=== PATIENT | female | born 1955 | race Caucasian/White ===

== ENCOUNTER → 2017-04-08 | Outpatient (CLI) | payer OTHER ==
--- NOTE | 2017-04-08 09:12 | US ---
EXAMINATION TYPE: US pelvic complete DATE OF EXAM: 04/08/2017 COMPARISON: NONE CLINICAL HISTORY: Abn LFT R94.5. Patient stated uterus and one ovary removed; on meds for thyroid, HT N, depression, allergies TECHNIQUE: Transabdominal (TA) Date of LMP: mid forties EXAM MEASUREMENTS: Uterus: surgically removed Endometrial Stripe: surgically removed Right Ovary: surgically removed Left Ovary: 2.0 x 1.1 x 1.8 cm 1. Uterus: NA 2. Endometrium: NA 3. Right Ovary: NA 4. Left Ovary: appears wnl 5. Bilateral Adnexa: wnl 6. Posterior cul-de-sac: wnl IMPRESSION: No significant abnormality
--- NOTE | 2017-04-08 09:14 | US ---
EXAMINATION TYPE: US abdomen complete DATE OF EXAM: 04/08/2017 COMPARISON: NONE CLINICAL HISTORY: Abn LFT R94.5. Patient stated is on meds for thyroid, HTN, cholesterol, allergies, depression; diabetic (diet controlled) EXAM MEASUREMENTS: Liver Length: 19.5 cm Gallbladder Wall: 0.2 cm CBD: 0.3 cm Spleen: 11.8 cm Right Kidney: 11.9 x 5.7 x 5.8 cm Left Kidney: 11.3 x 6.7 x 5.3 cm Pancreas: hyperechoic Liver: hyperechoic; fatty; enlarged; hypoechoic area (focal sparing) near gallbladder Gallbladder: wnl Evidence for sonographic Maurice's sign: No CBD: wnl Spleen: wnl Right Kidney: lobular appearance; fluid area adjacent to mid lower renal cortex is sonographic "sweat sign" suggesting renal failure and is noted bilateral kidneys Left Kidney: fluid area adjacent to mid and lower renal cortex Upper IVC: limitedly seen at upper IVC Abd Aorta: upper wnl, remainder is gassed out IMPRESSION: 1. Enlarged liver with hepatic steatosis. 2. Correlate for possible renal failure.
== END | disposition home or self-care (01) ==
LOC: RADUSWWP 06:59
PROVIDERS: ATTEND Internal Medicine
DX: K76.0 Fatty (change of) liver, not elsewhere classified (principal); R16.0 Hepatomegaly, not elsewhere classified
CPT/HCPCS: 76700; 76856

== ENCOUNTER → 2017-05-12 | Outpatient (CLI) | payer OTHER ==
[2017-05-12 11:09] LABS: Basophils # (A) 0.1 k/uL (0-0.2); Basophils % (A) 1 %; CH 32.9; CHCM 33.2; Eosinophils # (A) 0.2 k/uL (0-0.7); Eosinophils % (A) 4 %; HCT 39.1 % (34.0-46.0); HDW 2.42; HGB 13.1 gm/dL (11.4-16.0); Luc # (Auto) 0.18; Luc % (Auto) 4; Lymphocytes # (A) 0.6 k/uL (1.0-4.8); Lymphocytes % (A) 13 %; MCH 33.4 pg (25.0-35.0); MCHC 33.5 g/dL (31.0-37.0); MCV 99.5 fL (80.0-100.0); Mean Platelet Volume 6.7; Monocytes # (A) 0.3 k/uL (0-1.0); Monocytes % (A) 6 %; Neutrophils # (A) 3.3 k/uL (1.3-7.7); Neutrophils % (A) 72 %; RBC 3.93 m/uL (3.80-5.40); RDW 12.9 % (11.5-15.5); WBC 4.6 k/uL (3.8-10.6); WBC (Perox) 4.87
[2017-05-12 11:18] LABS: Calcium 10.6 mg/dL (8.4-10.2); Magnesium 1.4 mg/dL (1.6-2.3); Phosphorous 4.4 mg/dL (2.5-4.5); Potassium 4.9 mmol/L (3.5-5.1); Uric Acid 8.9 mg/dL (3.7-7.4)
[2017-05-12 12:15] LABS: Appearance,Urine Clear (Clear); Bilirubin,Urine Negative (Negative); Glucose,Urine (UA) Negative (Negative); Ketones,Urine Negative (Negative); Leukocyte Esterase,Urine Small (Negative); Mucus,Urine Rare /hpf; Nitrite,Urine Negative (Negative); Particle Count 1577; Protein,Urine Negative (Negative); Specific Gravity,Urine 1.012 (1.001-1.035); Squamous Epithelial Cell,Urine 2 /hpf (0-4); UA Billing (MACRO vs. MICRO) MICRO; Urobilinogen,Urine <2.0 mg/dL (<2.0); WBC,Urine 4 /hpf (0-5)
[2017-05-12 15:31] LABS: Iron 64 ug/dL (50-170); Iron Saturation 18.77 (12.00-45.00); Total Iron Binding Capacity 341 ug/dL (228-460)
== END | disposition home or self-care (01) ==
LOC: LABWHC1 10:33
PROVIDERS: ATTEND Internal Medicine Nephrology
DX: D64.9 Anemia, unspecified (principal); E55.9 Vitamin D deficiency, unspecified; N25.81 Secondary hyperparathyroidism of renal origin; M10.9 Gout, unspecified; N39.0 Urinary tract infection, site not specified; N18.3 Chronic kidney disease, stage 3 (moderate)
CPT/HCPCS: 36415; 80048; 81001; 82040; 82306; 82728; 83540; 83550; 83735; 83970; 84100; 84165; 84550; 85025; 86335

== ENCOUNTER → 2017-08-26 | Outpatient (CLI) | payer OTHER ==
[2017-08-26 11:08] LABS: Basophils % (A) 1 %; Eosinophils # (A) 0.1 k/uL (0-0.7); Eosinophils % (A) 1 %; HCT 33.7 % (34.0-46.0); HGB 10.7 gm/dL (11.4-16.0); Lymphocytes # (A) 0.6 k/uL (1.0-4.8); Lymphocytes % (A) 12 %; MCHC 31.9 g/dL (31.0-37.0); MCV 100.5 fL (80.0-100.0); Mean Platelet Volume 7.2; Monocytes # (A) 0.4 k/uL (0-1.0); Monocytes % (A) 7 %; Neutrophils % (A) 76 %; Platelet Count 134 k/uL (150-450); RBC 3.35 m/uL (3.80-5.40); RDW 13.4 % (11.5-15.5); WBC 5.3 k/uL (3.8-10.6)
[2017-08-26 11:35] LABS: Albumin 4.2 g/dL (3.5-5.0); Calcium 9.9 mg/dL (8.4-10.2); Magnesium 1.8 mg/dL (1.6-2.3); Potassium 5.4 mmol/L (3.5-5.1); Total Bilirubin 0.3 mg/dL (0.2-1.3); Total Protein 6.8 g/dL (6.3-8.2); Uric Acid 6.5 mg/dL (3.7-7.4)
[2017-08-26 11:42] LABS: T4, Free (Free Thyroxine) 1.19 ng/dL (0.78-2.19)
[2017-08-26 11:49] LABS: Appearance,Urine Clear (Clear); Bacteria,Urine Rare /hpf; Bilirubin,Urine Negative (Negative); Blood,Urine Negative (Negative); Color,Urine Light Yellow; Glucose,Urine (UA) Negative (Negative); Ketones,Urine Negative (Negative); Leukocyte Esterase,Urine Moderate (Negative); Mucus,Urine Rare /hpf; Nitrite,Urine Negative (Negative); Protein,Urine Negative (Negative); Specific Gravity,Urine 1.011 (1.001-1.035); Squamous Epithelial Cell,Urine 1 /hpf (0-4); Urobilinogen,Urine <2.0 mg/dL (<2.0); WBC,Urine 17 /hpf (0-5)
[2017-08-26 18:20] LABS: Parathyroid Hormone Intact 46.4 pg/mL (14.0-72.0)
== END | disposition home or self-care (01) ==
LOC: LABWHC1 10:09
PROVIDERS: ATTEND Nurse Practitioner Family
DX: E78.00 Pure hypercholesterolemia, unspecified (principal); E03.9 Hypothyroidism, unspecified; N18.3 Chronic kidney disease, stage 3 (moderate); E83.52 Hypercalcemia; M10.9 Gout, unspecified; N39.0 Urinary tract infection, site not specified
CPT/HCPCS: 36415; 80053; 80061; 81001; 83735; 83883; 83970; 84439; 84443; 84550; 85025; 86335

== ENCOUNTER → 2017-12-09 | Outpatient (CLI) | payer OTHER ==
[2017-12-09 10:56] LABS: Albumin 4.7 g/dL (3.5-5.0); Calcium 10.2 mg/dL (8.4-10.2); Potassium 5.4 mmol/L (3.5-5.1); Total Bilirubin 0.3 mg/dL (0.2-1.3); Total Protein 7.1 g/dL (6.3-8.2)
[2017-12-13 15:32] LABS: Alpha 1 Anti-Trypsin 93 mg/dL (90 - 200); Alpha-1-Antitrypsin Phenotype MZ
== END | disposition home or self-care (01) ==
LOC: LABWHC1 10:05
PROVIDERS: ATTEND Internal Medicine Gastroenterology
DX: E11.9 Type 2 diabetes mellitus without complications (principal); R79.89 Other specified abnormal findings of blood chemistry
CPT/HCPCS: 36415; 80053; 82103; 82104; 83036

== ENCOUNTER → 2017-12-28 | Outpatient (CLI) | payer OTHER ==
[2017-12-28 11:53] LABS: Appearance,Urine Cloudy (Clear); Bacteria,Urine Rare /hpf; Bilirubin,Urine Negative (Negative); Blood,Urine Negative (Negative); Color,Urine Yellow; Glucose,Urine (UA) Negative (Negative); Ketones,Urine Negative (Negative); Leukocyte Esterase,Urine Large (Negative); Mucus,Urine Rare /hpf; Nitrite,Urine Negative (Negative); Protein,Urine Negative (Negative); Specific Gravity,Urine 1.012 (1.001-1.035); Squamous Epithelial Cell,Urine 7 /hpf (0-4); Urobilinogen,Urine <2.0 mg/dL (<2.0); WBC,Urine 22 /hpf (0-5)
[2017-12-28 11:56] LABS: HCT 35.6 % (34.0-46.0); HGB 11.9 gm/dL (11.4-16.0); MCH 32.8 pg (25.0-35.0); MCHC 33.5 g/dL (31.0-37.0); MCV 97.9 fL (80.0-100.0); Mean Platelet Volume 7.2; Platelet Count 121 k/uL (150-450); RBC 3.63 m/uL (3.80-5.40); RDW 13.2 % (11.5-15.5); WBC 3.5 k/uL (3.8-10.6)
[2017-12-28 11:58] LABS: Calcium 10.3 mg/dL (8.4-10.2); Magnesium 1.7 mg/dL (1.6-2.3); Potassium 5.1 mmol/L (3.5-5.1); Uric Acid 7.9 mg/dL (3.7-7.4)
[2017-12-28 16:34] LABS: Iron Saturation 19.41 (12.00-45.00)
== END | disposition home or self-care (01) ==
LOC: LABWHC1 11:16
PROVIDERS: ATTEND Nurse Practitioner Family
DX: N39.0 Urinary tract infection, site not specified (principal); E21.3 Hyperparathyroidism, unspecified; M10.9 Gout, unspecified; D64.9 Anemia, unspecified; N18.3 Chronic kidney disease, stage 3 (moderate); R80.9 Proteinuria, unspecified
CPT/HCPCS: 36415; 80048; 81001; 82043; 82570; 82728; 83540; 83550; 83735; 83970; 84550; 85027

== ENCOUNTER → 2018-06-28 | Outpatient (CLI) | payer OTHER ==
[2018-06-28 12:34] LABS: Appearance,Urine Cloudy (Clear); Bacteria,Urine Many /hpf; Bilirubin,Urine Negative (Negative); Blood,Urine Negative (Negative); Color,Urine Yellow; Glucose,Urine (UA) Negative (Negative); Ketones,Urine Negative (Negative); Leukocyte Esterase,Urine Large (Negative); Mucus,Urine Rare /hpf; Nitrite,Urine Negative (Negative); Protein,Urine Trace (Negative); RBC,Urine 9 /hpf (0-5); Specific Gravity,Urine 1.013 (1.001-1.035); Squamous Epithelial Cell,Urine 5 /hpf (0-4); Urobilinogen,Urine <2.0 mg/dL (<2.0); WBC,Urine 37 /hpf (0-5)
[2018-06-28 12:35] LABS: Basophils % (A) 0 %; Eosinophils # (A) 0.1 k/uL (0-0.7); Eosinophils % (A) 2 %; HCT 35.6 % (34.0-46.0); Lymphocytes # (A) 0.6 k/uL (1.0-4.8); Lymphocytes % (A) 14 %; MCH 33.7 pg (25.0-35.0); MCHC 33.6 g/dL (31.0-37.0); MCV 100.3 fL (80.0-100.0); Mean Platelet Volume 7.1; Monocytes # (A) 0.2 k/uL (0-1.0); Monocytes % (A) 5 %; Neutrophils # (A) 3.1 k/uL (1.3-7.7); Neutrophils % (A) 77 %; Platelet Count 100 k/uL (150-450); RBC 3.55 m/uL (3.80-5.40); RDW 13.2 % (11.5-15.5)
[2018-06-28 16:37] LABS: Iron Saturation 21.22 (12.00-45.00)
[2018-06-28 16:46] LABS: Vitamin D 25 Hydroxy 19.8 ng/mL (30.0-100.0)
[2018-06-28 17:12] LABS: Parathyroid Hormone Intact 94.2 pg/mL (14.0-72.0)
[2018-06-28 18:35] LABS: Albumin 4.8 g/dL (3.80-4.90); Albumin/Globulin Ratio 2.67 (1.20-2.10); Calcium 9.4 mg/dL (8.7-10.3); Globulin 1.8 g/dL (2.1-3.7); LDL Cholesterol,Calculated 75.6 mg/dL (0.0-131.0); Magnesium 1.7 mg/dL (1.5-2.4); Phosphorus 4.2 mg/dL (2.4-5.1); Potassium 5.1 mmol/L (3.5-5.5); Total Bilirubin 0.3 mg/dL (0.3-1.2); Total Protein 6.6 g/dL (6.2-8.2); Uric Acid 8.4 mg/dL (2.9-7.7); VLDL Calculation 29.4 mg/dL (5.00-40.00)
[2018-06-28 18:39] LABS: Hemoglobin A1C 5.8 % (4.0-6.0)
[2018-06-28 18:43] LABS: T4, Free (Free Thyroxine) 1.4 ng/dL (0.80-1.80)
== END | disposition home or self-care (01) ==
LOC: LABWHC1 11:23
PROVIDERS: ATTEND Internal Medicine Nephrology
DX: E03.9 Hypothyroidism, unspecified (principal); E78.00 Pure hypercholesterolemia, unspecified; N18.3 Chronic kidney disease, stage 3 (moderate); E11.22 Type 2 diabetes mellitus with diabetic chronic kidney disease; D63.1 Anemia in chronic kidney disease; E55.9 Vitamin D deficiency, unspecified; N25.81 Secondary hyperparathyroidism of renal origin; M10.9 Gout, unspecified; N39.0 Urinary tract infection, site not specified; R94.5 Abnormal results of liver function studies
CPT/HCPCS: 36415; 80053; 80061; 81001; 82306; 82728; 83036; 83540; 83550; 83735; 83970; 84100; 84439; 84443; 84550; 85025

== ENCOUNTER → 2018-10-25 | Outpatient (CLI) | payer OTHER ==
[2018-10-25 16:44] LABS: Basophils # (A) 0.1 k/uL (0-0.2); Basophils % (A) 1 %; Eosinophils # (A) 0.1 k/uL (0-0.7); Eosinophils % (A) 2 %; HCT 36.5 % (34.0-46.0); Lymphocytes # (A) 0.5 k/uL (1.0-4.8); Lymphocytes % (A) 10 %; MCH 32.8 pg (25.0-35.0); MCHC 32.9 g/dL (31.0-37.0); MCV 99.7 fL (80.0-100.0); Mean Platelet Volume 7.4; Monocytes # (A) 0.3 k/uL (0-1.0); Monocytes % (A) 6 %; Neutrophils # (A) 4.1 k/uL (1.3-7.7); Neutrophils % (A) 79 %; Platelet Count 118 k/uL (150-450); RBC 3.66 m/uL (3.80-5.40); RDW 12.7 % (11.5-15.5); WBC 5.2 k/uL (3.8-10.6)
[2018-10-25 16:52] LABS: Appearance,Urine Clear (Clear); Bacteria,Urine Occasional /hpf; Bilirubin,Urine Negative (Negative); Blood,Urine Negative (Negative); Color,Urine Light Yellow; Glucose,Urine (UA) Negative (Negative); Ketones,Urine Negative (Negative); Leukocyte Esterase,Urine Moderate (Negative); Mucus,Urine Rare /hpf; Nitrite,Urine Negative (Negative); Protein,Urine Trace (Negative); RBC,Urine 2 /hpf (0-5); Specific Gravity,Urine 1.011 (1.001-1.035); Squamous Epithelial Cell,Urine 2 /hpf (0-4); Urobilinogen,Urine <2.0 mg/dL (<2.0); WBC,Urine 17 /hpf (0-5)
[2018-10-26 01:35] LABS: Albumin 4.8 g/dL (3.80-4.90); Anion Gap 10.6 mmol/L (4.00-12.00); Calcium 9.7 mg/dL (8.7-10.3); Carbon Dioxide 20.4 mmol/L (21.6-31.8); Magnesium 1.7 mg/dL (1.5-2.4); Phosphorus 3.8 mg/dL (2.4-5.1); Potassium 5.5 mmol/L (3.5-5.5); Uric Acid 7.7 mg/dL (2.9-7.7)
[2018-10-26 03:18] LABS: Parathyroid Hormone Intact 89.2 pg/mL (14.0-72.0)
[2018-10-26 03:41] LABS: Iron Saturation 33.05 (12.00-45.00)
[2018-10-26 03:48] LABS: Vitamin D 25 Hydroxy 49.7 ng/mL (30.0-100.0)
== END | disposition home or self-care (01) ==
LOC: LABWHC1 16:14
PROVIDERS: ATTEND Nurse Practitioner Family
DX: N18.3 Chronic kidney disease, stage 3 (moderate) (principal); D63.1 Anemia in chronic kidney disease; E55.9 Vitamin D deficiency, unspecified; E21.3 Hyperparathyroidism, unspecified; M10.9 Gout, unspecified; N39.0 Urinary tract infection, site not specified
CPT/HCPCS: 36415; 80048; 81001; 82040; 82306; 82728; 83540; 83550; 83735; 83970; 84100; 84550; 85025

== ENCOUNTER → 2019-01-04 | Outpatient (CLI) | payer OTHER ==
[2019-01-05 01:03] LABS: Albumin 4.5 g/dL (3.80-4.90); Albumin/Globulin Ratio 2.25 (1.60-3.17); Anion Gap 15.3 mmol/L (4.00-12.00); Calcium 9.4 mg/dL (8.7-10.3); Carbon Dioxide 21.7 mmol/L (21.6-31.8); Potassium 5.2 mmol/L (3.5-5.5); Total Bilirubin 0.5 mg/dL (0.2-1.2); Total Protein 6.5 g/dL (6.2-8.2)
== END ==
LOC: LABWHC1 14:43
PROVIDERS: ATTEND Internal Medicine Gastroenterology
DX: K76.0 Fatty (change of) liver, not elsewhere classified (principal)
CPT/HCPCS: 36415; 80053

== ENCOUNTER → 2019-02-28 | Outpatient (CLI) | payer OTHER ==
[2019-02-28 16:40] LABS: Basophils % (A) 1 %; Eosinophils # (A) 0.1 k/uL (0-0.7); Eosinophils % (A) 2 %; HCT 36.1 % (34.0-46.0); HGB 11.8 gm/dL (11.4-16.0); Lymphocytes # (A) 0.6 k/uL (1.0-4.8); Lymphocytes % (A) 11 %; MCH 32.7 pg (25.0-35.0); MCHC 32.8 g/dL (31.0-37.0); MCV 99.7 fL (80.0-100.0); Mean Platelet Volume 7.6; Monocytes # (A) 0.2 k/uL (0-1.0); Monocytes % (A) 5 %; Neutrophils # (A) 4.1 k/uL (1.3-7.7); Neutrophils % (A) 80 %; Platelet Count 117 k/uL (150-450); RBC 3.62 m/uL (3.80-5.40); RDW 13.6 % (11.5-15.5); WBC 5.1 k/uL (3.8-10.6)
[2019-02-28 18:15] LABS: Appearance,Urine Cloudy (Clear); Bacteria,Urine Moderate /hpf; Bilirubin,Urine Negative (Negative); Blood,Urine Negative (Negative); Color,Urine Yellow; Glucose,Urine (UA) Negative (Negative); Ketones,Urine Negative (Negative); Leukocyte Esterase,Urine Large (Negative); Mucus,Urine Rare /hpf; Nitrite,Urine Negative (Negative); Protein,Urine Trace (Negative); RBC,Urine 3 /hpf (0-5); Specific Gravity,Urine 1.014 (1.001-1.035); Squamous Epithelial Cell,Urine 2 /hpf (0-4); Urobilinogen,Urine <2.0 mg/dL (<2.0); WBC,Urine 62 /hpf (0-5)
[2019-02-28 23:00] LABS: Iron Saturation 50.93 (12.00-45.00)
[2019-02-28 23:08] LABS: Vitamin D 25 Hydroxy 49.7 ng/mL (30.0-100.0)
[2019-02-28 23:17] LABS: Magnesium 1.6 mg/dL (1.5-2.4)
[2019-02-28 23:18] LABS: African American GFR (CKD) 39.6 (60.0-200.0); Albumin 4.6 g/dL (3.80-4.90); Anion Gap 11.8 mmol/L (4.00-12.00); BUN/Creat Ratio 33.13 Ratio (12.00-20.00); Calcium 9.7 mg/dL (8.7-10.3); Carbon Dioxide 21.2 mmol/L (21.6-31.8); Phosphorus 3.6 mg/dL (2.4-5.1); Potassium 5.9 mmol/L (3.5-5.5)
[2019-03-01 01:00] LABS: Parathyroid Hormone Intact 117.5 pg/mL (14.0-72.0)
== END | disposition home or self-care (01) ==
LOC: LABWHC1 15:13
PROVIDERS: ATTEND Nurse Practitioner Family
DX: E55.9 Vitamin D deficiency, unspecified (principal); E21.3 Hyperparathyroidism, unspecified; M10.9 Gout, unspecified; N39.0 Urinary tract infection, site not specified; N18.3 Chronic kidney disease, stage 3 (moderate); D63.1 Anemia in chronic kidney disease
CPT/HCPCS: 36415; 80048; 81001; 82040; 82306; 82728; 83540; 83550; 83735; 83970; 84100; 84550; 85025

== ENCOUNTER 2020-07-19 18:33 | Inpatient (IN) | payer OTHER ==
--- NOTE | 2020-07-19 19:26 | ED ---
Chest Pain HPI - General Source: patient, EMS Mode of arrival: EMS Limitations: no limitations <Monae Avitia - Last Filed: 07/19/20 22:11> <Honey Morganah Nenita - Last Filed: 07/20/20 22:47> - General Chief Complaint: Chest Pain Stated Complaint: SOB Time Seen by Provider: 07/19/20 18:46 - History of Present Illness Initial Comments: Patient is a 65-year-old female, with history of alcohol abuse, retention, presenting to emergency Department with complaints of chest pain or shortness of breath that started about noon today. Patient states she was sitting watching TV when she started to feel short of breath and also had some chest pain. She states over the past few hours the pain has gotten worse. She states in the EMS her chest pain was 7/10, she was given 2 nitros and a full-strength aspirin, did decrease her pain to 2/10. Patient denies history of A. fib, she is not on blood thinners. She admits to history of daily alcohol abuse, drinks a big glass of vodka and squirt every night. She denies any alcohol today. She states for the past week she has had sinus congestion and pressure, mild head ache. She denies any fever, chills. She states she has a mild cough in the morning but this is normal for her. She uses a CPAP machine at night, no oxygen. Denies history of COPD, was a previous smoker 20 years ago. Patient denies any recent changes in her medications. She has no further complaints at this time. Upon arrival to the ER, she is hypertensive at 177/110, 96% on 2 L, rest of vitals are normal. She did take her normal medications this morning. (Monae Avitia) - Related Data Home Medications Medication Instructions Recorded Confirmed Aspirin [Adult Low Dose Aspirin EC] 81 mg PO DAILY 07/19/20 07/19/20 Cetirizine HCl [Zyrtec] 10 mg PO HS 07/19/20 07/19/20 Citalopram Hydrobromide 20 mg PO HS 07/19/20 07/19/20 [Citalopram HBr] Enalapril Maleate [Vasotec] 10 mg PO HS 07/19/20 07/19/20 Ergocalciferol [Vitamin D2 50,000 unit PO WE 07/19/20 07/19/20 (DRISDOL)] Fluticasone Nasal [place] [Flonase 1 spray EA NOSTRIL HS 07/19/20 07/19/20 Nasal [place]] Glucosamine Sulfate 1,000 mg PO DAILY 07/19/20 07/19/20 Levothyroxine Sodium [Synthroid] 75 mcg PO DAILY 07/19/20 07/19/20 Lovastatin [Mevacor] 10 mg PO HS 07/19/20 07/19/20 Lysine [l-Lysine] 500 mg PO BID 07/19/20 07/19/20 Multivitamins, Thera [Multivitamin 1 tab PO DAILY 07/19/20 07/19/20 (formulary)] Sodium Bicarbonate 325 mg PO TID 07/19/20 07/19/20 Ubidecarenone [Co Q-10] 100 mg PO W/SUPPER 07/19/20 07/19/20 Vitamin E 400 unit PO W/SUPPER 07/19/20 07/19/20 hydrALAZINE HCL 25 mg PO BID 07/19/20 07/19/20 Allergies Allergy/AdvReac Type Severity Reaction Status Date / Time meperidine [From Demerol] AdvReac Swelling Verified 07/19/20 21:14 Review of Systems ROS Other: All systems not noted in ROS Statement are negative. <Monae Avitia - Last Filed: 07/19/20 22:11> ROS Other: All systems not noted in ROS Statement are negative. <Cassidy Morgan - Last Filed: 07/20/20 22:47> ROS Statement: Those systems with pertinent positive or pertinent negative responses have been documented in the HPI. EKG Findings - EKG Comments: EKG Findings:: EKG 18:44- shows A. fib with PVC, nonspecific ST-T wave abnormalities, no signs of acute ischemia. Ventricular rate 93, QRS duration 86, QT 342. Repeat EKG at 19:23- shows sinus tach otherwise normal ECGs, no signs of acute ischemia. Ventricular rate 108, IN interval 208, QT 320. <Monae Avitia - Last Filed: 07/19/20 22:11> Past Medical History Past Medical History: Chest Pain / Angina, Diabetes Mellitus, Hyperlipidemia, Hypertension, Renal Disease, Sleep Apnea/CPAP/BIPAP History of Any Multi-Drug Resistant Organisms: None Reported Past Surgical History: Hysterectomy, Orthopedic Surgery Additional Past Surgical History / Comment(s): RIGHT ANKLE SURGERY Past Psychological History: No Psychological Hx Reported Smoking Status: Former smoker Past Alcohol Use History: Daily, Heavy Past Drug Use History: None Reported <Monae Avitia - Last Filed: 07/19/20 22:11> General Exam Limitations: no limitations <Monae Avitia - Last Filed: 07/19/20 22:11> - General Exam Comments Initial Comments: GENERAL: Patient is well-developed and well-nourished. Patient is nontoxic and in no acute distress. HEAD: Atraumatic, normocephalic. EYES: Pupils equal round and reactive to light, extraocular movements intact, sclera anicteric, conjunctiva are normal. Eyelids were unremarkable. ENT: TMs normal, nares patent, oropharynx clear without exudates. Moist mucous membranes. NECK: Normal range of motion, supple without lymphadenopathy or JVD. LUNGS: Unlabored respirations. Breath sounds clear to auscultation bilaterally and equal. No wheezes rales or rhonchi. HEART: Regular rate and rhythm without murmurs, rubs or gallops. ABDOMEN: Soft, nontender, normoactive bowel sounds. No guarding, no rebound. No masses appreciated. : Deferred MUSCULOSKELETAL: Normal extremities with adequate strength and normal range of motion, no pitting or edema. No clubbing or cyanosis. NEUROLOGICAL: Patient is alert and oriented x 3. Motor and sensory are also intact. Cranial nerves II through XII grossly intact. Symmetrical smile. Normal speech, normal gait. PSYCH: Normal mood, normal affect. SKIN: Warm, Dry, normal turgor, no rashes or lesions noted. (Monae Avitia) Course Vital Signs 07/19/20 07/19/20 07/19/20 18:35 21:06 22:54 Temperature 98.7 F 98.9 F Pulse Rate 85 90 Pulse Rate [ 100 Pulse Oximetery ] Respiratory 22 18 22 Rate Blood Pressure 177/110 181/97 Blood Pressure 150/100 [Left Arm Sitting] O2 Sat by Pulse 96 98 93 L Oximetry 07/20/20 07/20/20 07/20/20 02:00 04:00 08:00 Temperature 98.6 F Pulse Rate Pulse Rate [ 100 95 85 Pulse Oximetery ] Respiratory 22 20 22 Rate Blood Pressure Blood Pressure 146/88 168/97 [Left Arm Sitting] O2 Sat by Pulse 93 L 99 Oximetry 07/20/20 07/20/20 12:00 15:49 Temperature 97.6 F 98.6 F Pulse Rate Pulse Rate [ 90 91 Pulse Oximetery ] Respiratory 22 22 Rate Blood Pressure Blood Pressure 176/90 161/87 [Left Arm Sitting] O2 Sat by Pulse 96 98 Oximetry Chest Pain [facility] <Monae Avitia - Last Filed: 07/19/20 22:11> <Cassidy Morgan - Last Filed: 07/20/20 22:47> - [facility] Patient is a 65-year-old female here for chest pain, shortness of breath that started a few hours prior to arrival. She did received 2 nitros and aspirin in the EMS prior to arrival, this did improve her symptoms. Initial EKG showed A. fib with PVC, nonspecific ST abnormalities. EKG was repeated and the repeat EKG showed sinus tach, no signs of acute ischemia. Labs show a normal white count, hemoglobin stable at 10, INR is 1.3. Kidney function is stable with creatinine 1.49, troponin elevated at 0.067, serum alcohol is normal, covert test is not detected. Chest x-ray shows mild congestive heart failure. We did do a CT angios to rule out a PE, there is no evidence of acute PE. Patient will be admitted for elevated troponin, chest pain, nstemi, started on heparin low-dose drip. Patient accepted by Dr. Rolon, cardiac consult. Patient is agreeable with this plan of care. Case discussed with Dr. Morgan. (Monae Avitia) I was available for consultation in the emergency department. The history and physical exam were done by the midlevel provider. I was consulted for this patients care. I reviewed the case with the midlevel provider and based on their presentation of the patient, I agree with the assessment, medical decision making and plan of care as documented. Chart was dictated using [employer] dictation software. Attempts were made to correct any dictation errors however some typographical errors may persist. Patient seen during Covid-19 pandemic. (Cassidy Morgan) Critical Care Time Critical Care Time: Yes Total Critical Care Time: 35 (Patient arrived chest pain, shortness of breath, improvement after nitro. EKG showed no signs of acute ischemia, troponin did come back elevated, patient started on heparin drip, patient admitted.) <Monae Avitia - Last Filed: 07/19/20 22:11> Disposition Decision Date: 07/19/20 Decision Time: 21:30 <Monae Avitia - Last Filed: 07/19/20 22:11> <Cassidy Morgan - Last Filed: 07/20/20 22:47> Clinical Impression: Chest pain, Elevated troponin Disposition: ADMITTED IP TO THIS HOSP Condition: Stable
[2020-07-19 19:43] LABS: Basophils % (A) 1 %; Eosinophils # (A) 0.1 k/uL (0-0.7); Eosinophils % (A) 2 %; Lymphocytes # (A) 0.5 k/uL (1.0-4.8); Lymphocytes % (A) 10 %; MCHC 33.2 g/dL (31.0-37.0); MCV 99.2 fL (80.0-100.0); Mean Platelet Volume 7.4; Monocytes # (A) 0.3 k/uL (0-1.0); Monocytes % (A) 6 %; Neutrophils # (A) 3.7 k/uL (1.3-7.7); Neutrophils % (A) 80 %; RBC 3.02 m/uL (3.80-5.40); WBC 4.6 k/uL (3.8-10.6)
[2020-07-19 19:49] LABS: ALT 35 U/L (4-34); AST 202 U/L (14-36); African American GFR (CKD) 43 (>60 ml/min/1.73 sqM); Albumin 4.2 g/dL (3.5-5.0); Alcohol <10 mg/dL; Alkaline Phosphatase 256 U/L (38-126); Anion Gap 14 mmol/L; Blood Urea Nitrogen 33 mg/dL (7-17); Calcium 9.3 mg/dL (8.4-10.2); Carbon Dioxide 17 mmol/L (22-30); Chloride 108 mmol/L (98-107); Glucose 130 mg/dL (74-99); Magnesium 1.3 mg/dL (1.6-2.3); Non-African American GFR(CKD) 37 (>60 ml/min/1.73 sqM); Sodium 139 mmol/L (137-145); Total Bilirubin 1.2 mg/dL (0.2-1.3); Total Protein 7.3 g/dL (6.3-8.2)
[2020-07-19 19:54] LABS: Platelet Count 92 k/uL (150-450)
[2020-07-19 20:07] LABS: INR 1.3 (<1.2); Prothrombin Time 12.7 sec (9.0-12.0)
--- NOTE | 2020-07-19 20:17 | XR ---
EXAMINATION TYPE: XR chest 2V DATE OF EXAM: 07/19/2020 COMPARISON: NONE HISTORY: Chest pain TECHNIQUE: 2 views FINDINGS: Heart is enlarged. There is mild pulmonary vascular congestion. There is slight blunting of the costophrenic angles. Bony thorax is intact. IMPRESSION: Mild congestive heart failure.
[2020-07-19 20:18] LABS: Partial Thromboplastin Time 19.9 sec (22.0-30.0)
[2020-07-19] MEDS ORDERED: SODIUM CHLORIDE 0.9% 500 ML 500 ML IV STA (20:30)
--- NOTE | 2020-07-19 21:01 | CT ---
EXAMINATION TYPE: CT chest angio for PE DATE OF EXAM: 07/19/2020 COMPARISON: HISTORY: Shortness of breath. CT DLP: 692.3 mGycm Automated exposure control for dose reduction was used. CONTRAST: Performed with IV Contrast, patient injected with 80 mL of Isovue 370. There are 3-D post processed i mages. There are bilateral pleural effusions. Heart is slightly enlarged. There is no pericardial effusion. There is diffuse pulmonary interstitial edema. I see no filling defects in the pulmonary arteries. There are no hilar masses. There is no mediastina l adenopathy. There are a few paratracheal lymph nodes that measure up to 1 cm. Thoracic aorta shows no aneurysm or dissection. Bony thorax is intact. IMPRESSION: No evidence of pulmonary embolism. Pulmonary edema with pleural fluid and cardiomegaly consistent with chronic congestive heart failure.
[2020-07-19] MEDS ORDERED: NITROGLYCERIN SL TABS 0.4 MG TAB SUBLINGUAL PRN (21:25)
[2020-07-19] MEDS ORDERED: HEPARIN SODIUM,PORCINE 5,000 UNIT/ML 1 ML VIAL IV ONE (21:30)
[2020-07-19] MEDS ORDERED: HEPARIN SODIUM,PORCINE 5,000 UNIT/ML 1 ML VIAL IV PRN (21:30)
[2020-07-19] MEDS: HEPARIN SOD,PORK IN 0.45% NACL 25,000 UNIT in 0.45% NACL 1 250ML.BAG IV SCH (22:31)
[2020-07-19] MEDS: ATORVASTATIN 10 MG TAB PO SCH (23:17)
[2020-07-19] MEDS: CITALOPRAM HYDROBROMIDE 20 MG TAB PO SCH (23:17)
[2020-07-19] MEDS: hydrALAZINE HCL 25 MG TAB PO SCH (23:17)
[2020-07-19] MEDS ORDERED: ONDANSETRON 4 MG/2 ML VIAL IVP PRN (23:22)
[2020-07-20 06:58] LABS: Glucose,Whole Blood 142 mg/dL (75-99)
[2020-07-20] MEDS: INSULIN ASPART (NovoLOG) 100 UNIT/ML VIAL SQ SCH ×4 (07:19→23:18)
[2020-07-20] MEDS: LEVOTHYROXINE 75 MCG TAB PO SCH (07:19)
[2020-07-20] MEDS: ASPIRIN 81 MG PO SCH (08:37)
[2020-07-20] MEDS: hydrALAZINE HCL 25 MG TAB PO SCH ×2 (08:37→20:13)
[2020-07-20] MEDS ORDERED: ASPIRIN 325 MG TAB PO SCH (09:00)
[2020-07-20 11:29] LABS: Basophils % (A) 1 %; Eosinophils % (A) 1 %; HGB 8.8 gm/dL (11.4-16.0); Lymphocytes # (A) 0.3 k/uL (1.0-4.8); Lymphocytes % (A) 9 %; MCH 31.8 pg (25.0-35.0); MCHC 32.5 g/dL (31.0-37.0); MCV 97.7 fL (80.0-100.0); Mean Platelet Volume 7.7; Monocytes # (A) 0.4 k/uL (0-1.0); Monocytes % (A) 9 %; Neutrophils # (A) 2.9 k/uL (1.3-7.7); Neutrophils % (A) 79 %; RBC 2.76 m/uL (3.80-5.40); RDW 14.8 % (11.5-15.5); WBC 3.7 k/uL (3.8-10.6)
[2020-07-20 11:50] LABS: Anisocytosis (M) Present; Hypochromasia (M) Present; Platelet Count 64 k/uL (150-450)
[2020-07-20 11:51] LABS: Glucose,Whole Blood 154 mg/dL (75-99)
[2020-07-20 11:58] LABS: Cholesterol 132 mg/dL (<200); HDL Cholesterol 71 mg/dL (40-60); LDL Cholesterol,Calculated 44 mg/dL (0-99); Triglycerides 85 mg/dL (<150)
[2020-07-20] MEDS ORDERED: FUROSEMIDE 10 MG/ML 2 ML VIAL IV STA (12:33)
--- NOTE | 2020-07-20 12:42 | P.CRDCN ---
History of Present Illness Consult date: 07/20/20 History of present illness: CHIEF COMPLAINT: chest pain HISTORY OF PRESENT ILLNESS: This is a 65-year old female with a past medical history significant for hypertension, hyperlipidemia, diabetes mellitus, and daily alcohol use. 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 We have been asked to see the patient in consultation for chest pain. Patient examined this morning at the bedside in the emergency room. Patient states she has been feeling unwell since Thanksgiving. She states her sister and [id number] have Covid. She reports over the past week she has been feeling short of breath. She reports nausea and vomiting and diarrhea. She reports discomfort underneath both breasts. She denies any radiation of the pain. DIAGNOSTICS: EKG reveals sinus tachycardia Chest xray mild congestive heart failure CTA: negative for PE. Pulmonary edema and pleural fluid. Cardiomegaly. Laboratory data: WBC 3.7. Hemoglobin 8.8. Platelet count 64. sodium 139. Potassium 5.0. B UN 33. Creatinine 1.49. Troponin 0.067. 0.077. 0.114. Current home cardiac medications include aspirin 81 mg daily, hydralazine 25 mgBID, Vasotec 10 mg daily. REVIEW OF SYSTEMS: At the time of my exam: CONSTITUTIONAL: Denies fever or chills. HEENT: Denies blurred vision, vision changes, or eye pain. Denies hemoptysis CARDIOVASCULAR: Denies chest pain, orthopnea, PND or palpitations RESPIRATORY: No shortness of breath. GASTROINTESTINAL: Denies abdominal pain. Denies nausea or vomiting. HEMATOLOGIC: Denies bleeding disorders. GENITOURINARY: Denies any blood in urine. SKIN: Denies pruitis. Denies rash. PHYSICAL EXAM: VITAL SIGNS: Reviewed. GENERAL: Well-developed who appears short of breath during examination HEENT: Head is normocephalic. Pupils are equal, round. Sclerae anicteric. Mucous membranes of the mouth are moist. Neck supple. No JVD or thyromegaly LUNGS: Respirations even and unlabored. Lungs diminished with rales to bilateral bases HEART: Regular rate and rhythm. S1 and S2 heard. ABDOMEN: Soft. Nondistended. Nontender. EXTREMITIES: Normal range of motion. No clubbing or cyanosis. Peripheral pulses intact. 1+ bilateral lower extremity edema NEUROLOGIC: Awake and alert. Oriented x 3. ASSESSMENT: Chest pain, atypical for ACS Abnormal troponins Shortness of breath Hypertension Hyperlipidemia Daily alcohol use Sleep apnea, patient uses CPAP at night PLAN: EKGs reviewed from the ER with Dr. Elizalde. No evidence of atrial fibrillation. Resume home cardiac medications Lasix 20mg IVP x 1 dose. Check BNP. Begin metoprolol succinate 25 mg daily Continue IV Heparin Patients symptoms very consistent with Covid 19. Patient has been exposed to family members with Covid. Rapid test negative, however not always accurate. Recommend testing for Covid by PCR Further recommendations pending patient course Nurse practitioner note has been reviewed by physician. Signing provider agrees with the documented findings, assessment, and plan of care. Past Medical History Past Medical History: Chest Pain / Angina, Diabetes Mellitus, Hyperlipidemia, Hypertension, Renal Disease, Sleep Apnea/CPAP/BIPAP History of Any Multi-Drug Resistant Organisms: None Reported Past Surgical History: Hysterectomy, Orthopedic Surgery Additional Past Surgical History / Comment(s): RIGHT ANKLE SURGERY Past Psychological History: No Psychological Hx Reported Smoking Status: Never smoker Past Alcohol Use History: Daily, Heavy Past Drug Use History: None Reported Medications and Allergies Home Medications Medication Instructions Recorded Confirmed Type Aspirin [Adult Low Dose Aspirin EC] 81 mg PO DAILY 07/19/20 07/19/20 History Cetirizine HCl [Zyrtec] 10 mg PO HS 07/19/20 07/19/20 History Citalopram Hydrobromide 20 mg PO HS 07/19/20 07/19/20 History [Citalopram HBr] Enalapril Maleate [Vasotec] 10 mg PO HS 07/19/20 07/19/20 History Ergocalciferol [Vitamin D2 50,000 unit PO WE 07/19/20 07/19/20 History (DRISDOL)] Fluticasone Nasal [place] [Flonase 1 spray EA NOSTRIL HS 07/19/20 07/19/20 History Nasal [place]] Glucosamine Sulfate 1,000 mg PO DAILY 07/19/20 07/19/20 History Levothyroxine Sodium [Synthroid] 75 mcg PO DAILY 07/19/20 07/19/20 History Lovastatin [Mevacor] 10 mg PO HS 07/19/20 07/19/20 History Lysine [l-Lysine] 500 mg PO BID 07/19/20 07/19/20 History Multivitamins, Thera [Multivitamin 1 tab PO DAILY 07/19/20 07/19/20 History (formulary)] Sodium Bicarbonate 325 mg PO TID 07/19/20 07/19/20 History Ubidecarenone [Co Q-10] 100 mg PO W/SUPPER 07/19/20 07/19/20 History Vitamin E 400 unit PO W/SUPPER 07/19/20 07/19/20 History hydrALAZINE HCL 25 mg PO BID 07/19/20 07/19/20 History Allergies Allergy/AdvReac Type Severity Reaction Status Date / Time meperidine [From Demerol] AdvReac Swelling Verified 07/19/20 21:14 Physical Exam Vitals: Vital Signs Temp Pulse Pulse Resp BP BP Pulse Ox 07/20/20 08:00 98.6 F 85 22 168/97 99 07/20/20 04:00 95 20 146/88 93 L 07/20/20 02:00 100 22 07/19/20 22:54 98.9 F 100 22 150/100 93 L 07/19/20 21:06 90 18 181/97 98 07/19/20 18:35 98.7 F 85 22 177/110 96 Intake and Output 07/19/20 07/20/20 07/20/20 22:59 06:59 14:59 Intake Total 58.5 110.585 Output Total 550 Balance -491.5 110.585 Intake: Intake, IV Titration 58.5 110.585 Amount Heparin Sod,Pork in 0.45% 58.5 110.585 NaCl 25,000 unit In 0.45 % NaCl 1 250ml.bag @ 6. 7835 UNITS/KG/HR 10 mls/ hr IV .Q24H [facility] Rx#: [id number] Output: Urine 550 Other: # Voids 4 Weight 147.418 kg Results 07/20/20 10:50 07/19/20 19:28 Cardiac Enzymes 07/19/20 07/19/20 07/19/20 Range/Units 19:28 19:28 22:34 AST 202 H (14-36) U/L Troponin I 0.067 H* 0.077 H* (0.000-0.034) ng/mL 07/20/20 Range/Units 01:35 AST (14-36) U/L Troponin I 0.114 H* (0.000-0.034) ng/mL Coagulation 07/19/20 07/20/20 07/20/20 Range/Units 19:28 03:36 10:50 PT 12.7 H (9.0-12.0) sec APTT 19.9 L 31.9 H 28.1 (22.0-30.0) sec Lipids 07/20/20 Range/Units 10:50 Triglycerides 85 (<150) mg/dL Cholesterol 132 (<200) mg/dL HDL Cholesterol 71 H (40-60) mg/dL CBC 07/19/20 07/20/20 Range/Units 19:28 10:50 WBC 4.6 3.7 L (3.8-10.6) k/uL RBC 3.02 L 2.76 L (3.80-5.40) m/uL Hgb 10.0 L 8.8 L (11.4-16.0) gm/dL Hct 30.0 L 27.0 L (34.0-46.0) % Plt Count 92 L 64 L (150-450) k/uL Comprehensive Metabolic Panel 07/19/20 Range/Units 19:28 Sodium 139 (137-145) mmol/L Potassium 5.0 (3.5-5.1) mmol/L Chloride 108 H (98-107) mmol/L Carbon Dioxide 17 L (22-30) mmol/L BUN 33 H (7-17) mg/dL Creatinine 1.49 H (0.52-1.04) mg/dL Glucose 130 H (74-99) mg/dL Calcium 9.3 (8.4-10.2) mg/dL AST 202 H (14-36) U/L ALT 35 H (4-34) U/L Alkaline Phosphatase 256 H (38-126) U/L Total Protein 7.3 (6.3-8.2) g/dL Albumin 4.2 (3.5-5.0) g/dL Current Medications Generic Name Dose Route Start Last Admin Trade Name Freq PRN Reason Stop Dose Admin Aspirin 325 mg 07/20/20 09:00 07/20/20 08:31 Aspirin 325 Mg Tab PO Not Given DAILY [facility] Aspirin 81 mg 07/20/20 09:00 07/20/20 08:37 Aspirin 81 Mg PO 81 mg DAILY [facility] Administration Atorvastatin Calcium 10 mg 07/19/20 22:30 07/19/20 23:17 Atorvastatin 10 Mg Tab PO 10 mg HS [facility] Administration Citalopram Hydrobromide 20 mg 07/19/20 22:30 07/19/20 23:17 Citalopram Hydrobromide 20 Mg Tab PO 20 mg HS [facility] Administration Heparin Sodium (Porcine) 0 unit 07/19/20 21:30 07/20/20 12:00 Heparin Sodium,Porcine 5,000 Unit/Ml 1 Ml Vial IV 4,000 unit PER PROTOCOL PRN Administration Low PTT Protocol Hydralazine HCl 25 mg 07/19/20 22:30 07/20/20 08:37 Hydralazine Hcl 25 Mg Tab PO 25 mg BID [facility] Administration Heparin Sodium/Sodium Chloride 250 mls @ 10 mls/hr 07/19/20 21:30 07/20/20 12:02 25,000 unit/ Sodium Chloride IV 12 units/kg/hr .Q24H [facility] 17.69 mls/hr Titration Protocol 6.7835 UNITS/KG/HR Insulin Aspart 0 unit 07/20/20 07:30 07/20/20 07:19 Insulin Aspart (Novolog) 100 Unit/Ml Vial SQ Not Given ACHS [facility] Protocol Levothyroxine Sodium 75 mcg 07/20/20 07:30 07/20/20 07:19 Levothyroxine 75 Mcg Tab PO Not Given DAILY@0730 [facility] Loratadine 10 mg 07/20/20 21:00 Loratadine 10 Mg Tab PO HS [facility] Metoprolol Succinate 25 mg 07/20/20 21:00 Metoprolol Succinate (Er) 25 Mg Tab.Er.24h PO HS [facility] Nitroglycerin 0.4 mg 07/19/20 21:25 Nitroglycerin Sl Tabs 0.4 Mg Tab SUBLINGUAL Q5M PRN Chest Pain Ondansetron HCl 4 mg 07/19/20 23:22 Ondansetron 4 Mg/2 Ml Vial IVP Q6HR PRN Nausea And Vomiting Intake and Output 07/19/20 07/20/20 07/20/20 22:59 06:59 14:59 Intake Total 58.5 110.585 Output Total 550 Balance -491.5 110.585 Intake: Intake, IV Titration 58.5 110.585 Amount Heparin Sod,Pork in 0.45% 58.5 110.585 NaCl 25,000 unit In 0.45 % NaCl 1 250ml.bag @ 6. 7835 UNITS/KG/HR 10 mls/ hr IV .Q24H [facility] Rx#: [id number] Output: Urine 550 Other: # Voids 4 Weight 147.418 kg 07/20/20 10:50 07/19/20 19:28
[2020-07-20 14:55] LABS: HGB 9.2 gm/dL (11.4-16.0); MCH 32.1 pg (25.0-35.0); MCHC 31.7 g/dL (31.0-37.0); MCV 101.3 fL (80.0-100.0); Macrocytosis Slight; Mean Platelet Volume 7.9; RBC 2.87 m/uL (3.80-5.40); RDW 14.8 % (11.5-15.5); WBC 3.7 k/uL (3.8-10.6)
[2020-07-20 14:57] LABS: Platelet Count 63 k/uL (150-450)
--- NOTE | 2020-07-20 15:00 | ECHOF ---
Referral Reason:chest pain MEASUREMENTS -------- HEIGHT: 172.7 cm WEIGHT: 147.4 kg BP: 146/88 RVIDd: 4.6 cm (< 3.3) IVSd: 1.4 cm (0.6 - 1.1) LVIDd: 5.5 cm (3.9 - 5.3) LVPWd: 1.7 cm (0.6 - 1.1) IVSs: 1.9 cm LVIDs: 4.3 cm LVPWs: 1.8 cm LAESV Index (A-L): 41.88 ml/m Ao Diam: 2.7 cm (2.0 - 3.7) AV Cusp: 2.1 cm (1.5 - 2.6) LA Diam: 5.3 cm (2.7 - 3.8) MV EXCURSION: 18.991 mm (> 18.000) MV EF SLOPE: 121 mm/s (70 - 150) EPSS: 1.3 cm MV E Chidi: 1.27 m/s MV DecT: 157 ms MV A Chidi: 0.95 m/s MV E/A Ratio: 1.33 RAP: 5.00 mmHg RVSP: 64.90 mmHg FINDINGS -------- Sinus rhythm. This was a technically difficult study with suboptimal apical views. The left ventricle is mildly dilated. There is moderate concentric left ventricular hypertrophy. Overall left ventricular systolic function is mild-moderately impaired with, an EF between 40 - 45 %. Increased Lap Grade II Diastolic Dysfunction. Global hypokinesis The right ventricle is moderate to severely enlarged. LA is severely dilated >40 ml/m2 The right atrium is moderately enlarged. 5.0mg of Lumason was utilized for enhancement of images Interatrial and interventricular septum intact. The aortic valve is trileaflet and appears structurally normal. There is mild aortic valve sclerosi s. There is no evidence of aortic regurgitation. There is no evidence of aortic stenosis. [id number] mitral regurgitation is present. Severe tricuspid regurgitation present. There is severe pulmonary hypertension. The right ventric ular systolic pressure, as measured by Doppler, is 64.90mmHg. Trace/mild (physiologic) pulmonic regurgitation. The aortic root size is normal. IVC Not well visulized. There is no pericardial effusion. CONCLUSIONS -------- 1. The left ventricle is mildly dilated. 2. There is moderate concentric left ventricular hypertrophy. 3. Overall left ventricular systolic function is mild-moderately impaired with, an EF between 40 - 45 %. 4. Increased Lap Grade II Diastolic Dysfunction. 5. Global hypokinesis 6. The right ventricle is moderate to severely enlarged. 7. LA is severely dilated >40 ml/m2 8. The right atrium is moderately enlarged. 9. There is mild aortic valve sclerosis. 10. Snnxfqpe-uh-yscugz mitral regurgitation is present. 11. Severe tricuspid regurgitation present. 12. There is severe pulmonary hypertension. 13. The right ventricular systolic pressure, as measured by Doppler, is 64.90mmHg. 14. Trace/mild (physiologic) pulmonic regurgitation. 15. The aortic root size is normal. 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
[2020-07-20 17:29] LABS: Glucose,Whole Blood 165 mg/dL (75-99)
[2020-07-20 20:10] LABS: Glucose,Whole Blood 146 mg/dL (75-99)
[2020-07-20] MEDS: METOPROLOL SUCCINATE (ER) 25 MG TAB.ER.24H PO SCH (20:13)
[2020-07-20] MEDS: LORATADINE 10 MG TAB PO SCH (20:13)
[2020-07-20] MEDS: ATORVASTATIN 10 MG TAB PO SCH (20:13)
[2020-07-20] MEDS: CITALOPRAM HYDROBROMIDE 20 MG TAB PO SCH (20:13)
--- NOTE | 2020-07-20 21:52 | P.HPIM ---
History of Present Illness H&P Date: 07/20/20 Chief Complaint: Chest pain and SOB This patient was cared for during of federal and state declared state of emergency secondary to COVID 19. Ms. Hartmann is a 65-year-old female with a past medical history of hypertension, hyperlipidemia, chronic kidney disease, obstructive sleep apnea coming to the hospital with a chief complaint of difficulty in breathing. Patient states that she was sitting and watching television when she started to have difficulty in breathing along with chest pain. She states the chest pain it is 7 x 10 in intensity, is mostly substernal radiating to the entire chest. Patient denies having any recent travel. No fever chills or rigors. Patient mentions about having sinus congestion and mild headaches for the past 1 week. She mentions that her sister and [id number] have Covid. Patient admits to drinking a big glass of vodka every night. In the emergency patient had blood pressure of 177/110, 96% on 2 L of nasal cannula, temperature 98.7, heart rate 85, rest she had a chest x-ray showing mild congestive heart failure. Patient also had CTA of which was negative for PE. But significant for pulmonary edema with pleural fluid and cardiomegaly consistent with congestive heart failure. Patient had mildly elevated troponins at 0.077, 0.114. She has been started on IV heparin, cardiology consult has been obtained. Review of Systems Constitutional: Patient denies any fever or chills . No generalized weakness or weight loss. HEENT: Denies blurred vision, vision changes, or eye pain. GI: Patient denied nausea vomiting and diarrhea and abdominal pain. Cardiovascular: As per HPI Respiratory: As per HPI Neurologic: Patient denied any numbness or tingling headache. Musculoskeletal: Patient denies any complaints of joint swelling or deformity. Skin: No rash Psychiatric: No anxiety or depression Endocrine: No heat or cold intolerance. No recent weight gain. Genitourinary: No dysuria or hematuria. All other 14 point ROS negative except the above Past Medical History Past Medical History: Chest Pain / Angina, Diabetes Mellitus, Hyperlipidemia, Hypertension, Renal Disease, Sleep Apnea/CPAP/BIPAP History of Any Multi-Drug Resistant Organisms: None Reported Past Surgical History: Hysterectomy, Orthopedic Surgery Additional Past Surgical History / Comment(s): RIGHT ANKLE SURGERY Past Psychological History: No Psychological Hx Reported Smoking Status: Never smoker Past Alcohol Use History: Daily, Heavy Past Drug Use History: None Reported Medications and Allergies Home Medications Medication Instructions Recorded Confirmed Type Aspirin [Adult Low Dose Aspirin EC] 81 mg PO DAILY 07/19/20 07/19/20 History Cetirizine HCl [Zyrtec] 10 mg PO HS 07/19/20 07/19/20 History Citalopram Hydrobromide 20 mg PO HS 07/19/20 07/19/20 History [Citalopram HBr] Enalapril Maleate [Vasotec] 10 mg PO HS 07/19/20 07/19/20 History Ergocalciferol [Vitamin D2 50,000 unit PO WE 07/19/20 07/19/20 History (DRISDOL)] Fluticasone Nasal [place] [Flonase 1 spray EA NOSTRIL HS 07/19/20 07/19/20 History Nasal [place]] Glucosamine Sulfate 1,000 mg PO DAILY 07/19/20 07/19/20 History Levothyroxine Sodium [Synthroid] 75 mcg PO DAILY 07/19/20 07/19/20 History Lovastatin [Mevacor] 10 mg PO HS 07/19/20 07/19/20 History Lysine [l-Lysine] 500 mg PO BID 07/19/20 07/19/20 History Multivitamins, Thera [Multivitamin 1 tab PO DAILY 07/19/20 07/19/20 History (formulary)] Sodium Bicarbonate 325 mg PO TID 07/19/20 07/19/20 History Ubidecarenone [Co Q-10] 100 mg PO W/SUPPER 07/19/20 07/19/20 History Vitamin E 400 unit PO W/SUPPER 07/19/20 07/19/20 History hydrALAZINE HCL 25 mg PO BID 07/19/20 07/19/20 History Allergies Allergy/AdvReac Type Severity Reaction Status Date / Time meperidine [From Demerol] AdvReac Swelling Verified 07/19/20 21:14 Physical Exam Vitals: Vital Signs Temp Pulse Pulse Resp BP BP Pulse Ox 07/20/20 08:00 98.6 F 85 22 168/97 99 07/20/20 04:00 95 20 146/88 93 L 07/20/20 02:00 100 22 07/19/20 22:54 98.9 F 100 22 150/100 93 L 07/19/20 21:06 90 18 181/97 98 07/19/20 18:35 98.7 F 85 22 177/110 96 Intake and Output 07/19/20 07/20/20 07/20/20 22:59 06:59 14:59 Intake Total 58.5 Output Total 550 Balance -491.5 Intake: Intake, IV Titration 58.5 Amount Heparin Sod,Pork in 0.45% 58.5 NaCl 25,000 unit In 0.45 % NaCl 1 250ml.bag @ 6. 7835 UNITS/KG/HR 10 mls/ hr IV .Q24H [facility] Rx#: [id number] Output: Urine 550 Other: # Voids 4 Weight 147.418 kg PHYSICAL EXAMINATION: Patient is lying in the bed comfortably, no acute distress, awake alert and oriented.. HEENT: Normocephalic. Neck is supple. Pupils reactive.Dried blood in the nostrils . Oral cavity is moist. Neck reveals no carotid bruits, or thyromegaly. CHEST EXAMINATION: Trachea is central. Symmetrical expansion. Bilateral basal crackles CARDIAC: Normal S1, S2 with no gallops. No murmurs ABDOMEN: Soft. Bowel sounds normal. No organomegaly. No abdominal bruits. Extremities: Mild edema Neurologically awake, alert, oriented x3 with well-coordinated movements. No focal deficits noted Skin: No rash or skin lesions. Psychiatric: Coperative. Nonsuicidal Musculoskeletal: No joint swelling or deformity. Normal range of motion. Results CBC & Chem 7: 07/20/20 14:25 07/19/20 19:28 Labs: Abnormal Lab Results - Last 24 Hours (Table) 07/19/20 07/19/20 07/19/20 Range/Units 19:28 19:28 19:28 RBC 3.02 L (3.80-5.40) m/uL Hgb 10.0 L (11.4-16.0) gm/dL Hct 30.0 L (34.0-46.0) % Plt Count 92 L (150-450) k/uL Lymphocytes # 0.5 L (1.0-4.8) k/uL PT 12.7 H (9.0-12.0) sec INR 1.3 H (<1.2) APTT 19.9 L (22.0-30.0) sec Chloride 108 H (98-107) mmol/L Carbon Dioxide 17 L (22-30) mmol/L BUN 33 H (7-17) mg/dL Creatinine 1.49 H (0.52-1.04) mg/dL Glucose 130 H (74-99) mg/dL POC Glucose (mg/dL) (75-99) mg/dL Magnesium 1.3 L (1.6-2.3) mg/dL AST 202 H (14-36) U/L ALT 35 H (4-34) U/L Alkaline Phosphatase 256 H (38-126) U/L Troponin I (0.000-0.034) ng/mL 07/19/20 07/19/20 07/20/20 Range/Units 19:28 22:34 01:35 RBC (3.80-5.40) m/uL Hgb (11.4-16.0) gm/dL Hct (34.0-46.0) % Plt Count (150-450) k/uL Lymphocytes # (1.0-4.8) k/uL PT (9.0-12.0) sec INR (<1.2) APTT (22.0-30.0) sec Chloride (98-107) mmol/L Carbon Dioxide (22-30) mmol/L BUN (7-17) mg/dL Creatinine (0.52-1.04) mg/dL Glucose (74-99) mg/dL POC Glucose (mg/dL) (75-99) mg/dL Magnesium (1.6-2.3) mg/dL AST (14-36) U/L ALT (4-34) U/L Alkaline Phosphatase (38-126) U/L Troponin I 0.067 H* 0.077 H* 0.114 H* (0.000-0.034) ng/mL 07/20/20 07/20/20 Range/Units 03:36 06:56 RBC (3.80-5.40) m/uL Hgb (11.4-16.0) gm/dL Hct (34.0-46.0) % Plt Count (150-450) k/uL Lymphocytes # (1.0-4.8) k/uL PT (9.0-12.0) sec INR (<1.2) APTT 31.9 H (22.0-30.0) sec Chloride (98-107) mmol/L Carbon Dioxide (22-30) mmol/L BUN (7-17) mg/dL Creatinine (0.52-1.04) mg/dL Glucose (74-99) mg/dL POC Glucose (mg/dL) 142 H (75-99) mg/dL Magnesium (1.6-2.3) mg/dL AST (14-36) U/L ALT (4-34) U/L Alkaline Phosphatase (38-126) U/L Troponin I (0.000-0.034) ng/mL Thrombosis Risk Factor Assmnt - Choose All That Apply Any of the Below Risk Factors Present?: Yes Each Factor Represents 1 point: Heart failure (<1month), Obesity (BMI >25), Swollen legs (current) Other Risk Factors: Yes Each Risk Factor Represents 2 Points: Age 61-74 years Other congenital or acquired thrombophilia - If yes, enter type in comment: No Thrombosis Risk Factor Assessment Total Risk Factor Score: 5 Thrombosis Risk Factor Assessment Level: High Risk Assessment and Plan Assessment: ASSESSMENT Shortness of breath-NSTEMI versus new onset CHF Hypertensive emergency Elevated troponins Acute kidney injury Transaminitis Hypomagnesemia Elevated alkaline phosphatase Thrombocytopenia Anemia PLAN: Patient has elevated troponins and chest pain, so could be acute coronary syndrome, as the patient's hemoglobin is low and platelet count on the lower side, she was started on low-dose heparin. But patient started to have nosebleed, not actively bleeding now. Will recheck APTT and repeat CBC. Patient has thrombocytopenia, along with elevated AST ALT and alkaline phosphatase levels, so we will start work-up for any underlying chronic liver disease. We will check hepatitis panel and HIV panel. We will repeat labs for tomorrow morning. Replace magnesium. Echocardiogram has been ordered and cardiology on board and following the patient. Also there is concern for Covid infection, rapid PCR is negative. But the patient's sister and [id number] have been tested positive for Covid. So we will repeat Covid testing. Continue with isolation. Pulmonary consult will be obtained. Overall prognosis is guarded. Further recommendations to follow depending on the progress of the patient.
[2020-07-20] MEDS: HEPARIN SOD,PORK IN 0.45% NACL 25,000 UNIT in 0.45% NACL 1 250ML.BAG IV SCH (23:19)
[2020-07-21] MEDS: LEVOTHYROXINE 75 MCG TAB PO SCH (05:47)
[2020-07-21] MEDS: PANTOPRAZOLE 40 MG TABLET PO SCH (05:47)
[2020-07-21 06:20] LABS: Glucose,Whole Blood 137 mg/dL (75-99)
[2020-07-21 08:29] LABS: Basophils % (A) 0 %; Eosinophils % (A) 0 %; HCT 28.3 % (34.0-46.0); HGB 8.7 gm/dL (11.4-16.0); Hypochromasia Slight; Lymphocytes # (A) 0.5 k/uL (1.0-4.8); Lymphocytes % (A) 10 %; MCH 31.3 pg (25.0-35.0); MCHC 30.6 g/dL (31.0-37.0); MCV 102.2 fL (80.0-100.0); Macrocytosis Slight; Mean Platelet Volume 9.1; Monocytes # (A) 0.3 k/uL (0-1.0); Monocytes % (A) 7 %; Neutrophils # (A) 3.7 k/uL (1.3-7.7); Neutrophils % (A) 80 %; RBC 2.77 m/uL (3.80-5.40); RDW 14.8 % (11.5-15.5); WBC 4.6 k/uL (3.8-10.6)
[2020-07-21 09:16] LABS: Anisocytosis (M) Present; Platelet Count 64 k/uL (150-450)
[2020-07-21 09:36] LABS: Albumin 4.2 g/dL (3.5-5.0); Calcium 9.2 mg/dL (8.4-10.2); Magnesium 1.4 mg/dL (1.6-2.3); Potassium 5.2 mmol/L (3.5-5.1); Total Bilirubin 1.4 mg/dL (0.2-1.3); Total Protein 7.2 g/dL (6.3-8.2)
[2020-07-21] MEDS ORDERED: Magnesium Replacement Protocol 1 EACH MISC MISCELLANE PRN (09:42)
[2020-07-21] MEDS ORDERED: lisinopriL 20 MG TAB PO SCH ×2 (09:45→21:00)
[2020-07-21] MEDS: INSULIN ASPART (NovoLOG) 100 UNIT/ML VIAL SQ SCH ×4 (09:53→20:53)
[2020-07-21] MEDS: hydrALAZINE HCL 25 MG TAB PO SCH (10:01)
[2020-07-21] MEDS: MAGNESIUM SULFATE-D5W PMX 1 GM in DEXTROSE/WATER 1 100ML.BAG IVPB SCH ×3 (10:01→12:58)
[2020-07-21] MEDS: ASPIRIN 81 MG PO SCH (10:01)
[2020-07-21] MEDS ORDERED: FUROSEMIDE 10 MG/ML 2 ML VIAL IV STA (10:58)
--- NOTE | 2020-07-21 11:26 | P.PN ---
Subjective Progress Note Date: 07/21/20 CHIEF COMPLAINT: chest pain HISTORY OF PRESENT ILLNESS: This is a 65-year old female with a past medical history significant for hypertension, hyperlipidemia, diabetes mellitus, and daily alcohol use. 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 We have been ask ed to see the patient in consultation for chest pain. Patient examined this morning at the bedside in the emergency room. Patient states she has been feeling unwell since Thanksgiving. She states her sister and [id number] have Covid. She reports over the past week she has been feeling short of breath. She reports nausea and vomiting and diarrhea. She reports discomfort underneath both breasts. She denies any radiation of the pain. 07/21/2020 Patient examined at the bedside. Patient continues to report shortness of breath. However her breathing appears less labored today. She received a one- time dose of Lasix yesterday. Creatinine 1.88 today. Potassium 5.2. BNP resulted at 22,800. Echocardiogram completed revealed ejection fraction 40-45%, global hypokinesis, and severe pulmonary hypertension PHYSICAL EXAM: VITAL SIGNS: Reviewed. GENERAL: Well-developed who appears short of breath during examination HEENT: Head is normocephalic. Pupils are equal, round. Sclerae anicteric. Mucous membranes of the mouth are moist. Neck supple. No JVD or thyromegaly LUNGS: Respirations even and unlabored. Lungs diminished with rales to bilateral bases HEART: Regular rate and rhythm. S1 and S2 heard. ABDOMEN: Soft. Nondistended. Nontender. EXTREMITIES: Normal range of motion. No clubbing or cyanosis. Peripheral pulses intact. 2+ bilateral lower extremity edema NEUROLOGIC: Awake and alert. Oriented x 3. ASSESSMENT: Chest pain, atypical for ACS Abnormal troponins Shortness of breath Acute systolic congestive heart failure, EF 40-45%, BNP 22,800 Hypertension Hyperlipidemia Daily alcohol use Sleep apnea, patient uses CPAP at night Severe pulmonary hypertension Acute on chronic kidney disease Thrombocytopenia PLAN: Await results of second Covid test Patient with increased creatinine today. Discontinue enalapril. Lasix 20 mg IV 1 dose Discontinue IV heparin Will hold off on subcu heparin secondary to thrombocytopenia. DVT prophylaxis with SCDs to bilateral lower extremities Replace magnesium Increase hydralazine to 50 mg 3 times a day Further recommendations pending patient course Nurse practitioner note has been reviewed by physician. Signing provider agrees with the documented findings, assessment, and plan of care. Objective - Vital Signs Vital signs: Vital Signs Temp 97.7 F 07/20/20 20:00 Pulse 90 07/21/20 04:00 Resp 22 07/21/20 04:00 BP 160/100 07/21/20 04:00 Pulse Ox 95 07/21/20 04:00 Intake & Output 07/20/20 07/21/20 07/21/20 18:59 06:59 18:59 Intake Total 284.540 Output Total 600 Balance -315.460 Weight 120 kg Intake: Intake, IV Titration 164.540 Amount Heparin Sod,Pork in 0.45% 164.540 NaCl 25,000 unit In 0.45 % NaCl 1 250ml.bag @ 6. 7835 UNITS/KG/HR 10 mls/ hr IV .Q24H [facility] Rx#: [id number] Oral 120 Output: Urine 600 Other: # Voids 1 # Bowel Movements 1 - Labs CBC & Chem 7: 07/21/20 08:03 07/21/20 08:03 Labs: Abnormal Lab Results - Last 24 Hours (Table) 07/20/20 07/20/20 07/20/20 Range/Units 10:50 10:50 11:50 WBC 3.7 L (3.8-10.6) k/uL RBC 2.76 L (3.80-5.40) m/uL Hgb 8.8 L (11.4-16.0) gm/dL Hct 27.0 L (34.0-46.0) % MCV (80.0-100.0) fL MCHC (31.0-37.0) g/dL Plt Count 64 L (150-450) k/uL Lymphocytes # 0.3 L (1.0-4.8) k/uL APTT (22.0-30.0) sec Potassium (3.5-5.1) mmol/L Carbon Dioxide (22-30) mmol/L BUN (7-17) mg/dL Creatinine (0.52-1.04) mg/dL Glucose (74-99) mg/dL POC Glucose (mg/dL) 154 H (75-99) mg/dL Magnesium (1.6-2.3) mg/dL Total Bilirubin (0.2-1.3) mg/dL AST (14-36) U/L Alkaline Phosphatase (38-126) U/L HDL Cholesterol 71 H (40-60) mg/dL 07/20/20 07/20/20 07/20/20 Range/Units 14:25 14:25 17:28 WBC 3.7 L (3.8-10.6) k/uL RBC 2.87 L (3.80-5.40) m/uL Hgb 9.2 L (11.4-16.0) gm/dL Hct 29.0 L (34.0-46.0) % MCV 101.3 H (80.0-100.0) fL MCHC (31.0-37.0) g/dL Plt Count 63 L (150-450) k/uL Lymphocytes # (1.0-4.8) k/uL APTT 76.0 H (22.0-30.0) sec Potassium (3.5-5.1) mmol/L Carbon Dioxide (22-30) mmol/L BUN (7-17) mg/dL Creatinine (0.52-1.04) mg/dL Glucose (74-99) mg/dL POC Glucose (mg/dL) 165 H (75-99) mg/dL Magnesium (1.6-2.3) mg/dL Total Bilirubin (0.2-1.3) mg/dL AST (14-36) U/L Alkaline Phosphatase (38-126) U/L HDL Cholesterol (40-60) mg/dL 07/20/20 07/20/20 07/20/20 Range/Units 18:24 20:08 21:03 WBC (3.8-10.6) k/uL RBC (3.80-5.40) m/uL Hgb (11.4-16.0) gm/dL Hct (34.0-46.0) % MCV (80.0-100.0) fL MCHC (31.0-37.0) g/dL Plt Count (150-450) k/uL Lymphocytes # (1.0-4.8) k/uL APTT 59.7 H 33.9 H (22.0-30.0) sec Potassium (3.5-5.1) mmol/L Carbon Dioxide (22-30) mmol/L BUN (7-17) mg/dL Creatinine (0.52-1.04) mg/dL Glucose (74-99) mg/dL POC Glucose (mg/dL) 146 H (75-99) mg/dL Magnesium (1.6-2.3) mg/dL Total Bilirubin (0.2-1.3) mg/dL AST (14-36) U/L Alkaline Phosphatase (38-126) U/L HDL Cholesterol (40-60) mg/dL 07/21/20 07/21/20 07/21/20 Range/Units 06:18 08:03 08:03 WBC (3.8-10.6) k/uL RBC 2.77 L (3.80-5.40) m/uL Hgb 8.7 L (11.4-16.0) gm/dL Hct 28.3 L (34.0-46.0) % MCV 102.2 H (80.0-100.0) fL MCHC 30.6 L (31.0-37.0) g/dL Plt Count 64 L (150-450) k/uL Lymphocytes # 0.5 L (1.0-4.8) k/uL APTT (22.0-30.0) sec Potassium 5.2 H (3.5-5.1) mmol/L Carbon Dioxide 21 L (22-30) mmol/L BUN 40 H (7-17) mg/dL Creatinine 1.88 H (0.52-1.04) mg/dL Glucose 139 H (74-99) mg/dL POC Glucose (mg/dL) 137 H (75-99) mg/dL Magnesium 1.4 L (1.6-2.3) mg/dL Total Bilirubin 1.4 H (0.2-1.3) mg/dL AST 142 H (14-36) U/L Alkaline Phosphatase 229 H (38-126) U/L HDL Cholesterol (40-60) mg/dL 07/21/20 Range/Units 08:03 WBC (3.8-10.6) k/uL RBC (3.80-5.40) m/uL Hgb (11.4-16.0) gm/dL Hct (34.0-46.0) % MCV (80.0-100.0) fL MCHC (31.0-37.0) g/dL Plt Count (150-450) k/uL Lymphocytes # (1.0-4.8) k/uL APTT 52.8 H (22.0-30.0) sec Potassium (3.5-5.1) mmol/L Carbon Dioxide (22-30) mmol/L BUN (7-17) mg/dL Creatinine (0.52-1.04) mg/dL Glucose (74-99) mg/dL POC Glucose (mg/dL) (75-99) mg/dL Magnesium (1.6-2.3) mg/dL Total Bilirubin (0.2-1.3) mg/dL AST (14-36) U/L Alkaline Phosphatase (38-126) U/L HDL Cholesterol (40-60) mg/dL
[2020-07-21 12:28] LABS: Glucose,Whole Blood 156 mg/dL (75-99)
[2020-07-21 14:01] LABS: Hepatitis A Antibody IgM Non-Reactive (Non-Reactive); Hepatitis B Core IgM Non-Reactive (Non-Reactive); Hepatitis B Surface Antigen Non-Reactive (Non-Reactive); Hepatitis C IgG Antibody Non-Reactive (Non-Reactive)
[2020-07-21] MEDS: hydrALAZINE HCL 50 MG TAB PO SCH ×2 (16:51→20:52)
[2020-07-21 17:09] LABS: Glucose,Whole Blood 136 mg/dL (75-99)
--- NOTE | 2020-07-21 17:12 | CONS ---
CONSULTATION PULMONARY/CRITICAL CARE CONSULTATION: DATE OF SERVICE: July 21, 2020 This is a 65-year-old female who apparently presented to the emergency room on July 19 at 18:33 complaining of chest pain. Her primary care physician is Dr. Henderson. The patient apparently carries with her a diagnosis of angina, diabetes, hyperlipidemia, hypertension, and sleep apnea syndrome. The patient was evaluated in the emergency room and admitted with a diagnosis of elevated troponins and chest pain. Currently, the patient's major issues include shortness of breath. It started a couple days prior to her admission to the hospital. She also admits to chest pain. The chest pain was rated 7/10. She does have a history of daily alcohol abuse, drinking a big glass of vodka and squirt every night. She denies a previous history of lung disease although she did smoke for about 10 years many years back. Her blood pressure in the emergency room was 177/110 and saturations were 96% on 2 L. The rest of her vital signs apparently at that time were normal. HOME MEDICATIONS: Reviewed. She apparently was on aspirin, Zyrtec, citalopram, Vasotec, vitamin D2, Flonase nasal spray, glucosamine, levothyroxine, lovastatin, L-lysine, multiple vitamins, sodium bicarbonate tablets, coenzyme Q, vitamin E and hydralazine. ALLERGIES: Include MEPERIDINE. MEDICAL HISTORY: Angina, diabetes, hyperlipidemia, hypertension, chronic kidney disease, sleep apnea syndrome, and obesity. SURGICAL HISTORY: Includes right ankle surgery and hysterectomy. SOCIAL HISTORY: Positive for about 10 years of tobacco use many years back. She drinks on a daily basis and apparently drinks heavily. Denies any illicit drug use. FAMILY HISTORY: Noncontributory. REVIEW OF SYSTEMS: CONSTITUTIONAL: Weakness. NEUROLOGIC: Negative. HEENT: Negative. CARDIOVASCULAR: Leg swelling, chest pain. PULMONARY: Shortness of breath. GI: Negative. : Negative. RHEUMATOLOGIC: Negative. IMMUNOLOGIC: Negative. ENDOCRINOLOGIC: Negative. DERMATOLOGIC: Negative. PHYSICAL EXAMINATION: VITAL SIGNS: Current vital signs are reviewed. Temperature 97.7, heart rate 90, respiratory rate 22, blood pressure 160/100, saturations on 5 L are 95%. She appears in no acute distress. HEENT: Examination is grossly unremarkable. Nasal O2 in place. NECK: Supple, full range of motion. No adenopathy. Neck veins are flat. CARDIOVASCULAR: Examination reveals a regular rhythm and rate. Heart rate about 90 beats per minute. S1, S2 normal. Heart sounds are distant. Her initial EKG in the emergency room did show evidence of atrial fibrillation. LUNGS: Reveal bibasilar crackles. No wheezes. No rhonchi. ABDOMEN: Obese, bowel sounds are heard. EXTREMITIES: Reveal edema. It is 1+ and pitting. SKIN: Without rash. NEUROLOGIC: Examination is brief but nonfocal. LAB DATA: Reviewed. White count 4.6, hemoglobin 8.7, hematocrit 28.3, platelet count 64,000. PTT is 52.8. PT/INR were 12.7 and 1.3. Sodium 139, potassium 5.2, chloride 106, CO2 21, anion gap is 12. BUN and creatinine were 40 and 1.88. Magnesium 1.4, total bilirubin 1.4, AST 142, ALT 31. Troponins were 0.077 and 0.114. N-terminal proBNP 92647. Her COVID test was negative. Her alcohol level was less than 10. Microbiology is currently negative. Chest x-ray done on July 19 shows changes of CHF. CT scan also done on the same day, shows evidence of pulmonary venous congestion, cardiomegaly and congestive changes. There was no PE. Echocardiogram shows ejection fraction between 40 and 45%. Medications reviewed. The patient is currently on aspirin, Lipitor, Celexa, hydralazine, insulin, levothyroxine, loratadine, magnesium replacement, metoprolol, sublingual nitroglycerin, Zofran, Protonix. ASSESSMENT: 1. Shortness of breath, chest pain, likely related to underlying congestive heart failure complicated by atrial fibrillation with rapid ventricular rate. 2. Rule out non ST-segment elevation myocardial infarction. 3. No history to suggest intrinsic pulmonary disease although the patient did smoke many years back for about 10 years. 4. Obesity. 5. Sleep apnea syndrome, currently on CPAP. 6. History of hypertension. 7. History of chronic kidney disease. 8. Hyperlipidemia. 9. Diabetes mellitus. 10.Angina pectoris. 11.Transient atrial fibrillation with rapid ventricular rate. 12.Chronic alcohol abuse. PLAN: The patient's medications are appropriate. The patient is feeling a bit better. Still short of breath. We will continue to follow. Her COVID test was negative. Nothing to suggest significant intrinsic pulmonary disease at this time. We will continue to follow. Prognosis is guarded. MMODL / IJN: [id number] /
[2020-07-21 20:05] LABS: Glucose,Whole Blood 153 mg/dL (75-99)
[2020-07-21] MEDS: CITALOPRAM HYDROBROMIDE 20 MG TAB PO SCH (20:52)
[2020-07-21] MEDS: ATORVASTATIN 10 MG TAB PO SCH (20:52)
[2020-07-21] MEDS: LORATADINE 10 MG TAB PO SCH (20:53)
[2020-07-21] MEDS: METOPROLOL SUCCINATE (ER) 25 MG TAB.ER.24H PO SCH (20:53)
--- NOTE | 2020-07-21 21:47 | P.PN ---
Subjective Progress Note Date: 07/21/20 65-year-old female patient who came into the ED for shortness of breath and chest pain. The patient denies having a previous history of lung disease. She did smoke about a total of 10 years many years back. Pulse ox thousand 6. Liters of oxygen by nasal cannula. BP in the emergency department was elevated at 177/110. The patient has history of alcohol abuse. The patient also has history of CAD, diabetes mellitus, hyperlipidemia, hypertension and obstructive sleep apnea. The CT scan of the chest showed evidence of pulmonary vessel congestion and cardiomegaly. There was no evidence of any pulmonary embolism. Echocardiac exam showed an ejection fraction of 40-45%. The patient had a negative gregory virus Covid 19 testing. The patient had a white cell count of 4.6 with a hemoglobin of 8.7. Coagulation profile was within normal limits. BUN was at 40 with a creatinine of 1.8. Troponin level was 0.07 and 0.114. ProBNP level was 22,800. Chest x-ray was consistent with CHF. Objective - Vital Signs Vital signs: Vital Signs Temp 97.7 F 07/21/20 16:45 Pulse 74 07/21/20 16:45 Resp 18 07/21/20 16:45 BP 144/86 07/21/20 16:45 Pulse Ox 98 07/21/20 16:45 Intake & Output 07/21/20 07/21/20 07/22/20 06:59 18:59 06:59 Intake Total 1271 Balance 1271 Weight 120 kg Intake: Intake, IV Titration 300 Amount Magnesium Sulfate-D5w Pmx 300 1 gm In Dextrose/Water 1 100ml.bag @ 100 mls/hr IVPB Q1H [facility] Rx#: [id number] Oral 971 Other: # Voids 1 1 # Bowel Movements 1 2 - Exam Examination reveals calm, comfortable female patient on acute respiratory distress. Head exam was generally normal. There was no scleral icterus or corneal arcus. Mucous membranes were moist. Neck was supple and without jugular venous distension, thyromegaly, or carotid bruits. Carotids were easily palpable bilaterally. There was no adenopathy. Lungs sounds are diminished and there is some bibasilar crackles Cardiac exam revealed the PMI to be normally situated and sized. The rhythm was regular and no extrasystoles were noted during several minutes of auscultation. The first and second heart sounds were normal and physiologic splitting of the second heart sound was noted. There were no murmurs, rubs, clicks, or gallops. Abdominal exam revealed normal bowel sounds. The abdomen was soft, non-tender, and without masses, organomegaly, or appreciable enlargement of the abdominal aorta. Extremities revealed +1 edema and there is no cyanosis or clubbing. Neurologically, the patient is awake and alert and the patient does not have any focal neurological deficit. Cranial nerves are essentially intact. Examination of the skin revealed no evidence of significant rashes, suspicious appearing nevi or other concerning lesions. - Labs CBC & Chem 7: 07/21/20 08:03 07/21/20 08:03 Labs: Abnormal Lab Results - Last 24 Hours (Table) 07/20/20 07/21/20 07/21/20 Range/Units 21:03 06:18 08:03 RBC 2.77 L (3.80-5.40) m/uL Hgb 8.7 L (11.4-16.0) gm/dL Hct 28.3 L (34.0-46.0) % MCV 102.2 H (80.0-100.0) fL MCHC 30.6 L (31.0-37.0) g/dL Plt Count 64 L (150-450) k/uL Lymphocytes # 0.5 L (1.0-4.8) k/uL APTT 33.9 H (22.0-30.0) sec Potassium (3.5-5.1) mmol/L Carbon Dioxide (22-30) mmol/L BUN (7-17) mg/dL Creatinine (0.52-1.04) mg/dL Glucose (74-99) mg/dL POC Glucose (mg/dL) 137 H (75-99) mg/dL Magnesium (1.6-2.3) mg/dL Total Bilirubin (0.2-1.3) mg/dL AST (14-36) U/L Alkaline Phosphatase (38-126) U/L 07/21/20 07/21/20 07/21/20 Range/Units 08:03 08:03 12:22 RBC (3.80-5.40) m/uL Hgb (11.4-16.0) gm/dL Hct (34.0-46.0) % MCV (80.0-100.0) fL MCHC (31.0-37.0) g/dL Plt Count (150-450) k/uL Lymphocytes # (1.0-4.8) k/uL APTT 52.8 H (22.0-30.0) sec Potassium 5.2 H (3.5-5.1) mmol/L Carbon Dioxide 21 L (22-30) mmol/L BUN 40 H (7-17) mg/dL Creatinine 1.88 H (0.52-1.04) mg/dL Glucose 139 H (74-99) mg/dL POC Glucose (mg/dL) 156 H (75-99) mg/dL Magnesium 1.4 L (1.6-2.3) mg/dL Total Bilirubin 1.4 H (0.2-1.3) mg/dL AST 142 H (14-36) U/L Alkaline Phosphatase 229 H (38-126) U/L 07/21/20 07/21/20 Range/Units 17:07 20:04 RBC (3.80-5.40) m/uL Hgb (11.4-16.0) gm/dL Hct (34.0-46.0) % MCV (80.0-100.0) fL MCHC (31.0-37.0) g/dL Plt Count (150-450) k/uL Lymphocytes # (1.0-4.8) k/uL APTT (22.0-30.0) sec Potassium (3.5-5.1) mmol/L Carbon Dioxide (22-30) mmol/L BUN (7-17) mg/dL Creatinine (0.52-1.04) mg/dL Glucose (74-99) mg/dL POC Glucose (mg/dL) 136 H 153 H (75-99) mg/dL Magnesium (1.6-2.3) mg/dL Total Bilirubin (0.2-1.3) mg/dL AST (14-36) U/L Alkaline Phosphatase (38-126) U/L Assessment and Plan Plan: 1 shortness of breath likely on the basis of CHF Chest x-ray is consistent with CHF. CT scan of the chest is consistent with CHF. ProBNP level is elevated. The echocardiogram showed mild to moderate impairment of the LV with an ejection fraction of 40-45%, global hypokinesis, RV moderate to severe enlargement, RA is enlarged and there is moderate to severe mitral regurgitation, severe pulmonary hypertension with a PA pressure of 64. Consider ischemic versus a alcoholic cardiomyopathy. 2 coronary artery disease with possible non-STEMI 3 obesity 4 obstructive sleep apnea on CPAP therapy 5 hypertension 6 chronic kidney disease 7 hyperlipidemia 8 diabetes mellitus 9 chronic alcohol abuse 10 chronic anemia with hemoglobin of 8.7 11 chronic thrombocytopenia, likely alcohol induced Plan Continue with Lasix Metoprolol added by cardiology 25 mg on a daily basis Repeat chest x-ray with the next 24-48 hours Monitor renal function Consider cardiac catheterization based on the above-mentioned abnormalities
[2020-07-21 22:39] LABS: Glucose,Whole Blood 141 mg/dL (75-99)
--- NOTE | 2020-07-21 23:48 | P.PN ---
Subjective Progress Note Date: 07/21/20 Principal diagnosis: ? CHF Exacerbation Ms. Hartmann is a 65-year-old female with a past medical history of hypertension, hyperlipidemia, chronic kidney disease, obstructive sleep apnea coming to the hospital with a chief complaint of difficulty in breathing. Patient states that she was sitting and watching television when she started to have difficulty in breathing along with chest pain. She states the chest pain it is 7 x 10 in intensity, is mostly substernal radiating to the entire chest. Patient denies having any recent travel. No fever chills or rigors. Patient mentions about having sinus congestion and mild headaches for the past 1 week. She mentions t hat her sister and [id number] have Covid. Patient admits to drinking a big glass of vodka every night. In the emergency patient had blood pressure of 177/110, 96% on 2 L of nasal cannula, temperature 98.7, heart rate 85, rest she had a chest x-ray showing mild congestive heart failure. Patient also had CTA of which was negative for PE. But significant for pulmonary edema with pleural fluid and cardiomegaly consistent with congestive heart failure. Patient had mildly elevated troponins at 0.077, 0.114. She has been started on IV heparin, cardiology consult has been obtained. On 07/21/2020 -patient was seen and examined select speciality floor. She is comfortably sitting up in the bed and states that her difficulty in breathing and chest pain are better compared to yesterday. Patient denied having any fevers chills or rigors. No abdominal pain nausea vomiting or diarrhea. No dysuria or hematuria. On reviewing her vitals temperature 97.7 heart rate 74 r est saturating at 98 on 5 L of oxygen by nasal cannula. On reviewing her labs white count of 4.6, RALPH MCV 102.2, platelets 64. Sodium 139, potassium 5.2, chloride 106, by 21, BUN 40, creatinine 1.88. Active Medications Aspirin (Aspirin 81 Mg) 81 mg PO DAILY [facility] Last Admin: 07/21/20 10:01 Dose: 81 mg Documented by: Atorvastatin Calcium (Atorvastatin 10 Mg Tab) 10 mg PO [facility] Last Admin: 07/21/20 20:52 Dose: 10 mg Documented by: Citalopram Hydrobromide (Citalopram Hydrobromide 20 Mg Tab) 20 mg PO [facility] Last Admin: 07/21/20 20:52 Dose: 20 mg Documented by: Hydralazine HCl (Hydralazine Hcl 50 Mg Tab) 50 mg PO TID [facility] Last Admin: 07/21/20 20:52 Dose: 50 mg Documented by: Insulin Aspart (Insulin Aspart (Novolog) 100 Unit/Ml Vial) 0 unit SQ [facility]; Protocol Last Admin: 07/21/20 20:53 Dose: Not Given Documented by: Levothyroxine Sodium (Levothyroxine 75 Mcg Tab) 75 mcg PO DAILY@0730 [facility] Last Admin: 07/21/20 05:47 Dose: 75 mcg Documented by: Loratadine (Loratadine 10 Mg Tab) 10 mg PO [facility] Last Admin: 07/21/20 20:53 Dose: 10 mg Documented by: Metoprolol Succinate (Metoprolol Succinate (Er) 25 Mg Tab.Er.24h) 25 mg PO [facility] Last Admin: 07/21/20 20:53 Dose: 25 mg Documented by: Miscellaneous Information (Magnesium Replacement Protocol 1 Each Misc) 1 each MISCELLANE DAILY PRN; Protocol PRN Reason: Per Protocol Nitroglycerin (Nitroglycerin Sl Tabs 0.4 Mg Tab) 0.4 mg SUBLINGUAL Q5M PRN PRN Reason: Chest Pain Ondansetron HCl (Ondansetron 4 Mg/2 Ml Vial) 4 mg IVP Q6HR PRN PRN Reason: Nausea And Vomiting Last Admin: 07/21/20 01:52 Dose: 4 mg Documented by: Pantoprazole Sodium (Pantoprazole 40 Mg Tablet) 40 mg PO AC-BRKFST [facility] Last Admin: 07/21/20 05:47 Dose: 40 mg Documented by: Objective - Vital Signs Vital signs: Vital Signs Temp 97.7 F 07/20/20 20:00 Pulse 90 07/21/20 04:00 Resp 22 07/21/20 04:00 BP 160/100 07/21/20 04:00 Pulse Ox 95 07/21/20 04:00 Intake & Output 07/20/20 07/21/20 07/21/20 18:59 06:59 18:59 Intake Total 284.540 180 Output Total 600 Balance -315.460 180 Weight 120 kg Intake: Intake, IV Titration 164.540 Amount Heparin Sod,Pork in 0.45% 164.540 NaCl 25,000 unit In 0.45 % NaCl 1 250ml.bag @ 6. 7835 UNITS/KG/HR 10 mls/ hr IV .Q24H [facility] Rx#: [id number] Oral 120 180 Output: Urine 600 Other: # Voids 1 # Bowel Movements 1 - Exam PHYSICAL EXAMINATION: Patient is lying in the bed comfortably, no acute distress, awake alert and oriented.. HEENT: Normocephalic. Neck is supple. Pupils reactive.Dried blood in the nostr ils . Oral cavity is moist. Neck reveals no carotid bruits, or thyromegaly. CHEST EXAMINATION: Trachea is central. Symmetrical expansion. Bilateral basal crackles CARDIAC: Normal S1, S2 with no gallops. No murmurs ABDOMEN: Soft. Bowel sounds normal. No organomegaly. No abdominal bruits. Extremities: Mild edema Neurologically awake, alert, oriented x3 with well-coordinated movements. No focal deficits noted . - Labs CBC & Chem 7: 07/21/20 08:03 07/21/20 08:03 Labs: Abnormal Lab Results - Last 24 Hours (Table) 07/20/20 07/20/20 07/20/20 Range/Units 17:28 18:24 20:08 RBC (3.80-5.40) m/uL Hgb (11.4-16.0) gm/dL Hct (34.0-46.0) % MCV (80.0-100.0) fL MCHC (31.0-37.0) g/dL Plt Count (150-450) k/uL Lymphocytes # (1.0-4.8) k/uL APTT 59.7 H (22.0-30.0) sec Potassium (3.5-5.1) mmol/L Carbon Dioxide (22-30) mmol/L BUN (7-17) mg/dL Creatinine (0.52-1.04) mg/dL Glucose (74-99) mg/dL POC Glucose (mg/dL) 165 H 146 H (75-99) mg/dL Magnesium (1.6-2.3) mg/dL Total Bilirubin (0.2-1.3) mg/dL AST (14-36) U/L Alkaline Phosphatase (38-126) U/L 12/05/20 12/06/20 12/06/20 Range/Units 21:03 06:18 08:03 RBC 2.77 L (3.80-5.40) m/uL Hgb 8.7 L (11.4-16.0) gm/dL Hct 28.3 L (34.0-46.0) % MCV 102.2 H (80.0-100.0) fL MCHC 30.6 L (31.0-37.0) g/dL Plt Count 64 L (150-450) k/uL Lymphocytes # 0.5 L (1.0-4.8) k/uL APTT 33.9 H (22.0-30.0) sec Potassium (3.5-5.1) mmol/L Carbon Dioxide (22-30) mmol/L BUN (7-17) mg/dL Creatinine (0.52-1.04) mg/dL Glucose (74-99) mg/dL POC Glucose (mg/dL) 137 H (75-99) mg/dL Magnesium (1.6-2.3) mg/dL Total Bilirubin (0.2-1.3) mg/dL AST (14-36) U/L Alkaline Phosphatase (38-126) U/L 07/21/20 07/21/20 07/21/20 Range/Units 08:03 08:03 12:22 RBC (3.80-5.40) m/uL Hgb (11.4-16.0) gm/dL Hct (34.0-46.0) % MCV (80.0-100.0) fL MCHC (31.0-37.0) g/dL Plt Count (150-450) k/uL Lymphocytes # (1.0-4.8) k/uL APTT 52.8 H (22.0-30.0) sec Potassium 5.2 H (3.5-5.1) mmol/L Carbon Dioxide 21 L (22-30) mmol/L BUN 40 H (7-17) mg/dL Creatinine 1.88 H (0.52-1.04) mg/dL Glucose 139 H (74-99) mg/dL POC Glucose (mg/dL) 156 H (75-99) mg/dL Magnesium 1.4 L (1.6-2.3) mg/dL Total Bilirubin 1.4 H (0.2-1.3) mg/dL AST 142 H (14-36) U/L Alkaline Phosphatase 229 H (38-126) U/L Assessment and Plan Assessment: ASSESSMENT Shortness of breath-NSTEMI versus new onset CHF Hypertensive emergency Elevated troponins Acute kidney injury Transaminitis Hypomagnesemia Elevated alkaline phosphatase Thrombocytopenia Anemia PLAN: Patient does not have any more nosebleeds, off of heparin drip. Her hemoglobin has been stable at 8.7 this morning. Patient had echocardiogram done showing an ejection fraction of 40 to 45%, with global hypokinesis with moderate to severe enlargement of right ventricle and severe pulmonary hypertension with PA pressure of 64. Patient showing improvement in her breathing status so continue with IV Lasix. Cardiology added metoprolol 25 mg. Will consult GI and nephrology. Continue with the current medication regimen. Further recommendations depending on the progress of the patient.
[2020-07-22] MEDS: LEVOTHYROXINE 75 MCG TAB PO SCH (05:34)
[2020-07-22] MEDS: PANTOPRAZOLE 40 MG TABLET PO SCH (05:34)
[2020-07-22 06:10] LABS: Glucose,Whole Blood 137 mg/dL (75-99)
[2020-07-22] MEDS: INSULIN ASPART (NovoLOG) 100 UNIT/ML VIAL SQ SCH ×4 (06:29→20:45)
--- NOTE | 2020-07-22 08:29 | P.PN ---
Subjective Progress Note Date: 07/22/20 65-year-old female patient who came into the ED for shortness of breath and chest pain. The patient denies having a previous history of lung disease. She did smoke about a total of 10 years many years back. Pulse ox was low and the patient was placed on oxygen at Liters of oxygen by nasal cannula. BP in the emergency department was elevated at 177/110. The patient has history of alcohol abuse. The patient also has history of CAD, diabetes mellitus, hyperlipidemia, hypertension and obstructive sleep apnea. The CT scan of the chest showed evidence of pulmonary vessel congestion and cardiomegaly. There was no evidence of any pulmonary embolism. Echocardiac exam showed an ejection fraction of 40-45%. The patient had a negative gregory virus Covid 19 testing. The patient had a white cell count of 4.6 with a hemoglobin of 8.7. Coagulation profile was within normal limits. BUN was at 40 with a creatinine of 1.8. Troponin level was 0.07 and 0.114. ProBNP level was 22,800. Chest x-ray was consistent with CHF.on today's evaluation she is on oxygen at 4 L and she is still havingcrackers in the lung bases. Objective - Vital Signs Vital signs: Vital Signs Temp 98.8 F 07/22/20 03:03 Pulse 88 07/22/20 03:03 Resp 20 07/22/20 03:03 BP 136/78 07/22/20 03:03 Pulse Ox 97 07/22/20 03:03 Intake & Output 07/21/20 07/22/20 07/22/20 18:59 06:59 18:59 Intake Total 1271 Output Total 550 Balance 1271 -550 Weight 143.9 kg Intake: Intake, IV Titration 300 Amount Magnesium Sulfate-D5w Pmx 300 1 gm In Dextrose/Water 1 100ml.bag @ 100 mls/hr IVPB Q1H [facility] Rx#: [id number] Oral 971 Output: Urine 550 Other: # Voids 1 # Bowel Movements 2 - Exam Examination reveals calm, comfortable female patient on acute respiratory distress. Head exam was generally normal. There was no scleral icterus or corneal arcus. Mucous membranes were moist. Neck was supple and without jugular venous distension, thyromegaly, or carotid bruits. Carotids were easily palpable bilaterally. There was no adenopathy. Lungs sounds are diminished and there is some bibasilar crackles Cardiac exam revealed the PMI to be normally situated and sized. The rhythm was regular and no extrasystoles were noted during several minutes of auscultation. The first and second heart sounds were normal and physiologic splitting of the second heart sound was noted. There were no murmurs, rubs, clicks, or gallops. Abdominal exam revealed normal bowel sounds. The abdomen was soft, non-tender, and without masses, organomegaly, or appreciable enlargement of the abdominal aorta. Extremities revealed +1 edema and there is no cyanosis or clubbing. Neurologically, the patient is awake and alert and the patient does not have any focal neurological deficit. Cranial nerves are essentially intact. Examination of the skin revealed no evidence of significant rashes, suspicious appearing nevi or other concerning lesions. - Labs CBC & Chem 7: 07/21/20 08:03 07/21/20 08:03 Labs: Abnormal Lab Results - Last 24 Hours (Table) 07/21/20 07/21/20 07/21/20 Range/Units 08:03 08:03 08:03 RBC 2.77 L (3.80-5.40) m/uL Hgb 8.7 L (11.4-16.0) gm/dL Hct 28.3 L (34.0-46.0) % MCV 102.2 H (80.0-100.0) fL MCHC 30.6 L (31.0-37.0) g/dL Plt Count 64 L (150-450) k/uL Lymphocytes # 0.5 L (1.0-4.8) k/uL APTT 52.8 H (22.0-30.0) sec Potassium 5.2 H (3.5-5.1) mmol/L Carbon Dioxide 21 L (22-30) mmol/L BUN 40 H (7-17) mg/dL Creatinine 1.88 H (0.52-1.04) mg/dL Glucose 139 H (74-99) mg/dL POC Glucose (mg/dL) (75-99) mg/dL Magnesium 1.4 L (1.6-2.3) mg/dL Total Bilirubin 1.4 H (0.2-1.3) mg/dL AST 142 H (14-36) U/L Alkaline Phosphatase 229 H (38-126) U/L 07/21/20 07/21/20 07/21/20 Range/Units 12:22 17:07 20:04 RBC (3.80-5.40) m/uL Hgb (11.4-16.0) gm/dL Hct (34.0-46.0) % MCV (80.0-100.0) fL MCHC (31.0-37.0) g/dL Plt Count (150-450) k/uL Lymphocytes # (1.0-4.8) k/uL APTT (22.0-30.0) sec Potassium (3.5-5.1) mmol/L Carbon Dioxide (22-30) mmol/L BUN (7-17) mg/dL Creatinine (0.52-1.04) mg/dL Glucose (74-99) mg/dL POC Glucose (mg/dL) 156 H 136 H 153 H (75-99) mg/dL Magnesium (1.6-2.3) mg/dL Total Bilirubin (0.2-1.3) mg/dL AST (14-36) U/L Alkaline Phosphatase (38-126) U/L 07/21/20 07/22/20 Range/Units 22:37 06:08 RBC (3.80-5.40) m/uL Hgb (11.4-16.0) gm/dL Hct (34.0-46.0) % MCV (80.0-100.0) fL MCHC (31.0-37.0) g/dL Plt Count (150-450) k/uL Lymphocytes # (1.0-4.8) k/uL APTT (22.0-30.0) sec Potassium (3.5-5.1) mmol/L Carbon Dioxide (22-30) mmol/L BUN (7-17) mg/dL Creatinine (0.52-1.04) mg/dL Glucose (74-99) mg/dL POC Glucose (mg/dL) 141 H 137 H (75-99) mg/dL Magnesium (1.6-2.3) mg/dL Total Bilirubin (0.2-1.3) mg/dL AST (14-36) U/L Alkaline Phosphatase (38-126) U/L Assessment and Plan Plan: 1 shortness of breath likely on the basis of CHF Chest x-ray is consistent with CHF. CT scan of the chest is consistent with CHF. ProBNP level is elevated. The echocardiogram showed mild to moderate impairment of the LV with an ejection fraction of 40-45%, global hypokinesis, RV moderate to severe enlargement, RA is enlarged and there is moderate to severe mitral regurgitation, severe pulmonary hypertension with a PA pressure of 64. Consider ischemic versus a alcoholic cardiomyopathy. 2 coronary artery disease with possible non-STEMI 3 obesity 4 obstructive sleep apnea on CPAP therapy 5 hypertension 6 chronic kidney disease, creatinine is at 1.8 7 hyperlipidemia 8 diabetes mellitus 9 chronic alcohol abuse 10 chronic anemia with hemoglobin of 8.7 11 chronic thrombocytopenia, likely alcohol induced Plan Continue with Lasix, and I'm going to start the patient on Lasix 40 mg IV every 24 hours and monitor the renal function. Metoprolol added by cardiology 25 mg on a daily basis Repeat chest x-ray with the next 24-48 hours Monitor renal function Consider cardiac catheterization based on the above-mentioned abnormalities, especially of the renal function allows at a later stage. This was discussed with cardiology.
[2020-07-22] MEDS ORDERED: FUROSEMIDE 10 MG/ML 4 ML VIAL IV SCH (09:00)
[2020-07-22] MEDS: ASPIRIN 81 MG PO SCH (09:03)
[2020-07-22] MEDS: hydrALAZINE HCL 50 MG TAB PO SCH ×3 (09:03→20:44)
[2020-07-22 09:36] LABS: Albumin 4.4 g/dL (3.5-5.0); Calcium 9.4 mg/dL (8.4-10.2); Magnesium 1.8 mg/dL (1.6-2.3); Potassium 5.4 mmol/L (3.5-5.1); Total Bilirubin 1.9 mg/dL (0.2-1.3); Total Protein 7.4 g/dL (6.3-8.2)
[2020-07-22 09:50] LABS: Basophils % (A) 0 %; Eosinophils % (A) 1 %; HCT 28.1 % (34.0-46.0); HGB 8.8 gm/dL (11.4-16.0); Hypochromasia Slight; Lymphocytes # (A) 0.6 k/uL (1.0-4.8); Lymphocytes % (A) 10 %; MCH 31.7 pg (25.0-35.0); MCHC 31.3 g/dL (31.0-37.0); MCV 101.4 fL (80.0-100.0); Macrocytosis Slight; Monocytes # (A) 0.4 k/uL (0-1.0); Monocytes % (A) 7 %; Neutrophils # (A) 4.7 k/uL (1.3-7.7); Neutrophils % (A) 80 %; RBC 2.77 m/uL (3.80-5.40); RDW 14.8 % (11.5-15.5); WBC 5.8 k/uL (3.8-10.6)
[2020-07-22 09:59] LABS: Platelet Count 89 k/uL (150-450)
--- NOTE | 2020-07-22 10:39 | P.PN ---
Subjective This is a pleasant 65-year-old female past medical history significant for hypertension, dyslipidemia, diabetes mellitus and daily alcohol use. She does not follow regularly with a educational assistant. She is seen and examined sitting up in bed in no acute distress. She complains of ongoing shortness of breath. She has no chest pain, dizziness or palpitations. Echocardiogram obtained on this admission reveals impaired LV systolic function with ejection fraction 40- 45% with global hypokinesia and severe pulmonary hypertension with an RVSP of 64 mmHg. Blood pressure 144/91 heart rate 72 afebrile maintaining oxygen saturation on nasal cannula. Laboratory data reviewed, WBC 5.8, hemoglobin 8.8, platelets 89, sodium 135, potassium 5.4, creatinine 2.32, magnesium 1.8. Currently maintained on Lasix IV 40 mg daily, aspirin 81 mg daily, atorvastatin 10 mg at bedtime, hydralazine 50 mg 3 times a day and Toprol 25 mg at bedtime. GENERAL: Well-appearing, well-nourished and in no acute distress. NECK: Supple without JVD or thyromegaly. LUNGS: Expiratory wheeze, no rales or whonchi. Respiration equal and unlabored. HEART: Regular rate and rhythm without murmurs, rubs or gallops. S1 and S2 heard. EXTREMITIES: Normal range of motion, no edema. No clubbing or cyanosis. Peripheral pulses intact. ASSESSMENT Chest pain, atypical for ACS. Abnormal troponins, not consistent with acute coronary syndrome Acute systolic heart failure Hyperkalemia Acute on chronic kidney disease, values going up daily Hypertension Dyslipidemia Severe pulmonary hypertension Obstructive sleep apnea Pancytopenia Hypomagnesema, improved today PLAN Change to oral diuretics, lasix 20 mg BID. She continues to have worsening renal function. She would benefit from evaluation at tertiary care center for severe pulmonary hypertension. No plans for cardiac catheterization due to worsening renal function. Nurse Practitioner note has been reviewed, I agree with a documented findings and plan of care. Patient was seen and examined. Objective - Vital Signs Vital signs: Vital Signs Temp 97.7 F 07/22/20 08:10 Pulse 72 07/22/20 08:10 Resp 22 07/22/20 08:10 BP 144/91 07/22/20 08:10 Pulse Ox 100 07/22/20 08:10 Intake & Output 07/21/20 07/22/20 07/22/20 18:59 06:59 18:59 Intake Total 1271 120 Output Total 550 Balance 1271 -550 120 Weight 143.9 kg Intake: Intake, IV Titration 300 Amount Magnesium Sulfate-D5w Pmx 300 1 gm In Dextrose/Water 1 100ml.bag @ 100 mls/hr IVPB Q1H [facility] Rx#: [id number] Oral 971 120 Output: Urine 550 Other: # Voids 1 1 # Bowel Movements 2 1 - Labs CBC & Chem 7: 07/22/20 08:45 07/22/20 08:45 Labs: Abnormal Lab Results - Last 24 Hours (Table) 07/21/20 07/21/20 07/21/20 Range/Units 12:22 17:07 20:04 RBC (3.80-5.40) m/uL Hgb (11.4-16.0) gm/dL Hct (34.0-46.0) % MCV (80.0-100.0) fL Plt Count (150-450) k/uL Lymphocytes # (1.0-4.8) k/uL Sodium (137-145) mmol/L Potassium (3.5-5.1) mmol/L Carbon Dioxide (22-30) mmol/L BUN (7-17) mg/dL Creatinine (0.52-1.04) mg/dL Glucose (74-99) mg/dL POC Glucose (mg/dL) 156 H 136 H 153 H (75-99) mg/dL Total Bilirubin (0.2-1.3) mg/dL AST (14-36) U/L ALT (4-34) U/L Alkaline Phosphatase (38-126) U/L 07/21/20 07/22/20 07/22/20 Range/Units 22:37 06:08 08:45 RBC 2.77 L (3.80-5.40) m/uL Hgb 8.8 L (11.4-16.0) gm/dL Hct 28.1 L (34.0-46.0) % MCV 101.4 H (80.0-100.0) fL Plt Count 89 L (150-450) k/uL Lymphocytes # 0.6 L (1.0-4.8) k/uL Sodium (137-145) mmol/L Potassium (3.5-5.1) mmol/L Carbon Dioxide (22-30) mmol/L BUN (7-17) mg/dL Creatinine (0.52-1.04) mg/dL Glucose (74-99) mg/dL POC Glucose (mg/dL) 141 H 137 H (75-99) mg/dL Total Bilirubin (0.2-1.3) mg/dL AST (14-36) U/L ALT (4-34) U/L Alkaline Phosphatase (38-126) U/L 07/22/20 Range/Units 08:45 RBC (3.80-5.40) m/uL Hgb (11.4-16.0) gm/dL Hct (34.0-46.0) % MCV (80.0-100.0) fL Plt Count (150-450) k/uL Lymphocytes # (1.0-4.8) k/uL Sodium 135 L (137-145) mmol/L Potassium 5.4 H (3.5-5.1) mmol/L Carbon Dioxide 17 L (22-30) mmol/L BUN 52 H (7-17) mg/dL Creatinine 2.32 H (0.52-1.04) mg/dL Glucose 161 H (74-99) mg/dL POC Glucose (mg/dL) (75-99) mg/dL Total Bilirubin 1.9 H (0.2-1.3) mg/dL AST 155 H (14-36) U/L ALT 35 H (4-34) U/L Alkaline Phosphatase 229 H (38-126) U/L
[2020-07-22 11:18] LABS: Glucose,Whole Blood 139 mg/dL (75-99)
[2020-07-22 14:10] LABS: HIV 2 AB Non-Reactive (Non-Reactive); HIV AB P24 Non-Reactive (Non-Reactive); HIV P24 AG Non-Reactive (Non-Reactive)
[2020-07-22] MEDS: FUROSEMIDE 20 MG TAB PO SCH (16:17)
--- NOTE | 2020-07-22 16:21 | US ---
EXAMINATION TYPE: US kidneys/renal and bladder DATE OF EXAM: 07/22/2020 COMPARISON: NONE CLINICAL HISTORY: 65 year-old female with renal failure, COVID pt, morbidly obese TECHNIQUE: Multiple sonographic images of the kidneys and bladder are obtained. FINDINGS: EXAM MEASUREMENTS: Right Kidney: 12.0 x 5.3 x 5.8cm Left Kidney: Unable to visualize Right Kidney: No hydronephrosis. Left Kidney: Truck Greaser notes: unable to visualize due to patients size, rolled to her left and unab le to move. Bladder: Under distention limits evaluation. Suggestion of trace perihepatic ascites. Attenuating liver compatible with fatty infiltration. IMPRESSION: 1. Unable to visualize the left kidney due to inability to move patient after she rolled onto her lef t side. 2. No hydronephrosis on the right. 3. Suggestion of some perihepatic ascites. Attenuating liver compatible with hepatic steatosis.
--- NOTE | 2020-07-22 16:23 | CONS ---
CONSULTATION REASON FOR CONSULT: Renal failure. HISTORY OF PRESENT ILLNESS: Patient is a 65-year-old female who was admitted to the hospital on 07/19/2020 with complaints of shortness of breath. The patient also had chest pain. Her chest pain is currently resolved. The patient was found to have significant volume overload and she is currently being diuresed. Blood pressure was significantly elevated at 177/110 on initial admission. Troponin was 0.07 and then increased mildly to 0.11. The patient is maintained on IV heparin. She is being followed by Cardiology. Patient has a history of chronic kidney disease, with previous creatinine of about 1.4 to 1.6 mg/dL all the way back to 2018. On admission, her creatinine was 1.4 and it has increased to 2.32 today. Blood pressure has now improved, with systolic around 130 to 140 mmHg, with no episodes of hypotension. Lasix is currently switched to p.o. at 20 mg p.o. b.i.d. The patient was on IGGY inhibitors, which were discontinued yesterday. She states she has been voiding well. The patient did receive IV contrast for chest CTA on 07/19/2020. PAST MEDICAL HISTORY: Chronic kidney disease, NKF stage IIIB. Baseline creatinine 1.4 to 1.6 mg/dL secondary to nephrosclerosis and diabetic kidney disease. Type 2 diabetes, hyperlipidemia, hypertension, obstructive sleep apnea, osteoarthritis. PAST SURGICAL HISTORY: Hysterectomy, right ankle surgery. SOCIAL HISTORY: Negative for smoking, drug abuse. Patient does have history of heavy EtOH abuse. MEDICATIONS: Medications at home prior to admission included aspirin, Zyrtec, Vasotec, Drisdol, Flonase, Synthroid, Mevacor, multivitamin, sodium bicarb, vitamin E, hydralazine, CoQ10. ALLERGIES: ALLERGIES include DEMEROL. REVIEW OF SYSTEMS: As per HPI. Other systems negative. PHYSICAL EXAMINATION: Patient is comfortable, awake, not in any acute distress. She states her breathing has improved. She denies any chest pains. Blood pressure was 144/91, heart rate 72 per minute. She is afebrile. EXAMINATION OF THE HEART: S1 and S2. EXAMINATION OF LUNGS: Bilateral breath sounds are heard. Decreased breath sounds at bases. Occasional wheezing is heard. ABDOMEN: Soft, non-tender. Examination of lower extremities shows edema 1+ bilaterally, chronic skin changes. STAFF DEVELOPMENT EDUCATOR exam is grossly intact. LABS: Labs show hemoglobin 8.8, WBCs 5.8, sodium 135, potassium 5.4, chloride 103, CO2 17, BUN 52, creatinine 2.32, magnesium 1.8, bilirubin 1.9. ASSESSMENT: 1. Acute kidney injury, mostly cardiorenal, as well as component of contrast-induced acute tubular necrosis, currently nonoliguric. I agree with discontinuation of IGGY inhibitors. Lasix has been switched to p.o. However, patient remains volume- overloaded. We may need to switch back to IV depending on her volume status tomorrow. 2. Congestive heart failure exacerbation, acute on top of chronic, ejection fraction 40% to 45%. 3. Cardiomyopathy, ejection fraction 40% to 45%, with severely dilated left atrium, severe tricuspid regurgitation and severe pulmonary hypertension. 4. Mild hyperkalemia associated with acute kidney injury. 5. Uncontrolled hypertension associated with volume overload, currently improved post diuresis. 6. Obstructive sleep apnea. PLAN: Continue off of IGGY inhibitors. I will likely switch back to IV push Lasix tomorrow, as patient remains volume-overloaded. Check iron studies. Check ultrasound of the kidneys. Check urinalysis and add sodium bicarb if patient remains acidotic tomorrow. Thank you for this consultation. Will continue to follow the patient with you during her hospitalization. MMODL / IJN: [id number] /
[2020-07-22 16:43] LABS: Glucose,Whole Blood 165 mg/dL (75-99)
[2020-07-22 19:09] LABS: % Iron Saturation 13.11 (12.00-45.00)
[2020-07-22 20:17] LABS: Glucose,Whole Blood 172 mg/dL (75-99)
[2020-07-22] MEDS: CITALOPRAM HYDROBROMIDE 20 MG TAB PO SCH (20:44)
[2020-07-22] MEDS: METOPROLOL SUCCINATE (ER) 25 MG TAB.ER.24H PO SCH (20:44)
[2020-07-22] MEDS: DARBEPOETIN ALFA 60 MCG/0.3 ML SYRINGE SQ SCH (20:44)
[2020-07-22] MEDS: ATORVASTATIN 10 MG TAB PO SCH (20:44)
[2020-07-22] MEDS: LORATADINE 10 MG TAB PO SCH (20:44)
[2020-07-22 22:23] LABS: Appearance,Urine Clear (Clear); Bacteria,Urine Occasional /hpf; Bilirubin,Urine Negative (Negative); Blood,Urine Small (Negative); Color,Urine Yellow; Glucose,Urine (UA) Negative (Negative); Hyaline Casts,Urine 5 /lpf (0-2); Ketones,Urine Negative (Negative); Leukocyte Esterase,Urine Moderate (Negative); Mucus,Urine Rare /hpf; Nitrite,Urine Negative (Negative); Protein,Urine 1+ (Negative); RBC,Urine 5 /hpf (0-5); Specific Gravity,Urine 1.017 (1.001-1.035); Squamous Epithelial Cell,Urine 3 /hpf (0-4); WBC,Urine 17 /hpf (0-5)
--- NOTE | 2020-07-22 23:09 | P.PN ---
Subjective Progress Note Date: 07/22/20 Principal diagnosis: New onset CHF Exacerbation , Severe pulmonary HTN Ms. Hartmann is a 65-year-old female with a past medical history of hypertension, hyperlipidemia, chronic kidney disease, obstructive sleep apnea coming to the hospital with a chief complaint of difficulty in breathing. Patient states that she was sitting and watching television when she started to have difficulty in breathing along with chest pain. She states the chest pain it is 7 x 10 in intensity, is mostly substernal radiating to the entire chest. Patient denies having any recent travel. No fever chills or rigors. Patient mentions about having sinus congestion and mild headaches for the past 1 week. She mentions that her sister and [id number] have Covid. Patient admits to drinking a big glass of vodka every night. In the emergency patient had blood pressure of 177/110, 96% on 2 L of nasal cannula, temperature 98.7, heart rate 85, rest she had a chest x-ray showing mild congestive heart failure. Patient also had CTA of which was negative for PE. But significant for pulmonary edema with pleural fluid and cardiomegaly consistent with congestive heart failure. Patient had mildly elevated troponins at 0.077, 0.114. She has been started on IV heparin, cardiology consult has been obtained. On 07/21/2020 -patient was seen and examined select speciality floor. She is comfortably sitting up in the bed and states that her difficulty in breathing and chest pain are better compared to yesterday. Patient denied having any fevers chills or rigors. No abdominal pain nausea vomiting or diarrhea. No dysuria or hematuria. On reviewing her vitals temperature 97.7 heart rate 74 rest saturating at 98 on 5 L of oxygen by nasal cannula. On reviewing her labs white count of 4.6, RALPH MCV 102.2, platelets 64. Sodium 139, potassium 5.2, chloride 106, by 21, BUN 40, creatinine 1.88. On -patient was seen and examined. Patient states that her difficulty breathing is slightly better but she is still short of breath. She states that the swelling in her upper extremities is much better compared to yesterday. Still has swelling in her lower extremities. Patient denies having any chest pain or palpitations. No abdominal pain nausea vomiting or diarrhea. No dysuria or hematuria. On reviewing the vitals patient's blood pressure is 144 x 91 saturating 100% on 4 L nasal cannula with temperature 97.7 on reviewing the patient's labs white count of 5.8, hemoglobin 8.8, platelets 89, macrocytosis. Electrolytes sodium 135, potassium 5.4, chloride 100, bicarb 17, BUN 15, creatinine 2.32 . Active Medications Aspirin (Aspirin 81 Mg) 81 mg PO DAILY [facility] Last Admin: 07/22/20 09:03 Dose: 81 mg Documented by: Atorvastatin Calcium (Atorvastatin 10 Mg Tab) 10 mg PO [facility] Last Admin: 07/22/20 20:44 Dose: 10 mg Documented by: Citalopram Hydrobromide (Citalopram Hydrobromide 20 Mg Tab) 20 mg PO [facility] Last Admin: 07/22/20 20:44 Dose: 20 mg Documented by: Darbepoetin Kenton (Darbepoetin Kenton 60 Mcg/0.3 Ml Syringe) 60 mcg SQ Q7D [facility] Last Admin: 07/22/20 20:44 Dose: 60 mcg Documented by: Furosemide (Furosemide 20 Mg Tab) 20 mg PO BID@0900,1600 [facility] Last Admin: 07/22/20 16:17 Dose: 20 mg Documented by: Hydralazine HCl (Hydralazine Hcl 50 Mg Tab) 50 mg PO TID [facility] Last Admin: 07/22/20 20:44 Dose: 50 mg Documented by: Insulin Aspart (Insulin Aspart (Novolog) 100 Unit/Ml Vial) 0 unit SQ [facility]; Protocol Last Admin: 07/22/20 20:45 Dose: 2 unit Documented by: Levothyroxine Sodium (Levothyroxine 75 Mcg Tab) 75 mcg PO DAILY@0730 [facility] Last Admin: 07/22/20 05:34 Dose: 75 mcg Documented by: Loratadine (Loratadine 10 Mg Tab) 10 mg PO [facility] Last Admin: 07/22/20 20:44 Dose: 10 mg Documented by: Metoprolol Succinate (Metoprolol Succinate (Er) 25 Mg Tab.Er.24h) 25 mg PO [facility] Last Admin: 07/22/20 20:44 Dose: 25 mg Documented by: Miscellaneous Information (Magnesium Replacement Protocol 1 Each [facility]) 1 each MISCELLANE DAILY PRN; Protocol PRN Reason: Per Protocol Nitroglycerin (Nitroglycerin Sl Tabs 0.4 Mg Tab) 0.4 mg SUBLINGUAL Q5M PRN PRN Reason: Chest Pain Ondansetron HCl (Ondansetron 4 Mg/2 Ml Vial) 4 mg IVP Q6HR PRN PRN Reason: Nausea And Vomiting Last Admin: 07/21/20 01:52 Dose: 4 mg Documented by: Pantoprazole Sodium (Pantoprazole 40 Mg Tablet) 40 mg PO AC-BRKFST [facility] Last Admin: 07/22/20 05:34 Dose: 40 mg Documented by: Objective - Vital Signs Vital signs: Vital Signs Temp 97.7 F 07/22/20 08:10 Pulse 72 07/22/20 08:10 Resp 22 07/22/20 08:10 BP 144/91 07/22/20 08:10 Pulse Ox 100 07/22/20 08:10 Intake & Output 07/21/20 07/22/20 07/22/20 18:59 06:59 18:59 Intake Total 1271 120 Output Total 550 Balance 1271 -550 120 Weight 143.9 kg Intake: Intake, IV Titration 300 Amount Magnesium Sulfate-D5w Pmx 300 1 gm In Dextrose/Water 1 100ml.bag @ 100 mls/hr IVPB Q1H [facility] Rx#: [id number] Oral 971 120 Output: Urine 550 Other: # Voids 1 1 # Bowel Movements 2 1 - Exam PHYSICAL EXAMINATION: Patient is lying in the bed comfortably, no acute distress, awake alert and oriented.. HEENT: Normocephalic. Neck is supple. Pupils reactive.Dried blood in the nostrils . Oral cavity is moist. Neck reveals no carotid bruits, or thyromegaly. CHEST EXAMINATION: Trachea is central. Symmetrical expansion. Bilateral basal crackles CARDIAC: Normal S1, S2 with no gallops. No murmurs ABDOMEN: Soft. Bowel sounds normal. No organomegaly. No abdominal bruits. Extremities: Upper extremity edema improved, Lower extremity still mild pitting edema. Neurologically awake, alert, oriented x3 with well-coordinated movements. No focal deficits noted . - Labs CBC & Chem 7: 07/22/20 08:45 07/22/20 08:45 Labs: Abnormal Lab Results - Last 24 Hours (Table) 07/21/20 07/21/20 07/21/20 Range/Units 12:22 17:07 20:04 RBC (3.80-5.40) m/uL Hgb (11.4-16.0) gm/dL Hct (34.0-46.0) % MCV (80.0-100.0) fL Plt Count (150-450) k/uL Lymphocytes # (1.0-4.8) k/uL Sodium (137-145) mmol/L Potassium (3.5-5.1) mmol/L Carbon Dioxide (22-30) mmol/L BUN (7-17) mg/dL Creatinine (0.52-1.04) mg/dL Glucose (74-99) mg/dL POC Glucose (mg/dL) 156 H 136 H 153 H (75-99) mg/dL Total Bilirubin (0.2-1.3) mg/dL AST (14-36) U/L ALT (4-34) U/L Alkaline Phosphatase (38-126) U/L 07/21/20 07/22/20 07/22/20 Range/Units 22:37 06:08 08:45 RBC 2.77 L (3.80-5.40) m/uL Hgb 8.8 L (11.4-16.0) gm/dL Hct 28.1 L (34.0-46.0) % MCV 101.4 H (80.0-100.0) fL Plt Count 89 L (150-450) k/uL Lymphocytes # 0.6 L (1.0-4.8) k/uL Sodium (137-145) mmol/L Potassium (3.5-5.1) mmol/L Carbon Dioxide (22-30) mmol/L BUN (7-17) mg/dL Creatinine (0.52-1.04) mg/dL Glucose (74-99) mg/dL POC Glucose (mg/dL) 141 H 137 H (75-99) mg/dL Total Bilirubin (0.2-1.3) mg/dL AST (14-36) U/L ALT (4-34) U/L Alkaline Phosphatase (38-126) U/L 07/22/20 07/22/20 Range/Units 08:45 11:17 RBC (3.80-5.40) m/uL Hgb (11.4-16.0) gm/dL Hct (34.0-46.0) % MCV (80.0-100.0) fL Plt Count (150-450) k/uL Lymphocytes # (1.0-4.8) k/uL Sodium 135 L (137-145) mmol/L Potassium 5.4 H (3.5-5.1) mmol/L Carbon Dioxide 17 L (22-30) mmol/L BUN 52 H (7-17) mg/dL Creatinine 2.32 H (0.52-1.04) mg/dL Glucose 161 H (74-99) mg/dL POC Glucose (mg/dL) 139 H (75-99) mg/dL Total Bilirubin 1.9 H (0.2-1.3) mg/dL AST 155 H (14-36) U/L ALT 35 H (4-34) U/L Alkaline Phosphatase 229 H (38-126) U/L Assessment and Plan Assessment: ASSESSMENT Shortness of breath- new onset CHF New onset Systolic CHF in Excerbation Severe Pulmonary HTN Hypertensive emergency Elevated troponins Acute kidney injury Transaminitis Hypomagnesemia Elevated alkaline phosphatase Thrombocytopenia Anemia PLAN: Patient had echocardiogram done showing an ejection fraction of 40 to 45%, with global hypokinesis with moderate to severe enlargement of right ventricle and severe pulmonary hypertension with PA pressure of 64. Patient showing improvement in her breathing status so continue with IV Lasix. Cardiology added metoprolol 25 mg. GI for elevated LFTs and Alkaline phosphate and nephrology for ALYSA consulted . Spoke with Cardiology team, no cardiac cath planned pt has worsening kidney function and marginally elevated tropnins in this setting . Continue with the current medication regimen. Further rec ommendations depending on the progress of the patient.
[2020-07-23 06:12] LABS: Glucose,Whole Blood 140 mg/dL (75-99)
[2020-07-23] MEDS: PANTOPRAZOLE 40 MG TABLET PO SCH (06:27)
[2020-07-23] MEDS: LEVOTHYROXINE 75 MCG TAB PO SCH (06:27)
[2020-07-23] MEDS: INSULIN ASPART (NovoLOG) 100 UNIT/ML VIAL SQ SCH ×4 (06:27→20:38)
[2020-07-23 08:09] LABS: Albumin 3.9 g/dL (3.5-5.0); Calcium 9.2 mg/dL (8.4-10.2); Potassium 4.8 mmol/L (3.5-5.1); Total Bilirubin 1.9 mg/dL (0.2-1.3); Total Protein 6.9 g/dL (6.3-8.2)
[2020-07-23 08:33] LABS: HCT 27.5 % (34.0-46.0); HGB 8.6 gm/dL (11.4-16.0); Hypochromasia Moderate; MCH 32.1 pg (25.0-35.0); MCHC 31.2 g/dL (31.0-37.0); MCV 102.8 fL (80.0-100.0); Macrocytosis Slight; Mean Platelet Volume 8.5; RBC 2.68 m/uL (3.80-5.40); RDW 14.8 % (11.5-15.5); WBC 4.8 k/uL (3.8-10.6)
[2020-07-23 08:37] LABS: Platelet Count 82 k/uL (150-450)
[2020-07-23] MEDS: ASPIRIN 81 MG PO SCH (08:52)
[2020-07-23] MEDS: FUROSEMIDE 20 MG TAB PO SCH (08:52)
[2020-07-23] MEDS: hydrALAZINE HCL 50 MG TAB PO SCH ×3 (08:53→20:50)
[2020-07-23] MEDS ORDERED: FUROSEMIDE 10 MG/ML 4 ML VIAL IV STA (09:48)
--- NOTE | 2020-07-23 11:07 | P.PN ---
Subjective This is a pleasant 65-year-old female past medical history significant for hypertension, dyslipidemia, diabetes mellitus and daily alcohol use. 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 She is seen and examined sitting up in bed in no acute distress. She states she was up all night urinating. Her breathing is stable with no worsening. She denies chest pain, dizziness or palpitations. Blood pressure 144/88 heart rate 65 afebrile and maintaining oxygen saturation on nasal cannula. Laboratory data reviewed, WBC 4.8, hemoglob in 8.6, platelets 82, sodium 135, potassium 4.8, creatinine 2.4. Currently maintained on aspirin 81 mg daily, Lipitor 10 mg daily, Lasix 40 mg IV twice a day per nephrology, hydralazine 50 mg 3 times a day, Toprol 25 mg at bedtime and bicarb infusion per nephrology. GENERAL: Well-appearing, well-nourished and in no acute distress. NECK: Supple without JVD or thyromegaly. LUNGS: Clear to auscultation, no wheezes, rales or whonchi. Respiration equal and unlabored. HEART: Regular rate and rhythm without murmurs, rubs or gallops. S1 and S2 heard. EXTREMITIES: Normal range of motion, no edema. No clubbing or cyanosis. Peripheral pulses intact. ASSESSMENT Chest pain, atypical for ACS. Abnormal troponins, not consistent with acute coronary syndrome Acute systolic heart failure Hyperkalemia Acute on chronic kidney disease Hypertension Dyslipidemia Severe pulmonary hypertension Obstructive sleep apnea Pancytopenia Hypomagnesema, improved today PLAN Continue current medical regimen and diuresis per nephrology. Given her worsening renal function we will not pursue cardiac catheterization on this admission. This has been discussed with the primary care team as well has pulmonary. We recommend further pulmonary hypertension evaluation as an outpatient. Nurse Practitioner note has been reviewed, I agree with a documented findings and plan of care. Patient was seen and examined. Objective - Vital Signs Vital signs: Vital Signs Temp 97.7 F 07/23/20 08:00 Pulse 65 07/23/20 08:00 Resp 18 07/23/20 08:00 BP 144/88 07/23/20 08:00 Pulse Ox 99 07/23/20 08:00 Intake & Output 07/22/20 07/23/20 07/23/20 18:59 06:59 18:59 Intake Total 360 10 240 Balance 360 10 240 Weight 144.7 kg Intake: IV 10 0.9 10 Oral 360 240 Other: Voiding Method Bedside Commode # Voids 4 1 # Bowel Movements 2 1 - Labs CBC & Chem 7: 07/23/20 07:45 07/23/20 07:45 Labs: Abnormal Lab Results - Last 24 Hours (Table) 07/22/20 07/22/20 07/22/20 Range/Units 08:45 11:17 16:42 RBC (3.80-5.40) m/uL Hgb (11.4-16.0) gm/dL Hct (34.0-46.0) % MCV (80.0-100.0) fL Plt Count (150-450) k/uL Sodium (137-145) mmol/L Carbon Dioxide (22-30) mmol/L BUN (7-17) mg/dL Creatinine (0.52-1.04) mg/dL Glucose (74-99) mg/dL POC Glucose (mg/dL) 139 H 165 H (75-99) mg/dL Iron 40 L (50-170) ug/dL Total Bilirubin (0.2-1.3) mg/dL AST (14-36) U/L Alkaline Phosphatase (38-126) U/L Urine Protein (Negative) Urine Blood (Negative) Ur Leukocyte Esterase (Negative) Urine WBC (0-5) /hpf Urine Bacteria (None) /hpf Hyaline Casts (0-2) /lpf Urine Mucus (None) /hpf 07/22/20 07/22/20 07/23/20 Range/Units 20:15 22:00 06:11 RBC (3.80-5.40) m/uL Hgb (11.4-16.0) gm/dL Hct (34.0-46.0) % MCV (80.0-100.0) fL Plt Count (150-450) k/uL Sodium (137-145) mmol/L Carbon Dioxide (22-30) mmol/L BUN (7-17) mg/dL Creatinine (0.52-1.04) mg/dL Glucose (74-99) mg/dL POC Glucose (mg/dL) 172 H 140 H (75-99) mg/dL Iron (50-170) ug/dL Total Bilirubin (0.2-1.3) mg/dL AST (14-36) U/L Alkaline Phosphatase (38-126) U/L Urine Protein 1+ H (Negative) Urine Blood Small H (Negative) Ur Leukocyte Esterase Moderate H (Negative) Urine WBC 17 H (0-5) /hpf Urine Bacteria Occasional H (None) /hpf Hyaline Casts 5 H (0-2) /lpf Urine Mucus Rare H (None) /hpf 07/23/20 07/23/20 Range/Units 07:45 07:45 RBC 2.68 L (3.80-5.40) m/uL Hgb 8.6 L (11.4-16.0) gm/dL Hct 27.5 L (34.0-46.0) % MCV 102.8 H (80.0-100.0) fL Plt Count 82 L (150-450) k/uL Sodium 135 L (137-145) mmol/L Carbon Dioxide 14 L (22-30) mmol/L BUN 66 H (7-17) mg/dL Creatinine 2.40 H (0.52-1.04) mg/dL Glucose 155 H (74-99) mg/dL POC Glucose (mg/dL) (75-99) mg/dL Iron (50-170) ug/dL Total Bilirubin 1.9 H (0.2-1.3) mg/dL AST 115 H (14-36) U/L Alkaline Phosphatase 216 H (38-126) U/L Urine Protein (Negative) Urine Blood (Negative) Ur Leukocyte Esterase (Negative) Urine WBC (0-5) /hpf Urine Bacteria (None) /hpf Hyaline Casts (0-2) /lpf Urine Mucus (None) /hpf Microbiology - Last 24 Hours (Table) 07/22/20 22:00 Urine Culture - Preliminary Urine,Clean Catch 07/22/20 14:45 Stool Culture - Preliminary Stool
[2020-07-23 11:24] LABS: Lymphocytes # (M) 0.34 k/uL (1.0-4.8); Neutrophils # (M) 4.27 k/uL (1.3-7.7); Neutrophils % (M) 89 %; Nucleated Red Blood Cells 0 /100 WBC (0-0); Total Cells Counted 100
[2020-07-23 11:27] LABS: Anisocytosis (M) Present; Poikilocytosis (M) Present; Polychromasia Present
[2020-07-23 11:35] LABS: Glucose,Whole Blood 142 mg/dL (75-99)
[2020-07-23] MEDS: DEXTROSE 5% IN WATER 1,000 ML with SODIUM BICARB (1 MEQ/ML) 150 ML IV SCH (13:31)
--- NOTE | 2020-07-23 13:59 | P.PN ---
Subjective Progress Note Date: 07/23/20 Principal diagnosis: Elevated LFTs Patient was seen and examined at the bedside. She states overall she is feeling better today. Still having some mild shortness of breath, denies any chest pain. She denies any abdominal pain, nausea, or vomiting. Still having loose bowel movements. She had 3 through the night. She describes them as loose to watery, nonbloody. Clostridium difficile toxin negative. Stool culture pending. Objective - Vital Signs Vital signs: Vital Signs Temp 97.5 F L 07/23/20 03:09 Pulse 91 07/23/20 03:09 Resp 18 07/23/20 03:09 BP 168/96 07/23/20 03:09 Pulse Ox 97 07/23/20 03:09 Intake & Output 07/22/20 07/23/20 07/23/20 18:59 06:59 18:59 Intake Total 360 10 240 Balance 360 10 240 Weight 144.7 kg Intake: IV 10 0.9 10 Oral 360 240 Other: Voiding Method Bedside Commode # Voids 4 1 # Bowel Movements 2 1 - Exam General appearance: The patient is alert, oriented, in no acute distress. HET: Head is normocephalic and atraumatic. Conjunctiva pink. Sclera anicteric. Neck: Supple without lymphadenopathy. Abdomen: Soft, obese, nontender, nondistended with bowel sounds. No guarding or rigidity. Extremities: Normal skin color and turgor. No pedal edema Neurological: No focal deficits. Alert and oriented 3. - Labs CBC & Chem 7: 07/23/20 07:45 07/23/20 07:45 Labs: Abnormal Lab Results - Last 24 Hours (Table) 07/22/20 07/22/20 07/22/20 Range/Units 08:45 11:17 16:42 RBC (3.80-5.40) m/uL Hgb (11.4-16.0) gm/dL Hct (34.0-46.0) % MCV (80.0-100.0) fL Plt Count (150-450) k/uL Sodium (137-145) mmol/L Carbon Dioxide (22-30) mmol/L BUN (7-17) mg/dL Creatinine (0.52-1.04) mg/dL Glucose (74-99) mg/dL POC Glucose (mg/dL) 139 H 165 H (75-99) mg/dL Iron 40 L (50-170) ug/dL Total Bilirubin (0.2-1.3) mg/dL AST (14-36) U/L Alkaline Phosphatase (38-126) U/L Urine Protein (Negative) Urine Blood (Negative) Ur Leukocyte Esterase (Negative) Urine WBC (0-5) /hpf Urine Bacteria (None) /hpf Hyaline Casts (0-2) /lpf Urine Mucus (None) /hpf 07/22/20 07/22/20 07/23/20 Range/Units 20:15 22:00 06:11 RBC (3.80-5.40) m/uL Hgb (11.4-16.0) gm/dL Hct (34.0-46.0) % MCV (80.0-100.0) fL Plt Count (150-450) k/uL Sodium (137-145) mmol/L Carbon Dioxide (22-30) mmol/L BUN (7-17) mg/dL Creatinine (0.52-1.04) mg/dL Glucose (74-99) mg/dL POC Glucose (mg/dL) 172 H 140 H (75-99) mg/dL Iron (50-170) ug/dL Total Bilirubin (0.2-1.3) mg/dL AST (14-36) U/L Alkaline Phosphatase (38-126) U/L Urine Protein 1+ H (Negative) Urine Blood Small H (Negative) Ur Leukocyte Esterase Moderate H (Negative) Urine WBC 17 H (0-5) /hpf Urine Bacteria Occasional H (None) /hpf Hyaline Casts 5 H (0-2) /lpf Urine Mucus Rare H (None) /hpf 07/23/20 07/23/20 Range/Units 07:45 07:45 RBC 2.68 L (3.80-5.40) m/uL Hgb 8.6 L (11.4-16.0) gm/dL Hct 27.5 L (34.0-46.0) % MCV 102.8 H (80.0-100.0) fL Plt Count 82 L (150-450) k/uL Sodium 135 L (137-145) mmol/L Carbon Dioxide 14 L (22-30) mmol/L BUN 66 H (7-17) mg/dL Creatinine 2.40 H (0.52-1.04) mg/dL Glucose 155 H (74-99) mg/dL POC Glucose (mg/dL) (75-99) mg/dL Iron (50-170) ug/dL Total Bilirubin 1.9 H (0.2-1.3) mg/dL AST 115 H (14-36) U/L Alkaline Phosphatase 216 H (38-126) U/L Urine Protein (Negative) Urine Blood (Negative) Ur Leukocyte Esterase (Negative) Urine WBC (0-5) /hpf Urine Bacteria (None) /hpf Hyaline Casts (0-2) /lpf Urine Mucus (None) /hpf Microbiology - Last 24 Hours (Table) 07/22/20 22:00 Urine Culture - Preliminary Urine,Clean Catch 07/22/20 14:45 Stool Culture - Preliminary Stool Assessment and Plan (1) Elevated liver function tests Narrative/Plan: This is a 65-year-old female with multiple medical core morbidities as well has a known history of alcohol abuse and alcoholic liver disease who presented to the hospital due to shortness of breath and chest pain. Currently she is being treated for fluid overload with diuresis. She was noted to have elevation of liver enzymes with a total bilirubin of 1.9, alkaline phosphatase 229, AST 155 and ALT 35. The patient has a known history of daily alcohol use and has been followed in the outpatient setting for alcoholic liver disease and cirrhosis. Elevation of liver enzymes likely related to underlying liver disease, cannot rule out medication effect, viral hepatitis, congestive hepatopathy or other et iology. Current Visit: Yes Status: Acute Code(s): R79.89 - OTHER SPECIFIED ABNORMAL FINDINGS OF BLOOD CHEMISTRY SNOMED Code(s): 774228920 (2) Cirrhosis, alcoholic Current Visit: Yes Status: Acute Code(s): K70.30 - ALCOHOLIC CIRRHOSIS OF LIVER WITHOUT ASCITES SNOMED Code(s): 264739300 Plan: 1. Supportive care 2. Diet as tolerated 3. Clostridium difficile toxin ordered, negative 4. Stool culture ordered, pending 5. Will add Imodium as needed for diarrhea 6. CBC, CMP daily 7. Avoid hepatotoxic medications 8. Alcohol abstinence 9. Patient has follow-up appointment with Dr. Elizalde this month, patient may be discharged from a gastrointestinal standpoint when medically cleared Dr. Salazar I agree with the dictator's note, documented as a scribe by Valentina Marshall.
--- NOTE | 2020-07-23 14:06 | XR ---
EXAMINATION TYPE: XR chest 1V DATE OF EXAM: 07/23/2020 COMPARISON: Prior chest x-ray 07/19/2020 HISTORY: Congestive heart failure TECHNIQUE: Single frontal view of the chest is obtained. FINDINGS: There is no pleural effusion or pneumothorax seen. Prominent central vascularity has impro bridgette somewhat. Suspect some improvement in aeration within the lungs. The cardiac silhouette size is s table and enlarged. Persistent elevation of right hemidiaphragm is noted. Interstitium is mildly inc reased. The osseous structures are intact. IMPRESSION: There may be some improvement in volume status.
--- NOTE | 2020-07-23 14:08 | P.CONS ---
History of Present Illness - Reason for Consult Consult date: 07/22/20 Elevated liver enzymes Requesting physician: Daija Henderson - Chief Complaint Shortness of breath and chest - History of Present Illness 65-year-old female with a medical history significant for chronic kidney disease, obstructive sleep apnea, hypertension, hyperlipidemia as well as a known history of alcohol abuse and alcoholic liver disease who presented to the hospital due to shortness of breath and chest pain. Currently the patient is being treated for fluid overload and suspected congestive heart failure. The GI service was consult due to concerns over elevation in her liver enzymes. Her enzymes have remained elevated and consistent with alcoholic liver disease with total bilirubin 1.8 from 0.4, alkaline phosphatase 229 from 229, AST 155 from 142 and ALT 35 from 31. Other laboratory evaluation significant for WBC 5.8, hemoglobin 8.8, platelet count 89,000. The patient does have an established relationship with the GI service and followed up in the office. She has also been complaining of loose bowel movements, several per day occurring over the past week. Review of Systems REVIEW OF SYSTEMS: CONSTITUTIONAL: Denies any fevers, chills, weight change or fatigue. CARDIOVASCULAR: Denies any chest pain, palpitations high or low blood pressures at this time which she had reported chest pain on presentation. RESPIRATORY: Denies any shortness of breath, hemoptysis or cough., However she had complained of shortness of breath on presentation GENITOURINARY: No dysuria or hematuria. MUSCULOSKELETAL: No weakness reported. SKIN: Denies any new rashes or lesions, jaundice or pallor. PSYCHIATRIC: Denies any depression or anxiety, History of alcohol abuse. NEUROLOGY: Denies headache, denies any new focal deficits. EARS/NOSE/THROAT: No recent hearing change, congestion, nasal discharge or sore throat. EYES: No pain in eyes, discharge or change in vision. GASTROINTESTINAL: As per HPI. Past Medical History Past Medical History: Chest Pain / Angina, Diabetes Mellitus, Hyperlipidemia, Hypertension, Renal Disease, Sleep Apnea/CPAP/BIPAP History of Any Multi-Drug Resistant Organisms: None Reported Past Surgical History: Hysterectomy, Orthopedic Surgery Additional Past Surgical History / Comment(s): RIGHT ANKLE SURGERY Past Psychological History: No Psychological Hx Reported Smoking Status: Never smoker Past Alcohol Use History: Daily, Heavy Past Drug Use History: None Reported Additional History: Family history: Reviewed with the patient and noncontributory to current medical presentation Medications and Allergies Home Medications Medication Instructions Recorded Confirmed Type Aspirin [Adult Low Dose Aspirin EC] 81 mg PO DAILY 07/19/20 07/19/20 History Cetirizine HCl [Zyrtec] 10 mg PO HS 07/19/20 07/19/20 History Citalopram Hydrobromide 20 mg PO HS 07/19/20 07/19/20 History [Citalopram HBr] Enalapril Maleate [Vasotec] 10 mg PO HS 07/19/20 07/19/20 History Ergocalciferol [Vitamin D2 50,000 unit PO WE 07/19/20 07/19/20 History (DRISDOL)] Fluticasone Nasal [place] [Flonase 1 spray EA NOSTRIL HS 07/19/20 07/19/20 History Nasal [place]] Glucosamine Sulfate 1,000 mg PO DAILY 07/19/20 07/19/20 History Levothyroxine Sodium [Synthroid] 75 mcg PO DAILY 07/19/20 07/19/20 History Lovastatin [Mevacor] 10 mg PO HS 07/19/20 07/19/20 History Lysine [l-Lysine] 500 mg PO BID 07/19/20 07/19/20 History Multivitamins, Thera [Multivitamin 1 tab PO DAILY 07/19/20 07/19/20 History (formulary)] Sodium Bicarbonate 325 mg PO TID 07/19/20 07/19/20 History Ubidecarenone [Co Q-10] 100 mg PO W/SUPPER 07/19/20 07/19/20 History Vitamin E 400 unit PO W/SUPPER 07/19/20 07/19/20 History hydrALAZINE HCL 25 mg PO BID 07/19/20 07/19/20 History Allergies Allergy/AdvReac Type Severity Reaction Status Date / Time meperidine [From Demerol] AdvReac Swelling Verified 07/19/20 21:14 Physical Exam Vitals: Vital Signs Temp Pulse Resp BP Pulse Ox 07/22/20 08:10 97.7 F 72 22 144/91 100 07/22/20 03:03 98.8 F 88 20 136/78 97 07/22/20 02:00 84 20 07/22/20 00:00 84 20 132/80 97 12/06/20 20:00 98 F 90 20 140/90 98 07/21/20 16:45 97.7 F 74 18 144/86 98 07/21/20 14:00 20 Intake and Output 07/21/20 07/22/20 07/22/20 22:59 06:59 14:59 Intake Total 180 120 Output Total 550 Balance 180 -550 120 Intake: Oral 180 120 Output: Urine 550 Other: # Voids 1 1 # Bowel Movements 2 1 Weight 143.9 kg On physical examination, patient appears comfortable in no apparent distress. HEAD: Normocephalic, atraumatic. EYES: No scleral icterus. No conjunctival injection. MOUTH: No lesions, tongue midline. NECK: Trachea midline, no gross abnormalities. CHEST: Decreased air entry in all lung barboza. HEART: S1-S2 appreciated. ABDOMEN: Soft, obese nontender to palpation. Bowel sounds are positive. No organomegaly. No guarding or rigidity. EXTREMITIES: Bilateral pedal edema. SKIN: No rashes, no jaundice. NEUROLOGIC: Alert and oriented x3. No focal deficits. Results CBC & Chem 7: 07/23/20 07:45 07/23/20 07:45 Labs: Abnormal Lab Results - Last 24 Hours (Table) 07/21/20 07/21/20 07/21/20 Range/Units 17:07 20:04 22:37 RBC (3.80-5.40) m/uL Hgb (11.4-16.0) gm/dL Hct (34.0-46.0) % MCV (80.0-100.0) fL Plt Count (150-450) k/uL Lymphocytes # (1.0-4.8) k/uL Sodium (137-145) mmol/L Potassium (3.5-5.1) mmol/L Carbon Dioxide (22-30) mmol/L BUN (7-17) mg/dL Creatinine (0.52-1.04) mg/dL Glucose (74-99) mg/dL POC Glucose (mg/dL) 136 H 153 H 141 H (75-99) mg/dL Total Bilirubin (0.2-1.3) mg/dL AST (14-36) U/L ALT (4-34) U/L Alkaline Phosphatase (38-126) U/L 12/07/20 12/07/20 12/07/20 Range/Units 06:08 08:45 08:45 RBC 2.77 L (3.80-5.40) m/uL Hgb 8.8 L (11.4-16.0) gm/dL Hct 28.1 L (34.0-46.0) % MCV 101.4 H (80.0-100.0) fL Plt Count 89 L (150-450) k/uL Lymphocytes # 0.6 L (1.0-4.8) k/uL Sodium 135 L (137-145) mmol/L Potassium 5.4 H (3.5-5.1) mmol/L Carbon Dioxide 17 L (22-30) mmol/L BUN 52 H (7-17) mg/dL Creatinine 2.32 H (0.52-1.04) mg/dL Glucose 161 H (74-99) mg/dL POC Glucose (mg/dL) 137 H (75-99) mg/dL Total Bilirubin 1.9 H (0.2-1.3) mg/dL AST 155 H (14-36) U/L ALT 35 H (4-34) U/L Alkaline Phosphatase 229 H (38-126) U/L 07/22/20 Range/Units 11:17 RBC (3.80-5.40) m/uL Hgb (11.4-16.0) gm/dL Hct (34.0-46.0) % MCV (80.0-100.0) fL Plt Count (150-450) k/uL Lymphocytes # (1.0-4.8) k/uL Sodium (137-145) mmol/L Potassium (3.5-5.1) mmol/L Carbon Dioxide (22-30) mmol/L BUN (7-17) mg/dL Creatinine (0.52-1.04) mg/dL Glucose (74-99) mg/dL POC Glucose (mg/dL) 139 H (75-99) mg/dL Total Bilirubin (0.2-1.3) mg/dL AST (14-36) U/L ALT (4-34) U/L Alkaline Phosphatase (38-126) U/L US - abdomen: report reviewed (Some hepatic steatosis and ascites noted on ultrasound of the abdomen) Assessment and Plan (1) Elevated liver function tests Narrative/Plan: 65-year-old female with multiple medical comorbidities as well as a known history of alcohol abuse and alcoholic liver disease who presents to the hospital due to shortness of breath and chest pain. Currently being treated for fluid overload with diuresis. She was noted to have elevation of liver enzymes with total bilirubin 1.9, alkaline phosphatase 229, AST 155 and ALT 35. The patient has a known history of daily alcohol use and has been followed in the outpatient setting for alcoholic liver disease and cirrhosis. Elevation liver enzymes likely related to underlying liver disease, cannot rule out medication effect, viral hepatitis, congestive hepatopathy or other etiology. Current Visit: Yes Status: Acute Code(s): R79.89 - OTHER SPECIFIED ABNORMAL FINDINGS OF BLOOD CHEMISTRY SNOMED Code(s): 758274301 (2) Cirrhosis, alcoholic Current Visit: Yes Status: Acute Code(s): K70.30 - ALCOHOLIC CIRRHOSIS OF LIVER WITHOUT ASCITES SNOMED Code(s): 537369553 Plan: Supportive care Okay for diet Continue to monitor CBC, BMP, LFTs Avoid hepatotoxic medications Alcohol abstinence Ultrasound of the abdomen reviewed No plan for further evaluation at this time, if patient has significant elevation of liver enzymes can consider full serology at that time Patient didn't continue to follow up with GI in the outpatient setting after discharge Thank you for allowing us to participate in the care of the patient
[2020-07-23] MEDS: LOPERAMIDE 2 MG CAP PO PRN (14:49)
--- NOTE | 2020-07-23 16:49 | PN ---
PROGRESS NOTE Patient is seen for followup for acute kidney injury on top of chronic kidney disease. Patient was admitted to the hospital with shortness of breath and fluid overload. She was diuresed. Her creatinine continued to increase from 1.49 to 2.4 today. Patient's blood pressure has not been low. She was on IGGY inhibitors which are currently on hold. The patient also received IV contrast on initial admission for CTA. She has had good urine output. She is complaining of mild shortness of breath. Overall, the lower extremity edema has improved but still present. PHYSICAL EXAMINATION: On examination today, blood pressure was 133/61, heart rate 72 per minute, patient is afebrile. Examination of the heart S1, S2. Examination of the lungs, bilateral breath sounds are heard. Abdomen is soft, nontender, obese. Examination of the lower extremities shows edema 1+ bilaterally. Chronic skin changes noted. [employer] exam grossly intact. LABS: Show sodium 135, potassium 4.8, chloride 107, CO2 is 14, BUN 66, serum creatinine 2.4, hemoglobin 8.6 g/dL. ASSESSMENT: 1. Acute kidney injury, ATN from contrast nephropathy as well as a component of cardiorenal syndrome, currently non-oliguric. Continue off IGGY inhibitors. Lasix was switched to p.o. I will resume IV Lasix for another 24 hours as patient will be starting bicarb drip for her metabolic acidosis as well. 2. CHF, acute on top of chronic mainly systolic. 3. Cardiomyopathy, ejection fraction 40% to 45% with severe tricuspid regurgitation and severe pulmonary hypertension. 4. Mild hyperkalemia associated with acute kidney injury. 5. Uncontrolled hypertension with volume overload, currently improving. 6. Obstructive sleep apnea. 7. Anemia, rule out iron deficiency. 8. Metabolic acidosis associated with renal failure, previous history of diarrhea on initial admission, currently, no ongoing diarrhea. I will start bicarb drip. Continue with oral sodium bicarb as well for now. PLAN: Start bicarb drip at 50 mL an hour. Resume IV Lasix for just 24 hours and we will switch back to p.o. tomorrow. Patient has edema in her lower extremities. However, she has significant right-sided heart failure with severe pulmonary hypertension and tricuspid regurgitation. CKD, NKF stage III, previous creatinine about 1.4-1.[address] back to 2018. Etiology, nephrosclerosis and diabetic kidney disease. Repeat labs in a.m. MMODL / IJN: [id number] /
[2020-07-23 16:55] LABS: Glucose,Whole Blood 145 mg/dL (75-99)
--- NOTE | 2020-07-23 17:46 | P.PN ---
Subjective From records Ms. Hartmann is a 65-year-old female with a past medical history of hypertension, hyperlipidemia, chronic kidney disease, obstructive sleep apnea coming to the hospital with a chief complaint of difficulty in breathing. Patient states that she was sitting and watching television when she started to have difficulty in breathing along with chest pain. She states the chest pain it is 7 x 10 in intensity, is mostly substernal radiating to the entire chest. Patient denies having any recent travel. No fever chills or rigors. Patient mentions about having sinus congestion and mild headaches for the past 1 week. She mentions that her sister and [id number] have Covid. Patient admits to drinking a big glass of vodka every night. In the emergency patient had blood pressure of 177/110, 96% on 2 L of nasal cannula, temperature 98.7, heart rate 85, rest she had a chest x-ray showing mild congestive heart failure. Patient also had CTA of which was negative for PE. But significant for pulmonary edema with pleural fluid and cardiomegaly consistent with congestive heart failure. Patient had mildly elevated troponins at 0.077, 0.114. She has been started on IV heparin, cardiology consult has been obtained. On 07/21/2020 -patient was seen and examined [facility] floor. She is comfortably sitting up in the bed and states that her difficulty in breathing and chest pain are better compared to yesterday. Patient denied having any fevers chills or rigors. No abdominal pain nausea vomiting or diarrhea. No dysuria or hematuria. On reviewing her vitals temperature 97.7 heart rate 74 rest saturating at 98 on 5 L of oxygen by nasal cannula. On reviewing her labs white count of 4.6, RALPH MCV 102.2, platelets 64. Sodium 139, potassium 5.2, chloride 106, by 21, BUN 40, creatinine 1.88. On -patient was seen and examined. Patient states that her difficulty breathing is slightly better but she is still short of breath. She states that the swelling in her upper extremities is much better compared to yesterday. Still has swelling in her lower extremities. Patient denies having any chest pain or palpitations. No abdominal pain nausea vomiting or diarrhea. No dysuria or hematuria. On reviewing the vitals patient's blood pressure is 144 x 91 saturating 100% on 4 L nasal cannula with temperature 97.7 on reviewing the patient's labs white count of 5.8, hemoglobin 8.8, platelets 89, macrocytosis. Electrolytes sodium 135, potassium 5.4, chloride 100, bicarb 17, BUN 15, creatinine 2.32 . Subjective: This is the first day I am taking care of the patient 07/23/2020 This is a pleasant 65 years old female who presents with chest pain and CHF with ejection fraction 40-45% and abnormal valvular heart disease showing moderate to severe mitral regurgitation, severe pulmonary hypertension, moderate to severe right ventricular enlargement. Also she has chronic disease stage III obstructive sleep apnea on CPAP and uncontrolled hypertension upon admission. Also on exam she has bilateral leg swelling. Her creatinine was trending up, probably secondary to contrast-induced nephropathy and nephrology of the case however today her creatinine has been stabilized at 2.4, and give her 1 dose of Lasix given her overt fluid overload state I discussed the case with nephrology team, we gave him an extra dose of Lasix 40 mg times 1 in the AM. He'll keep monitoring. Consult curtain cutter recommended outpatient workup for pulmonary hypertension Objective - Vital Signs Vital signs: Vital Signs Temp 97.7 F 07/23/20 08:00 Pulse 65 07/23/20 08:00 Resp 18 07/23/20 08:00 BP 144/88 07/23/20 08:00 Pulse Ox 99 07/23/20 08:00 Intake & Output 07/22/20 07/23/20 07/23/20 18:59 06:59 18:59 Intake Total 360 10 240 Balance 360 10 240 Weight 144.7 kg Intake: IV 10 0.9 10 Oral 360 240 Other: Voiding Method Bedside Commode # Voids 4 1 # Bowel Movements 2 1 - Exam GENERAL: The patient is alert and oriented x3, not in any acute distress. Well developed, well nourished. HEENT: Pupils are round and equally reacting to light. EOMI. No scleral icterus. No conjunctival pallor. Normocephalic, atraumatic. No pharyngeal erythema. No thyromegaly. CARDIOVASCULAR: S1 and S2 present. No murmurs, rubs, or gallops. -PULMONARY: Chest is clear to auscultation, no wheezing. Bilateral mild basal crepitation ABDOMEN: Soft, nontender, nondistended, normoactive bowel sounds. No palpable organomegaly. MUSCULOSKELETAL: No joint swelling or deformity. -EXTREMITIES: No cyanosis, clubbing,. 1+ bilateral pitting like edema NEUROLOGICAL: Gross neurological examination did not reveal any focal deficits. SKIN: No rashes. no petechiae. - Labs CBC & Chem 7: 07/23/20 07:45 07/23/20 07:45 Labs: Abnormal Lab Results - Last 24 Hours (Table) 07/22/20 07/22/20 07/22/20 Range/Units 08:45 16:42 20:15 RBC (3.80-5.40) m/uL Hgb (11.4-16.0) gm/dL Hct (34.0-46.0) % MCV (80.0-100.0) fL Plt Count (150-450) k/uL Lymphocytes # (Manual) (1.0-4.8) k/uL Sodium (137-145) mmol/L Carbon Dioxide (22-30) mmol/L BUN (7-17) mg/dL Creatinine (0.52-1.04) mg/dL Glucose (74-99) mg/dL POC Glucose (mg/dL) 165 H 172 H (75-99) mg/dL Iron 40 L (50-170) ug/dL Total Bilirubin (0.2-1.3) mg/dL AST (14-36) U/L Alkaline Phosphatase (38-126) U/L Urine Protein (Negative) Urine Blood (Negative) Ur Leukocyte Esterase (Negative) Urine WBC (0-5) /hpf Urine Bacteria (None) /hpf Hyaline Casts (0-2) /lpf Urine Mucus (None) /hpf 07/22/20 07/23/20 07/23/20 Range/Units 22:00 06:11 07:45 RBC (3.80-5.40) m/uL Hgb (11.4-16.0) gm/dL Hct (34.0-46.0) % MCV (80.0-100.0) fL Plt Count (150-450) k/uL Lymphocytes # (Manual) (1.0-4.8) k/uL Sodium 135 L (137-145) mmol/L Carbon Dioxide 14 L (22-30) mmol/L BUN 66 H (7-17) mg/dL Creatinine 2.40 H (0.52-1.04) mg/dL Glucose 155 H (74-99) mg/dL POC Glucose (mg/dL) 140 H (75-99) mg/dL Iron (50-170) ug/dL Total Bilirubin 1.9 H (0.2-1.3) mg/dL AST 115 H (14-36) U/L Alkaline Phosphatase 216 H (38-126) U/L Urine Protein 1+ H (Negative) Urine Blood Small H (Negative) Ur Leukocyte Esterase Moderate H (Negative) Urine WBC 17 H (0-5) /hpf Urine Bacteria Occasional H (None) /hpf Hyaline Casts 5 H (0-2) /lpf Urine Mucus Rare H (None) /hpf 07/23/20 07/23/20 Range/Units 07:45 11:34 RBC 2.68 L (3.80-5.40) m/uL Hgb 8.6 L (11.4-16.0) gm/dL Hct 27.5 L (34.0-46.0) % MCV 102.8 H (80.0-100.0) fL Plt Count 82 L (150-450) k/uL Lymphocytes # (Manual) 0.34 L (1.0-4.8) k/uL Sodium (137-145) mmol/L Carbon Dioxide (22-30) mmol/L BUN (7-17) mg/dL Creatinine (0.52-1.04) mg/dL Glucose (74-99) mg/dL POC Glucose (mg/dL) 142 H (75-99) mg/dL Iron (50-170) ug/dL Total Bilirubin (0.2-1.3) mg/dL AST (14-36) U/L Alkaline Phosphatase (38-126) U/L Urine Protein (Negative) Urine Blood (Negative) Ur Leukocyte Esterase (Negative) Urine WBC (0-5) /hpf Urine Bacteria (None) /hpf Hyaline Casts (0-2) /lpf Urine Mucus (None) /hpf Microbiology - Last 24 Hours (Table) 07/22/20 22:00 Urine Culture - Preliminary Urine,Clean Catch 07/22/20 14:45 Stool Culture - Preliminary Stool Assessment and Plan Assessment: Acute Systolic CHF in Excerbation, ejection fraction 40-45% Severe Pulmonary HTN Acute kidney injury, possible contrast-induced nephropathy Moderate to severe mitral regurgitation, moderate to severe right ventricular enlargement and severe pulmonary hypertension Hypertension, controlled upon admission, currently better controlled Elevated troponins Acute kidney injury Transaminitis Hypomagnesemia Elevated alkaline phosphatase Thrombocytopenia Anemia Plan: This is a pleasant 65 years old female who presents with CHF and acute kidney in [facility]. Continue with Lasix as per nephrology's team recommendation. Monitor electrolytes and weights. Monitor creatinine. Continue with BiCAP troponin as per pulmonary team recommendation. Continue holding IGGY inhibitor review of worsening renal function. Her mental condition by curtain cutter who recommended outpatient follow-up for her pulmonary hypertension Labs and medication were reviewed.. Continue same treatment. Continue with symptomatic treatment. Resume home medication. Monitor lytes and vitals. DVT and GI prophylaxis. Further recommendationsas per clinical course of the pat ient DVT prophylaxis: Subcutaneous heparin GI Prophylaxis: Pepcid Prognosis is guarded
[2020-07-23] MEDS: SODIUM FERRIC GLUCONAT-SUCROSE 125 MG in SODIUM CHLORIDE 0.9% 100 ML IVPB SCH (17:47)
[2020-07-23 20:37] LABS: Glucose,Whole Blood 147 mg/dL (75-99)
[2020-07-23] MEDS: FUROSEMIDE 10 MG/ML 4 ML VIAL IV SCH (20:50)
[2020-07-23] MEDS: FAMOTIDINE 20 MG/2 ML VIAL IV SCH (20:50)
[2020-07-23] MEDS: CITALOPRAM HYDROBROMIDE 20 MG TAB PO SCH (20:50)
[2020-07-23] MEDS: HEPARIN SODIUM,PORCINE 5,000 UNIT/ML 1 ML VIAL SQ SCH (20:50)
[2020-07-23] MEDS: METOPROLOL SUCCINATE (ER) 25 MG TAB.ER.24H PO SCH (20:50)
[2020-07-23] MEDS: ATORVASTATIN 10 MG TAB PO SCH (20:51)
[2020-07-23] MEDS: LORATADINE 10 MG TAB PO SCH (20:51)
[2020-07-24 06:18] LABS: Glucose,Whole Blood 144 mg/dL (75-99)
[2020-07-24] MEDS: INSULIN ASPART (NovoLOG) 100 UNIT/ML VIAL SQ SCH ×4 (06:31→21:29)
--- NOTE | 2020-07-24 08:27 | US ---
EXAMINATION TYPE: US liver DATE OF EXAM: 07/24/2020 COMPARISON: US CLINICAL HISTORY: high bilirubin. EXAM MEASUREMENTS: Liver Length: 20.9 cm Gallbladder Wall: 0.8 cm CBD: 0.4 cm Right Kidney: 10.3 x 5.5 x 6.4 cm Gross morbid obesity. Technically difficult, limited study. Pancreas: Obscured by bowel gas Liver: Increased attenuation, decreased visualization of vessels suggestive of fatty infiltrate, enl arged Gallbladder: thickened wall Evidence for sonographic Maurice's sign: No CBD: wnl Right Kidney: wnl Very mild ascites. IMPRESSION: 1. Nonspecific pattern to the liver can be seen with hepatic steatosis or diffuse hepatocellular dise ase, tinnitus. 2. Thickened gallbladder wall measuring 8 mm. Correlate for cholecystitis. No gallstones. 3. Minimal ascites
[2020-07-24] MEDS: hydrALAZINE HCL 50 MG TAB PO SCH ×3 (09:24→21:29)
[2020-07-24] MEDS: LEVOTHYROXINE 75 MCG TAB PO SCH (09:24)
[2020-07-24] MEDS: ASPIRIN 81 MG PO SCH (09:24)
[2020-07-24] MEDS: HEPARIN SODIUM,PORCINE 5,000 UNIT/ML 1 ML VIAL SQ SCH ×2 (09:24→21:30)
[2020-07-24] MEDS: PANTOPRAZOLE 40 MG TABLET PO SCH (09:24)
[2020-07-24] MEDS: FAMOTIDINE 20 MG/2 ML VIAL IV SCH (09:46)
[2020-07-24] MEDS: FUROSEMIDE 10 MG/ML 4 ML VIAL IV SCH (09:47)
[2020-07-24] MEDS: SODIUM FERRIC GLUCONAT-SUCROSE 125 MG in SODIUM CHLORIDE 0.9% 100 ML IVPB SCH (09:54)
[2020-07-24 10:48] LABS: Calcium 9.3 mg/dL (8.4-10.2); Magnesium 1.7 mg/dL (1.6-2.3)
--- NOTE | 2020-07-24 11:34 | P.PN ---
Subjective Progress Note Date: 07/24/20 Principal diagnosis: Elevated LFTs Patient was seen and examined at the bedside. She states overall she is well today. Still having some mild shortness of breath, denies any chest pain. She states she is having some epigastric discomfort, no nausea, or vomiting. Still having loose bowel movements they have improved with use of Imodium. She describes them as loose to watery, nonbloody. She denies any bowel movements through the night. Clostridium difficile toxin negative. Stool culture pending. Repeat LFTs are pending. Patient had ultrasound of the liver which showed nonspecific pattern to the liver can be seen with hepatic steatosis or diffuse hepatocellular disease. Thickened gallbladder wall measuring 8 mm. Correlate for cholecystitis. No gallstones. Minimal ascites. CBD within normal limits at 0.4 cm. HIDA scan has been ordered, with a general surgery consult added by medicine team. Objective - Vital Signs Vital signs: Vital Signs Temp 97.5 F L 07/24/20 08:00 Pulse 67 07/24/20 08:00 Resp 20 07/24/20 08:00 BP 159/94 07/24/20 08:00 Pulse Ox 100 07/24/20 08:00 Intake & Output 07/23/20 07/24/20 07/24/20 18:59 06:59 18:59 Intake Total 840 400 10 Output Total 400 400 Balance 840 0 -390 Weight 145.2 kg Intake: IV 10 Invasive Line 3 10 Intake, IV Titration 400 Amount Dextrose 5% in Water 1, 400 000 ml @ 50 mls/hr IV . Q23H HOMAR with Sodium Bicarb (1 Meq/ml) 150 ml Rx#:[id number] Oral 840 0 Output: Urine 400 400 Other: Voiding Method Bedside Commode Bedside Commode # Bowel Movements 1 - Exam General appearance: The patient is alert, oriented, in no acute distress. HET: Head is normocephalic and atraumatic. Conjunctiva pink. Sclera anicteric. Neck: Supple without lymphadenopathy. Abdomen: Soft, obese, nontender, nondistended with bowel sounds. No guarding or rigidity. Extremities: Normal skin color and turgor. No pedal edema Neurological: No focal deficits. Alert and oriented 3. - Labs CBC & Chem 7: 07/23/20 07:45 07/24/20 08:03 Labs: Abnormal Lab Results - Last 24 Hours (Table) 07/23/20 07/23/20 07/23/20 Range/Units 07:45 11:34 16:54 Lymphocytes # (Manual) 0.34 L (1.0-4.8) k/uL Sodium (137-145) mmol/L BUN (7-17) mg/dL Creatinine (0.52-1.04) mg/dL Glucose (74-99) mg/dL POC Glucose (mg/dL) 142 H 145 H (75-99) mg/dL 07/23/20 07/24/20 07/24/20 Range/Units 20:35 06:17 08:03 Lymphocytes # (Manual) (1.0-4.8) k/uL Sodium 136 L (137-145) mmol/L BUN 75 H (7-17) mg/dL Creatinine 2.58 H (0.52-1.04) mg/dL Glucose 119 H (74-99) mg/dL POC Glucose (mg/dL) 147 H 144 H (75-99) mg/dL Microbiology - Last 24 Hours (Table) 07/22/20 22:00 Urine Culture - Preliminary Urine,Clean Catch Gram Neg Bacilli Assessment and Plan (1) Elevated liver function tests Narrative/Plan: This is a 65-year-old female with multiple medical core morbidities as well has a known history of alcohol abuse and alcoholic liver disease who presented to the hospital due to shortness of breath and chest pain. Currently she is being treated for fluid overload with diuresis. She was noted to have elevation of liver enzymes with a total bilirubin of 1.9, alkaline phosphatase 229, AST 155 and ALT 35. The patient has a known history of daily alcohol use and has been followed in the outpatient setting for alcoholic liver disease and cirrhosis. Elevation of liver enzymes likely related to underlying liver disease, cannot rule out medication effect, viral hepatitis, congestive hepatopathy or other etiology. Liver ultrasound completed today which showed nonspecific pattern to the liver can be seen with hepatic steatosis or diffuse hepatocellular disease. The Gallbladder wall measuring 8 mm. Correlate for cholecystitis. No gallstones. Minimal ascites noted. Current Visit: Yes Status: Acute Code(s): R79.89 - OTHER SPECIFIED ABNORMAL FINDINGS OF BLOOD CHEMISTRY SNOMED Code(s): 587576981 (2) Cirrhosis, alcoholic Current Visit: Yes Status: Acute Code(s): K70.30 - ALCOHOLIC CIRRHOSIS OF LIVER WITHOUT ASCITES SNOMED Code(s): 709363085 Plan: 1. Supportive care 2. Diet as tolerated 3. Clostridium difficile toxin ordered, negative 4. Stool culture ordered, pending 5. Will add Imodium as needed for diarrhea 6. CBC, CMP daily 7. Avoid hepatotoxic medications 8. Alcohol abstinence 9. Patient has follow-up appointment with Dr. Elizalde this month 10. Liver ultrasound reviewed, HIDA scan pending Dr. Salazar I agree with the dictator's note, documented as a scribe by Valentina Marshall.
[2020-07-24 11:55] LABS: Glucose,Whole Blood 132 mg/dL (75-99)
--- NOTE | 2020-07-24 11:58 | P.PN ---
Subjective From records Ms. Hartmann is a 65-year-old female with a past medical history of hypertension, hyperlipidemia, chronic kidney disease, obstructive sleep apnea coming to the hospital with a chief complaint of difficulty in breathing. Patient states that she was sitting and watching television when she started to have difficulty in breathing along with chest pain. She states the chest pain it is 7 x 10 in intensity, is mostly substernal radiating to the entire chest. Patient denies having any recent travel. No fever chills or rigors. Patient mentions about having sinus congestion and mild headaches for the past 1 week. She mentions that her sister and [id number] have Covid. Patient admits to drinking a big glass of vodka every night. In the emergency patient had blood pressure of 177/110, 96% on 2 L of nasal cannula, temperature 98.7, heart rate 85, rest she had a chest x-ray showing mild congestive heart failure. Patient also had CTA of which was negative for PE. But significant for pulmonary edema with pleural fluid and cardiomegaly consistent with congestive heart failure. Patient had mildly elevated troponins at 0.077, 0.114. She has been started on IV heparin, cardiology consult has been obtained. On 07/21/2020 -patient was seen and examined select speciality floor. She is comfortably sitting up in the bed and states that her difficulty in breathing and chest pain are better compared to yesterday. Patient denied having any fevers chills or rigors. No abdominal pain nausea vomiting or diarrhea. No dysuria or hematuria. On reviewing her vitals temperature 97.7 heart rate 74 rest saturating at 98 on 5 L of oxygen by nasal cannula. On reviewing her labs white count of 4.6, RALPH MCV 102.2, platelets 64. Sodium 139, potassium 5.2, chloride 106, by 21, BUN 40, creatinine 1.88. On -patient was seen and examined. Patient states that her difficulty breathing is slightly better but she is still short of breath. She states that the swelling in her upper extremities is much better compared to yesterday. Still has swelling in her lower extremities. Patient denies having any chest pain or palpitations. No abdominal pain nausea vomiting or diarrhea. No dysuria or hematuria. On reviewing the vitals patient's blood pressure is 144 x 91 saturating 100% on 4 L nasal cannula with temperature 97.7 on reviewing the patient's labs white count of 5.8, hemoglobin 8.8, platelets 89, macrocytosis. Electrolytes sodium 135, potassium 5.4, chloride 100, bicarb 17, BUN 15, creatinine 2.32 . Subjective: This is the first day I am taking care of the patient 07/23/2020 This is a pleasant 65 years old female who presents with chest pain and CHF with ejection fraction 40-45% and abnormal valvular heart disease showing moderate to severe mitral regurgitation, severe pulmonary hypertension, moderate to severe right ventricular enlargement. Also she has chronic disease stage III obstructive sleep apnea on CPAP and uncontrolled hypertension upon admission. Also on exam she has bilateral leg swelling. Her creatinine was trending up, probably secondary to contrast-induced nephropathy and nephrology of the case however today her creatinine has been stabilized at 2.4, and give her 1 dose of Lasix given her overt fluid overload state I discussed the case with nephrology team, we gave him an extra dose of Lasix 40 mg times 1 in the AM. He'll keep monitoring. Consult management professor recommended outpatient workup for pulmonary hypertension 07/24/2020 Patient also with some dyspnea however she reports increased swelling in her legs. Her weight increased from 143.9-145.2 over the last 2 days. She is saturating 100% on 2 L oxygen via nasal cannula. Creatinine is stable 2.4-2.58. Sodium 136, potassium 5, sugars controlled. Liver ultrasound showing nonspecific Enriquez of the liver suspicious for hepatic steatosis or diffuse hepatocellular disease. Thickened gallbladder wall, alert for cholecystitis. Urine analysis is suspicious for infection and Urine culture is growing gram- negative bacilli. We'll start ceftriaxone Nephrology team on the case for kidney disease. She had some loose stool for C. diff is negative. Improved with Imodium Review of systems CONSTITUTIONAL: No fever, no malaise, no fatigue. HEENT: No recent visual problems or hearing problems. Denied any sore throat. CARDIOVASCULAR: No orthopnea, PND, no palpitations, no syncope. PULMONARY: No shortness of breath, no cough, no hemoptysis. GASTROINTESTINAL: No diarrhea, no nausea, no vomiting, no abdominal pain. Normoactive bowel sounds. Active Medications Generic Name Dose Route Start Last Admin Trade Name Freq PRN Reason Stop Dose Admin Aspirin 81 mg 07/20/20 09:00 12/09/20 09:24 Aspirin 81 Mg PO 81 mg DAILY HOMAR Administration Atorvastatin Calcium 10 mg 07/19/20 22:30 07/23/20 20:51 Atorvastatin 10 Mg Tab PO 10 mg HS HOMAR Administration Citalopram Hydrobromide 20 mg 07/19/20 22:30 07/23/20 20:50 Citalopram Hydrobromide 20 Mg Tab PO 20 mg HS HOMAR Administration Darbepoetin [place] 60 mcg 07/22/20 15:00 07/22/20 20:44 Darbepoetin [place] 60 Mcg/0.3 Ml Syringe SQ 60 mcg Q7D HOMAR Administration Famotidine 20 mg 07/23/20 21:00 07/24/20 09:46 Famotidine 20 Mg/2 Ml Vial IV 20 mg Q12HR HOMAR Administration Heparin Sodium (Porcine) 5,000 unit 07/23/20 21:00 07/24/20 09:24 Heparin Sodium,Porcine 5,000 Unit/Ml 1 Ml Vial SQ 5,000 unit Q12HR [facility]OMAR Administration Hydralazine HCl 50 mg 07/21/20 16:00 07/24/20 09:24 Hydralazine Hcl 50 Mg Tab PO 50 mg TID HOMAR Administration Ferric Sodium Gluconate 125 mg 110 mls @ 100 mls/hr 07/23/20 17:30 07/24/20 09:54 / Sodium Chloride IVPB 100 mls/hr DAILY HOMAR Administration Ceftriaxone Sodium 1 gm/ 50 mls @ 100 mls/hr 07/24/20 12:00 Sodium Chloride IVPB Q24HR [facility] Insulin Aspart 0 unit 07/20/20 07:30 07/24/20 06:31 Insulin Aspart (Novolog) 100 Unit/Ml Vial SQ Not Given ACHS [facility] Protocol Levothyroxine Sodium 75 mcg 07/20/20 07:30 07/24/20 09:24 Levothyroxine 75 Mcg Tab PO 75 mcg DAILY@0730 HOMAR Administration Loperamide HCl 2 mg 07/23/20 09:16 07/23/20 14:49 Loperamide 2 Mg Cap PO 2 mg QID PRN Administration Diarrhea Loratadine 10 mg 07/20/20 21:00 07/23/20 20:51 Loratadine 10 Mg Tab PO 10 mg HS HOMAR Administration Metoprolol Succinate 25 mg 07/20/20 21:00 07/23/20 20:50 Metoprolol Succinate (Er) 25 Mg Tab.Er.24h PO 25 mg HS HOMAR Administration Miscellaneous Information 1 each 07/21/20 09:42 Magnesium Replacement Protocol 1 Each Misc MISCELLANE DAILY PRN Per Protocol Protocol Nitroglycerin 0.4 mg 07/19/20 21:25 Nitroglycerin Sl Tabs 0.4 Mg Tab SUBLINGUAL Q5M PRN Chest Pain Ondansetron HCl 4 mg 07/19/20 23:22 07/21/20 01:52 Ondansetron 4 Mg/2 Ml Vial IVP 4 mg Q6HR PRN Administration Nausea And Vomiting Pantoprazole Sodium 40 mg 07/21/20 07:30 07/24/20 09:24 Pantoprazole 40 Mg Tablet PO 40 mg [id number] HOMAR Administration Objective - Vital Signs Vital signs: Vital Signs Temp 97.5 F L 07/24/20 08:00 Pulse 67 07/24/20 08:00 Resp 20 07/24/20 08:00 BP 159/94 07/24/20 08:00 Pulse Ox 100 07/24/20 08:00 Intake & Output 07/23/20 07/24/20 07/24/20 18:59 06:59 18:59 Intake Total 840 400 10 Output Total 400 400 Balance 840 0 -390 Weight 145.2 kg Intake: IV 10 Invasive Line 3 10 Intake, IV Titration 400 Amount Dextrose 5% in Water 1, 400 000 ml @ 50 mls/hr IV . Q23H HOMAR with Sodium Bicarb (1 Meq/ml) 150 ml Rx#:[id number] Oral 840 0 Output: Urine 400 400 Other: Voiding Method Bedside Commode Bedside Commode # Bowel Movements 1 - Exam GENERAL: The patient is alert and oriented x3, not in any acute distress. Obese HEENT: Pupils are round and equally reacting to light. EOMI. No scleral icterus. No conjunctival pallor. Normocephalic, atraumatic. No pharyngeal erythema. No thyromegaly. CARDIOVASCULAR: S1 and S2 present. No murmurs, rubs, or gallops. -PULMONARY: Chest is clear to auscultation, no wheezing. Bilateral mild basal crepitation ABDOMEN: Soft, nontender, nondistended, normoactive bowel sounds. No palpable organomegaly. MUSCULOSKELETAL: No joint swelling or deformity. -EXTREMITIES: No cyanosis, clubbing,. 1+ bilateral pitting like edema NEUROLOGICAL: Gross neurological examination did not reveal any focal deficits. SKIN: No rashes. no petechiae. - Labs CBC & Chem 7: 07/23/20 07:45 07/24/20 08:03 Labs: Abnormal Lab Results - Last 24 Hours (Table) 07/23/20 07/23/20 07/24/20 Range/Units 16:54 20:35 06:17 Sodium (137-145) mmol/L BUN (7-17) mg/dL Creatinine (0.52-1.04) mg/dL Glucose (74-99) mg/dL POC Glucose (mg/dL) 145 H 147 H 144 H (75-99) mg/dL 07/24/20 Range/Units 08:03 Sodium 136 L (137-145) mmol/L BUN 75 H (7-17) mg/dL Creatinine 2.58 H (0.52-1.04) mg/dL Glucose 119 H (74-99) mg/dL POC Glucose (mg/dL) (75-99) mg/dL Microbiology - Last 24 Hours (Table) 07/22/20 22:00 Urine Culture - Preliminary Urine,Clean Catch Gram Neg Bacilli Assessment and Plan Assessment: Acute Systolic CHF in Excerbation, ejection fraction 40-45% Elevated liver enzymes with thickened gallbladder wall on ultrasound, correlate for cholecystitis. Check HIDA scan and ask for surgery consult Possible acute urinary tract infection Severe Pulmonary HTN Acute kidney injury, possible contrast-induced nephropathy Moderate to severe mitral regurgitation, moderate to severe right ventricular enlargement and severe pulmonary hypertension Hypertension, controlled upon admission, currently better controlled Elevated troponins Acute kidney injury Transaminitis Hypomagnesemia Elevated alkaline phosphatase Thrombocytopenia Anemia Plan: This is a pleasant 65 years old female who presents with CHF and acute kidney injury. Continue recommendations as per nephrology's team recommendation. Monitor electrolytes and weights. Monitor creatinine. Continue with BiCAP troponin as per pulmonary team recommendation. Continue holding IGGY inhibitor review of worsening renal function. Her mental condition by management professor who recommended outpatient follow-up for her pulmonary hypertension also we'll check HIDA scan and surgery consult Follow-up urine culture and start ceftriaxone in the meantime Labs and medication were reviewed.. Continue same treatment. Continue with symptomatic treatment. Resume home medication. Monitor lytes and vitals. DVT and GI prophylaxis. Further recommendations as per clinical course of the p atient DVT prophylaxis: Subcutaneous heparin GI Prophylaxis: Pepcid Prognosis is guarded
[2020-07-24 12:02] LABS: Albumin 4.2 g/dL (3.5-5.0); Total Bilirubin 1.9 mg/dL (0.2-1.3); Total Protein 7.2 g/dL (6.3-8.2)
--- NOTE | 2020-07-24 12:02 | PN ---
PROGRESS NOTE Patient is seen for followup for acute kidney injury. She was admitted with volume overload, CHF exacerbation and is being diuresed. Patient was also found to be significantly acidotic and was started on IV bicarb. However, this morning she complains of increased swelling in the lower extremities. No worsening respiratory symptoms. Serum creatinine has been worsening with creatinine up to 2.58 today. PHYSICAL EXAMINATION: Patient is comfortable. She denies any significant complaints. Blood pressure was 159/94, heart rate 67 per minute, she is afebrile. Examination of the heart S1, S2. Examination of the lungs, decreased breath sounds at bases. Abdomen is soft, obese. Examination of lower extremities shows edema 2+ bilaterally. DIRECTOR OF MEDIA exam grossly intact. LABS: Show sodium of 136, potassium 5.0, chloride 103, CO2 is 22, BUN 75, creatinine 2.58. ASSESSMENT: 1. Acute kidney injury with worsening renal failure associated with contrast nephropathy from IV contrast for CTA on initial admission as well as a component of cardiorenal syndrome. The patient remains volume overloaded and it is her volume status is worse from yesterday. Therefore, I will continue with the IV Lasix. Initial plan was to switch to p.o. Lasix today. 2. Metabolic acidosis, non gap, status post bicarb drip, currently improved. Patient is also maintained on oral sodium bicarb. I will discontinue the bicarb drip secondary to hypervolemia. 3. Chronic kidney disease secondary to nephrosclerosis. Creatinine about 1.[address] back to 2018. UA shows 1+ protein. This will need to be followed up as outpatient. 4. Cardiomyopathy, ejection fraction 40% to 45% with severe tricuspid regurgitation and severe pulmonary hypertension. 5. Mild hyperkalemia associated with acute kidney injury, currently stable. 6. Iron deficiency maintained on IV iron. 7. Anemia with iron deficiency. Replace iron. 8. Obstructive sleep apnea. PLAN: Continue with IV Lasix for now, as her volume status has worsened. Repeat labs in a.m. patient is advised regarding the worsening renal function. It will peak over the next day or so from the contrast nephropathy. MMODL / IJN: [id number] /
[2020-07-24] MEDS: DEXTROSE 5% IN WATER 1,000 ML with SODIUM BICARB (1 MEQ/ML) 150 ML IV SCH (12:39)
--- NOTE | 2020-07-24 13:30 | P.PN ---
Subjective This is a pleasant 65-year-old female past medical history significant for hypertension, dyslipidemia, diabetes mellitus and daily alcohol use. She does not follow regularly with a contact center specialist. She is seen and examined sitting up in bed in no acute distress. She states she was up all night urinating. Her breathing is stable with no worsening. She denies chest pain, dizziness or palpitations. Blood pressure 144/88 heart rate 65 afebrile and maintaining oxygen saturation on nasal cannula. Laboratory data reviewed, WBC 4.8, hemoglob in 8.6, platelets 82, sodium 135, potassium 4.8, creatinine 2.4. Currently maintained on aspirin 81 mg daily, Lipitor 10 mg daily, Lasix 40 mg IV twice a day per nephrology, hydralazine 50 mg 3 times a day, Toprol 25 mg at bedtime and bicarb infusion per nephrology. 07/24/2020 Patient was seen and examined sitting up in bed reading a book. She denies worsening shortness of breath. She has no chest pain, dizziness or palpitations. Blood pressure 159/94 heart rate 67 afebrile maintaining oxygen saturation on nasal cannula. Laboratory data reviewed, sodium 136, potassium 5.0, creatinine 2.5 a, magnesium 1.7. GENERAL: Well-appearing, well-nourished and in no acute distress. NECK: Supple without JVD or thyromegaly. LUNGS: Clear to auscultation, no wheezes, rales or whonchi. Respiration equal and unlabored. HEART: Regular rate and rhythm without murmurs, rubs or gallops. S1 and S2 heard . EXTREMITIES: Normal range of motion, no edema. No clubbing or cyanosis. Peripheral pulses intact. ASSESSMENT Chest pain, atypical for ACS. Abnormal troponins, not consistent with acute coronary syndrome Acute systolic heart failure Hyperkalemia Acute on chronic kidney disease Hypertension Dyslipidemia Severe pulmonary hypertension Obstructive sleep apnea Pancytopenia Hypomagnesema, improved today PLAN Continue current medical regimen and diuresis per nephrology. Given her worsening renal function we will not pursue cardiac catheterization on this admission. This has been discussed with the primary care team as well has pulmonary. We recommend further pulmonary hypertension evaluation as an outpatient. We will follow along as needed, please feel free to call with further questions or concerns. Follow-up with Dr. Elizalde in the office in 2 weeks. Nurse Practitioner note has been reviewed, I agree with a documented findings and plan of care. Patient was seen and examined. Objective - Vital Signs Vital signs: Vital Signs Temp 97.5 F L 07/24/20 08:00 Pulse 67 07/24/20 08:00 Resp 20 07/24/20 08:00 BP 159/94 07/24/20 08:00 Pulse Ox 100 07/24/20 08:00 Intake & Output 07/23/20 07/24/20 07/24/20 18:59 06:59 18:59 Intake Total 840 400 10 Output Total 400 400 Balance 840 0 -390 Weight 145.2 kg Intake: IV 10 Invasive Line 3 10 Intake, IV Titration 400 Amount Dextrose 5% in Water 1, 400 000 ml @ 50 mls/hr IV . Q23H HOMRA with Sodium Bicarb (1 Meq/ml) 150 ml Rx#:[id number] Oral 840 0 Output: Urine 400 400 Other: Voiding Method Bedside Commode Bedside Commode # Bowel Movements 1 - Labs CBC & Chem 7: 07/23/20 07:45 07/24/20 08:03 Labs: Abnormal Lab Results - Last 24 Hours (Table) 07/23/20 07/23/20 07/24/20 Range/Units 16:54 20:35 06:17 Sodium (137-145) mmol/L BUN (7-17) mg/dL Creatinine (0.52-1.04) mg/dL Glucose (74-99) mg/dL POC Glucose (mg/dL) 145 H 147 H 144 H (75-99) mg/dL Total Bilirubin (0.2-1.3) mg/dL AST (14-36) U/L Alkaline Phosphatase (38-126) U/L 07/24/20 07/24/20 Range/Units 08:03 11:54 Sodium 136 L (137-145) mmol/L BUN 75 H (7-17) mg/dL Creatinine 2.58 H (0.52-1.04) mg/dL Glucose 119 H (74-99) mg/dL POC Glucose (mg/dL) 132 H (75-99) mg/dL Total Bilirubin 1.9 H (0.2-1.3) mg/dL AST 116 H (14-36) U/L Alkaline Phosphatase 239 H (38-126) U/L Microbiology - Last 24 Hours (Table) 07/22/20 22:00 Urine Culture - Preliminary Urine,Clean Catch Gram Neg Bacilli
--- NOTE | 2020-07-24 15:29 | P.CNPUL ---
History of Present Illness Consult date: 07/24/20 Reason for consult: dyspnea, hypoxemia, pulmonary hypertension, obstructive sleep apnea Chief complaint: Shortness of breath History of present illness: Ms. Randi Hartmann is a 65-year-old female well-known to me patient came into the hospital with increasing shortness of breath, seems like some chest pain was associated which has been progressive, patient does have cold with 19 exposure, patient was noted to be hypertensive with a blood pressure 170/110 in the emergency department, CTA performed negative for PE but however does show bilateral pulmonary edema along with pleural effusion consistent with heart failure troponins were elevated cardiovascular services consulted, patient is well-known to me for history of sleep disorder breathing and sleep apnea, recent echocardiogram revealed moderate to severe pulmonary hypertension with evidence of biventricular failure patient does have a CPAP machine from home will recommend to use it Review of Systems All systems: negative Past Medical History Past Medical History: Chest Pain / Angina, Diabetes Mellitus, Hyperlipidemia, Hypertension, Renal Disease, Sleep Apnea/CPAP/BIPAP History of Any Multi-Drug Resistant Organisms: None Reported Past Surgical History: Hysterectomy, Orthopedic Surgery Additional Past Surgical History / Comment(s): RIGHT ANKLE SURGERY Past Psychological History: No Psychological Hx Reported Smoking Status: Never smoker Past Alcohol Use History: Daily, Heavy Past Drug Use History: None Reported Medications and Allergies Home Medications Medication Instructions Recorded Confirmed Type Aspirin [Adult Low Dose Aspirin EC] 81 mg PO DAILY 07/19/20 07/19/20 History Cetirizine HCl [Zyrtec] 10 mg PO HS 07/19/20 07/19/20 History Citalopram Hydrobromide 20 mg PO HS 07/19/20 07/19/20 History [Citalopram HBr] Enalapril Maleate [Vasotec] 10 mg PO HS 07/19/20 07/19/20 History Ergocalciferol [Vitamin D2 50,000 unit PO WE 07/19/20 07/19/20 History (DRISDOL)] Fluticasone Nasal [place] [Flonase 1 spray EA NOSTRIL HS 07/19/20 07/19/20 History Nasal [place]] Glucosamine Sulfate 1,000 mg PO DAILY 07/19/20 07/19/20 History Levothyroxine Sodium [Synthroid] 75 mcg PO DAILY 07/19/20 07/19/20 History Lovastatin [Mevacor] 10 mg PO HS 07/19/20 07/19/20 History Lysine [l-Lysine] 500 mg PO BID 07/19/20 07/19/20 History Multivitamins, Thera [Multivitamin 1 tab PO DAILY 07/19/20 07/19/20 History (formulary)] Sodium Bicarbonate 325 mg PO TID 07/19/20 07/19/20 History Ubidecarenone [Co Q-10] 100 mg PO W/SUPPER 07/19/20 07/19/20 History Vitamin E 400 unit PO W/SUPPER 07/19/20 07/19/20 History hydrALAZINE HCL 25 mg PO BID 07/19/20 07/19/20 History Allergies Allergy/AdvReac Type Severity Reaction Status Date / Time meperidine [From Demerol] AdvReac Swelling Verified 07/19/20 21:14 Physical Exam Vitals: Vital Signs Temp Pulse Resp BP Pulse Ox 07/24/20 12:00 97.6 F 58 L 20 136/71 100 07/24/20 08:00 97.5 F L 67 20 159/94 100 07/24/20 03:59 96 20 153/86 94 L 07/24/20 01:07 99 20 07/23/20 23:42 97.8 F 99 20 156/73 96 07/23/20 20:44 97.6 F 91 18 147/76 99 07/23/20 16:00 92 18 150/74 99 Intake and Output 07/24/20 07/24/20 07/24/20 06:59 14:59 22:59 Intake Total 400 20 Output Total 400 400 Balance 0 -380 Intake: IV 20 Invasive Line 3 20 Intake, IV Titration 400 Amount Dextrose 5% in Water 1, 400 000 ml @ 50 mls/hr IV . Q23H HOMAR with Sodium Bicarb (1 Meq/ml) 150 ml Rx#:[id number] Oral 0 Output: Urine 400 400 Other: Voiding Method Bedside Commode Bedside Commode # Bowel Movements 1 Weight 145.2 kg - Constitutional General appearance: disheveled, morbidly obese - EENT Eyes: PERRLA Ears: bilateral: normal - Neck Carotids: bilateral: upstroke normal - Respiratory Respiratory: bilateral: diminished - Cardiovascular Rhythm: regular Heart sounds: normal: S1, S2 - Gastrointestinal General gastrointestinal: soft - Neurologic Neurologic: CNII-XII intact - Musculoskeletal Musculoskeletal: gait normal, generalized weakness, strength equal bilaterally - Psychiatric Psychiatric: A&O x's 3, appropriate affect, intact judgment & insight Results - Laboratory Findings CBC and BMP: 07/23/20 07:45 07/24/20 08:03 PT/INR, D-dimer PT 12.7 sec (9.0-12.0) H 07/19/20 19:28 INR 1.3 (<1.2) H 07/19/20 19:28 Abnormal lab findings: Abnormal Labs 07/19/20 07/19/20 07/19/20 19:28 19:28 19:28 WBC RBC 3.02 L Hgb 10.0 L Hct 30.0 L MCV MCHC Plt Count 92 L Lymphocytes # 0.5 L Lymphocytes # (Manual) PT 12.7 H INR 1.3 H APTT 19.9 L Sodium Potassium Chloride 108 H Carbon Dioxide 17 L BUN 33 H Creatinine 1.49 H Glucose 130 H POC Glucose (mg/dL) Magnesium 1.3 L Iron Total Bilirubin AST 202 H ALT 35 H Alkaline Phosphatase 256 H Troponin I HDL Cholesterol Urine Protein Urine Blood Ur Leukocyte Esterase Urine WBC Urine Bacteria Hyaline Casts Urine Mucus 07/19/20 07/19/20 07/20/20 19:28 22:34 01:35 WBC RBC Hgb Hct MCV MCHC Plt Count Lymphocytes # Lymphocytes # (Manual) PT INR APTT Sodium Potassium Chloride Carbon Dioxide BUN Creatinine Glucose POC Glucose (mg/dL) Magnesium Iron Total Bilirubin AST ALT Alkaline Phosphatase Troponin I 0.067 H* 0.077 H* 0.114 H* HDL Cholesterol Urine Protein Urine Blood Ur Leukocyte Esterase Urine WBC Urine Bacteria Hyaline Casts Urine Mucus 07/20/20 07/20/20 07/20/20 03:36 06:56 10:50 WBC RBC Hgb Hct MCV MCHC Plt Count Lymphocytes # Lymphocytes # (Manual) PT INR APTT 31.9 H Sodium Potassium Chloride Carbon Dioxide BUN Creatinine Glucose POC Glucose (mg/dL) 142 H Magnesium Iron Total Bilirubin AST ALT Alkaline Phosphatase Troponin I HDL Cholesterol 71 H Urine Protein Urine Blood Ur Leukocyte Esterase Urine WBC Urine Bacteria Hyaline Casts Urine Mucus 07/20/20 07/20/20 07/20/20 10:50 11:50 14:25 WBC 3.7 L 3.7 L RBC 2.76 L 2.87 L Hgb 8.8 L 9.2 L Hct 27.0 L 29.0 L MCV 101.3 H MCHC Plt Count 64 L 63 L Lymphocytes # 0.3 L Lymphocytes # (Manual) PT INR APTT Sodium Potassium Chloride Carbon Dioxide BUN Creatinine Glucose POC Glucose (mg/dL) 154 H Magnesium Iron Total Bilirubin AST ALT Alkaline Phosphatase Troponin I HDL Cholesterol Urine Protein Urine Blood Ur Leukocyte Esterase Urine WBC Urine Bacteria Hyaline Casts Urine Mucus 07/20/20 07/20/20 07/20/20 14:25 17:28 18:24 WBC RBC Hgb Hct MCV MCHC Plt Count Lymphocytes # Lymphocytes # (Manual) PT INR APTT 76.0 H 59.7 H Sodium Potassium Chloride Carbon Dioxide BUN Creatinine Glucose POC Glucose (mg/dL) 165 H Magnesium Iron Total Bilirubin AST ALT Alkaline Phosphatase Troponin I HDL Cholesterol Urine Protein Urine Blood Ur Leukocyte Esterase Urine WBC Urine Bacteria Hyaline Casts Urine Mucus 07/20/20 07/20/20 07/21/20 20:08 21:03 06:18 WBC RBC Hgb Hct MCV MCHC Plt Count Lymphocytes # Lymphocytes # (Manual) PT INR APTT 33.9 H Sodium Potassium Chloride Carbon Dioxide BUN Creatinine Glucose POC Glucose (mg/dL) 146 H 137 H Magnesium Iron Total Bilirubin AST ALT Alkaline Phosphatase Troponin I HDL Cholesterol Urine Protein Urine Blood Ur Leukocyte Esterase Urine WBC Urine Bacteria Hyaline Casts Urine Mucus 07/21/20 07/21/20 07/21/20 08:03 08:03 08:03 WBC RBC 2.77 L Hgb 8.7 L Hct 28.3 L MCV 102.2 H MCHC 30.6 L Plt Count 64 L Lymphocytes # 0.5 L Lymphocytes # (Manual) PT INR APTT 52.8 H Sodium Potassium 5.2 H Chloride Carbon Dioxide 21 L BUN 40 H Creatinine 1.88 H Glucose 139 H POC Glucose (mg/dL) Magnesium 1.4 L Iron Total Bilirubin 1.4 H AST 142 H ALT Alkaline Phosphatase 229 H Troponin I HDL Cholesterol Urine Protein Urine Blood Ur Leukocyte Esterase Urine WBC Urine Bacteria Hyaline Casts Urine Mucus 07/21/20 07/21/20 07/21/20 12:22 17:07 20:04 WBC RBC Hgb Hct MCV MCHC Plt Count Lymphocytes # Lymphocytes # (Manual) PT INR APTT Sodium Potassium Chloride Carbon Dioxide BUN Creatinine Glucose POC Glucose (mg/dL) 156 H 136 H 153 H Magnesium Iron Total Bilirubin AST ALT Alkaline Phosphatase Troponin I HDL Cholesterol Urine Protein Urine Blood Ur Leukocyte Esterase Urine WBC Urine Bacteria Hyaline Casts Urine Mucus 07/21/20 07/22/20 07/22/20 22:37 06:08 08:45 WBC RBC 2.77 L Hgb 8.8 L Hct 28.1 L MCV 101.4 H MCHC Plt Count 89 L Lymphocytes # 0.6 L Lymphocytes # (Manual) PT INR APTT Sodium Potassium Chloride Carbon Dioxide BUN Creatinine Glucose POC Glucose (mg/dL) 141 H 137 H Magnesium Iron Total Bilirubin AST ALT Alkaline Phosphatase Troponin I HDL Cholesterol Urine Protein Urine Blood Ur Leukocyte Esterase Urine WBC Urine Bacteria Hyaline Casts Urine Mucus 07/22/20 07/22/20 07/22/20 08:45 08:45 11:17 WBC RBC Hgb Hct MCV MCHC Plt Count Lymphocytes # Lymphocytes # (Manual) PT INR APTT Sodium 135 L Potassium 5.4 H Chloride Carbon Dioxide 17 L BUN 52 H Creatinine 2.32 H Glucose 161 H POC Glucose (mg/dL) 139 H Magnesium Iron 40 L Total Bilirubin 1.9 H AST 155 H ALT 35 H Alkaline Phosphatase 229 H Troponin I HDL Cholesterol Urine Protein Urine Blood Ur Leukocyte Esterase Urine WBC Urine Bacteria Hyaline Casts Urine Mucus 07/22/20 07/22/20 07/22/20 16:42 20:15 22:00 WBC RBC Hgb Hct MCV MCHC Plt Count Lymphocytes # Lymphocytes # (Manual) PT INR APTT Sodium Potassium Chloride Carbon Dioxide BUN Creatinine Glucose POC Glucose (mg/dL) 165 H 172 H Magnesium Iron Total Bilirubin AST ALT Alkaline Phosphatase Troponin I HDL Cholesterol Urine Protein 1+ H Urine Blood Small H Ur Leukocyte Esterase Moderate H Urine WBC 17 H Urine Bacteria Occasional H Hyaline Casts 5 H Urine Mucus Rare H 07/23/20 07/23/20 07/23/20 06:11 07:45 07:45 WBC RBC 2.68 L Hgb 8.6 L Hct 27.5 L MCV 102.8 H MCHC Plt Count 82 L Lymphocytes # Lymphocytes # (Manual) 0.34 L PT INR APTT Sodium 135 L Potassium Chloride Carbon Dioxide 14 L BUN 66 H Creatinine 2.40 H Glucose 155 H POC Glucose (mg/dL) 140 H Magnesium Iron Total Bilirubin 1.9 H AST 115 H ALT Alkaline Phosphatase 216 H Troponin I HDL Cholesterol Urine Protein Urine Blood Ur Leukocyte Esterase Urine WBC Urine Bacteria Hyaline Casts Urine Mucus 07/23/20 07/23/20 07/23/20 11:34 16:54 20:35 WBC RBC Hgb Hct MCV MCHC Plt Count Lymphocytes # Lymphocytes # (Manual) PT INR APTT Sodium Potassium Chloride Carbon Dioxide BUN Creatinine Glucose POC Glucose (mg/dL) 142 H 145 H 147 H Magnesium Iron Total Bilirubin AST ALT Alkaline Phosphatase Troponin I HDL Cholesterol Urine Protein Urine Blood Ur Leukocyte Esterase Urine WBC Urine Bacteria Hyaline Casts Urine Mucus 07/24/20 07/24/20 07/24/20 06:17 08:03 11:54 WBC RBC Hgb Hct MCV MCHC Plt Count Lymphocytes # Lymphocytes # (Manual) PT INR APTT Sodium 136 L Potassium Chloride Carbon Dioxide BUN 75 H Creatinine 2.58 H Glucose 119 H POC Glucose (mg/dL) 144 H 132 H Magnesium Iron Total Bilirubin 1.9 H AST 116 H ALT Alkaline Phosphatase 239 H Troponin I HDL Cholesterol Urine Protein Urine Blood Ur Leukocyte Esterase Urine WBC Urine Bacteria Hyaline Casts Urine Mucus - Diagnostic Findings Chest x-ray: report reviewed, image reviewed CT scan - chest: report reviewed, image reviewed (Finding as noted above) Assessment and Plan Assessment: Acute on chronic systolic heart failure Moderate to severe pulmonary hypertension Severe degree of sleep disorder breathing and sleep apnea compliant with his CPAP machine Elevated troponins Acute on chronic kidney disease Dyslipidemia Hypertension hypertensive cardiovascular disease Plan: Continue gentle diuresis as planned Supplemental oxygen titrated as tolerated Discussed with RN patient has a CPAP machine from home will start using it with the same setting each night and when necessary during the day Patient will need a tertiary care center [place] for pulmonary hypertension evaluation we'll do those things as outpatient Time with Patient: Greater than 30
[2020-07-24 17:38] LABS: Glucose,Whole Blood 125 mg/dL (75-99)
--- NOTE | 2020-07-24 18:10 | NM ---
EXAMINATION TYPE: NM hepatobiliary wo EF DATE OF EXAM: 07/24/2020 COMPARISON: NONE HISTORY: Abdominal pain TECHNIQUE: After the intravenous administration of 5.1 mCi Tc 99m Mebrofenin hepatobiliary scintigrap hy is performed. Immediate images post injection. FINDINGS: There is prompt uptake of the tracer by the liver that has normal size. There is no focal defect. The re is tracer in the small bowel at 15 minutes. Images were obtained up to 2 hours and no tracer was s een in the gallbladder. Tracer is mostly cleared from the liver at 3 hours. IMPRESSION: No focal liver defect. No evidence of common bile duct obstruction. No visualization of the gallbladder consistent with cystic duct obstruction and acute cholecystitis.
[2020-07-24 20:22] LABS: Glucose,Whole Blood 197 mg/dL (75-99)
[2020-07-24] MEDS: LORATADINE 10 MG TAB PO SCH (21:29)
[2020-07-24] MEDS: LOPERAMIDE 2 MG CAP PO PRN (21:29)
[2020-07-24] MEDS: METOPROLOL SUCCINATE (ER) 25 MG TAB.ER.24H PO SCH (21:29)
[2020-07-24] MEDS: CITALOPRAM HYDROBROMIDE 20 MG TAB PO SCH (21:29)
[2020-07-24] MEDS: ATORVASTATIN 10 MG TAB PO SCH (21:29)
[2020-07-25 06:21] LABS: Glucose,Whole Blood 112 mg/dL (75-99)
[2020-07-25] MEDS: INSULIN ASPART (NovoLOG) 100 UNIT/ML VIAL SQ SCH ×4 (06:22→20:52)
[2020-07-25] MEDS: PANTOPRAZOLE 40 MG TABLET PO SCH (06:34)
[2020-07-25] MEDS: LEVOTHYROXINE 75 MCG TAB PO SCH (06:34)
[2020-07-25] MEDS: SODIUM FERRIC GLUCONAT-SUCROSE 125 MG in SODIUM CHLORIDE 0.9% 100 ML IVPB SCH (08:59)
[2020-07-25] MEDS ORDERED: FAMOTIDINE 20 MG/2 ML VIAL IV SCH (09:00)
[2020-07-25] MEDS: HEPARIN SODIUM,PORCINE 5,000 UNIT/ML 1 ML VIAL SQ SCH ×2 (09:00→20:52)
[2020-07-25] MEDS: ASPIRIN 81 MG PO SCH (09:00)
[2020-07-25] MEDS: hydrALAZINE HCL 50 MG TAB PO SCH ×3 (09:00→20:53)
[2020-07-25 09:02] LABS: Albumin 3.9 g/dL (3.5-5.0); Bilirubin, Delta 1.2 mg/dL (0.0-0.2); Bilirubin,Unconjugated 0.6 mg/dL (0.0-1.1); Calcium 9.4 mg/dL (8.4-10.2); Magnesium 1.6 mg/dL (1.6-2.3); Potassium 4.3 mmol/L (3.5-5.1); Total Bilirubin 1.8 mg/dL (0.2-1.3); Total Protein 6.7 g/dL (6.3-8.2)
[2020-07-25] MEDS: FUROSEMIDE 10 MG/ML 4 ML VIAL IV SCH ×2 (11:05→20:52)
--- NOTE | 2020-07-25 11:13 | P.PN ---
Subjective Progress Note Date: 07/25/20 Principal diagnosis: Acute on chronic systolic heart failure Moderate to severe pulmonary hypertension Severe degree of sleep disorder breathing and sleep apnea compliant with his CPAP machine Elevated troponins Acute on chronic kidney disease Dyslipidemia Hypertension hypertensive cardiovascular disease July 25 2020, patient seen sarahal reexamined during the rounds labs reviewed medications reviewed care plan discussed, respiratory status much improved today still using supplemental oxygen did not use the CPAP machine last night, hemodynamic status stable with oxygen saturation 100% on 2 L, patient underwent hepatobiliary scan which revealed non visualization of gallbladder consistent with cystic duct obstruction and acute cholecystitis Ms. Randi Hartmann is a 65-year-old female well-known to me patient came into the hospital with increasing shortness of breath, seems like some chest pain was associated which has been progressive, patient does have cold with 19 exposure, patient was noted to be hypertensive with a blood pressure 170/110 in the emergency department, CTA performed negative for PE but however does show bilateral pulmonary edema along with pleural effusion consistent with heart failure troponins were elevated cardiovascular services consulted, patient is well-known to me for history of sleep disorder breathing and sleep apnea, recent echocardiogram revealed moderate to severe pulmonary hypertension with evidence of biventricular failure patient does have a CPAP machine from home will recommend to use it Objective - Vital Signs Vital signs: Vital Signs Temp 97.2 F L 07/25/20 07:44 Pulse 87 07/25/20 07:44 Resp 18 07/25/20 07:44 BP 143/72 07/25/20 07:44 Pulse Ox 100 07/25/20 07:44 Intake & Output 07/24/20 07/25/20 07/25/20 18:59 06:59 18:59 Intake Total 320 20 10 Output Total 400 Balance -80 20 10 Weight 144.7 kg Intake: IV 20 20 10 Invasive Line 3 20 20 10 Oral 300 Output: Urine 400 Other: Voiding Method Bedside Commode Bedside Commode Bedside Commode # Voids 1 1 # Bowel Movements 1 1 - Exam - Constitutional General appearance: disheveled, morbidly obese - EENT Eyes: PERRLA Ears: bilateral: normal - Neck Carotids: bilateral: upstroke normal - Respiratory Respiratory: bilateral: diminished - Cardiovascular Rhythm: regular Heart sounds: normal: S1, S2 - Gastrointestinal General gastrointestinal: soft - Neurologic Neurologic: CNII-XII intact - Musculoskeletal Musculoskeletal: gait normal, generalized weakness, strength equal bilaterally - Psychiatric Psychiatric: A&O x's 3, appropriate affect, intact judgment & insight - Labs CBC & Chem 7: 07/23/20 07:45 07/25/20 07:43 Labs: Abnormal Lab Results - Last 24 Hours (Table) 07/24/20 07/24/20 07/24/20 Range/Units 08:03 11:54 17:36 Sodium 136 L (137-145) mmol/L BUN 75 H (7-17) mg/dL Creatinine 2.58 H (0.52-1.04) mg/dL Glucose 119 H (74-99) mg/dL POC Glucose (mg/dL) 132 H 125 H (75-99) mg/dL Total Bilirubin 1.9 H (0.2-1.3) mg/dL Delta Bilirubin (0.0-0.2) mg/dL AST 116 H (14-36) U/L Alkaline Phosphatase 239 H (38-126) U/L 07/24/20 07/25/20 07/25/20 Range/Units 20:21 06:19 07:43 Sodium (137-145) mmol/L BUN 73 H (7-17) mg/dL Creatinine 2.58 H (0.52-1.04) mg/dL Glucose 116 H (74-99) mg/dL POC Glucose (mg/dL) 197 H 112 H (75-99) mg/dL Total Bilirubin 1.8 H (0.2-1.3) mg/dL Delta Bilirubin 1.2 H (0.0-0.2) mg/dL AST 109 H (14-36) U/L Alkaline Phosphatase 202 H (38-126) U/L Microbiology - Last 24 Hours (Table) 07/22/20 22:00 Urine Culture - Final Urine,Clean Catch Klebsiella oxytoca Citrobacter freundii 07/22/20 14:45 Stool Culture - Preliminary Stool Assessment and Plan Assessment: Acute cholecystitis Acute on chronic systolic heart failure Moderate to severe pulmonary hypertension Severe degree of sleep disorder breathing and sleep apnea compliant with his CPAP machine Elevated troponins Acute on chronic kidney disease Dyslipidemia Hypertension hypertensive cardiovascular disease Plan: GI service is following may need a surgical evaluation as well Continue gentle diuresis as planned Supplemental oxygen titrated as tolerated Discussed with RN patient has a CPAP machine from home will start using it with the same setting each night and when necessary during the day Patient will need a tertiary care center as outpatient for pulmonary hypertension evaluation Time with Patient: Greater than 30
[2020-07-25 12:06] LABS: Glucose,Whole Blood 130 mg/dL (75-99)
--- NOTE | 2020-07-25 12:30 | P.PN ---
Subjective From records Ms. Hartmann is a 65-year-old female with a past medical history of hypertension, hyperlipidemia, chronic kidney disease, obstructive sleep apnea coming to the hospital with a chief complaint of difficulty in breathing. Patient states that she was sitting and watching television when she started to have difficulty in breathing along with chest pain. She states the chest pain it is 7 x 10 in intensity, is mostly substernal radiating to the entire chest. Patient denies having any recent travel. No fever chills or rigors. Patient mentions about having sinus congestion and mild headaches for the past 1 week. She mentions that her sister and [id number] have Covid. Patient admits to drinking a big glass of vodka every night. In the emergency patient had blood pressure of 177/110, 96% on 2 L of nasal cannula, temperature 98.7, heart rate 85, rest she had a chest x-ray showing mild congestive heart failure. Patient also had CTA of which was negative for PE. But significant for pulmonary edema with pleural fluid and cardiomegaly consistent with congestive heart failure. Patient had mildly elevated troponins at 0.077, 0.114. She has been started on IV heparin, cardiology consult has been obtained. On 07/21/2020 -patient was seen and examined select speciality floor. She is comfortably sitting up in the bed and states that her difficulty in breathing and chest pain are better compared to yesterday. Patient denied having any fevers chills or rigors. No abdominal pain nausea vomiting or diarrhea. No dysuria or hematuria. On reviewing her vitals temperature 97.7 heart rate 74 rest saturating at 98 on 5 L of oxygen by nasal cannula. On reviewing her labs white count of 4.6, RALPH MCV 102.2, platelets 64. Sodium 139, potassium 5.2, chloride 106, by 21, BUN 40, creatinine 1.88. On -patient was seen and examined. Patient states that her difficulty breathing is slightly better but she is still short of breath. She states that the swelling in her upper extremities is much better compared to yesterday. Still has swelling in her lower extremities. Patient denies having any chest pain or palpitations. No abdominal pain nausea vomiting or diarrhea. No dysuria or hematuria. On reviewing the vitals patient's blood pressure is 144 x 91 saturating 100% on 4 L nasal cannula with temperature 97.7 on reviewing the patient's labs white count of 5.8, hemoglobin 8.8, platelets 89, macrocytosis. Electrolytes sodium 135, potassium 5.4, chloride 100, bicarb 17, BUN 15, creatinine 2.32 . Subjective: This is the first day I am taking care of the patient 07/23/2020 This is a pleasant 65 years old female who presents with chest pain and CHF with ejection fraction 40-45% and abnormal valvular heart disease showing moderate to severe mitral regurgitation, severe pulmonary hypertension, moderate to severe right ventricular enlargement. Also she has chronic disease stage III obstructive sleep apnea on CPAP and uncontrolled hypertension upon admission. Also on exam she has bilateral leg swelling. Her creatinine was trending up, probably secondary to contrast-induced nephropathy and nephrology of the case however today her creatinine has been stabilized at 2.4, and give her 1 dose of Lasix given her overt fluid overload state I discussed the case with nephrology team, we gave him an extra dose of Lasix 40 mg times 1 in the AM. He'll keep monitoring. Consult pill maker recommended outpatient workup for pulmonary hypertension 07/24/2020 Patient also with some dyspnea however she reports increased swelling in her legs. Her weight increased from 143.9-145.2 over the last 2 days. She is saturating 100% on 2 L oxygen via nasal cannula. Creatinine is stable 2.4-2.58. Sodium 136, potassium 5, sugars controlled. Liver ultrasound showing nonspecific Enriquez of the liver suspicious for hepatic steatosis or diffuse hepatocellular disease. Thickened gallbladder wall, alert for cholecystitis. Urine analysis is suspicious for infection and Urine culture is growing gram- negative bacilli. We'll start ceftriaxone Nephrology team on the case for kidney disease. She had some loose stool for C. diff is negative. Improved with Imodium 07/25/2020 Patient looks clinically the same although she feels easier to breathe today. Her leg swelling is the same, also she has swelling around the abdominal girdle. Diarrhea still going but improve if she takes Imodium. She complains from frequent urination with the total amount of urine coming up. Most likely related to her UTI. Urine culture is growing Klebsiella oxytoca and Citrobacter freundii, both of them are sensitive to almost all antibiotics are tested, including ceftriaxone. Her creatinine is the same at 2.5. Liver ultrasound was suspicious for cholecystitis cyanosis however HIDA scan was negative and patient denies any RUQ abdominal pain or tenderness Physical therapist recommended home when she is medically stable Objective - Vital Signs Vital signs: Vital Signs Temp 97.7 F 07/25/20 11:04 Pulse 82 07/25/20 11:04 Resp 18 07/25/20 11:04 BP 132/88 07/25/20 11:04 Pulse Ox 97 07/25/20 11:04 Intake & Output 07/24/20 07/25/20 07/25/20 18:59 06:59 18:59 Intake Total 320 20 10 Output Total 400 Balance -80 20 10 Weight 144.7 kg Intake: IV 20 20 10 Invasive Line 3 20 20 10 Oral 300 Output: Urine 400 Other: Voiding Method Bedside Commode Bedside Commode Bedside Commode # Voids 1 1 # Bowel Movements 1 1 - Exam GENERAL: The patient is alert and oriented x3, not in any acute distress. Obese HEENT: Pupils are round and equally reacting to light. EOMI. No scleral icterus. No conjunctival pallor. Normocephalic, atraumatic. No pharyngeal erythema. No thyromegaly. CARDIOVASCULAR: S1 and S2 present. No murmurs, rubs, or gallops. -PULMONARY: Chest is clear to auscultation, no wheezing. Bilateral mild basal crepitation ABDOMEN: Soft, nontender, nondistended, normoactive bowel sounds. No palpable organomegaly. MUSCULOSKELETAL: No joint swelling or deformity. -EXTREMITIES: No cyanosis, clubbing,. 1+ bilateral pitting like edema NEUROLOGICAL: Gross neurological examination did not reveal any focal deficits. SKIN: No rashes. no petechiae. - Labs CBC & Chem 7: 07/23/20 07:45 07/25/20 07:43 Labs: Abnormal Lab Results - Last 24 Hours (Table) 07/24/20 07/24/20 07/25/20 Range/Units 17:36 20:21 06:19 BUN (7-17) mg/dL Creatinine (0.52-1.04) mg/dL Glucose (74-99) mg/dL POC Glucose (mg/dL) 125 H 197 H 112 H (75-99) mg/dL Total Bilirubin (0.2-1.3) mg/dL Delta Bilirubin (0.0-0.2) mg/dL AST (14-36) U/L Alkaline Phosphatase (38-126) U/L 07/25/20 07/25/20 Range/Units 07:43 12:05 BUN 73 H (7-17) mg/dL Creatinine 2.58 H (0.52-1.04) mg/dL Glucose 116 H (74-99) mg/dL POC Glucose (mg/dL) 130 H (75-99) mg/dL Total Bilirubin 1.8 H (0.2-1.3) mg/dL Delta Bilirubin 1.2 H (0.0-0.2) mg/dL AST 109 H (14-36) U/L Alkaline Phosphatase 202 H (38-126) U/L Microbiology - Last 24 Hours (Table) 07/22/20 22:00 Urine Culture - Final Urine,Clean Catch Klebsiella oxytoca Citrobacter freundii 07/22/20 14:45 Stool Culture - Preliminary Stool Assessment and Plan Assessment: Acute Systolic CHF in Excerbation, ejection fraction 40-45% Elevated liver enzymes with thickened gallbladder wall on ultrasound, correlate for cholecystitis. HIDA scan is negative, no need for surgery acute urinary tract infection, secondary to UTI. Klebsiella oxytoca and Citrobacter freundii, and antibiotic Severe Pulmonary HTN , outpatient follow-up Acute kidney injury, possible contrast-induced nephropathy Moderate to severe mitral regurgitation, moderate to severe right ventricular enlargement and severe pulmonary hypertension Hypertension, controlled upon admission, currently better controlled Elevated troponins Acute kidney injury Transaminitis Hypomagnesemia Elevated alkaline phosphatase Thrombocytopenia Anemia Plan: This is a pleasant 65 years old female who presents with CHF and [facility]. Continue recommendations as per nephrology's team recommendation. Monitor electrolytes and weights. Monitor creatinine. Continue with BiCAP troponin as per pulmonary team recommendation. Continue holding IGGY inhibitor review of worsening renal function. HIDA scan is negative, no abdominal pain, cancel surgery consult. Continue with ceftriaxone in the meantime Labs and medication were reviewed.. Wilfrid and switch to oral antibiotics on discharge nue same treatment. Continue with symptomatic treatment. Resume home medication. Monitor lytes and vitals. DVT and GI prophylaxis. Further recommendations as per clinical course of the patient DVT prophylaxis: Subcutaneous heparin GI Prophylaxis: Pepcid Prognosis is guarded
--- NOTE | 2020-07-25 14:41 | P.PN ---
Subjective Progress Note Date: 07/25/20 Principal diagnosis: Elevated LFTs The patient was seen and examined at the bedside. She states overall she is feeling well. Still having some feeling of bloating. Denies any nausea or acute abdominal pain. States that she did have some more diarrhea yesterday evening, took some Imodium and had no further through the night. She states she thinks it's the food from the hospital. She had a HIDA scan completed yesterday with findings that stayed no focal liver defect. No evidence of common bile duct obstruction. No visualization of the gallbladder consistent with cystic duct obstruction and cholecystitis. Today's LFTs, total bilirubin 1.8, conjugated bilirubin 0.0, unconjugated 0.6, alkaline phosphatase 202, AST 109, ALT 30. Stool cultures preliminary are negative. Patient is positive for Klebsiella urinary tract infection being treated with Rocephin. Objective - Vital Signs Vital signs: Vital Signs Temp 97.7 F 07/25/20 11:04 Pulse 82 07/25/20 11:04 Resp 18 07/25/20 11:04 BP 132/88 07/25/20 11:04 Pulse Ox 97 07/25/20 11:04 Intake & Output 07/24/20 07/25/20 07/25/20 18:59 06:59 18:59 Intake Total 320 20 310 Output Total 400 Balance -80 20 310 Weight 144.7 kg Intake: IV 20 20 10 Invasive Line 3 20 20 10 Oral 300 300 Output: Urine 400 Other: Voiding Method Bedside Commode Bedside Commode Bedside Commode # Voids 1 1 # Bowel Movements 1 1 - Exam General appearance: The patient is alert, oriented, in no acute distress. HET: Head is normocephalic and atraumatic. Conjunctiva pink. Sclera anicteric. Neck: Supple without lymphadenopathy. Abdomen: Soft, obese, nontender, nondistended with bowel sounds. No guarding or rigidity. Extremities: Normal skin color and turgor. Pedal edema. Neurological: No focal deficits. Alert and oriented 3. - Labs CBC & Chem 7: 07/23/20 07:45 07/25/20 07:43 Labs: Abnormal Lab Results - Last 24 Hours (Table) 07/24/20 07/24/20 07/25/20 Range/Units 17:36 20:21 06:19 BUN (7-17) mg/dL Creatinine (0.52-1.04) mg/dL Glucose (74-99) mg/dL POC Glucose (mg/dL) 125 H 197 H 112 H (75-99) mg/dL Total Bilirubin (0.2-1.3) mg/dL Delta Bilirubin (0.0-0.2) mg/dL AST (14-36) U/L Alkaline Phosphatase (38-126) U/L 07/25/20 07/25/20 Range/Units 07:43 12:05 BUN 73 H (7-17) mg/dL Creatinine 2.58 H (0.52-1.04) mg/dL Glucose 116 H (74-99) mg/dL POC Glucose (mg/dL) 130 H (75-99) mg/dL Total Bilirubin 1.8 H (0.2-1.3) mg/dL Delta Bilirubin 1.2 H (0.0-0.2) mg/dL AST 109 H (14-36) U/L Alkaline Phosphatase 202 H (38-126) U/L Microbiology - Last 24 Hours (Table) 07/22/20 22:00 Urine Culture - Final Urine,Clean Catch Klebsiella oxytoca Citrobacter freundii 07/22/20 14:45 Stool Culture - Preliminary Stool Assessment and Plan (1) Elevated liver function tests Narrative/Plan: This is a 65-year-old female with multiple medical core morbidities as well has a known history of alcohol abuse and alcoholic liver disease who presented to the hospital due to shortness of breath and chest pain. Currently she is being treated for fluid overload with diuresis. She was noted to have elevation of liver enzymes with a total bilirubin of 1.9, alkaline phosphatase 229, AST 155 and ALT 35. The patient has a known history of daily alcohol use and has been followed in the outpatient setting for alcoholic liver disease and cirrhosis. Elevation of liver enzymes likely related to underlying liver disease, cannot rule out medication effect, viral hepatitis, congestive hepatopathy or other etiology. Liver ultrasound completed today which showed nonspecific pattern to the liver can be seen with hepatic steatosis or diffuse hepatocellular disease. The Gallbladder wall measuring 8 mm. Correlate for cholecystitis. No gallstones. Minimal ascites noted. Current Visit: Yes Status: Acute Code(s): R79.89 - OTHER SPECIFIED ABNORMAL FINDINGS OF BLOOD CHEMISTRY SNOMED Code(s): 791937127 (2) Cirrhosis, alcoholic Current Visit: Yes Status: Acute Code(s): K70.30 - ALCOHOLIC CIRRHOSIS OF LIVER WITHOUT ASCITES SNOMED Code(s): 048178205 (3) Diarrhea Narrative/Plan: Clostridium difficile toxin ordered, results were negative. Stool cultures or dered, preliminary are negative. He also be related to antibiotics. Diarrhea has improved. Imodium as needed. Current Visit: Yes Status: Acute Code(s): R19.7 - DIARRHEA, UNSPECIFIED SNOMED Code(s): 05432089 Plan: 1. Supportive care 2. Diet as tolerated 3. Clostridium difficile toxin ordered, negative 4. Stool culture ordered, pending 5. Will add Imodium as needed for diarrhea 6. CBC, CMP daily 7. Avoid hepatotoxic medications 8. Alcohol abstinence 9. Patient has follow-up appointment with Dr. Elizalde this month 10. Liver ultrasound reviewed, HIDA scan reviewed 11. Surgery on consult Thank you for this consultation, we will be on standby. Please do not hesitate to contact us for any further concerns. Dr. Salazar I agree with the dictator's note, documented as a scribe by Valentina Marshall.
--- NOTE | 2020-07-25 15:22 | PN ---
PROGRESS NOTE Patient is seen for followup for acute kidney injury and volume overload. She has underlying acute kidney injury from contrast nephropathy and cardiorenal syndrome. Serum creatinine had been worsening the last few days and the patient's volume status had also worsened after initiation of bicarb drip. Bicarb drip was discontinued yesterday. However, since patient complained of worsening edema, I continued with the IV Lasix for now. Serum creatinine is actually the same as yesterday, staying at 2.5 mg/dL. PHYSICAL EXAMINATION: On examination, blood pressure 132/88, heart rate 82 per minute. Patient is afebrile. On examination patient is comfortable, awake, alert, oriented x3, not in any acute distress. EXAMINATION OF THE HEART: S1 and S2. EXAMINATION OF LUNGS: Bilateral breath sounds are heard. Occasional wheezing is heard. ABDOMEN: Soft, obese, non-tender. Examination of lower extremities shows edema 2+ bilaterally. Patient has significant abdominal wall edema as well. SURVEY OPERATIONS DIRECTOR exam is grossly intact. LABS: Labs show sodium of 137, potassium 4.3, BUN 73, serum creatinine 2.58. ASSESSMENT: 1. Acute kidney injury, acute tubular necrosis, from contrast nephropathy. Serum creatinine seems to have peaked at 2.5. Hopefully it will start to decrease by tomorrow. The patient is maintained on Lasix, as she remains volume-overloaded. 2. Volume overload. Expect improvement since the IV bicarb was discontinued. 3. Metabolic acidosis, status post bicarb drip, currently improved, maintained on oral bicarb. 4. Chronic kidney disease secondary to nephrosclerosis. Baseline creatinine 1.4 to 1.6 mg/dL all the way back to 2013. 5. Cardiomyopathy, ejection fraction about 40% to 45%, with severe tricuspid regurgitation. 6. Mild hyperkalemia associated with acute kidney injury. 7. Obstructive sleep apnea. 8. Iron deficiency, maintained on IV iron. PLAN: Discontinue IV iron tomorrow. I will also decrease the oral sodium bicarb. Continue with IV Lasix for now. Repeat labs in a.m. MMODL / IJN: [id number] /
--- NOTE | 2020-07-25 15:44 | P.GSCN ---
History of Present Illness Consult date: 07/25/20 History of present illness: CHIEF COMPLAINT: Chest pain and shortness of breath HISTORY OF PRESENT ILLNESS: This is a 65-year-old female with a past medical history of hypertension, hyperlipidemia, chronic kidney disease, severe pulmonary hypertension, moderate to severe mitral regurgitation, severe tricuspid regurgitation, daily alcohol use, alcoholic liver disease and liver cirrhosis. She had been presented to the hospital with complaints of chest pain or shortness of breath. She is currently being treated for acute CHF exacerbation. Her echo which showed an EF of 40-45%. Cardiology did rule out acute coronary syndrome. She is being treated for UTI. We've been consulted for possible acute cholecystitis. She did have an abdominal ultrasound that showed thickening of the gallbladder wall. No evidence of gallstones. She has elevated LFTs. And some right upper quadrant abdominal pain. A HIDA scan was completed showing no focal liver defect. No evidence of common bile duct obstruction. No visualization of the gallbladder consistent with cystic duct obstruction and acute cholecystitis. Patient afebrile. PAST MEDICAL HISTORY: See list. PAST SURGICAL HISTORY: See list. MEDICATIONS: See list. ALLERGIES: See list. SOCIAL HISTORY: No illicit drug use. REVIEW OF SYSTEMS: CONSTITUTIONAL: Denies fever or chills. HEENT: Denies blurred vision, vision changes, or eye pain. Denies hemoptysis CARDIOVASCULAR: Denies chest pain or pressure. RESPIRATORY: No shortness of breath. GASTROINTESTINAL: See HPI for pertinent findings HEMATOLOGIC: Denies bleeding disorders. GENITOURINARY: Denies any blood in urine or increased urinary frequency. SKIN: Denies pruitis. Denies rash. PHYSICAL EXAM: VITAL SIGNS: Reviewed GENERAL: Well-developed in no acute distress. HEENT: No sclera icterus. Extraocular movements grossly intact. Moist buccal mucosa. Head is atraumatic, normocephalic. No nasal drainage. ABDOMEN: Soft. Nondistended right upper quadrant tenderness NEUROLOGIC: Alert and oriented. Cranial nerves II through XII grossly intact. LABORATORY DATA: WBC 4.8 hemoglobin 8.6 platelets 82 Sodium 137 potassium 4.3 creatinine 2.58 Total bili 1.9 AST 109 ALT 30 alk phos 202 covid negative Hepatitis panel negative C. diff negative IMAGING: abdominal ultrasound that showed thickening of the gallbladder wall. No evidence of gallstones. HIDA scan was completed showing no focal liver defect. No evidence of common bile duct obstruction. No visualization of the gallbladder consistent with cystic duct obstruction and acute cholecystitis. ASSESSMENT: 1. Acute cholecystitis with right upper quadrant abdominal pain and positive HIDA scan 2. Acute systolic CHF exacerbation 3. UTI 4. Severe pulmonary hypertension 5. Acute kidney injury 6. Moderate to severe mitral regurgitation and severe tricuspid regurgitation noted on echo 7. History of liver cirrhosis and alcoholic liver disease 8. Elevated liver enzymes followed by GI service PLAN: -Patient is tentatively scheduled for laparoscopic cholecystectomy tomorrow 07/26/[address] Greer if cleared by cardiology service -Nothing by mouth after midnight -Continue supportive care -Continue antibiotics Thank you for this consultation Physician Intellectual Property Counsel note has been reviewed by physician. Signing provider agrees with the documented findings, assessment, and plan of care. Past Medical History Past Medical History: Chest Pain / Angina, Diabetes Mellitus, Hyperlipidemia, Hypertension, Renal Disease, Sleep Apnea/CPAP/BIPAP History of Any Multi-Drug Resistant Organisms: None Reported Past Surgical History: Hysterectomy, Orthopedic Surgery Additional Past Surgical History / Comment(s): RIGHT ANKLE SURGERY Past Psychological History: No Psychological Hx Reported Smoking Status: Never smoker Past Alcohol Use History: Daily, Heavy Past Drug Use History: None Reported Medications and Allergies Home Medications Medication Instructions Recorded Confirmed Type Aspirin [Adult Low Dose Aspirin EC] 81 mg PO DAILY 07/19/20 07/19/20 History Cetirizine HCl [Zyrtec] 10 mg PO HS 07/19/20 07/19/20 History Citalopram Hydrobromide 20 mg PO HS 07/19/20 07/19/20 History [Citalopram HBr] Enalapril Maleate [Vasotec] 10 mg PO HS 07/19/20 07/19/20 History Ergocalciferol [Vitamin D2 50,000 unit PO WE 07/19/20 07/19/20 History (DRISDOL)] Fluticasone Nasal [place] [Flonase 1 spray EA NOSTRIL HS 07/19/20 07/19/20 History Nasal [place]] Glucosamine Sulfate 1,000 mg PO DAILY 07/19/20 07/19/20 History Levothyroxine Sodium [Synthroid] 75 mcg PO DAILY 07/19/20 07/19/20 History Lovastatin [Mevacor] 10 mg PO HS 07/19/20 07/19/20 History Lysine [l-Lysine] 500 mg PO BID 07/19/20 07/19/20 History Multivitamins, Thera [Multivitamin 1 tab PO DAILY 07/19/20 07/19/20 History (formulary)] Sodium Bicarbonate 325 mg PO TID 07/19/20 07/19/20 History Ubidecarenone [Co Q-10] 100 mg PO W/SUPPER 07/19/20 07/19/20 History Vitamin E 400 unit PO W/SUPPER 07/19/20 07/19/20 History hydrALAZINE HCL 25 mg PO BID 07/19/20 07/19/20 History Allergies Allergy/AdvReac Type Severity Reaction Status Date / Time meperidine [From Demerol] AdvReac Swelling Verified 07/19/20 21:14 Surgical - Exam Vital Signs Temp Pulse Resp BP Pulse Ox 98.7 F 85 22 177/110 96 07/19/20 18:35 07/19/20 18:35 07/19/20 18:35 07/19/20 18:35 07/19/20 18:35 Results - Labs 07/23/20 07:45 07/25/20 07:43 Abnormal Lab Results - Last 24 Hours (Table) 07/24/20 07/24/20 07/25/20 Range/Units 17:36 20:21 06:19 BUN (7-17) mg/dL Creatinine (0.52-1.04) mg/dL Glucose (74-99) mg/dL POC Glucose (mg/dL) 125 H 197 H 112 H (75-99) mg/dL Total Bilirubin (0.2-1.3) mg/dL Delta Bilirubin (0.0-0.2) mg/dL AST (14-36) U/L Alkaline Phosphatase (38-126) U/L 07/25/20 07/25/20 Range/Units 07:43 12:05 BUN 73 H (7-17) mg/dL Creatinine 2.58 H (0.52-1.04) mg/dL Glucose 116 H (74-99) mg/dL POC Glucose (mg/dL) 130 H (75-99) mg/dL Total Bilirubin 1.8 H (0.2-1.3) mg/dL Delta Bilirubin 1.2 H (0.0-0.2) mg/dL AST 109 H (14-36) U/L Alkaline Phosphatase 202 H (38-126) U/L Microbiology - Last 24 Hours (Table) 07/22/20 22:00 Urine Culture - Final Urine,Clean Catch Klebsiella oxytoca Citrobacter freundii 07/22/20 14:45 Stool Culture - Preliminary Stool Diabetes panel 07/25/20 Range/Units 07:43 Sodium 137 (137-145) mmol/L Potassium 4.3 (3.5-5.1) mmol/L Chloride 103 (98-107) mmol/L Carbon Dioxide 23 (22-30) mmol/L BUN 73 H (7-17) mg/dL Creatinine 2.58 H (0.52-1.04) mg/dL Glucose 116 H (74-99) mg/dL Calcium 9.4 (8.4-10.2) mg/dL AST 109 H (14-36) U/L ALT 30 (4-34) U/L Alkaline Phosphatase 202 H (38-126) U/L Total Protein 6.7 (6.3-8.2) g/dL Albumin 3.9 (3.5-5.0) g/dL Calcium panel 07/25/20 Range/Units 07:43 Calcium 9.4 (8.4-10.2) mg/dL Albumin 3.9 (3.5-5.0) g/dL Pituitary panel 07/25/20 Range/Units 07:43 Sodium 137 (137-145) mmol/L Potassium 4.3 (3.5-5.1) mmol/L Chloride 103 (98-107) mmol/L Carbon Dioxide 23 (22-30) mmol/L BUN 73 H (7-17) mg/dL Creatinine 2.58 H (0.52-1.04) mg/dL Glucose 116 H (74-99) mg/dL Calcium 9.4 (8.4-10.2) mg/dL Adrenal panel 07/25/20 Range/Units 07:43 Sodium 137 (137-145) mmol/L Potassium 4.3 (3.5-5.1) mmol/L Chloride 103 (98-107) mmol/L Carbon Dioxide 23 (22-30) mmol/L BUN 73 H (7-17) mg/dL Creatinine 2.58 H (0.52-1.04) mg/dL Glucose 116 H (74-99) mg/dL Calcium 9.4 (8.4-10.2) mg/dL Total Bilirubin 1.8 H (0.2-1.3) mg/dL AST 109 H (14-36) U/L ALT 30 (4-34) U/L Alkaline Phosphatase 202 H (38-126) U/L Total Protein 6.7 (6.3-8.2) g/dL Albumin 3.9 (3.5-5.0) g/dL
[2020-07-25 17:04] LABS: Glucose,Whole Blood 138 mg/dL (75-99)
[2020-07-25 20:45] LABS: Glucose,Whole Blood 156 mg/dL (75-99)
[2020-07-25] MEDS: ATORVASTATIN 10 MG TAB PO SCH (20:53)
[2020-07-25] MEDS: METOPROLOL SUCCINATE (ER) 25 MG TAB.ER.24H PO SCH (20:53)
[2020-07-25] MEDS: LORATADINE 10 MG TAB PO SCH (20:53)
[2020-07-25] MEDS: CITALOPRAM HYDROBROMIDE 20 MG TAB PO SCH (20:53)
[2020-07-26 06:20] LABS: Glucose,Whole Blood 128 mg/dL (75-99)
[2020-07-26] MEDS: INSULIN ASPART (NovoLOG) 100 UNIT/ML VIAL SQ SCH ×4 (06:47→21:04)
[2020-07-26] MEDS: PANTOPRAZOLE 40 MG TABLET PO SCH (06:53)
[2020-07-26] MEDS: LEVOTHYROXINE 75 MCG TAB PO SCH (06:53)
[2020-07-26] MEDS: ASPIRIN 81 MG PO SCH (08:53)
[2020-07-26] MEDS: HEPARIN SODIUM,PORCINE 5,000 UNIT/ML 1 ML VIAL SQ SCH ×2 (08:53→21:04)
[2020-07-26] MEDS: FUROSEMIDE 10 MG/ML 4 ML VIAL IV SCH ×2 (08:53→21:04)
[2020-07-26] MEDS: hydrALAZINE HCL 50 MG TAB PO SCH ×3 (08:54→21:03)
[2020-07-26] MEDS: SODIUM FERRIC GLUCONAT-SUCROSE 125 MG in SODIUM CHLORIDE 0.9% 100 ML IVPB SCH (08:54)
[2020-07-26 11:29] LABS: HCT 28.6 % (34.0-46.0); HGB 9.2 gm/dL (11.4-16.0); MCH 31.9 pg (25.0-35.0); MCHC 32.4 g/dL (31.0-37.0); MCV 98.7 fL (80.0-100.0); Macrocytosis Slight; Mean Platelet Volume 8.6; RDW 15.3 % (11.5-15.5); WBC 4.7 k/uL (3.8-10.6)
--- NOTE | 2020-07-26 11:30 | P.PN ---
Subjective Progress Note Date: 07/26/20 CHIEF COMPLAINT: Chest pain and shortness of breath HISTORY OF PRESENT ILLNESS: Patient is being followed for acute cholecystitis. Her HIDA scan was abnormal. Abdominal ultrasound had shown thickening of the gallbladder wall. No gallstones. Patient denies any right upper quadrant abdominal pain. Denies any nausea or vomiting after eating. Initially patient was scheduled for laparoscopic cholecystectomy today. However, patient is declining to have surgery at this time. She is requesting to be able to eat. Patient reports that that she wants her current issues taken care of before going into surgery. Afebrile labs for today are pending. Patient is still receiving IV Lasix for CHF exacerbation PHYSICAL EXAM: VITAL SIGNS: Reviewed. GENERAL: Well-developed in no acute distress. HEENT: No sclera icterus. Extraocular movements grossly intact. Moist buccal mucosa. Head is atraumatic, normocephalic. ABDOMEN: Soft. Nondistended. Nontender. NEUROLOGIC: Alert and oriented. Cranial nerves II through XII grossly intact. ASSESSMENT: 1. Acute cholecystitis and positive HIDA scan 2. Acute systolic CHF exacerbation 3. UTI 4. Severe pulmonary hypertension 5. Acute kidney injury 6. Moderate to severe mitral regurgitation and severe tricuspid regurgitation noted on echo 7. History of liver cirrhosis and alcoholic liver disease 8. Elevated liver enzymes followed by GI service PLAN: -Patient has declined surgery for today -Resume heart healthy, low-fat diet -Continue supportive care -Recommend cholecystectomy outpatient Physician Application Processor note has been reviewed by physician. Signing provider agrees with the documented findings, assessment, and plan of care. Objective - Vital Signs Vital signs: Vital Signs Temp 97.6 F 07/26/20 08:00 Pulse 62 07/26/20 08:00 Resp 18 07/26/20 08:00 BP 152/84 07/26/20 08:00 Pulse Ox 96 07/26/20 08:00 Intake & Output 07/25/20 07/26/20 07/26/20 18:59 06:59 18:59 Intake Total 620 Output Total 1050 400 Balance 620 -1050 -400 Intake: IV 20 Invasive Line 3 20 Oral 600 Output: Urine 1050 400 Other: Voiding Method Bedside Commode Bedside Commode Bedside Commode # Voids 6 4 # Bowel Movements 1 - Labs CBC & Chem 7: 07/26/20 10:40 07/26/20 10:40 Labs: Abnormal Lab Results - Last 24 Hours (Table) 07/25/20 07/25/20 07/25/20 Range/Units 12:05 17:03 20:44 POC Glucose (mg/dL) 130 H 138 H 156 H (75-99) mg/dL 07/26/20 Range/Units 06:13 POC Glucose (mg/dL) 128 H (75-99) mg/dL Microbiology - Last 24 Hours (Table) 07/22/20 14:45 Stool Culture - Final Stool
[2020-07-26 11:37] LABS: Glucose,Whole Blood 148 mg/dL (75-99)
[2020-07-26 11:52] LABS: Band Neutrophils % 1 %; Eosinophils # (M) 0.09 k/uL (0-0.7); Lymphocytes # (M) 0.71 k/uL (1.0-4.8); Metamyelocytes # (M) 0.05 k/uL (0); Metamyelocytes % 1 %; Monocytes # (M) 0.47 k/uL (0-1.0); Myelocytes # (M) 0.09 k/uL (0); Myelocytes % 2 %; Neutrophils % (M) 71 %; Nucleated Red Blood Cells 0 /100 WBC (0-0); Total Cells Counted 200
[2020-07-26 11:58] LABS: Anisocytosis (M) Present; Poikilocytosis (M) Present
[2020-07-26 11:59] LABS: Bilirubin, Delta 1.1 mg/dL (0.0-0.2); Bilirubin,Unconjugated 0.4 mg/dL (0.0-1.1); Calcium 10.2 mg/dL (8.4-10.2); Platelet Count 137 k/uL (150-450); Potassium 5.9 mmol/L (3.5-5.1); Total Bilirubin 1.5 mg/dL (0.2-1.3); Total Protein 6.9 g/dL (6.3-8.2)
--- NOTE | 2020-07-26 12:53 | PN ---
PROGRESS NOTE Patient is seen for followup for acute kidney injury and volume overload. She is currently being diuresed. Patient also had metabolic acidosis for which she was on IV sodium bicarb for a couple of days. This morning, patient states her swelling is slightly improved. She was scheduled for cholecystectomy today, but patient has refused. Her liver enzymes were elevated slightly and hepatobiliary scan did not reveal any major abnormalities. Her HIDA scan was positive. Patient is currently asymptomatic. She denies any abdominal discomfort or pain. She is tolerating oral intake fairly well. PHYSICAL EXAMINATION: On examination today, blood pressure was 152/84, heart rate 62 per minute, she is afebrile. Examination of the heart S1, S2. Examination of the lungs, bilateral breath sounds are heard. Abdomen is soft, nontender. Examination of the lower extremities shows edema 2+ bilaterally, somewhat improved. BRICK PAVING CHECKER exam is grossly intact. LABS: Show sodium of 137 from yesterday, serum creatinine 2.58 yesterday. Labs are pending from today. ASSESSMENT: 1. Acute kidney injury ATN from contrast nephropathy and cardiorenal syndrome. Renal function stabilized over the last couple of days with serum creatinine at 2.5 mg/dL. Labs are pending from today. I will continue with the IV Lasix since the patient remains overloaded. Remains volume overloaded. 2. Chronic kidney disease NKF stage III, with previous creatinine 1.4-1.[address] back to 2013. Etiology is nephrosclerosis. 3. Cardiomyopathy, ejection fraction 40% to 45% with severe tricuspid regurgitation. 4. Iron deficiency, maintained on IV iron. 5. Obstructive sleep apnea. 6. Metabolic acidosis, non gap associated with renal failure currently improved post IV bicarb, maintained on oral sodium bicarb which was eventually discontinued, as her acidosis has improved. PLAN: Continue with IV Lasix. Check labs today. Repeat labs in a.m., possibly change to oral diuretics over the weekend depending on volume status. The patient will need followup as outpatient for CKD. MMODL / IJN: [id number] /
--- NOTE | 2020-07-26 15:10 | P.PN ---
Subjective From records Ms. Hartmann is a 65-year-old female with a past medical history of hypertension, hyperlipidemia, chronic kidney disease, obstructive sleep apnea coming to the hospital with a chief complaint of difficulty in breathing. Patient states that she was sitting and watching television when she started to have difficulty in breathing along with chest pain. She states the chest pain it is 7 x 10 in intensity, is mostly substernal radiating to the entire chest. Patient denies having any recent travel. No fever chills or rigors. Patient mentions about having sinus congestion and mild headaches for the past 1 week. She mentions that her sister and [id number] have Covid. Patient admits to drinking a big glass of vodka every night. In the emergency patient had blood pressure of 177/110, 96% on 2 L of nasal cannula, temperature 98.7, heart rate 85, rest she had a chest x-ray showing mild congestive heart failure. Patient also had CTA of which was negative for PE. But significant for pulmonary edema with pleural fluid and cardiomegaly consistent with congestive heart failure. Patient had mildly elevated troponins at 0.077, 0.114. She has been started on IV heparin, cardiology consult has been obtained. On 07/21/2020 -patient was seen and examined select speciality floor. She is comfortably sitting up in the bed and states that her difficulty in breathing and chest pain are better compared to yesterday. Patient denied having any fevers chills or rigors. No abdominal pain nausea vomiting or diarrhea. No dysuria or hematuria. On reviewing her vitals temperature 97.7 heart rate 74 rest saturating at 98 on 5 L of oxygen by nasal cannula. On reviewing her labs white count of 4.6, RALPH MCV 102.2, platelets 64. Sodium 139, potassium 5.2, chloride 106, by 21, BUN 40, creatinine 1.88. On -patient was seen and examined. Patient states that her difficulty breathing is slightly better but she is still short of breath. She states that the swelling in her upper extremities is much better compared to yesterday. Still has swelling in her lower extremities. Patient denies having any chest pain or palpitations. No abdominal pain nausea vomiting or diarrhea. No dysuria or hematuria. On reviewing the vitals patient's blood pressure is 144 x 91 saturating 100% on 4 L nasal cannula with temperature 97.7 on reviewing the patient's labs white count of 5.8, hemoglobin 8.8, platelets 89, macrocytosis. Electrolytes sodium 135, potassium 5.4, chloride 100, bicarb 17, BUN 15, creatinine 2.32 . Subjective: This is the first day I am taking care of the patient 07/23/2020 This is a pleasant 65 years old female who presents with chest pain and CHF with ejection fraction 40-45% and abnormal valvular heart disease showing moderate to severe mitral regurgitation, severe pulmonary hypertension, moderate to severe right ventricular enlargement. Also she has chronic disease stage III obstructive sleep apnea on CPAP and uncontrolled hypertension upon admission. Also on exam she has bilateral leg swelling. Her creatinine was trending up, probably secondary to contrast-induced nephropathy and nephrology of the case however today her creatinine has been stabilized at 2.4, and give her 1 dose of Lasix given her overt fluid overload state I discussed the case with nephrology team, we gave him an extra dose of Lasix 40 mg times 1 in the AM. He'll keep monitoring. Consult heat treater helper recommended outpatient workup for pulmonary hypertension 07/24/2020 Patient also with some dyspnea however she reports increased swelling in her legs. Her weight increased from 143.9-145.2 over the last 2 days. She is saturating 100% on 2 L oxygen via nasal cannula. Creatinine is stable 2.4-2.58. Sodium 136, potassium 5, sugars controlled. Liver ultrasound showing nonspecific Enriquez of the liver suspicious for hepatic steatosis or diffuse hepatocellular disease. Thickened gallbladder wall, alert for cholecystitis. Urine analysis is suspicious for infection and Urine culture is growing gram- negative bacilli. We'll start ceftriaxone Nephrology team on the case for kidney disease. She had some loose stool for C. diff is negative. Improved with Imodium 07/25/2020 Patient looks clinically the same although she feels easier to breathe today. Her leg swelling is the same, also she has swelling around the abdominal girdle. Diarrhea still going but improve if she takes Imodium. She complains from frequent urination with the total amount of urine coming up. Most likely related to her UTI. Urine culture is growing Klebsiella oxytoca and Citrobacter freundii, both of them are sensitive to almost all antibiotics are tested, including ceftriaxone. Her creatinine is the same at 2.5. Liver ultrasound was suspicious for cholecystitis cyanosis however HIDA scan was negative and patient denies any RUQ abdominal pain or tenderness Physical therapist recommended home when she is medically stable 07/26/2020 Patient thinks her breathing is better today, she still have bilateral leg swelling. No other new complaint. Her diarrhea looks better and she only had little firm bowel movement yesterday. Patient declined a possible cholecystectomy recommended by surgery team. Patient denies any pain in her right upper quadrant, no nausea vomiting, and she tolerates diet well. Surgical team recommended outpatient cholecystectomy. She is hemodynamically stable. WBC is normal at 4.7K, anemia slightly better at 9.2 and platelets significantly improved 137K. Creatinine slightly trended down to 2.4. Liver enzymes slightly elevated. She remains on Lasix 40 mg twice daily, also she is on ceftriaxone for her UTI nephrology team on the case Objective - Vital Signs Vital signs: Vital Signs Temp 97.6 F 07/26/20 08:00 Pulse 90 07/26/20 12:00 Resp 18 07/26/20 08:00 BP 132/87 07/26/20 12:00 Pulse Ox 99 07/26/20 12:00 Intake & Output 07/25/20 07/26/20 07/26/20 18:59 06:59 18:59 Intake Total 620 240 Output Total 1050 600 Balance 620 -1050 -360 Intake: IV 20 Invasive Line 3 20 Oral 600 240 Output: Urine 1050 600 Other: Voiding Method Bedside Commode Bedside Commode Bedside Commode # Voids 6 4 # Bowel Movements 1 - Exam GENERAL: The patient is alert and oriented x3, not in any acute distress. Obese HEENT: Pupils are round and equally reacting to light. EOMI. No scleral icterus. No conjunctival pallor. Normocephalic, atraumatic. No pharyngeal erythema. No thyromegaly. CARDIOVASCULAR: S1 and S2 present. No murmurs, rubs, or gallops. -PULMONARY: Chest is clear to auscultation, no wheezing. Bilateral mild basal crepitation ABDOMEN: Soft, nontender, nondistended, normoactive bowel sounds. No palpable organomegaly. MUSCULOSKELETAL: No joint swelling or deformity. -EXTREMITIES: No cyanosis, clubbing,. 1+ bilateral pitting like edema NEUROLOGICAL: Gross neurological examination did not reveal any focal deficits. SKIN: No rashes. no petechiae. - Labs CBC & Chem 7: 07/26/20 10:40 07/26/20 10:40 Labs: Abnormal Lab Results - Last 24 Hours (Table) 07/25/20 07/25/20 07/26/20 Range/Units 17:03 20:44 06:13 RBC (3.80-5.40) m/uL Hgb (11.4-16.0) gm/dL Hct (34.0-46.0) % Plt Count (150-450) k/uL Lymphocytes # (Manual) (1.0-4.8) k/uL Metamyelocytes # (Man) (0) k/uL Myelocytes # (Manual) (0) k/uL Potassium (3.5-5.1) mmol/L Chloride (98-107) mmol/L Carbon Dioxide (22-30) mmol/L BUN (7-17) mg/dL Creatinine (0.52-1.04) mg/dL Glucose (74-99) mg/dL POC Glucose (mg/dL) 138 H 156 H 128 H (75-99) mg/dL Total Bilirubin (0.2-1.3) mg/dL Delta Bilirubin (0.0-0.2) mg/dL AST (14-36) U/L Alkaline Phosphatase (38-126) U/L 07/26/20 07/26/20 07/26/20 Range/Units 10:40 10:40 11:36 RBC 2.90 L (3.80-5.40) m/uL Hgb 9.2 L (11.4-16.0) gm/dL Hct 28.6 L (34.0-46.0) % Plt Count 137 L D (150-450) k/uL Lymphocytes # (Manual) 0.71 L (1.0-4.8) k/uL Metamyelocytes # (Man) 0.05 H (0) k/uL Myelocytes # (Manual) 0.09 H (0) k/uL Potassium 5.9 H (3.5-5.1) mmol/L Chloride 108 H (98-107) mmol/L Carbon Dioxide 21 L (22-30) mmol/L BUN 76 H (7-17) mg/dL Creatinine 2.44 H (0.52-1.04) mg/dL Glucose 150 H (74-99) mg/dL POC Glucose (mg/dL) 148 H (75-99) mg/dL Total Bilirubin 1.5 H (0.2-1.3) mg/dL Delta Bilirubin 1.1 H (0.0-0.2) mg/dL AST 91 H (14-36) U/L Alkaline Phosphatase 210 H (38-126) U/L Microbiology - Last 24 Hours (Table) 07/22/20 14:45 Stool Culture - Final Stool Assessment and Plan Assessment: Acute Systolic CHF in Excerbation, ejection fraction 40-45% Elevated liver enzymes with thickened gallbladder wall on ultrasound, correlate for cholecystitis. HIDA scan is negative, no need for surgery acute urinary tract infection, secondary to UTI. Klebsiella oxytoca and Citrobacter freundii, and antibiotic Severe Pulmonary HTN , outpatient follow-up Acute kidney injury, possible contrast-induced nephropathy Moderate to severe mitral regurgitation, moderate to severe right ventricular enlargement and severe pulmonary hypertension Hypertension, controlled upon admission, currently better controlled Elevated troponins Acute kidney injury Transaminitis Hypomagnesemia Elevated alkaline phosphatase Thrombocytopenia Anemia Plan: This is a pleasant 65 years old female who presents with CHF and acute kidney injury. Continue recommendations as per nephrology's team recommendation. Monitor electrolytes and weights. Monitor creatinine. Continue with BiCAP troponin as per pulmonary team recommendation. Continue holding IGGY inhibitor review of worsening renal function. HIDA scan is negative, no abdominal pain, cancel surgery consult. Continue with ceftriaxone in the meantime Labs and medication were reviewed.. Wilfrid and switch to oral antibiotics on discharge nue same treatment. Continue with symptomatic treatment. Resume home medication. Monitor lytes and vitals. DVT and GI prophylaxis. Further recommendations as per clinical course of the patient DVT prophylaxis: Subcutaneous heparin GI Prophylaxis: Pepcid Prognosis is guarded
--- NOTE | 2020-07-26 15:47 | P.PN ---
Subjective Progress Note Date: 07/26/20 Principal diagnosis: Acute on chronic systolic heart failure Moderate to severe pulmonary hypertension Severe degree of sleep disorder breathing and sleep apnea compliant with his CPAP machine Elevated troponins Acute on chronic kidney disease Dyslipidemia Hypertension hypertensive cardiovascular disease 07/26/2020, patient is however apparently looks short of breath, oxygen saturation however is stable 96% room air, denies any chest pain, wants to hold on For now [facility] surgery of following July 25 2020, patient seen eval reexamined during the rounds labs reviewed medications reviewed care plan discussed, respiratory status much improved today still using supplemental oxygen did not use the CPAP machine last night, hemodynamic status stable with oxygen saturation 100% on 2 L, patient underwent hepatobiliary scan which revealed non visualization of gallbladder consistent with cystic duct obstruction and acute cholecystitis Ms. Randi Hartmann is a 65-year-old female well-known to me patient came into the hospital with increasing shortness of breath, seems like some chest pain was associated which has been progressive, patient does have cold with 19 exposure, patient was noted to be hypertensive with a blood pressure 170/110 in the emergency department, CTA performed negative for PE but however does show bilateral pulmonary edema along with pleural effusion consistent with heart failure troponins were elevated cardiovascular services consulted, patient is well-known to me for history of sleep disorder breathing and sleep apnea, recent echocardiogram revealed moderate to severe pulmonary hypertension with evidence of biventricular failure patient does have a CPAP machine from home will recommend to use it Objective - Vital Signs Vital signs: Vital Signs Temp 97.6 F 07/26/20 08:00 Pulse 90 07/26/20 12:00 Resp 18 07/26/20 08:00 BP 132/87 07/26/20 12:00 Pulse Ox 99 07/26/20 12:00 Intake & Output 07/25/20 07/26/20 07/26/20 18:59 06:59 18:59 Intake Total 620 240 Output Total 1050 600 Balance 620 -1050 -360 Intake: IV 20 Invasive Line 3 20 Oral 600 240 Output: Urine 1050 600 Other: Voiding Method Bedside Commode Bedside Commode Bedside Commode # Voids 6 4 # Bowel Movements 1 - Exam - Constitutional General appearance: disheveled, morbidly obese - EENT Eyes: PERRLA Ears: bilateral: normal - Neck Carotids: bilateral: upstroke normal - Respiratory Respiratory: bilateral: diminished - Cardiovascular Rhythm: regular Heart sounds: normal: S1, S2 - Gastrointestinal General gastrointestinal: soft - Neurologic Neurologic: CNII-XII intact - Musculoskeletal Musculoskeletal: gait normal, generalized weakness, strength equal bilaterally - Psychiatric Psychiatric: A&O x's 3, appropriate affect, intact judgment & insight - Labs CBC & Chem 7: 07/26/20 10:40 07/26/20 10:40 Labs: Abnormal Lab Results - Last 24 Hours (Table) 07/25/20 07/25/20 07/26/20 Range/Units 17:03 20:44 06:13 RBC (3.80-5.40) m/uL Hgb (11.4-16.0) gm/dL Hct (34.0-46.0) % Plt Count (150-450) k/uL Lymphocytes # (Manual) (1.0-4.8) k/uL Metamyelocytes # (Man) (0) k/uL Myelocytes # (Manual) (0) k/uL Potassium (3.5-5.1) mmol/L Chloride (98-107) mmol/L Carbon Dioxide (22-30) mmol/L BUN (7-17) mg/dL Creatinine (0.52-1.04) mg/dL Glucose (74-99) mg/dL POC Glucose (mg/dL) 138 H 156 H 128 H (75-99) mg/dL Total Bilirubin (0.2-1.3) mg/dL Delta Bilirubin (0.0-0.2) mg/dL AST (14-36) U/L Alkaline Phosphatase (38-126) U/L 07/26/20 07/26/20 07/26/20 Range/Units 10:40 10:40 11:36 RBC 2.90 L (3.80-5.40) m/uL Hgb 9.2 L (11.4-16.0) gm/dL Hct 28.6 L (34.0-46.0) % Plt Count 137 L D (150-450) k/uL Lymphocytes # (Manual) 0.71 L (1.0-4.8) k/uL Metamyelocytes # (Man) 0.05 H (0) k/uL Myelocytes # (Manual) 0.09 H (0) k/uL Potassium 5.9 H (3.5-5.1) mmol/L Chloride 108 H (98-107) mmol/L Carbon Dioxide 21 L (22-30) mmol/L BUN 76 H (7-17) mg/dL Creatinine 2.44 H (0.52-1.04) mg/dL Glucose 150 H (74-99) mg/dL POC Glucose (mg/dL) 148 H (75-99) mg/dL Total Bilirubin 1.5 H (0.2-1.3) mg/dL Delta Bilirubin 1.1 H (0.0-0.2) mg/dL AST 91 H (14-36) U/L Alkaline Phosphatase 210 H (38-126) U/L Microbiology - Last 24 Hours (Table) 07/22/20 14:45 Stool Culture - Final Stool Assessment and Plan Assessment: Acute cholecystitis Acute on chronic systolic heart failure Moderate to severe pulmonary hypertension Severe degree of sleep disorder breathing and sleep apnea compliant with his CPAP machine Elevated troponins Acute on chronic kidney disease Dyslipidemia Hypertension hypertensive cardiovascular disease Plan: Surgical evaluation in progress GI service is following Continue gentle diuresis as planned Supplemental oxygen titrated as tolerated Discussed with RN patient has a CPAP machine from home will start using it with the same setting each night and when necessary during the day Patient will need a tertiary care center as outpatient for pulmonary hypertension evaluation Time with Patient: Greater than 30
[2020-07-26 16:42] LABS: Glucose,Whole Blood 147 mg/dL (75-99)
[2020-07-26] MEDS ORDERED: DEXTROSE 50% SYRINGE 50 ML IVP STA (20:34)
[2020-07-26] MEDS ORDERED: SODIUM POLYSTYRENE SULFONATE 15 GM/60 ML BOTTLE PO STA (20:35)
[2020-07-26 20:37] LABS: Glucose,Whole Blood 166 mg/dL (75-99)
[2020-07-26] MEDS ORDERED: INSULIN REGULAR 100 UNIT/ML VIAL IV ONE (20:45)
[2020-07-26] MEDS: ATORVASTATIN 10 MG TAB PO SCH (21:03)
[2020-07-26] MEDS: METOPROLOL SUCCINATE (ER) 25 MG TAB.ER.24H PO SCH (21:03)
[2020-07-26] MEDS: LORATADINE 10 MG TAB PO SCH (21:04)
[2020-07-26] MEDS: CITALOPRAM HYDROBROMIDE 20 MG TAB PO SCH (21:04)
--- NOTE | 2020-07-26 22:38 | P.PN ---
Subjective From records Ms. Hartmann is a 65-year-old female with a past medical history of hypertension, hyperlipidemia, chronic kidney disease, obstructive sleep apnea coming to the hospital with a chief complaint of difficulty in breathing. Patient states that she was sitting and watching television when she started to have difficulty in breathing along with chest pain. She states the chest pain it is 7 x 10 in intensity, is mostly substernal radiating to the entire chest. Patient denies having any recent travel. No fever chills or rigors. Patient mentions about having sinus congestion and mild headaches for the past 1 week. She mentions that her sister and [id number] have Covid. Patient admits to drinking a big glass of vodka every night. In the emergency patient had blood pressure of 177/110, 96% on 2 L of nasal cannula, temperature 98.7, heart rate 85, rest she had a chest x-ray showing mild congestive heart failure. Patient also had CTA of which was negative for PE. But significant for pulmonary edema with pleural fluid and cardiomegaly consistent with congestive heart failure. Patient had mildly elevated troponins at 0.077, 0.114. She has been started on IV heparin, cardiology consult has been obtained. On 07/21/2020 -patient was seen and examined select speciality floor. She is comfortably sitting up in the bed and states that her difficulty in breathing and chest pain are better compared to yesterday. Patient denied having any fevers chills or rigors. No abdominal pain nausea vomiting or diarrhea. No dysuria or hematuria. On reviewing her vitals temperature 97.7 heart rate 74 rest saturating at 98 on 5 L of oxygen by nasal cannula. On reviewing her labs white count of 4.6, RALPH MCV 102.2, platelets 64. Sodium 139, potassium 5.2, chloride 106, by 21, BUN 40, creatinine 1.88. On -patient was seen and examined. Patient states that her difficulty breathing is slightly better but she is still short of breath. She states that the swelling in her upper extremities is much better compared to yesterday. Still has swelling in her lower extremities. Patient denies having any chest pain or palpitations. No abdominal pain nausea vomiting or diarrhea. No dysuria or hematuria. On reviewing the vitals patient's blood pressure is 144 x 91 saturating 100% on 4 L nasal cannula with temperature 97.7 on reviewing the patient's labs white count of 5.8, hemoglobin 8.8, platelets 89, macrocytosis. Electrolytes sodium 135, potassium 5.4, chloride 100, bicarb 17, BUN 15, creatinine 2.32 . Subjective: This is the first day I am taking care of the patient 07/23/2020 This is a pleasant 65 years old female who presents with chest pain and CHF with ejection fraction 40-45% and abnormal valvular heart disease showing moderate to severe mitral regurgitation, severe pulmonary hypertension, moderate to severe right ventricular enlargement. Also she has chronic disease stage III obstructive sleep apnea on CPAP and uncontrolled hypertension upon admission. Also on exam she has bilateral leg swelling. Her creatinine was trending up, probably secondary to contrast-induced nephropathy and nephrology of the case however today her creatinine has been stabilized at 2.4, and give her 1 dose of Lasix given her overt fluid overload state I discussed the case with nephrology team, we gave him an extra dose of Lasix 40 mg times 1 in the AM. He'll keep monitoring. Consult radio communication coordinator recommended outpatient workup for pulmonary hypertension 07/24/2020 Patient also with some dyspnea however she reports increased swelling in her legs. Her weight increased from 143.9-145.2 over the last 2 days. She is saturating 100% on 2 L oxygen via nasal cannula. Creatinine is stable 2.4-2.58. Sodium 136, potassium 5, sugars controlled. Liver ultrasound showing nonspecific Enriquez of the liver suspicious for hepatic steatosis or diffuse hepatocellular disease. Thickened gallbladder wall, alert for cholecystitis. Urine analysis is suspicious for infection and Urine culture is growing gram- negative bacilli. We'll start ceftriaxone Nephrology team on the case for kidney disease. She had some loose stool for C. diff is negative. Improved with Imodium 07/25/2020 Patient looks clinically the same although she feels easier to breathe today. Her leg swelling is the same, also she has swelling around the abdominal girdle. Diarrhea still going but improve if she takes Imodium. She complains from frequent urination with the total amount of urine coming up. Most likely related to her UTI. Urine culture is growing Klebsiella oxytoca and Citrobacter freundii, both of them are sensitive to almost all antibiotics are tested, including ceftriaxone. Her creatinine is the same at 2.5. Liver ultrasound was suspicious for cholecystitis cyanosis however HIDA scan was negative and patient denies any RUQ abdominal pain or tenderness Physical therapist recommended home when she is medically stable 07/26/2020 Patient thinks her breathing is better today, she still have bilateral leg swelling. No other new complaint. Her diarrhea looks better and she only had little firm bowel movement yesterday. Patient declined a possible cholecystectomy recommended by surgery team. Patient denies any pain in her right upper quadrant, no nausea vomiting, and she tolerates diet well. Surgical team recommended outpatient cholecystectomy. She is hemodynamically stable. WBC is normal at 4.7K, anemia slightly better at 9.2 and platelets significantly improved 137K. Creatinine slightly trended down to 2.4. Liver enzymes slightly elevated. She remains on Lasix 40 mg twice daily, also she is on ceftriaxone for her UTI nephrology team on the case Potassium was slightly elevated at 5.9, patient received Kayexalate and insulin/glucose and monitor potassium Nephrology recommended follow-up as an outpatient for her CK D Objective - Vital Signs Vital signs: Vital Signs Temp 97.6 F 07/26/20 16:00 Pulse 87 07/26/20 16:00 Resp 18 07/26/20 08:00 BP 145/82 07/26/20 16:00 Pulse Ox 97 07/26/20 16:00 Intake & Output 07/26/20 07/26/20 07/27/20 06:59 18:59 06:59 Intake Total 480 Output Total 1050 1500 Balance -1050 -1020 Intake: Oral 480 Output: Urine 1050 1500 Other: Voiding Method Bedside Commode Bedside Commode # Voids 4 - Exam GENERAL: The patient is alert and oriented x3, not in any acute distress. Obese HEENT: Pupils are round and equally reacting to light. EOMI. No scleral icterus. No conjunctival pallor. Normocephalic, atraumatic. No pharyngeal erythema. No thyromegaly. CARDIOVASCULAR: S1 and S2 present. No murmurs, rubs, or gallops. -PULMONARY: Chest is clear to auscultation, no wheezing. Bilateral mild basal crepitation ABDOMEN: Soft, nontender, nondistended, normoactive bowel sounds. No palpable organomegaly. MUSCULOSKELETAL: No joint swelling or deformity. -EXTREMITIES: No cyanosis, clubbing,. 1+ bilateral pitting like edema NEUROLOGICAL: Gross neurological examination did not reveal any focal deficits. SKIN: No rashes. no petechiae. - Labs CBC & Chem 7: 07/26/20 10:40 07/26/20 10:40 Labs: Abnormal Lab Results - Last 24 Hours (Table) 07/26/20 07/26/20 07/26/20 Range/Units 06:13 10:40 10:40 RBC 2.90 L (3.80-5.40) m/uL Hgb 9.2 L (11.4-16.0) gm/dL Hct 28.6 L (34.0-46.0) % Plt Count 137 L D (150-450) k/uL Lymphocytes # (Manual) 0.71 L (1.0-4.8) k/uL Metamyelocytes # (Man) 0.05 H (0) k/uL Myelocytes # (Manual) 0.09 H (0) k/uL Potassium 5.9 H (3.5-5.1) mmol/L Chloride 108 H (98-107) mmol/L Carbon Dioxide 21 L (22-30) mmol/L BUN 76 H (7-17) mg/dL Creatinine 2.44 H (0.52-1.04) mg/dL Glucose 150 H (74-99) mg/dL POC Glucose (mg/dL) 128 H (75-99) mg/dL Total Bilirubin 1.5 H (0.2-1.3) mg/dL Delta Bilirubin 1.1 H (0.0-0.2) mg/dL AST 91 H (14-36) U/L Alkaline Phosphatase 210 H (38-126) U/L 07/26/20 07/26/20 07/26/20 Range/Units 11:36 16:40 20:34 RBC (3.80-5.40) m/uL Hgb (11.4-16.0) gm/dL Hct (34.0-46.0) % Plt Count (150-450) k/uL Lymphocytes # (Manual) (1.0-4.8) k/uL Metamyelocytes # (Man) (0) k/uL Myelocytes # (Manual) (0) k/uL Potassium (3.5-5.1) mmol/L Chloride (98-107) mmol/L Carbon Dioxide (22-30) mmol/L BUN (7-17) mg/dL Creatinine (0.52-1.04) mg/dL Glucose (74-99) mg/dL POC Glucose (mg/dL) 148 H 147 H 166 H (75-99) mg/dL Total Bilirubin (0.2-1.3) mg/dL Delta Bilirubin (0.0-0.2) mg/dL AST (14-36) U/L Alkaline Phosphatase (38-126) U/L Microbiology - Last 24 Hours (Table) 07/22/20 14:45 Stool Culture - Final Stool Assessment and Plan Assessment: Acute Systolic CHF in Excerbation, ejection fraction 40-45% Elevated liver enzymes with thickened gallbladder wall on ultrasound, correlate for cholecystitis. HIDA scan is negative, no need for surgery acute urinary tract infection, secondary to UTI. Klebsiella oxytoca and C itrobacter freundii, and antibiotic Severe Pulmonary HTN , outpatient follow-up Acute kidney injury, possible contrast-induced nephropathy Moderate to severe mitral regurgitation, moderate to severe right ventricular enlargement and severe pulmonary hypertension Hypertension, controlled upon admission, currently better controlled Elevated troponins Acute kidney injury Transaminitis Hypomagnesemia Elevated alkaline phosphatase Thrombocytopenia Anemia Plan: This is a pleasant 65 years old female who presents with CHF and acute kidney injury. Continue recommendations as per nephrology's team recommendation. Monitor electrolytes and weights. Monitor creatinine. Continue with BiCAP troponin as per pulmonary team recommendation. Continue holding IGGY inhibitor review of worsening renal function. HIDA scan is negative, no abdominal pain, cancel surgery consult. Continue with ceftriaxone in the meantime Labs and medication were reviewed.. Wilfrid and switch to oral antibiotics on discharge nue same treatment. Continue with symptomatic treatment. Resume home medication. Monitor lytes and vitals. DVT and GI prophylaxis. Further recommendations as per clinical course of the patient DVT prophylaxis: Subcutaneous heparin GI Prophylaxis: Pepcid Prognosis is guarded
[2020-07-27] MEDS: PANTOPRAZOLE 40 MG TABLET PO SCH (06:27)
[2020-07-27] MEDS: LEVOTHYROXINE 75 MCG TAB PO SCH (06:27)
[2020-07-27 06:33] LABS: Glucose,Whole Blood 107 mg/dL (75-99)
[2020-07-27] MEDS: INSULIN ASPART (NovoLOG) 100 UNIT/ML VIAL SQ SCH ×4 (06:34→21:02)
[2020-07-27] MEDS: ASPIRIN 81 MG PO SCH (08:56)
[2020-07-27] MEDS: hydrALAZINE HCL 50 MG TAB PO SCH ×3 (08:56→21:12)
[2020-07-27] MEDS: FUROSEMIDE 10 MG/ML 4 ML VIAL IV SCH ×2 (08:57→21:12)
[2020-07-27] MEDS: HEPARIN SODIUM,PORCINE 5,000 UNIT/ML 1 ML VIAL SQ SCH ×2 (09:03→21:12)
[2020-07-27 10:28] LABS: African American GFR (CKD) 25 (>60 ml/min/1.73 sqM); Albumin 4.5 g/dL (3.5-5.0); Anion Gap 13 mmol/L; Blood Urea Nitrogen 71 mg/dL (7-17); Calcium 9.8 mg/dL (8.4-10.2); Carbon Dioxide 23 mmol/L (22-30); Chloride 105 mmol/L (98-107); Glucose 165 mg/dL (74-99); Non-African American GFR(CKD) 22 (>60 ml/min/1.73 sqM); Potassium 4.7 mmol/L (3.5-5.1); Sodium 141 mmol/L (137-145)
[2020-07-27 10:46] LABS: HCT 33.1 % (34.0-46.0); HGB 10.3 gm/dL (11.4-16.0); Hypochromasia Slight; MCH 31.2 pg (25.0-35.0); MCHC 31.3 g/dL (31.0-37.0); MCV 99.7 fL (80.0-100.0); Macrocytosis Slight; Mean Platelet Volume 8.8; Platelet Count 111 k/uL (150-450); RBC 3.31 m/uL (3.80-5.40); RDW 15.5 % (11.5-15.5); WBC 4.4 k/uL (3.8-10.6)
--- NOTE | 2020-07-27 11:03 | P.PN ---
Subjective Progress Note Date: 07/27/20 Principal diagnosis: Acute on chronic systolic heart failure Moderate to severe pulmonary hypertension Severe degree of sleep disorder breathing and sleep apnea compliant with his CPAP machine Elevated troponins Acute on chronic kidney disease Dyslipidemia Hypertension hypertensive cardiovascular disease 07/27/2020, patient seen kj examined during the rounds labs reviewed medications reviewed, remains afebrile hemodynamically stable, oxygen saturation is 99% on room air, BUN/creatinine remains stable 71 and 2.34, 07/26/2020, patient is however apparently looks short of breath, oxygen saturation however is stable 96% room air, denies any chest pain, wants to hold on For now [facility] surgery of following July 25 2020, patient seen kj reexamined during the rounds labs reviewed medications reviewed care plan discussed, respiratory status much improved today still using supplemental oxygen did not use the CPAP machine last night, hemodynamic status stable with oxygen saturation 100% on 2 L, patient underwent hepatobiliary scan which revealed non visualization of gallbladder consistent with cystic duct obstruction and acute cholecystitis Ms. Randi Hartmann is a 65-year-old female well-known to me patient came into the hospital with increasing shortness of breath, seems like some chest pain was associated which has been progressive, patient does have cold with 19 exposure, patient was noted to be hypertensive with a blood pressure 170/110 in the emergency department, CTA performed negative for PE but however does show bilateral pulmonary edema along with pleural effusion consistent with heart failure troponins were elevated cardiovascular services consulted, patient is well-known to me for history of sleep disorder breathing and sleep apnea, recent echocardiogram revealed moderate to severe pulmonary hypertension with evidence of biventricular failure patient does have a CPAP machine from home will recommend to use it Objective - Vital Signs Vital signs: Vital Signs Temp 97.6 F 07/27/20 08:00 Pulse 90 07/27/20 08:00 Resp 20 07/27/20 08:00 BP 122/61 07/27/20 08:00 Pulse Ox 99 07/27/20 08:00 Intake & Output 07/26/20 07/27/20 07/27/20 18:59 06:59 18:59 Intake Total 480 540 240 Output Total 1500 2125 Balance -1020 -1585 240 Weight 138 kg Intake: Oral 480 540 240 Output: Urine 1500 2125 Other: Voiding Method Bedside Commode Bedside Commode # Voids 1 # Bowel Movements 1 - Exam - Constitutional General appearance: disheveled, morbidly obese - EENT Eyes: PERRLA Ears: bilateral: normal - Neck Carotids: bilateral: upstroke normal - Respiratory Respiratory: bilateral: diminished - Cardiovascular Rhythm: regular Heart sounds: normal: S1, S2 - Gastrointestinal General gastrointestinal: soft - Neurologic Neurologic: CNII-XII intact - Musculoskeletal Musculoskeletal: gait normal, generalized weakness, strength equal bilaterally - Psychiatric Psychiatric: A&O x's 3, appropriate affect, intact judgment & insight - Labs CBC & Chem 7: 07/27/20 09:21 07/27/20 09:21 Labs: Abnormal Lab Results - Last 24 Hours (Table) 07/26/20 07/26/20 07/26/20 Range/Units 10:40 10:40 11:36 RBC 2.90 L (3.80-5.40) m/uL Hgb 9.2 L (11.4-16.0) gm/dL Hct 28.6 L (34.0-46.0) % Plt Count 137 L D (150-450) k/uL Lymphocytes # (Manual) 0.71 L (1.0-4.8) k/uL Metamyelocytes # (Man) 0.05 H (0) k/uL Myelocytes # (Manual) 0.09 H (0) k/uL Potassium 5.9 H (3.5-5.1) mmol/L Chloride 108 H (98-107) mmol/L Carbon Dioxide 21 L (22-30) mmol/L BUN 76 H (7-17) mg/dL Creatinine 2.44 H (0.52-1.04) mg/dL Glucose 150 H (74-99) mg/dL POC Glucose (mg/dL) 148 H (75-99) mg/dL Total Bilirubin 1.5 H (0.2-1.3) mg/dL Delta Bilirubin 1.1 H (0.0-0.2) mg/dL AST 91 H (14-36) U/L Alkaline Phosphatase 210 H (38-126) U/L 07/26/20 07/26/20 07/27/20 Range/Units 16:40 20:34 06:21 RBC (3.80-5.40) m/uL Hgb (11.4-16.0) gm/dL Hct (34.0-46.0) % Plt Count (150-450) k/uL Lymphocytes # (Manual) (1.0-4.8) k/uL Metamyelocytes # (Man) (0) k/uL Myelocytes # (Manual) (0) k/uL Potassium (3.5-5.1) mmol/L Chloride (98-107) mmol/L Carbon Dioxide (22-30) mmol/L BUN (7-17) mg/dL Creatinine (0.52-1.04) mg/dL Glucose (74-99) mg/dL POC Glucose (mg/dL) 147 H 166 H 107 H (75-99) mg/dL Total Bilirubin (0.2-1.3) mg/dL Delta Bilirubin (0.0-0.2) mg/dL AST (14-36) U/L Alkaline Phosphatase (38-126) U/L 07/27/20 07/27/20 Range/Units 09:21 09:21 RBC 3.31 L (3.80-5.40) m/uL Hgb 10.3 L (11.4-16.0) gm/dL Hct 33.1 L (34.0-46.0) % Plt Count 111 L (150-450) k/uL Lymphocytes # (Manual) (1.0-4.8) k/uL Metamyelocytes # (Man) (0) k/uL Myelocytes # (Manual) (0) k/uL Potassium (3.5-5.1) mmol/L Chloride (98-107) mmol/L Carbon Dioxide (22-30) mmol/L BUN 71 H (7-17) mg/dL Creatinine 2.34 H (0.52-1.04) mg/dL Glucose 165 H (74-99) mg/dL POC Glucose (mg/dL) (75-99) mg/dL Total Bilirubin (0.2-1.3) mg/dL Delta Bilirubin (0.0-0.2) mg/dL AST (14-36) U/L Alkaline Phosphatase (38-126) U/L Microbiology - Last 24 Hours (Table) 07/22/20 14:45 Stool Culture - Final Stool Assessment and Plan Assessment: Acute cholecystitis Acute on chronic systolic heart failure Moderate to severe pulmonary hypertension Severe degree of sleep disorder breathing and sleep apnea compliant with his CPAP machine Elevated troponins Acute on chronic kidney disease Dyslipidemia Hypertension hypertensive cardiovascular disease Plan: Surgical evaluation in progress, patient is reluctant for cholecystectomy GI service is following Continue gentle diuresis as planned Supplemental oxygen titrated as tolerated Patient will benefit from CPAP at night and when necessary during the day Patient will need a tertiary care center as outpatient for pulmonary hypertension evaluation, will arrange as outpatient Time with Patient: Greater than 30
[2020-07-27 12:03] LABS: Glucose,Whole Blood 160 mg/dL (75-99)
--- NOTE | 2020-07-27 12:26 | P.PN ---
Progress Note - Text Progress Note Date: 07/27/20 The patient is resting in bed comfortably. She has no significant abdominal pain. On exam vital signs are stable. Abdomen soft. Chronic cholecystitis with cystic duct occlusion. Patient will be observed currently.
--- NOTE | 2020-07-27 14:39 | P.PN ---
Subjective Progress Note Date: 07/27/20 Follow-up for acute kidney injury. Still complaining of lower extremity edema. Objective - Vital Signs Vital signs: Vital Signs Temp 97.6 F 07/27/20 11:21 Pulse 65 07/27/20 11:21 Resp 20 07/27/20 11:21 BP 153/91 07/27/20 11:21 Pulse Ox 98 07/27/20 11:21 Intake & Output 07/26/20 07/27/20 07/27/20 18:59 06:59 18:59 Intake Total 480 540 480 Output Total 1500 2125 Balance -1020 -1585 480 Weight 138 kg Intake: Oral 480 540 480 Output: Urine 1500 2125 Other: Voiding Method Bedside Commode Bedside Commode # Voids 1 # Bowel Movements 1 - Exam Limited secondary to covid-19 pandemic and to limit PPE. Refer to primary team exam - Labs CBC & Chem 7: 07/27/20 09:21 07/27/20 09:21 Labs: Abnormal Lab Results - Last 24 Hours (Table) 07/26/20 07/26/20 07/27/20 Range/Units 16:40 20:34 06:21 RBC (3.80-5.40) m/uL Hgb (11.4-16.0) gm/dL Hct (34.0-46.0) % Plt Count (150-450) k/uL BUN (7-17) mg/dL Creatinine (0.52-1.04) mg/dL Glucose (74-99) mg/dL POC Glucose (mg/dL) 147 H 166 H 107 H (75-99) mg/dL 07/27/20 07/27/20 07/27/20 Range/Units 09:21 09:21 12:02 RBC 3.31 L (3.80-5.40) m/uL Hgb 10.3 L (11.4-16.0) gm/dL Hct 33.1 L (34.0-46.0) % Plt Count 111 L (150-450) k/uL BUN 71 H (7-17) mg/dL Creatinine 2.34 H (0.52-1.04) mg/dL Glucose 165 H (74-99) mg/dL POC Glucose (mg/dL) 160 H (75-99) mg/dL Assessment and Plan Assessment: #1 acute kidney injury secondary to toxic ATN from contrast and component of CRS. #2 CK D stage III secondary to nephrosclerosis with a baseline creatinine of 1.4-1.6 MG per DL. #3 cardiomyopathy with the EF of 40-45% #4 metabolic acidosis improved. #5 volume overload Plan: #1 renal function stable continue with Lasix 40 mg IV twice a day. #2 consider changing to torsemide 40 mg by mouth daily #3 avoid nephrotoxic agents and hypotensive episodes
--- NOTE | 2020-07-27 16:15 | P.PN ---
Subjective From records Ms. Hartmann is a 65-year-old female with a past medical history of hypertension, hyperlipidemia, chronic kidney disease, obstructive sleep apnea coming to the hospital with a chief complaint of difficulty in breathing. Patient states that she was sitting and watching television when she started to have difficulty in breathing along with chest pain. She states the chest pain it is 7 x 10 in intensity, is mostly substernal radiating to the entire chest. Patient denies having any recent travel. No fever chills or rigors. Patient mentions about having sinus congestion and mild headaches for the past 1 week. She mentions that her sister and [id number] have Covid. Patient admits to drinking a big glass of vodka every night. In the emergency patient had blood pressure of 177/110, 96% on 2 L of nasal cannula, temperature 98.7, heart rate 85, rest she had a chest x-ray showing mild congestive heart failure. Patient also had CTA of which was negative for PE. But significant for pulmonary edema with pleural fluid and cardiomegaly consistent with congestive heart failure. Patient had mildly elevated troponins at 0.077, 0.114. She has been started on IV heparin, cardiology consult has been obtained. On 07/21/2020 -patient was seen and examined select speciality floor. She is comfortably sitting up in the bed and states that her difficulty in breathing and chest pain are better compared to yesterday. Patient denied having any fevers chills or rigors. No abdominal pain nausea vomiting or diarrhea. No dysuria or hematuria. On reviewing her vitals temperature 97.7 heart rate 74 rest saturating at 98 on 5 L of oxygen by nasal cannula. On reviewing her labs white count of 4.6, RALPH MCV 102.2, platelets 64. Sodium 139, potassium 5.2, chloride 106, by 21, BUN 40, creatinine 1.88. On -patient was seen and examined. Patient states that her difficulty breathing is slightly better but she is still short of breath. She states that the swelling in her upper extremities is much better compared to yesterday. Still has swelling in her lower extremities. Patient denies having any chest pain or palpitations. No abdominal pain nausea vomiting or diarrhea. No dysuria or hematuria. On reviewing the vitals patient's blood pressure is 144 x 91 saturating 100% on 4 L nasal cannula with temperature 97.7 on reviewing the patient's labs white count of 5.8, hemoglobin 8.8, platelets 89, macrocytosis. Electrolytes sodium 135, potassium 5.4, chloride 100, bicarb 17, BUN 15, creatinine 2.32 . Subjective: This is the first day I am taking care of the patient 07/23/2020 This is a pleasant 65 years old female who presents with chest pain and CHF with ejection fraction 40-45% and abnormal valvular heart disease showing moderate to severe mitral regurgitation, severe pulmonary hypertension, moderate to severe right ventricular enlargement. Also she has chronic disease stage III obstructive sleep apnea on CPAP and uncontrolled hypertension upon admission. Also on exam she has bilateral leg swelling. Her creatinine was trending up, probably secondary to contrast-induced nephropathy and nephrology of the case however today her creatinine has been stabilized at 2.4, and give her 1 dose of Lasix given her overt fluid overload state I discussed the case with nephrology team, we gave him an extra dose of Lasix 40 mg times 1 in the AM. He'll keep monitoring. 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 Her weight increased from 143.9-145.2 over the last 2 days. She is saturating 100% on 2 L oxygen via nasal cannula. Creatinine is stable 2.4-2.58. Sodium 136, potassium 5, sugars controlled. Liver ultrasound showing nonspecific Enriquez of the liver suspicious for hepatic steatosis or diffuse hepatocellular disease. Thickened gallbladder wall, alert for cholecystitis. Urine analysis is suspicious for infection and Urine culture is growing gram- negative bacilli. We'll start ceftriaxone Nephrology team on the case for kidney disease. She had some loose stool for C. diff is negative. Improved with Imodium 07/25/2020 Patient looks clinically the same although she feels easier to breathe today. Her leg swelling is the same, also she has swelling around the abdominal girdle. Diarrhea still going but improve if she takes Imodium. She complains from frequent urination with the total amount of urine coming up. Most likely related to her UTI. Urine culture is growing Klebsiella oxytoca and Citrobacter freundii, both of them are sensitive to almost all antibiotics are tested, including ceftriaxone. Her creatinine is the same at 2.5. Liver ultrasound was suspicious for cholecystitis cyanosis however HIDA scan was negative and patient denies any RUQ abdominal pain or tenderness Physical therapist recommended home when she is medically stable 07/26/2020 Patient thinks her breathing is better today, she still have bilateral leg swelling. No other new complaint. Her diarrhea looks better and she only had little firm bowel movement yesterday. Patient declined a possible cholecystectomy recommended by surgery team. Patient denies any pain in her right upper quadrant, no nausea vomiting, and she tolerates diet well. Surgical team recommended outpatient cholecystectomy. She is hemodynamically stable. WBC is normal at 4.7K, anemia slightly better at 9.2 and platelets significantly improved 137K. Creatinine slightly trended down to 2.4. Liver enzymes slightly elevated. She remains on Lasix 40 mg twice daily, also she is on ceftriaxone for her UTI nephrology team on the case Potassium was slightly elevated at 5.9, patient received Kayexalate and insulin/glucose and monitor potassium Nephrology recommended follow-up as an outpatient for her CK D 07/27/2020 Patient is clinically the same, she is breathing easily. She still have bilateral leg swelling. Her weight came down significantly to 138 kg. Creatinine trended down slowly to 2. today, she is hemodynamically stable. Nephrology input is appreciated and recommended to continue with Lasix 40 mg twice daily and consider to change to torsemide 40 mg by mouth daily Objective - Vital Signs Vital signs: Vital Signs Temp 97.7 F 07/27/20 15:17 Pulse 85 07/27/20 15:17 Resp 20 07/27/20 15:17 BP 153/115 07/27/20 15:17 Pulse Ox 96 07/27/20 15:17 Intake & Output 07/26/20 07/27/20 07/27/20 18:59 06:59 18:59 Intake Total 274 220 5441 Output Total 1500 2125 1000 Balance -1020 -1585 20 Weight 138 kg Intake: Oral 281 697 5302 Output: Urine 1500 2125 1000 Other: Voiding Method Bedside Commode Bedside Commode # Voids 1 # Bowel Movements 1 1 - Exam GENERAL: The patient is alert and oriented x3, not in any acute distress. Obese HEENT: Pupils are round and equally reacting to light. EOMI. No scleral icterus. No conjunctival pallor. Normocephalic, atraumatic. No pharyngeal erythema. No thyromegaly. CARDIOVASCULAR: S1 and S2 present. No murmurs, rubs, or gallops. -PULMONARY: Chest is clear to auscultation, no wheezing. Bilateral mild basal crepitation ABDOMEN: Soft, nontender, nondistended, normoactive bowel sounds. No palpable organomegaly. MUSCULOSKELETAL: No joint swelling or deformity. -EXTREMITIES: No cyanosis, clubbing,. 1+ bilateral pitting like edema NEUROLOGICAL: Gross neurological examination did not reveal any focal deficits. SKIN: No rashes. no petechiae. - Labs CBC & Chem 7: 07/27/20 09:21 07/27/20 09:21 Labs: Abnormal Lab Results - Last 24 Hours (Table) 07/26/20 07/26/20 07/27/20 Range/Units 16:40 20:34 06:21 RBC (3.80-5.40) m/uL Hgb (11.4-16.0) gm/dL Hct (34.0-46.0) % Plt Count (150-450) k/uL BUN (7-17) mg/dL Creatinine (0.52-1.04) mg/dL Glucose (74-99) mg/dL POC Glucose (mg/dL) 147 H 166 H 107 H (75-99) mg/dL 07/27/20 07/27/20 07/27/20 Range/Units 09:21 09:21 12:02 RBC 3.31 L (3.80-5.40) m/uL Hgb 10.3 L (11.4-16.0) gm/dL Hct 33.1 L (34.0-46.0) % Plt Count 111 L (150-450) k/uL BUN 71 H (7-17) mg/dL Creatinine 2.34 H (0.52-1.04) mg/dL Glucose 165 H (74-99) mg/dL POC Glucose (mg/dL) 160 H (75-99) mg/dL Assessment and Plan Assessment: Acute Systolic CHF in Excerbation, ejection fraction 40-45% Elevated liver enzymes with thickened gallbladder wall on ultrasound, correlate for cholecystitis. HIDA scan is negative, no need for surgery acute urinary tract infection, secondary to UTI. Klebsiella oxytoca and Citrobacter freundii, and antibiotic Severe Pulmonary HTN , outpatient follow-up Acute kidney injury, possible contrast-induced nephropathy Moderate to severe mitral regurgitation, moderate to severe right ventricular enlargement and severe pulmonary hypertension Hypertension, controlled upon admission, currently better controlled Elevated troponins Acute kidney injury Transaminitis Hypomagnesemia Elevated alkaline phosphatase Thrombocytopenia Anemia Plan: This is a pleasant 65 years old female who presents with CHF and acute kidney injury. Continue recommendations as per nephrology's team recommendation. Monitor electrolytes and weights. Monitor creatinine. Continue with BiCAP troponin as per pulmonary team recommendation. Continue holding IGGY inhibitor review of worsening renal function. HIDA scan is negative, no abdominal pain, cancel surgery consult. Continue with ceftriaxone in the meantime Labs and medication were reviewed.. Wilfrid and switch to oral antibiotics on discharge nue same treatment. Continue with symptomatic treatment. Resume home medication. Monitor lytes and vitals. DVT and GI prophylaxis. Further recommendations as per clinical course of the patient DVT prophylaxis: Subcutaneous heparin GI Prophylaxis: Pepcid Prognosis is guarded
[2020-07-27 16:54] LABS: Glucose,Whole Blood 127 mg/dL (75-99)
[2020-07-27 20:13] LABS: Glucose,Whole Blood 132 mg/dL (75-99)
[2020-07-27] MEDS: ATORVASTATIN 10 MG TAB PO SCH (21:12)
[2020-07-27] MEDS: METOPROLOL SUCCINATE (ER) 25 MG TAB.ER.24H PO SCH (21:12)
[2020-07-27] MEDS: CITALOPRAM HYDROBROMIDE 20 MG TAB PO SCH (21:12)
[2020-07-27] MEDS: LORATADINE 10 MG TAB PO SCH (21:12)
[2020-07-27 23:14] LABS: Appearance,Urine Clear (Clear); Bilirubin,Urine Negative (Negative); Blood,Urine Negative (Negative); Color,Urine Light Yellow; Glucose,Urine (UA) Negative (Negative); Ketones,Urine Negative (Negative); Leukocyte Esterase,Urine Trace (Negative); Mucus,Urine Rare /hpf; Nitrite,Urine Negative (Negative); Protein,Urine Negative (Negative); RBC,Urine 1 /hpf (0-5); Specific Gravity,Urine 1.007 (1.001-1.035); Squamous Epithelial Cell,Urine <1 /hpf (0-4); Urobilinogen,Urine <2.0 mg/dL (<2.0); WBC,Urine 3 /hpf (0-5)
[2020-07-28 06:11] LABS: Glucose,Whole Blood 125 mg/dL (75-99)
[2020-07-28] MEDS: INSULIN ASPART (NovoLOG) 100 UNIT/ML VIAL SQ SCH ×4 (06:15→21:06)
[2020-07-28] MEDS: LEVOTHYROXINE 75 MCG TAB PO SCH (06:28)
[2020-07-28] MEDS: PANTOPRAZOLE 40 MG TABLET PO SCH (06:28)
[2020-07-28 07:32] LABS: Potassium 3.8 mmol/L (3.5-5.1)
[2020-07-28 07:33] LABS: Calcium 9.5 mg/dL (8.4-10.2)
[2020-07-28] MEDS: ASPIRIN 81 MG PO SCH (08:46)
[2020-07-28] MEDS: hydrALAZINE HCL 50 MG TAB PO SCH ×3 (08:46→21:06)
[2020-07-28] MEDS: FUROSEMIDE 10 MG/ML 4 ML VIAL IV SCH ×2 (08:46→21:06)
[2020-07-28] MEDS: HEPARIN SODIUM,PORCINE 5,000 UNIT/ML 1 ML VIAL SQ SCH ×2 (08:47→21:06)
--- NOTE | 2020-07-28 11:24 | P.PN ---
Subjective Progress Note Date: 07/28/20 Principal diagnosis: Acute on chronic systolic heart failure Moderate to severe pulmonary hypertension Severe degree of sleep disorder breathing and sleep apnea compliant with his CPAP machine Elevated troponins Acute on chronic kidney disease Dyslipidemia Hypertension hypertensive cardiovascular disease 07/28/2020, patient seen eval examined during the rounds labs reviewed medications reviewed care plan discussed, breathing status remains stable, denies any chest pain, remains short of breath however, oxygen saturation 9596% on room air, patient will need sleep study and further evaluation as outpatient 07/27/2020, patient seen eval examined during the rounds labs reviewed medications reviewed, remains afebrile hemodynamically stable, oxygen saturation is 99% on room air, BUN/creatinine remains stable 71 and 2.34, 07/26/2020, patient is however apparently looks short of breath, oxygen saturation however is stable 96% room air, denies any chest pain, wants to hold on For now [facility] surgery of following July 25 2020, patient seen eval reexamined during the rounds labs reviewed medications reviewed care plan discussed, respiratory status much improved today still using supplemental oxygen did not use the CPAP machine last night, hemodynamic status stable with oxygen saturation 100% on 2 L, patient underwent hepatobiliary scan which revealed non visualization of gallbladder consistent with cystic duct obstruction and acute cholecystitis Ms. Randi Hartmann is a 65-year-old female well-known to me patient came into the hospital with increasing shortness of breath, seems like some chest pain was associated which has been progressive, patient does have cold with 19 exposure, patient was noted to be hypertensive with a blood pressure 170/110 in the emergency department, CTA performed negative for PE but however does show bilateral pulmonary edema along with pleural effusion consistent with heart failure troponins were elevated cardiovascular services consulted, patient is well-known to me for history of sleep disorder breathing and sleep apnea, recent echocardiogram revealed moderate to severe pulmonary hypertension with evidence of biventricular failure patient does have a CPAP machine from home will recommend to use it Objective - Vital Signs Vital signs: Vital Signs Temp 97.6 F 07/28/20 08:00 Pulse 65 07/28/20 08:00 Resp 18 07/28/20 08:00 BP 138/63 07/28/20 08:00 Pulse Ox 98 07/28/20 08:00 Intake & Output 07/27/20 07/28/20 07/28/20 18:59 06:59 18:59 Intake Total 1140 1200 Output Total 1999 1250 Balance -860 -50 Weight 142.6 kg Intake: Oral 1140 1200 Output: Urine 1999 1249 Other: Voiding Method Bedside Commode # Voids 1 # Bowel Movements 1 1 - Exam - Constitutional General appearance: disheveled, morbidly obese - EENT Eyes: PERRLA Ears: bilateral: normal - Neck Carotids: bilateral: upstroke normal - Respiratory Respiratory: bilateral: diminished - Cardiovascular Rhythm: regular Heart sounds: normal: S1, S2 - Gastrointestinal General gastrointestinal: soft - Neurologic Neurologic: CNII-XII intact - Musculoskeletal Musculoskeletal: gait normal, generalized weakness, strength equal bilaterally - Psychiatric Psychiatric: A&O x's 3, appropriate affect, intact judgment & insight - Labs CBC & Chem 7: 07/27/20 09:21 07/28/20 07:01 Labs: Abnormal Lab Results - Last 24 Hours (Table) 07/27/20 07/27/20 07/27/20 Range/Units 12:02 16:51 20:03 BUN (7-17) mg/dL Creatinine (0.52-1.04) mg/dL Glucose (74-99) mg/dL POC Glucose (mg/dL) 160 H 127 H 132 H (75-99) mg/dL Ur Leukocyte Esterase (Negative) Urine Mucus (None) /hpf 07/27/20 07/28/20 07/28/20 Range/Units 21:11 06:03 07:01 BUN 64 H (7-17) mg/dL Creatinine 2.15 H (0.52-1.04) mg/dL Glucose 116 H (74-99) mg/dL POC Glucose (mg/dL) 125 H (75-99) mg/dL Ur Leukocyte Esterase Trace H (Negative) Urine Mucus Rare H (None) /hpf Assessment and Plan Assessment: Acute on chronic systolic heart failure, ejection fraction of 40% UTI related to Klebsiella Moderate to severe pulmonary hypertension Severe mitral regurgitation Severe degree of sleep disorder breathing and sleep apnea compliant with his CPAP machine Acute on chronic cholecystitis Elevated troponins Acute on chronic kidney disease Dyslipidemia Hypertension hypertensive cardiovascular disease Plan: Continue antibiotics Continue deep breathing exercises incentive spirometry Gentle diuresis GI, cardiology and renal service is following Continue gentle diuresis as planned Supplemental oxygen titrated as tolerated Patient will benefit from CPAP at night and when necessary during the day Patient will need a tertiary care center as outpatient for pulmonary hypertension evaluation, will arrange as outpatient Time with Patient: Greater than 30
--- NOTE | 2020-07-28 11:35 | P.PN ---
Progress Note - Text Progress Note Date: 07/28/20 Patient feels well. She denies a significant abdominal pain. On exam vital signs are stable. Abdomen soft. Chronic cholecystitis with cystic duct occlusion. Patient will be observed currently. We will plan for outpatient laparoscopic cholecystectomy.
[2020-07-28 11:42] LABS: Glucose,Whole Blood 134 mg/dL (75-99)
--- NOTE | 2020-07-28 12:25 | P.PN ---
Subjective Progress Note Date: 07/28/20 Follow-up for acute kidney injury. Still has lower extremity edema. Objective - Vital Signs Vital signs: Vital Signs Temp 97.9 F 07/28/20 11:43 Pulse 69 07/28/20 11:43 Resp 18 07/28/20 11:43 BP 150/102 07/28/20 11:43 Pulse Ox 100 07/28/20 11:43 Intake & Output 07/27/20 07/28/20 07/28/20 18:59 06:59 18:59 Intake Total 1140 1200 Output Total 1999 1250 Balance -860 -50 Weight 142.6 kg Intake: Oral 1140 1200 Output: Urine 1999 1250 Other: Voiding Method Bedside Commode # Voids 1 # Bowel Movements 1 1 - Exam Limited secondary to covid-19 pandemic and to limit PPE. Refer to primary team exam - Labs CBC & Chem 7: 07/27/20 09:21 07/28/20 07:01 Labs: Abnormal Lab Results - Last 24 Hours (Table) 07/27/20 07/27/20 07/27/20 Range/Units 16:51 20:03 21:11 BUN (7-17) mg/dL Creatinine (0.52-1.04) mg/dL Glucose (74-99) mg/dL POC Glucose (mg/dL) 127 H 132 H (75-99) mg/dL Ur Leukocyte Esterase Trace H (Negative) Urine Mucus Rare H (None) /hpf 07/28/20 07/28/20 07/28/20 Range/Units 06:03 07:01 11:41 BUN 64 H (7-17) mg/dL Creatinine 2.15 H (0.52-1.04) mg/dL Glucose 116 H (74-99) mg/dL POC Glucose (mg/dL) 125 H 134 H (75-99) mg/dL Ur Leukocyte Esterase (Negative) Urine Mucus (None) /hpf Assessment and Plan Assessment: #1 acute kidney injury secondary to toxic ATN from contrast and component of CRS. #2 CK D stage III secondary to nephrosclerosis with a baseline creatinine of 1.4-1.6 MG per DL. #3 cardiomyopathy with the EF of 40-45% #4 metabolic acidosis improved. #5 volume overload Plan: #1 renal function stable continue with Lasix 40 mg IV twice a day. #2 consider changing to torsemide 40 mg by mouth daily at discharge #3 avoid nephrotoxic agents and hypotensive episodes
--- NOTE | 2020-07-28 14:29 | P.PN ---
Subjective From records Ms. Hartmann is a 65-year-old female with a past medical history of hypertension, hyperlipidemia, chronic kidney disease, obstructive sleep apnea coming to the hospital with a chief complaint of difficulty in breathing. Patient states that she was sitting and watching television when she started to have difficulty in breathing along with chest pain. She states the chest pain it is 7 x 10 in intensity, is mostly substernal radiating to the entire chest. Patient denies having any recent travel. No fever chills or rigors. Patient mentions about having sinus congestion and mild headaches for the past 1 week. She mentions that her sister and [id number] have Covid. Patient admits to drinking a big glass of vodka every night. In the emergency patient had blood pressure of 177/110, 96% on 2 L of nasal cannula, temperature 98.7, heart rate 85, rest she had a chest x-ray showing mild congestive heart failure. Patient also had CTA of which was negative for PE. But significant for pulmonary edema with pleural fluid and cardiomegaly consistent with congestive heart failure. Patient had mildly elevated troponins at 0.077, 0.114. She has been started on IV heparin, cardiology consult has been obtained. On 07/21/2020 -patient was seen and examined select speciality floor. She is comfortably sitting up in the bed and states that her difficulty in breathing and chest pain are better compared to yesterday. Patient denied having any fevers chills or rigors. No abdominal pain nausea vomiting or diarrhea. No dysuria or hematuria. On reviewing her vitals temperature 97.7 heart rate 74 rest saturating at 98 on 5 L of oxygen by nasal cannula. On reviewing her labs white count of 4.6, RALPH MCV 102.2, platelets 64. Sodium 139, potassium 5.2, chloride 106, by 21, BUN 40, creatinine 1.88. On -patient was seen and examined. Patient states that her difficulty breathing is slightly better but she is still short of breath. She states that the swelling in her upper extremities is much better compared to yesterday. Still has swelling in her lower extremities. Patient denies having any chest pain or palpitations. No abdominal pain nausea vomiting or diarrhea. No dysuria or hematuria. On reviewing the vitals patient's blood pressure is 144 x 91 saturating 100% on 4 L nasal cannula with temperature 97.7 on reviewing the patient's labs white count of 5.8, hemoglobin 8.8, platelets 89, macrocytosis. Electrolytes sodium 135, potassium 5.4, chloride 100, bicarb 17, BUN 15, creatinine 2.32 . Subjective: This is the first day I am taking care of the patient 07/23/2020 This is a pleasant 65 years old female who presents with chest pain and CHF with ejection fraction 40-45% and abnormal valvular heart disease showing moderate to severe mitral regurgitation, severe pulmonary hypertension, moderate to severe right ventricular enlargement. Also she has chronic disease stage III obstructive sleep apnea on CPAP and uncontrolled hypertension upon admission. Also on exam she has bilateral leg swelling. Her creatinine was trending up, probably secondary to contrast-induced nephropathy and nephrology of the case however today her creatinine has been stabilized at 2.4, and give her 1 dose of Lasix given her overt fluid overload state I discussed the case with nephrology team, we gave him an extra dose of Lasix 40 mg times 1 in the AM. He'll keep monitoring. Consult green belt recommended outpatient workup for pulmonary hypertension 07/24/2020 Patient also with some dyspnea however she reports increased swelling in her legs. Her weight increased from 143.9-145.2 over the last 2 days. She is saturating 100% on 2 L oxygen via nasal cannula. Creatinine is stable 2.4-2.58. Sodium 136, potassium 5, sugars controlled. Liver ultrasound showing nonspecific Enriquez of the liver suspicious for hepatic steatosis or diffuse hepatocellular disease. Thickened gallbladder wall, alert for cholecystitis. Urine analysis is suspicious for infection and Urine culture is growing gram- negative bacilli. We'll start ceftriaxone Nephrology team on the case for kidney disease. She had some loose stool for C. diff is negative. Improved with Imodium 07/25/2020 Patient looks clinically the same although she feels easier to breathe today. Her leg swelling is the same, also she has swelling around the abdominal girdle. Diarrhea still going but improve if she takes Imodium. She complains from frequent urination with the total amount of urine coming up. Most likely related to her UTI. Urine culture is growing Klebsiella oxytoca and Citrobacter freundii, both of them are sensitive to almost all antibiotics are tested, including ceftriaxone. Her creatinine is the same at 2.5. Liver ultrasound was suspicious for cholecystitis cyanosis however HIDA scan was negative and patient denies any RUQ abdominal pain or tenderness Physical therapist recommended home when she is medically stable 07/26/2020 Patient thinks her breathing is better today, she still have bilateral leg swelling. No other new complaint. Her diarrhea looks better and she only had little firm bowel movement yesterday. Patient declined a possible cholecystectomy recommended by surgery team. Patient denies any pain in her right upper quadrant, no nausea vomiting, and she tolerates diet well. Surgical team recommended outpatient cholecystectomy. She is hemodynamically stable. WBC is normal at 4.7K, anemia slightly better at 9.2 and platelets significantly improved 137K. Creatinine slightly trended down to 2.4. Liver enzymes slightly elevated. She remains on Lasix 40 mg twice daily, also she is on ceftriaxone for her UTI nephrology team on the case Potassium was slightly elevated at 5.9, patient received Kayexalate and insulin/glucose and monitor potassium Nephrology recommended follow-up as an outpatient for her CK D 07/27/2020 Patient is clinically the same, she is breathing easily. She still have bilateral leg swelling. Her weight came down significantly to 138 kg. Creatinine trended down slowly to 2. today, she is hemodynamically stable. Nephrology input is appreciated and recommended to continue with Lasix 40 mg twice daily and consider to change to torsemide 40 mg by mouth daily 07/28/2020 Patient still feels better regarding her breathing. Her leg swelling slightly worse compared to yesterday as well as her weight increased to 142.6 kg today after significant improvement yesterday to 138, patient confirms to me that she was drinking a lot of water, patient consult to restrict her fluid intake as well as the staff. And she agrees. Her creatinine is trending down to 2.15 Her repeat urinalysis looks clear and only trace leukocyte esterase, I think antibiotics can be stopped upon discharge as her UTI looks resolved Histotechnologist Supervisor recommended to continue with Lasix 40 mg twice daily. Consider changing to torsemide 40 mg by mouth daily on discharge Objective - Vital Signs Vital signs: Vital Signs Temp 97.9 F 07/28/20 11:43 Pulse 69 07/28/20 11:43 Resp 18 07/28/20 11:43 BP 150/102 07/28/20 11:43 Pulse Ox 100 07/28/20 11:43 Intake & Output 07/27/20 07/28/20 07/28/20 18:59 06:59 18:59 Intake Total 1140 1200 Output Total 1999 125 Balance -860 -50 Weight 142.6 kg Intake: Oral 1140 1200 Output: Urine 1999 1249 Other: Voiding Method Bedside Commode # Voids 1 # Bowel Movements 1 1 - Exam GENERAL: The patient is alert and oriented x3, not in any acute distress. Obese HEENT: Pupils are round and equally reacting to light. EOMI. No scleral icterus. No conjunctival pallor. Normocephalic, atraumatic. No pharyngeal erythema. No thyromegaly. CARDIOVASCULAR: S1 and S2 present. No murmurs, rubs, or gallops. -PULMONARY: Chest is clear to auscultation, no wheezing. Bilateral mild basal crepitation ABDOMEN: Soft, nontender, nondistended, normoactive bowel sounds. No palpable organomegaly. MUSCULOSKELETAL: No joint swelling or deformity. -EXTREMITIES: No cyanosis, clubbing,. 1+ bilateral pitting like edema NEUROLOGICAL: Gross neurological examination did not reveal any focal deficits. SKIN: No rashes. no petechiae. - Labs CBC & Chem 7: 07/27/20 09:21 07/28/20 07:01 Labs: Abnormal Lab Results - Last 24 Hours (Table) 07/27/20 07/27/20 07/27/20 Range/Units 16:51 20:03 21:11 BUN (7-17) mg/dL Creatinine (0.52-1.04) mg/dL Glucose (74-99) mg/dL POC Glucose (mg/dL) 127 H 132 H (75-99) mg/dL Ur Leukocyte Esterase Trace H (Negative) Urine Mucus Rare H (None) /hpf 07/28/20 07/28/20 07/28/20 Range/Units 06:03 07:01 11:41 BUN 64 H (7-17) mg/dL Creatinine 2.15 H (0.52-1.04) mg/dL Glucose 116 H (74-99) mg/dL POC Glucose (mg/dL) 125 H 134 H (75-99) mg/dL Ur Leukocyte Esterase (Negative) Urine Mucus (None) /hpf Assessment and Plan Assessment: Acute Systolic CHF in Excerbation, ejection fraction 40-45% Elevated liver enzymes with thickened gallbladder wall on ultrasound, correlate for cholecystitis. HIDA scan is negative, no need for surgery acute urinary tract infection, secondary to UTI. Klebsiella oxytoca and Citrobacter freundii, and antibiotic Severe Pulmonary HTN , outpatient follow-up Acute kidney injury, possible contrast-induced nephropathy Moderate to severe mitral regurgitation, moderate to severe right ventricular enlargement and severe pulmonary hypertension Hypertension, controlled upon admission, currently better controlled Elevated troponins Acute kidney injury Transaminitis Hypomagnesemia Elevated alkaline phosphatase Thrombocytopenia Anemia Plan: This is a pleasant 65 years old female who presents with CHF and acute kidney injury. Continue recommendations as per nephrology's team recommendation. Monitor electrolytes and weights. Monitor creatinine. Continue with BiCAP troponin as per pulmonary team recommendation. Continue holding IGGY inhibitor review of worsening renal function. HIDA scan is negative, no abdominal pain, cancel surgery consult. Continue with ceftriaxone in the meantime Labs and medication were reviewed.. Wilfrid and switch to oral antibiotics on discharge nue same treatment. Continue with symptomatic treatment. Resume home medication. Monitor lytes and vitals. DVT and GI prophylaxis. Further recommendations as per clinical course of the patient DVT prophylaxis: Subcutaneous heparin GI Prophylaxis: Pepcid Prognosis is guarded
[2020-07-28 16:56] LABS: Glucose,Whole Blood 152 mg/dL (75-99)
[2020-07-28 20:34] LABS: Glucose,Whole Blood 182 mg/dL (75-99)
[2020-07-28] MEDS: METOPROLOL SUCCINATE (ER) 25 MG TAB.ER.24H PO SCH (21:06)
[2020-07-28] MEDS: CITALOPRAM HYDROBROMIDE 20 MG TAB PO SCH (21:06)
[2020-07-28] MEDS: ATORVASTATIN 10 MG TAB PO SCH (21:06)
[2020-07-28] MEDS: LORATADINE 10 MG TAB PO SCH (21:06)
[2020-07-29 06:10] LABS: Glucose,Whole Blood 131 mg/dL (75-99)
[2020-07-29] MEDS: INSULIN ASPART (NovoLOG) 100 UNIT/ML VIAL SQ SCH ×4 (06:11→21:23)
[2020-07-29] MEDS: LEVOTHYROXINE 75 MCG TAB PO SCH (06:33)
[2020-07-29] MEDS: PANTOPRAZOLE 40 MG TABLET PO SCH (06:33)
[2020-07-29 08:00] LABS: Calcium 9.2 mg/dL (8.4-10.2); Potassium 3.6 mmol/L (3.5-5.1)
--- NOTE | 2020-07-29 10:33 | P.PN ---
Subjective Progress Note Date: 07/29/20 CHIEF COMPLAINT: Chest pain and shortness of breath HISTORY OF PRESENT ILLNESS: Patient is being followed for cholecystitis. Her HIDA scan was abnormal. Abdominal ultrasound had shown thickening of the g allbladder wall. No gallstones. Patient did complain of abdominal pain after eating pork chops with gravy and fried potatoes yesterday. She reports some pain in the upper abdomen as well as lower abdomen. She denies any nausea or vomiting. Afebrile. She remains on IV Lasix for her CHF and fluid overload. Creatinine 2.11 PHYSICAL EXAM: VITAL SIGNS: Reviewed. GENERAL: Well-developed in no acute distress. HEENT: No sclera icterus. Extraocular movements grossly intact. Moist buccal mucosa. Head is atraumatic, normocephalic. ABDOMEN: Soft. Nondistended. Epigastric tenderness NEUROLOGIC: Alert and oriented. Cranial nerves II through XII grossly intact. ASSESSMENT: 1. Chronic cholecystitis with cystic duct occlusion 2. Acute systolic CHF exacerbation PLAN: -Patient has declined surgery during this admission -Educated patient and nurse that patient requires a low-fat diet -Continue supportive care -Recommend outpatient laparoscopic cholecystectomy -Check lipase due to epigastric abdominal pain Physician Textile Pin Worker note has been reviewed by physician. Signing provider agrees with the documented findings, assessment, and plan of care. Objective - Vital Signs Vital signs: Vital Signs Temp 98 F 07/29/20 04:00 Pulse 71 07/29/20 04:00 Resp 20 07/29/20 04:00 BP 155/56 07/29/20 04:00 Pulse Ox 97 07/29/20 04:00 Intake & Output 07/28/20 07/29/20 07/29/20 18:59 06:59 18:59 Intake Total 900 240 240 Output Total 1700 1500 Balance -800 -1260 240 Weight 142 kg Intake: Oral 900 240 240 Output: Urine 1700 1500 Other: Voiding Method Bedside Commode # Voids 1 # Bowel Movements 1 1 - Labs CBC & Chem 7: 07/27/20 09:21 07/29/20 07:07 Labs: Abnormal Lab Results - Last 24 Hours (Table) 07/28/20 07/28/20 07/28/20 Range/Units 11:41 16:54 20:33 BUN (7-17) mg/dL Creatinine (0.52-1.04) mg/dL Glucose (74-99) mg/dL POC Glucose (mg/dL) 134 H 152 H 182 H (75-99) mg/dL 07/29/20 07/29/20 Range/Units 06:09 07:07 BUN 60 H (7-17) mg/dL Creatinine 2.11 H (0.52-1.04) mg/dL Glucose 121 H (74-99) mg/dL POC Glucose (mg/dL) 131 H (75-99) mg/dL
[2020-07-29] MEDS: HEPARIN SODIUM,PORCINE 5,000 UNIT/ML 1 ML VIAL SQ SCH ×2 (10:40→20:16)
[2020-07-29] MEDS: hydrALAZINE HCL 50 MG TAB PO SCH ×3 (10:40→21:27)
[2020-07-29] MEDS: ASPIRIN 81 MG PO SCH (10:40)
[2020-07-29] MEDS: FUROSEMIDE 10 MG/ML 4 ML VIAL IV SCH ×2 (10:41→20:16)
[2020-07-29] MEDS ORDERED: POTASSIUM CHLORIDE ER 20 MEQ TAB.ER PO STA (11:27)
--- NOTE | 2020-07-29 11:28 | P.PN ---
Subjective Patient is seen in follow-up for acute kidney injury on chronic kidney disease. Patient is chronic kidney disease stage III with baseline creatinine 1.4-1.6. Renal function fairly stable today. Maintained on IV Lasix. Nonoliguric. Edema gradually improving. Vital signs are stable. General: The patient appeared well nourished and normally developed. HEENT: Head exam is unremarkable. Neck is without jugular venous distension. LUNGS: Breath sounds decreased. HEART: Rate and Rhythm are regular. ABDOMEN: Soft, nontender. EXTREMITITES: 1+ edema. Objective - Vital Signs Vital signs: Vital Signs Temp 98 F 07/29/20 04:00 Pulse 71 07/29/20 04:00 Resp 20 07/29/20 04:00 BP 155/56 07/29/20 04:00 Pulse Ox 97 07/29/20 04:00 Intake & Output 07/28/20 07/29/20 07/29/20 18:59 06:59 18:59 Intake Total 900 240 240 Output Total 1700 1500 Balance -800 -1260 240 Weight 142 kg Intake: Oral 900 240 240 Output: Urine 1700 1500 Other: Voiding Method Bedside Commode # Voids 1 # Bowel Movements 1 1 - Labs CBC & Chem 7: 07/27/20 09:21 07/29/20 07:07 Labs: Abnormal Lab Results - Last 24 Hours (Table) 07/28/20 07/28/20 07/28/20 Range/Units 11:41 16:54 20:33 BUN (7-17) mg/dL Creatinine (0.52-1.04) mg/dL Glucose (74-99) mg/dL POC Glucose (mg/dL) 134 H 152 H 182 H (75-99) mg/dL Lipase (23-300) U/L 07/29/20 07/29/20 07/29/20 Range/Units 06:09 07:07 07:07 BUN 60 H (7-17) mg/dL Creatinine 2.11 H (0.52-1.04) mg/dL Glucose 121 H (74-99) mg/dL POC Glucose (mg/dL) 131 H (75-99) mg/dL Lipase 563 H (23-300) U/L Assessment and Plan Plan: Assessment: 1. Acute kidney injury secondary to ATN secondary to cardiorenal syndrome. Renal function stable. 2. Chronic kidney disease stage III secondary to nephrosclerosis with baseline creatinine in the range of 1.4-1.6. 3. Acute on chronic systolic CHF with ejection fraction of 40-45%. 4. Volume overload. 5. UTI the urine culture positive for Klebsiella and Citrobacter. On antibiotics. 6. Anemia of chronic kidney disease maintained on Aranesp. Plan: Maintain IV Lasix for now. Change to torsemide 40 mg once daily upon discharge. I advised the patient to monitor her weight closely at home and to call if gains more than 2-3 pounds or edema worsens. She is to also follow a low-salt diet and fluid restriction of less than 40 ounces per day. Add potassium supplementation. Repeat electrolytes in the morning.
[2020-07-29 11:39] LABS: Glucose,Whole Blood 136 mg/dL (75-99)
[2020-07-29 14:03] VITALS: BMI 47.6
[2020-07-29 17:03] LABS: Glucose,Whole Blood 159 mg/dL (75-99)
[2020-07-29] MEDS: DARBEPOETIN ALFA 60 MCG/0.3 ML SYRINGE SQ SCH (17:24)
[2020-07-29 20:11] LABS: Glucose,Whole Blood 119 mg/dL (75-99)
[2020-07-29] MEDS: ATORVASTATIN 10 MG TAB PO SCH (20:16)
[2020-07-29] MEDS: LORATADINE 10 MG TAB PO SCH (20:16)
[2020-07-29] MEDS: CITALOPRAM HYDROBROMIDE 20 MG TAB PO SCH (20:17)
[2020-07-29] MEDS: METOPROLOL SUCCINATE (ER) 25 MG TAB.ER.24H PO SCH (20:17)
--- NOTE | 2020-07-30 05:32 | P.PN ---
Subjective From records Ms. Hartmann is a 65-year-old female with a past medical history of hypertension, hyperlipidemia, chronic kidney disease, obstructive sleep apnea coming to the hospital with a chief complaint of difficulty in breathing. Patient states that she was sitting and watching television when she started to have difficulty in breathing along with chest pain. She states the chest pain it is 7 x 10 in intensity, is mostly substernal radiating to the entire chest. Patient denies having any recent travel. No fever chills or rigors. Patient mentions about having sinus congestion and mild headaches for the past 1 week. She mentions that her sister and [id number] have Covid. Patient admits to drinking a big glass of vodka every night. In the emergency patient had blood pressure of 177/110, 96% on 2 L of nasal cannula, temperature 98.7, heart rate 85, rest she had a chest x-ray showing mild congestive heart failure. Patient also had CTA of which was negative for PE. But significant for pulmonary edema with pleural fluid and cardiomegaly consistent with congestive heart failure. Patient had mildly elevated troponins at 0.077, 0.114. She has been started on IV heparin, cardiology consult has been obtained. On 07/21/2020 -patient was seen and examined select speciality floor. She is comfortably sitting up in the bed and states that her difficulty in breathing and chest pain are better compared to yesterday. Patient denied having any fevers chills or rigors. No abdominal pain nausea vomiting or diarrhea. No dysuria or hematuria. On reviewing her vitals temperature 97.7 heart rate 74 rest saturating at 98 on 5 L of oxygen by nasal cannula. On reviewing her labs white count of 4.6, RALPH MCV 102.2, platelets 64. Sodium 139, potassium 5.2, chloride 106, by 21, BUN 40, creatinine 1.88. On -patient was seen and examined. Patient states that her difficulty breathing is slightly better but she is still short of breath. She states that the swelling in her upper extremities is much better compared to yesterday. Still has swelling in her lower extremities. Patient denies having any chest pain or palpitations. No abdominal pain nausea vomiting or diarrhea. No dysuria or hematuria. On reviewing the vitals patient's blood pressure is 144 x 91 saturating 100% on 4 L nasal cannula with temperature 97.7 on reviewing the patient's labs white count of 5.8, hemoglobin 8.8, platelets 89, macrocytosis. Electrolytes sodium 135, potassium 5.4, chloride 100, bicarb 17, BUN 15, creatinine 2.32 . Subjective: This is the first day I am taking care of the patient 07/23/2020 This is a pleasant 65 years old female who presents with chest pain and CHF with ejection fraction 40-45% and abnormal valvular heart disease showing moderate to severe mitral regurgitation, severe pulmonary hypertension, moderate to severe right ventricular enlargement. Also she has chronic disease stage III obstructive sleep apnea on CPAP and uncontrolled hypertension upon admission. Also on exam she has bilateral leg swelling. Her creatinine was trending up, probably secondary to contrast-induced nephropathy and nephrology of the case however today her creatinine has been stabilized at 2.4, and give her 1 dose of Lasix given her overt fluid overload state I discussed the case with nephrology team, we gave him an extra dose of Lasix 40 mg times 1 in the AM. He'll keep monitoring. Consult integrated circuit fabricator recommended outpatient workup for pulmonary hypertension 07/24/2020 Patient also with some dyspnea however she reports increased swelling in her legs. Her weight increased from 143.9-145.2 over the last 2 days. She is saturating 100% on 2 L oxygen via nasal cannula. Creatinine is stable 2.4-2.58. Sodium 136, potassium 5, sugars controlled. Liver ultrasound showing nonspecific Enriquez of the liver suspicious for hepatic steatosis or diffuse hepatocellular disease. Thickened gallbladder wall, alert for cholecystitis. Urine analysis is suspicious for infection and Urine culture is growing gram- negative bacilli. We'll start ceftriaxone Nephrology team on the case for kidney disease. She had some loose stool for C. diff is negative. Improved with Imodium 07/25/2020 Patient looks clinically the same although she feels easier to breathe today. Her leg swelling is the same, also she has swelling around the abdominal girdle. Diarrhea still going but improve if she takes Imodium. She complains from frequent urination with the total amount of urine coming up. Most likely related to her UTI. Urine culture is growing Klebsiella oxytoca and Citrobacter freundii, both of them are sensitive to almost all antibiotics are tested, including ceftriaxone. Her creatinine is the same at 2.5. Liver ultrasound was suspicious for cholecystitis cyanosis however HIDA scan was negative and patient denies any RUQ abdominal pain or tenderness Physical therapist recommended home when she is medically stable 07/26/2020 Patient thinks her breathing is better today, she still have bilateral leg swelling. No other new complaint. Her diarrhea looks better and she only had little firm bowel movement yesterday. Patient declined a possible cholecystectomy recommended by surgery team. Patient denies any pain in her right upper quadrant, no nausea vomiting, and she tolerates diet well. Surgical team recommended outpatient cholecystectomy. She is hemodynamically stable. WBC is normal at 4.7K, anemia slightly better at 9.2 and platelets significantly improved 137K. Creatinine slightly trended down to 2.4. Liver enzymes slightly elevated. She remains on Lasix 40 mg twice daily, also she is on ceftriaxone for her UTI nephrology team on the case Potassium was slightly elevated at 5.9, patient received Kayexalate and insulin/glucose and monitor potassium Nephrology recommended follow-up as an outpatient for her CK D 07/27/2020 Patient is clinically the same, she is breathing easily. She still have bilateral leg swelling. Her weight came down significantly to 138 kg. Creatinine trended down slowly to 2. today, she is hemodynamically stable. Nephrology input is appreciated and recommended to continue with Lasix 40 mg twice daily and consider to change to torsemide 40 mg by mouth daily 07/28/2020 Patient still feels better regarding her breathing. Her leg swelling slightly worse compared to yesterday as well as her weight increased to 142.6 kg today after significant improvement yesterday to 138, patient confirms to me that she was drinking a lot of water, patient consult to restrict her fluid intake as well as the staff. And she agrees. Her creatinine is trending down to 2.15 Her repeat urinalysis looks clear and only trace leukocyte esterase, I think antibiotics can be stopped upon discharge as her UTI looks resolved Microsoft Bi Architect recommended to continue with Lasix 40 mg twice daily. Consider changing to torsemide 40 mg by mouth daily on discharge 07/29/2020 Patient is breathing quietly with slight improvement in her leg edema Patient today with slight improvement with her creatinine is 2.1 and weight is 142.2 kg. I discussed the case with nephrology team and they prefer to keep the patient 1 more day for IV diuretics, patient herself prefer not to leave today Continue with IV Lasix 40 mg twice a Objective - Vital Signs Vital signs: Vital Signs Temp 98.2 F 07/29/20 08:00 Pulse 99 07/29/20 08:00 Resp 19 07/29/20 08:00 BP 133/70 07/29/20 08:00 Pulse Ox 99 07/29/20 08:00 Intake & Output 07/28/20 07/29/20 07/29/20 18:59 06:59 18:59 Intake Total 900 240 600 Output Total 1700 1500 Balance -800 -1260 600 Weight 142 kg 142 kg Intake: Oral 900 240 600 Output: Urine 1700 1500 Other: Voiding Method Bedside Commode Bedside Commode # Voids 1 # Bowel Movements 1 1 - Exam GENERAL: The patient is alert and oriented x3, not in any acute distress. Obese HEENT: Pupils are round and equally reacting to light. EOMI. No scleral icterus. No conjunctival pallor. Normocephalic, atraumatic. No pharyngeal erythema. No thyromegaly. CARDIOVASCULAR: S1 and S2 present. No murmurs, rubs, or gallops. -PULMONARY: Chest is clear to auscultation, no wheezing. Bilateral mild basal crepitation ABDOMEN: Soft, nontender, nondistended, normoactive bowel sounds. No palpable organomegaly. MUSCULOSKELETAL: No joint swelling or deformity. -EXTREMITIES: No cyanosis, clubbing,. 1+ bilateral pitting like edema NEUROLOGICAL: Gross neurological examination did not reveal any focal deficits. SKIN: No rashes. no petechiae. - Labs CBC & Chem 7: 07/27/20 09:21 07/29/20 07:07 Labs: Abnormal Lab Results - Last 24 Hours (Table) 07/28/20 07/29/20 07/29/20 Range/Units 20:33 06:09 07:07 BUN 60 H (7-17) mg/dL Creatinine 2.11 H (0.52-1.04) mg/dL Glucose 121 H (74-99) mg/dL POC Glucose (mg/dL) 182 H 131 H (75-99) mg/dL Lipase (23-300) U/L 07/29/20 07/29/20 07/29/20 Range/Units 07:07 11:38 17:01 BUN (7-17) mg/dL Creatinine (0.52-1.04) mg/dL Glucose (74-99) mg/dL POC Glucose (mg/dL) 136 H 159 H (75-99) mg/dL Lipase 563 H (23-300) U/L Assessment and Plan Assessment: Acute Systolic CHF in Excerbation, ejection fraction 40-45% Elevated liver enzymes with thickened gallbladder wall on ultrasound, correlate for cholecystitis. HIDA scan is negative, no need for surgery acute urinary tract infection, secondary to UTI. Klebsiella oxytoca and Citrobacter freundii, and antibiotic Severe Pulmonary HTN , outpatient follow-up Acute kidney injury, possible contrast-induced nephropathy Moderate to severe mitral regurgitation, moderate to severe right ventricular enlargement and severe pulmonary hypertension Hypertension, controlled upon admission, currently better controlled Elevated troponins Acute kidney injury Transaminitis Hypomagnesemia Elevated alkaline phosphatase Thrombocytopenia Anemia Plan: This is a pleasant 65 years old female who presents with CHF and acute kidney injury. Continue recommendations as per nephrology's team recommendation. Monitor electrolytes and weights. Monitor creatinine. Continue with BiCAP troponin as per pulmonary team recommendation. Continue holding IGGY inhibitor review of worsening renal function. HIDA scan is negative, no abdominal pain, cancel surgery consult. Continue with ceftriaxone in the meantime Labs and medication were reviewed.. Wilfrid and switch to oral antibiotics on dis charge nue same treatment. Continue with symptomatic treatment. Resume home medication. Monitor lytes and vitals. DVT and GI prophylaxis. Further recommendations as per clinical course of the patient DVT prophylaxis: Subcutaneous heparin GI Prophylaxis: Pepcid Prognosis is guarded
[2020-07-30 06:12] LABS: Glucose,Whole Blood 121 mg/dL (75-99)
[2020-07-30] MEDS: LEVOTHYROXINE 75 MCG TAB PO SCH (06:14)
[2020-07-30] MEDS: PANTOPRAZOLE 40 MG TABLET PO SCH (06:14)
[2020-07-30] MEDS: INSULIN ASPART (NovoLOG) 100 UNIT/ML VIAL SQ SCH ×4 (06:26→21:24)
--- NOTE | 2020-07-30 09:45 | P.PN ---
Subjective Patient is seen in follow-up for acute kidney injury on chronic kidney disease. Patient is chronic kidney disease stage III with baseline creatinine 1.4-1.6. Creatinine 2.11 as of yesterday. Labs pending today. Maintained on IV Lasix. Nonoliguric. Edema gradually improving. Vital signs are stable. General: The patient appeared well nourished and normally developed. HEENT: Head exam is unremarkable. Neck is without jugular venous distension. LUNGS: Breath sounds decreased. HEART: Rate and Rhythm are regular. ABDOMEN: Soft, nontender. EXTREMITITES: 1+ edema. Objective - Vital Signs Vital signs: Vital Signs Temp 98.1 F 07/29/20 20:00 Pulse 85 07/30/20 04:00 Resp 19 07/30/20 04:00 BP 144/72 07/30/20 04:00 Pulse Ox 96 07/30/20 04:00 Intake & Output 07/29/20 07/30/20 07/30/20 18:59 06:59 18:59 Intake Total 720 672.5 Output Total 2200 Balance 720 -1527.5 Weight 142 kg 140.3 kg Intake: IV 22.5 0.9 22.5 Oral 720 650 Output: Urine 2200 Other: Voiding Method Bedside Commode Bedside Commode # Voids 2 # Bowel Movements 1 - Labs CBC & Chem 7: 07/27/20 09:21 07/29/20 07:07 Labs: Abnormal Lab Results - Last 24 Hours (Table) 07/29/20 07/29/20 07/29/20 Range/Units 07:07 11:38 17:01 POC Glucose (mg/dL) 136 H 159 H (75-99) mg/dL Lipase 563 H (23-300) U/L 07/29/20 07/30/20 Range/Units 20:10 06:10 POC Glucose (mg/dL) 119 H 121 H (75-99) mg/dL Lipase (23-300) U/L Assessment and Plan Plan: Assessment: 1. Acute kidney injury secondary to ATN secondary to cardiorenal syndrome. Renal function stable as of yesterday. 2. Chronic kidney disease stage III secondary to nephrosclerosis with baseline creatinine in the range of 1.4-1.6. 3. Acute on chronic systolic CHF with ejection fraction of 40-45%. 4. Volume overload. Improving with diuresis. 5. UTI the urine culture positive for Klebsiella and Citrobacter. On antibiotics. 6. Anemia of chronic kidney disease maintained on Aranesp. Plan: Maintain IV Lasix for now. Change to torsemide 40 mg once daily upon discharge. I advised the patient to monitor her weight closely at home and to call if gains more than 2-3 pounds or edema worsens. She is to also follow a low-salt diet and fluid restriction of less than 40 ounces per day. Maintain potassium supplementation. Follow-up morning labs.
[2020-07-30 09:50] LABS: Calcium 9.3 mg/dL (8.4-10.2); Magnesium 1.1 mg/dL (1.6-2.3); Potassium 4.2 mmol/L (3.5-5.1)
[2020-07-30] MEDS: hydrALAZINE HCL 50 MG TAB PO SCH ×3 (10:20→21:24)
[2020-07-30] MEDS: POTASSIUM CHLORIDE ER 20 MEQ TAB.ER PO SCH (10:21)
[2020-07-30] MEDS: FUROSEMIDE 10 MG/ML 4 ML VIAL IV SCH ×2 (10:21→20:06)
[2020-07-30] MEDS: ASPIRIN 81 MG PO SCH (10:21)
[2020-07-30] MEDS: HEPARIN SODIUM,PORCINE 5,000 UNIT/ML 1 ML VIAL SQ SCH ×2 (10:21→20:06)
[2020-07-30 11:39] LABS: Glucose,Whole Blood 124 mg/dL (75-99)
--- NOTE | 2020-07-30 12:03 | P.PN ---
Subjective 65-year-old female with a past medical history of hypertension, hyperlipidemia, chronic kidney disease, obstructive sleep apnea coming to the hospital with a chief complaint of difficulty in breathing. Patient states that she was sitting and watching television when she started to have difficulty in breathing along with chest pain. She states the chest pain it is 7 x 10 in intensity, is mostly substernal radiating to the entire chest. Patient denies having any recent travel. No fever chills or rigors. Patient mentions about having sinus c ongestion and mild headaches for the past 1 week. She mentions that her sister and [id number] have Covid. Patient admits to drinking a big glass of vodka every night. In the emergency patient had blood pressure of 177/110, 96% on 2 L of nasal cannula, temperature 98.7, heart rate 85, rest she had a chest x-ray showing mild congestive heart failure. Patient also had CTA of which was negative for PE. But significant for pulmonary edema with pleural fluid and cardiomegaly consistent with congestive heart failure. Patient had mildly elevated troponins at 0.077, 0.114. She has been started on IV heparin, cardiology consult has been obtained. On 07/21/2020 -patient was seen and examined select speciality floor. She is comfortably sitting up in the bed and states that her difficulty in breathing and chest pain are better compared to yesterday. Patient denied having any fevers chills or rigors. No abdominal pain nausea vomiting or diarrhea. No dysuria or hematuria. On reviewing her vitals temperature 97.7 heart rate 74 rest saturating at 98 on 5 L of oxygen by nasal cannula. On reviewing her labs white count of 4.6, RALPH MCV 102.2, platelets 64. Sodium 139, potassium 5.2, c hloride 106, by 21, BUN 40, creatinine 1.88. On -patient was seen and examined. Patient states that her difficulty breathing is slightly better but she is still short of breath. She states that the swelling in her upper extremities is much better compared to yesterday. Still has swelling in her lower extremities. Patient denies having any chest pain or palpitations. No abdominal pain nausea vomiting or diarrhea. No dysuria or hematuria. On reviewing the vitals patient's blood pressure is 144 x 91 saturating 100% on 4 L nasal cannula with temperature 97.7 on reviewing the patient's labs white count of 5.8, hemoglobin 8.8, platelets 89, macrocytosis. Electrolytes sodium 135, potassium 5.4, chloride 100, bicarb 17, BUN 15, creatinine 2.32 . Subjective: This is the first day I am taking care of the patient 07/23/2020 This is a pleasant 65 years old female who presents with chest pain and CHF with ejection fraction 40-45% and abnormal valvular heart disease showing moderate to severe mitral regurgitation, severe pulmonary hypertension, moderate to severe right ventricular enlargement. Also she has chronic disease stage III obstructive sleep apnea on CPAP and uncontrolled hypertension upon admission. Also on exam she has bilateral leg swelling. Her creatinine was trending up, probably secondary to contrast-induced nephropathy and nephrology of the case however today her creatinine has been stabilized at 2.4, and give her 1 dose of Lasix given her overt fluid overload state I discussed the case with nephrology team, we gave him an extra dose of Lasix 40 mg times 1 in the AM. He'll keep monitoring. Consult front desk supervisor recommended outpatient workup for pulmonary hypertension 07/24/2020 Patient also with some dyspnea however she reports increased swelling in her legs. Her weight increased from 143.9-145.2 over the last 2 days. She is saturating 100% on 2 L oxygen via nasal cannula. Creatinine is stable 2.4-2.58. Sodium 136, potassium 5, sugars controlled. Liver ultrasound showing nonspecific Enriquez of the liver suspicious for hepatic steatosis or diffuse hepatocellular disease. Thickened gallbladder wall, alert for cholecystitis. Urine analysis is suspicious for infection and Urine culture is growing gram- negative bacilli. We'll start ceftriaxone Nephrology team on the case for kidney disease. She had some loose stool for C. diff is negative. Improved with Imodium 07/25/2020 Patient looks clinically the same although she feels easier to breathe today. Her leg swelling is the same, also she has swelling around the abdominal girdle. Diarrhea still going but improve if she takes Imodium. She complains from frequent urination with the total amount of urine coming up. Most likely related to her UTI. Urine culture is growing Klebsiella oxytoca and Citrobacter freundii, both of them are sensitive to almost all antibiotics are tested, including ceftriaxone. Her creatinine is the same at 2.5. Liver ultrasound was suspicious for cholecystitis cyanosis however HIDA scan was negative and patient denies any RUQ abdominal pain or tenderness Physical therapist recommended home when she is medically stable 07/26/2020 Patient thinks her breathing is better today, she still have bilateral leg swelling. No other new complaint. Her diarrhea looks better and she only had little firm bowel movement yesterday. Patient declined a possible cholecystectomy recommended by surgery team. Patient denies any pain in her right upper quadrant, no nausea vomiting, and she tolerates diet well. Surgical team recommended outpatient cholecystectomy. She is hemodynamically stable. WBC is normal at 4.7K, anemia slightly better at 9.2 and platelets significantly improved 137K. Creatinine slightly trended down to 2.4. Liver enzymes slightly elevated. She remains on Lasix 40 mg twice daily, also she is on ceftriaxone for her UTI nephrology team on the case Potassium was slightly elevated at 5.9, patient received Kayexalate and insulin /glucose and monitor potassium Nephrology recommended follow-up as an outpatient for her CK D 07/27/2020 Patient is clinically the same, she is breathing easily. She still have bilateral leg swelling. Her weight came down significantly to 138 kg. Creatinine trended down slowly to 2. today, she is hemodynamically stable. Nephrology input is appreciated and recommended to continue with Lasix 40 mg twice daily and consider to change to torsemide 40 mg by mouth daily 07/28/2020 Patient still feels better regarding her breathing. Her leg swelling slightly worse compared to yesterday as well as her weight increased to 142.6 kg today after significant improvement yesterday to 138, patient confirms to me that she was drinking a lot of water, patient consult to restrict her fluid intake as we ll as the staff. And she agrees. Her creatinine is trending down to 2.15 Her repeat urinalysis looks clear and only trace leukocyte esterase, I think antibiotics can be stopped upon discharge as her UTI looks resolved Director Of Search Engine Marketing recommended to continue with Lasix 40 mg twice daily. Consider lily nging to torsemide 40 mg by mouth daily on discharge 07/29/2020 Patient is breathing quietly with slight improvement in her leg edema Patient today with slight improvement with her creatinine is 2.1 and weight is 142.2 kg. I discussed the case with nephrology team and they prefer to keep the patient 1 more day for IV diuretics, patient herself prefer not to leave today Continue with IV Lasix 40 mg twice a 07/30/2020 Patient still has edema which is significant of bilateral pedal edema can you with IV diuretics for today possibility of discharge tomorrow patient is also hypomagnesemia magnesium will be replaced.Physical therapy and occupational therapy will evaluate the patient patient has improved shortness of breath. Patient completed course of antibiotic therapy for urinary tract infection although patient never had any acute symptoms antibiotics will be discontinued. Patient wasn't creatinine is 1.89 baseline is around the patient appears to have chronic kidney disease stage 3 Constitutional: Denied any fatigue denied any fever. Cardio vascular: denied any chest pain, palpitations Gastrointestinal denied any nausea vomiting Pulmonary: Denied any shortness of breath cough Neurologic denied any new focal deficits All inpatient medications were reviewed and appropriate changes in these medications as dictated in the interval history and assessment and plan. Objective - Vital Signs Vital signs: Vital Signs Temp 98.1 F 07/29/20 20:00 Pulse 85 07/30/20 04:00 Resp 19 07/30/20 04:00 BP 144/72 07/30/20 04:00 Pulse Ox 96 07/30/20 04:00 Intake & Output 07/29/20 07/30/20 07/30/20 18:59 06:59 18:59 Intake Total 720 672.5 240 Output Total 2200 Balance 720 -1527.5 240 Weight 142 kg 140.3 kg Intake: IV 22.5 0.9 22.5 Oral 720 650 240 Output: Urine 2200 Other: Voiding Method Bedside Commode Bedside Commode # Voids 2 1 # Bowel Movements 1 - Exam PHYSICAL EXAMINATION: GENERAL: The patient is alert and oriented x3, not in any acute distress. Obese. HEENT: Pupils are round and equally reacting to light. EOMI. No scleral icterus. No conjunctival pallor. Normocephalic, atraumatic. No pharyngeal erythema. No thyromegaly. CARDIOVASCULAR: S1 and S2 present. No murmurs, rubs, or gallops. PULMONARY: Chest is clear to auscultation, no wheezing or crackles. ABDOMEN: Soft, nontender, nondistended, normoactive bowel sounds. No palpable organomegaly. MUSCULOSKELETAL: No joint swelling or deformity. EXTREMITIES: No cyanosis, clubbing, or on plus bilateral pitting pedal edema extending to the mid barajas area NEUROLOGICAL: Gross neurological examination did not reveal any focal deficits. SKIN: No rashes. - Labs CBC & Chem 7: 07/27/20 09:21 07/30/20 09:05 Labs: Abnormal Lab Results - Last 24 Hours (Table) 07/29/20 07/29/20 07/30/20 Range/Units 17:01 20:10 06:10 BUN (7-17) mg/dL Creatinine (0.52-1.04) mg/dL Glucose (74-99) mg/dL POC Glucose (mg/dL) 159 H 119 H 121 H (75-99) mg/dL Magnesium (1.6-2.3) mg/dL 07/30/20 07/30/20 Range/Units 09:05 11:36 BUN 56 H (7-17) mg/dL Creatinine 1.89 H (0.52-1.04) mg/dL Glucose 160 H (74-99) mg/dL POC Glucose (mg/dL) 124 H (75-99) mg/dL Magnesium 1.1 L (1.6-2.3) mg/dL Assessment and Plan Plan: Acute Systolic CHF in Excerbation, ejection fraction 40-45%: Continue to pedal edema patient is hypovolemic and he with IV Lasix for today. -Hypomagnesemia secondary to diuretics magnesium will be replaced Elevated liver enzymes with thickened gallbladder wall on ultrasound, correlate for cholecystitis. HIDA scan is negative, no need for surgery acute urinary tract infection, secondary to UTI. 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
--- NOTE | 2020-07-30 12:43 | P.PN ---
Subjective Progress Note Date: 07/29/20 Principal diagnosis: Acute on chronic systolic heart failure Moderate to severe pulmonary hypertension Severe degree of sleep disorder breathing and sleep apnea compliant with his CPAP machine Elevated troponins Acute on chronic kidney disease Dyslipidemia Hypertension hypertensive cardiovascular disease 07/29/2020, patient seen eval examined during the rounds ongoing shortness of breath is present but oxygen saturation have been stable, patient being diuresis still have significant lower extremity edema and anasarca 07/28/2020, patient seen eval examined during the rounds labs reviewed medications reviewed care plan discussed, breathing status remains stable, den ies any chest pain, remains short of breath however, oxygen saturation 9596% on room air, patient will need sleep study and further evaluation as outpatient 07/27/2020, patient seen eval examined during the rounds labs reviewed medications reviewed, remains afebrile hemodynamically stable, oxygen saturation is 99% on room air, BUN/creatinine remains stable 71 and 2.34, 07/26/2020, patient is however apparently looks short of breath, oxygen saturation however is stable 96% room air, denies any chest pain, wants to hold on For now [facility] surgery of following July 25 2020, patient seen eval reexamined during the rounds labs reviewed medications reviewed care plan discussed, respiratory status much improved today still using supplemental oxygen did not use the CPAP machine last night, hemodynamic status stable with oxygen saturation 100% on 2 L, patient underwent hepatobiliary scan which revealed non visualization of gallbladder consistent with cystic duct obstruction and acute cholecystitis Ms. Randi Hartmann is a 65-year-old female well-known to me patient came into the hospital with increasing shortness of breath, seems like some chest pain was associated which has been progressive, patient does have cold with 19 exposure, patient was noted to be hypertensive with a blood pressure 170/110 in the emergency department, CTA performed negative for PE but however does show bilateral pulmonary edema along with pleural effusion consistent with heart failure troponins were elevated cardiovascular services consulted, patient is well-known to me for history of sleep disorder breathing and sleep apnea, recent echocardiogram revealed moderate to severe pulmonary hypertension with evidence of biventricular failure patient does have a CPAP machine from home will recomm end to use it Objective - Vital Signs Vital signs: Vital Signs Temp 98.2 F 07/29/20 08:00 Pulse 99 07/29/20 08:00 Resp 19 07/29/20 08:00 BP 133/70 07/29/20 08:00 Pulse Ox 99 07/29/20 08:00 Intake & Output 07/28/20 07/29/20 07/29/20 18:59 06:59 18:59 Intake Total 900 240 600 Output Total 1700 1500 Balance -800 -1260 600 Weight 142 kg 142 kg Intake: Oral 900 240 600 Output: Urine 1700 1500 Other: Voiding Method Bedside Commode Bedside Commode # Voids 1 # Bowel Movements 1 1 - Exam - Constitutional General appearance: disheveled, morbidly obese - EENT Eyes: PERRLA Ears: bilateral: normal - Neck Carotids: bilateral: upstroke normal - Respiratory Respiratory: bilateral: diminished - Cardiovascular Rhythm: regular Heart sounds: normal: S1, S2 - Gastrointestinal General gastrointestinal: soft - Neurologic Neurologic: CNII-XII intact - Musculoskeletal Musculoskeletal: gait normal, generalized weakness, strength equal bilaterally - Psychiatric Psychiatric: A&O x's 3, appropriate affect, intact judgment & insight - Labs CBC & Chem 7: 07/27/20 09:21 07/30/20 09:05 Labs: Abnormal Lab Results - Last 24 Hours (Table) 07/28/20 07/28/20 07/29/20 Range/Units 16:54 20:33 06:09 BUN (7-17) mg/dL Creatinine (0.52-1.04) mg/dL Glucose (74-99) mg/dL POC Glucose (mg/dL) 152 H 182 H 131 H (75-99) mg/dL Lipase (23-300) U/L 07/29/20 07/29/20 07/29/20 Range/Units 07:07 07:07 11:38 BUN 60 H (7-17) mg/dL Creatinine 2.11 H (0.52-1.04) mg/dL Glucose 121 H (74-99) mg/dL POC Glucose (mg/dL) 136 H (75-99) mg/dL Lipase 563 H (23-300) U/L Assessment and Plan Assessment: Acute on chronic systolic heart failure, ejection fraction of 40% Anasarca and fluid overload UTI related to Klebsiella Moderate to severe pulmonary hypertension Severe mitral regurgitation Severe degree of sleep disorder breathing and sleep apnea compliant with his CPAP machine Acute on chronic cholecystitis Elevated troponins Acute on chronic kidney disease Dyslipidemia Hypertension hypertensive cardiovascular disease Plan: Continue antibiotics Continue deep breathing exercises incentive spirometry Gentle diuresis GI, cardiology and renal service is following Continue gentle diuresis as planned Supplemental oxygen titrated as tolerated Patient will benefit from CPAP at night and when necessary during the day Patient will need a tertiary care center as outpatient for pulmonary hypertension evaluation, will arrange as outpatient Time with Patient: Greater than 30
--- NOTE | 2020-07-30 12:44 | P.PN ---
Subjective Progress Note Date: 07/30/20 Principal diagnosis: Acute on chronic systolic heart failure Moderate to severe pulmonary hypertension Severe degree of sleep disorder breathing and sleep apnea compliant with his CPAP machine Elevated troponins Acute on chronic kidney disease Dyslipidemia Hypertension hypertensive cardiovascular disease 07/30/2020, patient seen eval examined during the rounds labs reviewed medications reviewed, overall remains stable oxygen saturation is mid 90s on room air 07/29/2020, patient seen eval examined during the rounds ongoing shortness of breath is present but oxygen saturation have been stable, patient being diuresis still have significant lower extremity edema and anasarca 07/28/2020, patient seen eval examined during the rounds labs reviewed medications reviewed care plan discussed, breathing status remains stable, denies any chest pain, remains short of breath however, oxygen saturation 9596% on room air, patient will need sleep study and further evaluation as outpatient 07/27/2020, patient seen eval examined during the rounds labs reviewed medications reviewed, remains afebrile hemodynamically stable, oxygen saturation is 99% on room air, BUN/creatinine remains stable 71 and 2.34, 07/26/2020, patient is however apparently looks short of breath, oxygen saturation however is stable 96% room air, denies any chest pain, wants to hold on For now [facility] surgery of following July 25 2020, patient seen eval reexamined during the rounds labs reviewed medications reviewed care plan discussed, respiratory status much improved today still using supplemental oxygen did not use the CPAP machine last night, hemodynamic status stable with oxygen saturation 100% on 2 L, patient underwent hepatobiliary scan which revealed non visualization of gallbladder consistent with cystic duct obstruction and acute cholecystitis Ms. Randi Hartmann is a 65-year-old female well-known to me patient came into the hospital with increasing shortness of breath, seems like some chest pain was associated which has been progressive, patient does have cold with 19 exposure, patient was noted to be hypertensive with a blood pressure 170/110 in the emergency department, CTA performed negative for PE but however does show bilateral pulmonary edema along with pleural effusion consistent with heart failure troponins were elevated cardiovascular services consulted, patient is well-known to me for history of sleep disorder breathing and sleep apnea, recent echocardiogram revealed moderate to severe pulmonary hypertension with evidence of biventricular failure patient does have a CPAP machine from home will recommend to use it Objective - Vital Signs Vital signs: Vital Signs Temp 98.1 F 07/29/20 20:00 Pulse 69 07/30/20 08:00 Resp 19 07/30/20 04:00 BP 139/79 07/30/20 08:00 Pulse Ox 97 07/30/20 08:00 Intake & Output 07/29/20 07/30/20 07/30/20 18:59 06:59 18:59 Intake Total 720 672.5 240 Output Total 2200 Balance 720 -1527.5 240 Weight 142 kg 140.3 kg Intake: IV 22.5 0.9 22.5 Oral 720 650 240 Output: Urine 2200 Other: Voiding Method Bedside Commode Bedside Commode # Voids 2 1 # Bowel Movements 1 - Exam - Constitutional General appearance: disheveled, morbidly obese - EENT Eyes: PERRLA Ears: bilateral: normal - Neck Carotids: bilateral: upstroke normal - Respiratory Respiratory: bilateral: diminished - Cardiovascular Rhythm: regular Heart sounds: normal: S1, S2 - Gastrointestinal General gastrointestinal: soft - Neurologic Neurologic: CNII-XII intact - Musculoskeletal Musculoskeletal: gait normal, generalized weakness, strength equal bilaterally - Psychiatric Psychiatric: A&O x's 3, appropriate affect, intact judgment & insight - Labs CBC & Chem 7: 07/27/20 09:21 07/30/20 09:05 Labs: Abnormal Lab Results - Last 24 Hours (Table) 07/29/20 07/29/20 07/30/20 Range/Units 17:01 20:10 06:10 BUN (7-17) mg/dL Creatinine (0.52-1.04) mg/dL Glucose (74-99) mg/dL POC Glucose (mg/dL) 159 H 119 H 121 H (75-99) mg/dL Magnesium (1.6-2.3) mg/dL 07/30/20 07/30/20 Range/Units 09:05 11:36 BUN 56 H (7-17) mg/dL Creatinine 1.89 H (0.52-1.04) mg/dL Glucose 160 H (74-99) mg/dL POC Glucose (mg/dL) 124 H (75-99) mg/dL Magnesium 1.1 L (1.6-2.3) mg/dL Assessment and Plan Assessment: Acute on chronic systolic heart failure, ejection fraction of 40% Anasarca and fluid overload UTI related to Klebsiella Moderate to severe pulmonary hypertension Severe mitral regurgitation Severe degree of sleep disorder breathing and sleep apnea compliant with his CPAP machine Acute on chronic cholecystitis Elevated troponins Acute on chronic kidney disease Dyslipidemia Hypertension hypertensive cardiovascular disease Plan: Continue antibiotics Continue deep breathing exercises incentive spirometry Gentle diuresis GI, cardiology and renal service is following Continue gentle diuresis as planned Supplemental oxygen titrated as tolerated Patient will benefit from CPAP at night and when necessary during the day Patient will need a tertiary care center as outpatient for pulmonary hypertension evaluation, will arrange as outpatient Time with Patient: Greater than 30
--- NOTE | 2020-07-30 13:27 | P.PN ---
Subjective Progress Note Date: 07/30/20 CHIEF COMPLAINT: Chest pain and shortness of breath HISTORY OF PRESENT ILLNESS: Patient is being followed for cholecystitis. Her HIDA scan was abnormal. Abdominal ultrasound had shown thickening of the g allbladder wall. No gallstones. Patient does report epigastric pain and right upper quadrant tenderness after eating. She did have a mildly elevated lipase may be due to passing of a small stone. Patient is still requiring the IV Lasix for her CHF exacerbation. She denies any nausea or vomiting. She has been having bowel movements. Afebrile. Magnesium 1.1 and being replaced PHYSICAL EXAM: VITAL SIGNS: Reviewed. GENERAL: Well-developed in no acute distress. HEENT: No sclera icterus. Extraocular movements grossly intact. Moist buccal mucosa. Head is atraumatic, normocephalic. ABDOMEN: Soft. Nondistended. Epigastric tenderness NEUROLOGIC: Alert and oriented. Cranial nerves II through XII grossly intact. ASSESSMENT: 1. Chronic cholecystitis with cystic duct occlusion 2. Acute systolic CHF exacerbation PLAN: -Patient has declined surgery during this admission -Continue low-fat diet -Continue supportive care -Recommend outpatient laparoscopic cholecystectomy Physician Dealership General Manager note has been reviewed by physician. Signing provider agrees with the documented findings, assessment, and plan of care. Objective - Vital Signs Vital signs: Vital Signs Temp 98.1 F 07/29/20 20:00 Pulse 69 07/30/20 08:00 Resp 19 07/30/20 04:00 BP 139/79 07/30/20 08:00 Pulse Ox 97 07/30/20 08:00 Intake & Output 07/29/20 07/30/20 07/30/20 18:59 06:59 18:59 Intake Total 720 672.5 240 Output Total 2200 Balance 720 -1527.5 240 Weight 142 kg 140.3 kg Intake: IV 22.5 0.9 22.5 Oral 720 650 240 Output: Urine 2200 Other: Voiding Method Bedside Commode Bedside Commode # Voids 2 1 # Bowel Movements 1 - Labs CBC & Chem 7: 07/27/20 09:21 07/30/20 09:05 Labs: Abnormal Lab Results - Last 24 Hours (Table) 07/29/20 07/29/20 07/30/20 Range/Units 17:01 20:10 06:10 BUN (7-17) mg/dL Creatinine (0.52-1.04) mg/dL Glucose (74-99) mg/dL POC Glucose (mg/dL) 159 H 119 H 121 H (75-99) mg/dL Magnesium (1.6-2.3) mg/dL 07/30/20 07/30/20 Range/Units 09:05 11:36 BUN 56 H (7-17) mg/dL Creatinine 1.89 H (0.52-1.04) mg/dL Glucose 160 H (74-99) mg/dL POC Glucose (mg/dL) 124 H (75-99) mg/dL Magnesium 1.1 L (1.6-2.3) mg/dL
[2020-07-30] MEDS: MAGNESIUM SULFATE-D5W PMX 1 GM in DEXTROSE/WATER 1 100ML.BAG IVPB SCH ×4 (13:58→19:06)
[2020-07-30] MEDS: CITALOPRAM HYDROBROMIDE 20 MG TAB PO SCH (20:06)
[2020-07-30] MEDS: METOPROLOL SUCCINATE (ER) 25 MG TAB.ER.24H PO SCH (20:06)
[2020-07-30] MEDS: LORATADINE 10 MG TAB PO SCH (20:06)
[2020-07-30] MEDS: ATORVASTATIN 10 MG TAB PO SCH (20:06)
[2020-07-30 21:06] LABS: Glucose,Whole Blood 146 mg/dL (75-99)
[2020-07-31 06:12] LABS: Glucose,Whole Blood 132 mg/dL (75-99)
[2020-07-31] MEDS: INSULIN ASPART (NovoLOG) 100 UNIT/ML VIAL SQ SCH ×2 (06:32→12:07)
[2020-07-31] MEDS: PANTOPRAZOLE 40 MG TABLET PO SCH (06:32)
[2020-07-31] MEDS: LEVOTHYROXINE 75 MCG TAB PO SCH (06:32)
[2020-07-31 08:24] VITALS: BP 127/65; PULSE 69; RESP 18; TEMP 98.2
[2020-07-31] MEDS: ASPIRIN 81 MG PO SCH (08:25)
[2020-07-31] MEDS: POTASSIUM CHLORIDE ER 20 MEQ TAB.ER PO SCH (08:25)
[2020-07-31] MEDS: hydrALAZINE HCL 50 MG TAB PO SCH ×2 (08:25→16:02)
[2020-07-31] MEDS: FUROSEMIDE 10 MG/ML 4 ML VIAL IV SCH (08:28)
[2020-07-31] MEDS: HEPARIN SODIUM,PORCINE 5,000 UNIT/ML 1 ML VIAL SQ SCH (08:28)
[2020-07-31 08:34] LABS: Calcium 9.4 mg/dL (8.4-10.2); Magnesium 1.7 mg/dL (1.6-2.3); Potassium 3.8 mmol/L (3.5-5.1)
--- NOTE | 2020-07-31 09:04 | P.PN ---
Subjective Progress Note Date: 07/31/20 Principal diagnosis: Acute on chronic systolic heart failure Moderate to severe pulmonary hypertension Severe degree of sleep disorder breathing and sleep apnea compliant with his CPAP machine Elevated troponins Acute on chronic kidney disease Dyslipidemia Hypertension hypertensive cardiovascular disease 07/31/2020, patient seen eval examined during the rounds labs reviewed medications reviewed, patient remained on room air oxygen saturation is mid 90s, and denies any chest pain and swelling the lower extremity abdominal still there but improving 07/30/2020, patient seen eval examined during the rounds labs reviewed medications reviewed, overall remains stable oxygen saturation is mid 90s on room air 07/29/2020, patient seen eval examined during the rounds ongoing shortness of breath is present but oxygen saturation have been stable, patient being diuresis still have significant lower extremity edema and anasarca 07/28/2020, patient seen eval examined during the rounds labs reviewed medications reviewed care plan discussed, breathing status remains stable, denies any chest pain, remains short of breath however, oxygen saturation 9596% on room air, patient will need sleep study and further evaluation as outpatient 07/27/2020, patient seen eval examined during the rounds labs reviewed medications reviewed, remains afebrile hemodynamically stable, oxygen saturation is 99% on room air, BUN/creatinine remains stable 71 and 2.34, 07/26/2020, patient is however apparently looks short of breath, oxygen saturation however is stable 96% room air, denies any chest pain, wants to hold on For now [facility] surgery of following July 25 2020, patient seen eval reexamined during the rounds labs reviewed medications reviewed care plan discussed, respiratory status much improved today still using supplemental oxygen did not use the CPAP machine last night, hemodynamic status stable with oxygen saturation 100% on 2 L, patient underwent hepatobiliary scan which revealed non visualization of gallbladder consistent with cystic duct obstruction and acute cholecystitis Ms. Randi Hartmann is a 65-year-old female well-known to me patient came into the hospital with increasing shortness of breath, seems like some chest pain was associated which has been progressive, patient does have cold with 19 exposure, patient was noted to be hypertensive with a blood pressure 170/110 in the emergency department, CTA performed negative for PE but however does show bilateral pulmonary edema along with pleural effusion consistent with heart failure troponins were elevated cardiovascular services consulted, patient is well-known to me for history of sleep disorder breathing and sleep apnea, recent echocardiogram revealed moderate to severe pulmonary hypertension with evidence of biventricular failure patient does have a CPAP machine from home will recommend to use it Objective - Vital Signs Vital signs: Vital Signs Temp 98.2 F 07/31/20 08:00 Pulse 69 07/31/20 08:00 Resp 18 07/31/20 08:00 BP 127/65 07/31/20 08:00 Pulse Ox 97 07/31/20 08:00 Intake & Output 07/30/20 07/31/20 07/31/20 18:59 06:59 18:59 Intake Total 600 345 Output Total 300 1200 900 Balance 300 -855 -900 Weight 139.7 kg Intake: IV 45 0.9 45 Oral 600 300 Output: Urine 300 1200 900 Other: Voiding Method Bedside Commode Bedside Commode # Voids 1 1 - Exam - Constitutional General appearance: disheveled, morbidly obese - EENT Eyes: PERRLA Ears: bilateral: normal - Neck Carotids: bilateral: upstroke normal - Respiratory Respiratory: bilateral: diminished - Cardiovascular Rhythm: regular Heart sounds: normal: S1, S2 - Gastrointestinal General gastrointestinal: soft - Neurologic Neurologic: CNII-XII intact - Musculoskeletal Musculoskeletal: gait normal, generalized weakness, strength equal bilaterally - Psychiatric Psychiatric: A&O x's 3, appropriate affect, intact judgment & insight - Labs CBC & Chem 7: 07/27/20 09:21 07/31/20 07:29 Labs: Abnormal Lab Results - Last 24 Hours (Table) 07/30/20 07/30/20 07/30/20 Range/Units 09:05 11:36 21:03 BUN 56 H (7-17) mg/dL Creatinine 1.89 H (0.52-1.04) mg/dL Glucose 160 H (74-99) mg/dL POC Glucose (mg/dL) 124 H 146 H (75-99) mg/dL Magnesium 1.1 L (1.6-2.3) mg/dL 07/31/20 07/31/20 Range/Units 05:57 07:29 BUN 54 H (7-17) mg/dL Creatinine 1.90 H (0.52-1.04) mg/dL Glucose 136 H (74-99) mg/dL POC Glucose (mg/dL) 132 H (75-99) mg/dL Magnesium (1.6-2.3) mg/dL Assessment and Plan Assessment: Acute on chronic systolic heart failure, ejection fraction of 40% Anasarca and fluid overload UTI related to Klebsiella Moderate to severe pulmonary hypertension Severe mitral regurgitation Severe degree of sleep disorder breathing and sleep apnea compliant with his CPA P machine Acute on chronic cholecystitis Elevated troponins Acute on chronic kidney disease Dyslipidemia Hypertension hypertensive cardiovascular disease Plan: Continue antibiotics Continue deep breathing exercises incentive spirometry Gentle diuresis GI, cardiology and renal service is following Continue gentle diuresis as planned Supplemental oxygen titrated as tolerated Patient will benefit from CPAP at night and when necessary during the day Patient will need a tertiary care center as outpatient for pulmonary hypertension evaluation, will arrange as outpatient Time with Patient: Greater than 30
[2020-07-31] MEDS ORDERED: POTASSIUM CHLORIDE ER 20 MEQ TAB.ER PO STA (09:58)
--- NOTE | 2020-07-31 10:11 | P.DS ---
Providers Date of admission: 07/22/20 08:59 Attending physician: Wendi Rolon Consults: 07/19/20 21:25 Consult Physician Urgent Consulting Provider: [facility] Consult Reason/Comments: chest pain, elevated trop Do you want consulting provider notified?: Yes 07/20/20 13:47 Consult Physician Urgent Consulting Provider: Jarvis Osborne Consult Reason/Comments: SOB, ?COVID with Hypoxia Do you want consulting provider notified?: Yes 07/21/20 15:40 Consult Physician Routine Consulting Provider: Brett Ferrara Consult Reason/Comments: kidney function Do you want consulting provider notified?: Yes, Notify in am 07/24/20 12:02 Consult Physician Routine Consulting Provider: Abran Eubanks Consult Reason/Comments: pulmon htn, known to you Do you want consulting provider notified?: Yes 07/25/20 12:54 Consult Physician Routine Consulting Provider: Yonatan Greer Consult Reason/Comments: cholecystits Do you want consulting provider notified?: Already Contacted 07/25/20 15:45 Consult Physician Routine Consulting Provider: Michelle Castaneda Consult Reason/Comments: Surgical clearance Do you want consulting provider notified?: Yes Primary care physician: Daija [facility] Course: 65-year-old female with a past medical history of hypertension, hyperlipidemia, chronic kidney disease, obstructive sleep apnea coming to the hospital with a chief complaint of difficulty in breathing. Patient states that she was sitting and watching television when she started to have difficulty in breathing along with chest pain. She states the chest pain it is 7 x 10 in intensity, is mostly substernal radiating to the entire chest. Patient denies having any recent travel. No fever chills or rigors. Patient mentions about having sinus congestion and mild headaches for the past 1 week. She mentions that her sister and [id number] have Covid. Patient admits to drinking a big glass of vodka every night. In the emergency patient had blood pressure of 177/110, 96% on 2 L of nasal cannula, temperature 98.7, heart rate 85, rest she had a chest x-ray showing mild congestive heart failure. Patient also had CTA of which was negative for PE. But significant for pulmonary edema with pleural fluid and cardiomegaly consistent with congestive heart failure. Patient had mildly elevated troponins at 0.077, 0.114. She has been started on IV heparin, cardiology consult has been obtained. On 07/21/2020 -patient was seen and examined select speciality floor. She is comfortably sitting up in the bed and states that her difficulty in breathing and chest pain are better compared to yesterday. Patient denied having any fevers chills or rigors. No abdominal pain nausea vomiting or diarrhea. No dysuria or hematuria. On reviewing her vitals temperature 97.[address] saturating at 98 on 5 L of oxygen by nasal cannula. On reviewing her labs white count of 4.6, RALPH MCV 102.2, platelets 64. Sodium 139, potassium 5.2, chloride 106, by 21, BUN 40, creatinine 1.88. On -patient was seen and examined. Patient states that her difficulty breathing is slightly better but she is still short of breath. She states that the swelling in her upper extremities is much better compared to yesterday. Still has swelling in her lower extremities. Patient denies having any chest pain or palpitations. No abdominal pain nausea vomiting or diarrhea. No dysuria or hematuria. On reviewing the vitals patient's blood pressure is 144 x 91 saturating 100% on 4 L nasal cannula with temperature 97.7 on reviewing the patient's labs white count of 5.8, hemoglobin 8.8, platelets 89, macrocytosis. Electrolytes sodium 135, potassium 5.4, chloride 100, bicarb 17, BUN 15, creatinine 2.32 . Subjective: This is the first day I am taking care of the patient 07/23/2020 This is a pleasant 65 years old female who presents with chest pain and CHF with ejection fraction 40-45% and abnormal valvular heart disease showing moderate to severe mitral regurgitation, severe pulmonary hypertension, moderate to severe right ventricular enlargement. Also she has chronic disease stage III obstructive sleep apnea on CPAP and uncontrolled hypertension upon admission. Also on exam she has bilateral leg swelling. Her creatinine was trending up, probably secondary to contrast-induced nephropathy and nephrology of the case however today her creatinine has been stabilized at 2.4, and give her 1 dose of Lasix given her overt fluid overload state I discussed the case with nephrology team, we gave him an extra dose of Lasix 40 mg times 1 in the AM. He'll keep monitoring. 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 Her weight increased from 143.9-145.2 over the last 2 days. She is saturating 100% on 2 L oxygen via nasal cannula. Creatinine is stable 2.4-2.58. Sodium 136, potassium 5, sugars controlled. Liver ultrasound showing nonspecific Enriquez of the liver suspicious for hepatic steatosis or diffuse hepatocellular disease. Thickened gallbladder wall, alert for cholecystitis. Urine analysis is suspicious for infection and Urine culture is growing gram- negative bacilli. We'll start ceftriaxone Nephrology team on the case for kidney disease. She had some loose stool for C. diff is negative. Improved with Imodium 07/25/2020 Patient looks clinically the same although she feels easier to breathe today. Her leg swelling is the same, also she has swelling around the abdominal girdle. Diarrhea still going but improve if she takes Imodium. She complains from frequent urination with the total amount of urine coming up. Most likely related to her UTI. Urine culture is growing Klebsiella oxytoca and Citrobacter freundii, both of them are sensitive to almost all antibiotics are tested, including ceftriaxone. Her creatinine is the same at 2.5. Liver ultrasound was suspicious for cholecystitis cyanosis however HIDA scan was negative and patient denies any RUQ abdominal pain or tenderness Physical therapist recommended home when she is medically stable 07/26/2020 Patient thinks her breathing is better today, she still have bilateral leg swelling. No other new complaint. Her diarrhea looks better and she only had little firm bowel movement yesterday. Patient declined a possible cholecystectomy recommended by surgery team. Patient denies any pain in her right upper quadrant, no nausea vomiting, and she tolerates diet well. Surgical team recommended outpatient cholecystectomy. She is hemodynamically stable. WBC is normal at 4.7K, anemia slightly better at 9.2 and platelets significantly improved 137K. Creatinine slightly trended down to 2.4. Liver enzymes slightly elevated. She remains on Lasix 40 mg twice daily, also she is on ceftriaxone for her UTI nephrology team on the case Potassium was slightly elevated at 5.9, patient received Kayexalate and insulin/glucose and monitor potassium Nephrology recommended follow-up as an outpatient for her CK D 07/27/2020 Patient is clinically the same, she is breathing easily. She still have bilateral leg swelling. Her weight came down significantly to 138 kg. Creatinine trended down slowly to 2. today, she is hemodynamically stable. Nephrology input is appreciated and recommended to continue with Lasix 40 mg twice daily and consider to change to torsemide 40 mg by mouth daily 07/28/2020 Patient still feels better regarding her breathing. Her leg swelling slightly worse compared to yesterday as well as her weight increased to 142.6 kg today after significant improvement yesterday to 138, patient confirms to me that she was drinking a lot of water, patient consult to restrict her fluid intake as well as the staff. And she agrees. Her creatinine is trending down to 2.15 Her repeat urinalysis looks clear and only trace leukocyte esterase, I think antibiotics can be stopped upon discharge as her UTI looks resolved Activities Attendant recommended to continue with Lasix 40 mg twice daily. Consider changing to torsemide 40 mg by mouth daily on discharge 07/29/2020 Patient is breathing quietly with slight improvement in her leg edema Patient today with slight improvement with her creatinine is 2.1 and weight is 142.2 kg. I discussed the case with nephrology team and they prefer to keep the patient 1 more day for IV diuretics, patient herself prefer not to leave today Continue with IV Lasix 40 mg twice a 07/30/2020 Patient still has edema which is significant of bilateral pedal edema can you with IV diuretics for today possibility of discharge tomorrow patient is also hypomagnesemia magnesium will be replaced.Physical therapy and occupational therapy will evaluate the patient patient has improved shortness of breath. Patient completed course of antibiotic therapy for urinary tract infection although patient never had any acute symptoms antibiotics will be discontinued. Patient wasn't creatinine is 1.89 baseline is around the patient appears to have chronic kidney disease stage 3 07/31/2020 Patient does still has some pedal edema although it appears to be chronic. Patient the regarding heart failure was fairly euvolemic. Patient creatinine fairly stable and will be discharged today. Cleared by cardiology and the nephrology. Patient will be discharged on 40 mg of torsemide. PHYSICAL EXAMINATION: GENERAL: The patient is alert and oriented x3, not in any acute distress. Obese. HEENT: Pupils are round and equally reacting to light. EOMI. No scleral icterus. No conjunctival pallor. Normocephalic, atraumatic. No pharyngeal erythema. No thyromegaly. CARDIOVASCULAR: S1 and S2 present. No murmurs, rubs, or gallops. PULMONARY: Chest is clear to auscultation, no wheezing or crackles. ABDOMEN: Soft, nontender, nondistended, normoactive bowel sounds. No palpable organomegaly. MUSCULOSKELETAL: No joint swelling or deformity. EXTREMITIES: No cyanosis, clubbing, or on plus bilateral pitting pedal edema extending to the mid barajas area NEUROLOGICAL: Gross neurological examination did not reveal any focal deficits. SKIN: No rashes. Assessment and Plan Plan: Acute Systolic CHF in Excerbation, ejection fraction 40-45%: Continue to pedal edema, patient is presently euvolemic. -Hypomagnesemia secondary to diuretics magnesium was replaced Elevated liver enzymes with thickened gallbladder wall on ultrasound, correlate for cholecystitis. HIDA scan is negative, no need for surgery acute urinary tract infection, secondary to UTI. 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 Moderate to severe mitral regurgitation, moderate to severe right ventricular enlargement and severe pulmonary hypertension Hypertension, controlled upon admission, currently better controlled Elevated troponins: Secondary to congestive heart failure Acute kidney injury Thrombocytopenia Anemia Patient Condition at Discharge: Stable Plan - Discharge Summary Discharge Rx Participant: Yes New Discharge Prescriptions: New hydrALAZINE HCL [Apresoline] 50 mg PO TID #90 tab Torsemide [Demadex] 40 mg PO DAILY #30 tab Potassium Chloride ER [K-Dur 20] 20 meq PO DAILY #30 tab.er.prt Metoprolol Succinate (ER) [Toprol XL] 25 mg PO HS #30 tab.er.24h Continue Vitamin E 400 unit PO W/SUPPER Multivitamins, Thera [Multivitamin (formulary)] 1 tab PO DAILY Aspirin [Adult Low Dose Aspirin EC] 81 mg PO DAILY Lysine [l-Lysine] 500 mg PO BID Glucosamine Sulfate 1,000 mg PO DAILY Lovastatin [Mevacor] 10 mg PO HS Fluticasone Nasal [place] [Flonase Nasal [place]] 1 spray EA NOSTRIL HS Cetirizine HCl [Zyrtec] 10 mg PO HS Levothyroxine Sodium [Synthroid] 75 mcg PO DAILY Citalopram Hydrobromide [Citalopram HBr] 20 mg PO HS Ubidecarenone [Co Q-10] 100 mg PO W/SUPPER Ergocalciferol [Vitamin D2 (DRISDOL)] 50,000 unit PO WE Sodium Bicarbonate 325 mg PO TID #90 tab Discontinued hydrALAZINE HCL 25 mg PO BID Enalapril Maleate [Vasotec] 10 mg PO HS Discharge Medication List Aspirin [Adult Low Dose Aspirin EC] 81 mg PO DAILY 07/19/20 [History] Cetirizine HCl [Zyrtec] 10 mg PO HS 07/19/20 [History] Citalopram Hydrobromide [Citalopram HBr] 20 mg PO HS 07/19/20 [History] Ergocalciferol [Vitamin D2 (DRISDOL)] 50,000 unit PO WE 07/19/20 [History] Fluticasone Nasal [place] [Flonase Nasal [place]] 1 spray EA NOSTRIL HS 07/19/20 [History] Glucosamine Sulfate 1,000 mg PO DAILY 07/19/20 [History] Levothyroxine Sodium [Synthroid] 75 mcg PO DAILY 07/19/20 [History] Lovastatin [Mevacor] 10 mg PO HS 07/19/20 [History] Lysine [l-Lysine] 500 mg PO BID 07/19/20 [History] Multivitamins, Thera [Multivitamin (formulary)] 1 tab PO DAILY 07/19/20 [History] Ubidecarenone [Co Q-10] 100 mg PO W/SUPPER 07/19/20 [History] Vitamin E 400 unit PO W/SUPPER 07/19/20 [History] Metoprolol Succinate (ER) [Toprol XL] 25 mg PO HS #30 tab.er.24h 07/31/20 [Rx] Potassium Chloride ER [K-Dur 20] 20 meq PO DAILY #30 tab.er.prt 07/31/20 [Rx] Sodium Bicarbonate 325 mg PO TID #90 tab 07/31/20 [Rx] Torsemide [Demadex] 40 mg PO DAILY #30 tab 07/31/20 [Rx] hydrALAZINE HCL [Apresoline] 50 mg PO TID #90 tab 07/31/20 [Rx] Follow up Appointment(s)/Referral(s): [facility], [NON-STAFF] - 1 Week Abran Eubanks MD [STAFF PHYSICIAN] - 2 Weeks Daija Henderson MD [Primary Care Provider] - 1-2 days Brett Ferrara DO [STAFF PHYSICIAN] - 1 Week Fareed Elizalde MD [STAFF PHYSICIAN] - 2 Weeks Patient Instructions/Handouts: Heart Attack (DC), Acute Kidney Injury (DC) Activity/Diet/Wound Care/Special Instructions: Patient will require a walker and a bedside commode at discharge. Patient is room confined/unable to make it to her bathroom secondary to pulmonary hypertension and unsteady gait Re-check BMP & magnesium level in 1 week Discharge Disposition: HOME SELF-CARE
[2020-07-31] MEDS: MAGNESIUM SULFATE-D5W PMX 1 GM in DEXTROSE/WATER 1 100ML.BAG IVPB SCH ×2 (10:29→12:07)
--- NOTE | 2020-07-31 10:35 | P.PN ---
Subjective Patient is seen in follow-up for acute kidney injury on chronic kidney disease. Patient is chronic kidney disease stage III with baseline creatinine 1.4-1.6. Renal function stable. Maintained on IV Lasix. Nonoliguric. Edema gradually improving. No changes overnight. Potentially going home today. Vital signs are stable. General: The patient appeared well nourished and normally developed. HEENT: Head exam is unremarkable. Neck is without jugular venous distension. LUNGS: Breath sounds decreased. HEART: Rate and Rhythm are regular. ABDOMEN: Soft, nontender. EXTREMITITES: 1+ edema. Objective - Vital Signs Vital signs: Vital Signs Temp 98.2 F 07/31/20 08:00 Pulse 69 07/31/20 08:00 Resp 18 07/31/20 08:00 BP 127/65 07/31/20 08:00 Pulse Ox 97 07/31/20 08:00 Intake & Output 07/30/20 07/31/20 07/31/20 18:59 06:59 18:59 Intake Total 600 345 Output Total 300 1200 900 Balance 300 -855 -900 Weight 139.7 kg Intake: IV 45 0.9 45 Oral 600 300 Output: Urine 300 1200 900 Other: Voiding Method Bedside Commode Bedside Commode # Voids 1 1 - Labs CBC & Chem 7: 07/27/20 09:21 07/31/20 07:29 Labs: Abnormal Lab Results - Last 24 Hours (Table) 07/30/20 07/30/20 07/31/20 Range/Units 11:36 21:03 05:57 BUN (7-17) mg/dL Creatinine (0.52-1.04) mg/dL Glucose (74-99) mg/dL POC Glucose (mg/dL) 124 H 146 H 132 H (75-99) mg/dL 07/31/20 Range/Units 07:29 BUN 54 H (7-17) mg/dL Creatinine 1.90 H (0.52-1.04) mg/dL Glucose 136 H (74-99) mg/dL POC Glucose (mg/dL) (75-99) mg/dL Assessment and Plan Plan: Assessment: 1. Acute kidney injury secondary to ATN secondary to cardiorenal syndrome. Renal function stable - creatinine 1.9 today. 2. Chronic kidney disease stage III secondary to nephrosclerosis with baseline creatinine in the range of 1.4-1.6. 3. Acute on chronic systolic CHF with ejection fraction of 40-45%. 4. Volume overload. Improving with diuresis. 5. UTI the urine culture positive for Klebsiella and Citrobacter. On antibiotics. 6. Anemia of chronic kidney disease maintained on Aranesp. 7. Hypomagnesemia secondary to diuresis. Improved posterior placement. Plan: Stop IV Lasix. Start torsemide 40 mg once daily starting tomorrow. I advised the patient to monitor her weight closely at home and to call if gains more than 2-3 pounds or edema worsens. She is to also follow a low-salt diet and fluid restriction of less than 40 ounces per day. Maintain potassium supplementation. Add oral magnesium oxide. Anticipate discharge soon. Repeat BMP and magnesium level 2-3 days postd ischarge. Follow up outpatient in 7-10 days.
--- NOTE | 2020-07-31 11:03 | P.PN ---
Subjective Progress Note Date: 07/31/20 CHIEF COMPLAINT: Chest pain and shortness of breath HISTORY OF PRESENT ILLNESS: Patient is being followed for cholecystitis. Her HIDA scan was abnormal. Abdominal ultrasound had shown thickening of the g allbladder wall. No gallstones. Patient denies any abdominal pain today. Denies any nausea or vomiting. Tolerating diet. Afebrile. She is scheduled for discharge today. PHYSICAL EXAM: VITAL SIGNS: Reviewed. GENERAL: Well-developed in no acute distress. HEENT: No sclera icterus. Extraocular movements grossly intact. Moist buccal mucosa. Head is atraumatic, normocephalic. ABDOMEN: Soft. Nondistended. Nontender NEUROLOGIC: Alert and oriented. Cranial nerves II through XII grossly intact. ASSESSMENT: 1. Chronic cholecystitis with cystic duct occlusion 2. Acute systolic CHF exacerbation PLAN: -Patient has declined surgery during this admission -Continue low-fat diet -Continue supportive care -Recommend outpatient laparoscopic cholecystectomy Physician Intelligence Chief note has been reviewed by physician. Signing provider agrees with the documented findings, assessment, and plan of care. Objective - Vital Signs Vital signs: Vital Signs Temp 98.2 F 07/31/20 08:00 Pulse 69 07/31/20 08:00 Resp 18 07/31/20 08:00 BP 127/65 07/31/20 08:00 Pulse Ox 97 07/31/20 08:00 Intake & Output 07/30/20 07/31/20 07/31/20 18:59 06:59 18:59 Intake Total 600 345 Output Total 300 1200 900 Balance 300 -855 -900 Weight 139.7 kg Intake: IV 45 0.9 45 Oral 600 300 Output: Urine 300 1200 900 Other: Voiding Method Bedside Commode Bedside Commode # Voids 1 1 - Labs CBC & Chem 7: 07/27/20 09:21 07/31/20 07:29 Labs: Abnormal Lab Results - Last 24 Hours (Table) 07/30/20 07/30/20 07/31/20 Range/Units 11:36 21:03 05:57 BUN (7-17) mg/dL Creatinine (0.52-1.04) mg/dL Glucose (74-99) mg/dL POC Glucose (mg/dL) 124 H 146 H 132 H (75-99) mg/dL 07/31/20 Range/Units 07:29 BUN 54 H (7-17) mg/dL Creatinine 1.90 H (0.52-1.04) mg/dL Glucose 136 H (74-99) mg/dL POC Glucose (mg/dL) (75-99) mg/dL
[2020-07-31 11:53] LABS: Glucose,Whole Blood 120 mg/dL (75-99)
[2020-08-01] MEDS ORDERED: MAGNESIUM OXIDE 400 MG TAB PO SCH (09:00)
[2020-08-01] MEDS ORDERED: TORSEMIDE 20 MG TAB PO SCH (09:00)
== END 2020-07-31 16:10 | disposition home or self-care (01) | DRG 291 ==
LOC: EC 18:33 → 3SCARD 20:41 → OBSVTOIN 07-22 08:59 → 3SCARD 07-23 20:34
PROVIDERS: ADMIT Hospitalist; ATTEND Hospitalist
PROC: 05HF33Z Insertion of Infusion Device into Left Cephalic Vein, Percutaneous Approach (ICD-10-PCS; principal; 2020-07-24 10:45)
DX: I13.0 Hypertensive heart and chronic kidney disease with heart failure and stage 1 through stage 4 chronic kidney disease, or unspecified chronic kidney disease (principal); I50.23 Acute on chronic systolic (congestive) heart failure; N17.0 Acute kidney failure with tubular necrosis; I16.1 Hypertensive emergency; Z68.42 Body mass index [BMI] 45.0-49.9, adult; E87.2 Acidosis; D61.818 Other pancytopenia; K81.2 Acute cholecystitis with chronic cholecystitis; K82.0 Obstruction of gallbladder; N39.0 Urinary tract infection, site not specified; N18.4 Chronic kidney disease, stage 4 (severe); I25.119 Atherosclerotic heart disease of native coronary artery with unspecified angina pectoris; I27.20 Pulmonary hypertension, unspecified; D63.1 Anemia in chronic kidney disease; E78.5 Hyperlipidemia, unspecified; Z20.828 Contact with and (suspected) exposure to other viral communicable diseases; I08.1 Rheumatic disorders of both mitral and tricuspid valves; G47.33 Obstructive sleep apnea (adult) (pediatric); F10.10 Alcohol abuse, uncomplicated; T50.8X5A Adverse effect of diagnostic agents, initial encounter; T50.2X5A Adverse effect of carbonic-anhydrase inhibitors, benzothiadiazides and other diuretics, initial encounter; R09.02 Hypoxemia; E83.42 Hypomagnesemia; E66.9 Obesity, unspecified; E11.22 Type 2 diabetes mellitus with diabetic chronic kidney disease; E87.5 Hyperkalemia; I42.9 Cardiomyopathy, unspecified; K70.30 Alcoholic cirrhosis of liver without ascites; I49.3 Ventricular premature depolarization; N14.1 Nephropathy induced by other drugs, medicaments and biological substances; B96.1 Klebsiella pneumoniae [K. pneumoniae] as the cause of diseases classified elsewhere; B96.89 Other specified bacterial agents as the cause of diseases classified elsewhere; D50.9 Iron deficiency anemia, unspecified; I48.91 Unspecified atrial fibrillation; Z79.899 Other long term (current) drug therapy; Z79.890 Hormone replacement therapy; Z79.82 Long term (current) use of aspirin; Z88.8 Allergy status to other drugs, medicaments and biological substances; Z98.890 Other specified postprocedural states; Z90.710 Acquired absence of both cervix and uterus; Z87.891 Personal history of nicotine dependence
CPT/HCPCS: 36410; 36415; 71045; 71046; 71275; 76705; 76770; 76937; 78226; 80048; 80053; 80061; 80074; 80076; 80320; 81001; 83540; 83550; 83690; 83735; 83880; 84484; 85025; 85027; 85610; 85730; 87045; 87046; 87077; 87086; 87186; 87324; 87390; 87635; 93005; 93306; 96361; 96365; 96366; 96375; 96376; 99291

== ENCOUNTER → 2020-10-15 | Outpatient (CLI) | payer OTHER ==
--- NOTE | 2020-10-15 16:23 | NM ---
EXAMINATION TYPE: NM hepatobiliary wo EF DATE OF EXAM: 10/15/2020 COMPARISON: Prior exam 07/24/2020 ultrasound 04/08/2017 HISTORY: Chronic cholecystitis TECHNIQUE: After the intravenous administration of 4.3 mCi Tc 99m Mebrofenin hepatobiliary scintigrap hy is performed. Immediate images post injection. FINDINGS: There is prompt homogenous uptake of radiopharmaceutical within the liver. There is immediate uptake identified within the biliary system, gallbladder, small bowel. IMPRESSION: Exam is within normal limits.
== END | disposition home or self-care (01) ==
LOC: RADNMMAIN 12:38
PROVIDERS: ATTEND Surgery
DX: K81.1 Chronic cholecystitis (principal)
CPT/HCPCS: 78226; A9537

== ENCOUNTER → 2020-10-23 | Outpatient (CLI) | payer OTHER ==
[2020-10-24 01:09] LABS: Anion Gap 13.7 mmol/L (4.00-12.00); BUN/Creat Ratio 28.75 Ratio (12.00-20.00); Calcium 11.7 mg/dL (8.7-10.3); Carbon Dioxide 25.3 mmol/L (21.6-31.8); Non-African American GFR(CKD) 14.7 (60.0-200.0); Phosphorus 6.6 mg/dL (2.4-5.1); Potassium 5.3 mmol/L (3.5-5.5)
== END | disposition home or self-care (01) ==
LOC: LABWHC1 14:14
PROVIDERS: ATTEND Internal Medicine Nephrology
DX: N18.4 Chronic kidney disease, stage 4 (severe) (principal)
CPT/HCPCS: 36415; 80048; 83735; 84100

== ENCOUNTER → 2020-10-31 | Outpatient (CLI) | payer OTHER ==
--- NOTE | 2020-10-31 16:38 | US ---
EXAMINATION TYPE: US venous doppler duplex LE DATE OF EXAM: 10/31/2020 10:42 AM COMPARISON: NONE CLINICAL HISTORY: R60.9 CHRONIC EDEMA. Intermittent bilateral leg swelling x 3 months, patient taking aspirin SIDE PERFORMED: Bilateral TECHNIQUE: The lower extremity deep venous system is examined utilizing real time linear array sonog lucy with graded compression, doppler sonography and color-flow sonography. VESSELS IMAGED: Common Femoral Vein Deep Femoral Vein Greater Saphenous Vein * Femoral Vein Popliteal Vein Small Saphenous Vein * Proximal Calf Veins (* superficial vessels) Right Leg: Appears negative for DVT Left Leg: Appears negative for DVT IMPRESSION: 1. Bilateral lower extremity ultrasound negative for deep venous thrombosis.
== END ==
LOC: RADUSWWP 10:14
PROVIDERS: ATTEND Internal Medicine Nephrology
DX: R22.43 Localized swelling, mass and lump, lower limb, bilateral (principal)
CPT/HCPCS: 93970

== ENCOUNTER → 2020-11-26 | Outpatient (CLI) | payer OTHER ==
--- NOTE | 2020-11-26 16:20 | US ---
EXAMINATION TYPE: US kidneys/renal and bladder DATE OF EXAM: 11/26/2020 COMPARISON: NONE CLINICAL HISTORY: 65-year-old female N17.9 ACUTE KIDNEY INJURY. TECHNIQUE: Multiple sonographic images of the kidneys and bladder are obtained. FINDINGS: EXAM MEASUREMENTS: Right Kidney: 12.1 x 4.7 x 5.6 cm Left Kidney: 9.7 x 4.3 x 4.9 cm Right Kidney: lobular contour Left Kidney: lobular contour No hydronephrosis on either side. Incidental small 9 mm right upper pole renal cyst. Bladder: No gross abnormality. Incidental finding of splenomegaly at 14.7 cm. IMPRESSION: No hydronephrosis. Incidental mild splenomegaly at 14.7 cm.
== END | disposition home or self-care (01) ==
LOC: RADUSWWP 13:30
PROVIDERS: ATTEND Internal Medicine Nephrology
DX: N17.9 Acute kidney failure, unspecified (principal)
CPT/HCPCS: 76770

== ENCOUNTER → 2020-12-05 | Outpatient (CLI) | payer OTHER ==
[2020-12-05 16:39] LABS: Appearance,Urine Clear (Clear); Bacteria,Urine Rare /hpf; Bilirubin,Urine Negative (Negative); Blood,Urine Negative (Negative); Color,Urine Colorless; Glucose,Urine (UA) Negative (Negative); Hyaline Casts,Urine 1 /lpf (0-2); Ketones,Urine Negative (Negative); Leukocyte Esterase,Urine Large (Negative); Mucus,Urine Rare /hpf; Nitrite,Urine Negative (Negative); Protein,Urine Negative (Negative); RBC,Urine 2 /hpf (0-5); Specific Gravity,Urine 1.008 (1.001-1.035); Squamous Epithelial Cell,Urine 2 /hpf (0-4); Urobilinogen,Urine <2.0 mg/dL (<2.0); WBC,Urine 24 /hpf (0-5)
[2020-12-05 16:57] LABS: Ionized Calcium 5.5 mg/dL (4.5-5.3)
[2020-12-05 23:12] LABS: HCT 27.2 % (37.2-46.3); HGB 9.2 g/dL (12.0-15.0); MCH 31.5 pg (27.0-32.0); MCHC 33.8 g/dL (32.0-37.0); MCV 93.2 fL (80.0-97.0); Mean Platelet Volume 10.2 fL (9.5-12.2); Platelet Count 133 X 10*3/uL (140-440); RBC 2.92 X 10*6/uL (4.10-5.20); RDW 13.4 % (11.5-14.5); WBC 6.28 X 10*3/uL (4.50-10.00)
[2020-12-06 10:47] LABS: Angiotensin-1 Converting Enz. 79 U/L (8-52)
[2020-12-06 13:29] LABS: Protein, Total 7.2 g/dL (6.2-8.2)
[2020-12-06 14:01] LABS: % Iron Saturation 44.09 (12.00-45.00); African American GFR (CKD) 14.8 (60.0-200.0); Anion Gap 21.8 mmol/L (4.00-12.00); BUN/Creat Ratio 27.78 Ratio (12.00-20.00); Carbon Dioxide 15.2 mmol/L (21.6-31.8); Magnesium 2.2 mg/dL (1.5-2.4); Non-African American GFR(CKD) 12.7 (60.0-200.0); Phosphorus 7.1 mg/dL (2.4-5.1); Potassium 5.4 mmol/L (3.5-5.5)
[2020-12-06 14:09] LABS: Ferritin 782.3 ng/mL (10.0-291.0)
[2020-12-06 14:28] LABS: Vitamin D, 1, 25-Dihydroxy 33 pg/mL (20 - 79)
[2020-12-06 22:18] LABS: Urine Creatinine 30.5 mg/dL
[2020-12-09 11:50] LABS: Albumin 4.36 g/dL (3.80-4.90); Gamma Globulin 1.06 g/dL (0.70-1.50)
== END | disposition home or self-care (01) ==
LOC: LABWHC1 15:59
PROVIDERS: ATTEND Nurse Practitioner Family
DX: E83.52 Hypercalcemia (principal); E83.39 Other disorders of phosphorus metabolism; N18.4 Chronic kidney disease, stage 4 (severe); E55.9 Vitamin D deficiency, unspecified; D63.1 Anemia in chronic kidney disease; N39.0 Urinary tract infection, site not specified; R80.9 Proteinuria, unspecified
CPT/HCPCS: 36415; 80048; 81001; 82043; 82164; 82306; 82330; 82570; 82652; 82728; 83519; 83540; 83550; 83735; 83970; 84100; 84165; 85027; 86335

== ENCOUNTER → 2021-01-02 | Outpatient (CLI) | payer OTHER ==
[2021-01-02 19:07] LABS: Basophils # (A) 0.01 X 10*3/uL (0.00-0.10); Basophils % (A) 0.1 %; Eosinophils # (A) 0.01 X 10*3/uL (0.04-0.35); Eosinophils % (A) 0.1 %; HCT 30.9 % (37.2-46.3); HGB 10.6 g/dL (12.0-15.0); Lymphocytes % (A) 7.4 %; MCH 31.5 pg (27.0-32.0); MCHC 34.3 g/dL (32.0-37.0); Mean Platelet Volume 9.9 fL (9.5-12.2); Monocytes # (A) 0.48 X 10*3/uL (0.20-1.00); Monocytes % (A) 5.9 %; Neutrophils % (A) 85.9 %; Platelet Count 90 X 10*3/uL (140-440); RBC 3.36 X 10*6/uL (4.10-5.20); RDW 13.1 % (11.5-14.5); WBC 8.15 X 10*3/uL (4.50-10.00)
[2021-01-03 00:38] LABS: % Iron Saturation 25.81 (12.00-45.00); African American GFR (CKD) 20.9 (60.0-200.0); Albumin 4.7 g/dL (3.80-4.90); Anion Gap 12.1 mmol/L (4.00-12.00); BUN/Creat Ratio 34.44 Ratio (12.00-20.00); Calcium 10.1 mg/dL (8.7-10.3); Carbon Dioxide 20.9 mmol/L (21.6-31.8); Potassium 4.8 mmol/L (3.5-5.5)
== END | disposition home or self-care (01) ==
LOC: LABWHC1 13:52
PROVIDERS: ATTEND Internal Medicine Nephrology
DX: N18.5 Chronic kidney disease, stage 5 (principal); N25.81 Secondary hyperparathyroidism of renal origin; D63.1 Anemia in chronic kidney disease
CPT/HCPCS: 36415; 80048; 82040; 82728; 83540; 83550; 83970; 85025

== ENCOUNTER → 2021-01-15 | Outpatient (CLI) | payer OTHER ==
--- NOTE | 2021-01-15 15:39 | NM ---
EXAMINATION TYPE: NM bone scan whole body DATE OF EXAM: 01/15/2021 COMPARISON: NONE HISTORY: Sarcoidosis Delayed whole-body scanning was performed following the injection of 24.4 mCi Tc 99m MDP. Images acq uired 3.25 hours post injection. FINDINGS: There is abnormal uptake involving the left calvarium which is nonspecific could be related to hypero stosis. Abnormal uptake involving the shoulders left knee, and bilateral feet likely post arthritic. Abnormal uptake of mild intensity seen scattered throughout the thoracic and upper lumbar spine likel y degenerative. Abnormal uptake involving the right ankle likely on the basis of previous trauma. The re soft tissue uptake involving the medial margin of both calf regions could be on the basis of the s oft tissue calcifications correlate clinically. Similar finding along the medial margin of the thigh greater on the left. Asymmetric uptake involving the right hip is noted. There is diminished uptake n oted on the left which is nonspecific. IMPRESSION: 1. Abnormal uptake involving the vertebral column appears to be post degenerative. 2. Diminished uptake involving the left hip relative to the right would recommend correlation with x- ray. AP view of the pelvis is recommended to compare bilateral hips. 3. Abnormal uptake involving the left knee, feet and shoulders most typical of arthritic changes.
== END | disposition home or self-care (01) ==
LOC: RADNMMAIN 10:41
PROVIDERS: ATTEND Internal Medicine Nephrology
DX: D86.9 Sarcoidosis, unspecified (principal)
CPT/HCPCS: 78306; A9503

== ENCOUNTER → 2021-01-15 | Outpatient (CLI) | payer OTHER ==
--- NOTE | 2021-01-15 12:09 | CT ---
EXAMINATION TYPE: CT chest wo con DATE OF EXAM: 01/15/2021 COMPARISON: Chest x-ray 07/23/2020, CT chest 07/19/2020 HISTORY: Sarcoidosis CT DLP: 544.3 mGycm. Automated Exposure Control for Dose Reduction was Utilized. TECHNIQUE: CT scan of the thorax is performed without IV contrast. FINDINGS: LUNGS: The lungs show interstitial changes, there are thickened interlobular septal pleural lines , p leural thickening is noted. Subpleural nodular density on axial image 32 noted in the right middle lo be measures only 6 mm There is no pleural effusion or pneumothorax seen. The tracheobronchial tree i s patent. MEDIASTINUM: Lack of IV contrast is noted to limit evaluation for mediastinal and especially hilar ad enopathy. There are no definitive greater than 1 cm hilar or mediastinal lymph nodes. No cardiomega ly or pericardial effusion is seen. There is some calcification present at the mitral annulus. The pr ominence of the pulmonary artery may be due to pulmonary artery hypertension. There are some calcifie d left hilar nodes. OTHER: Spleen is enlarged and shows an associated calcification. Low dense mass associated with the l eft adrenal gland measures 2 cm and likely represents adenoma. IMPRESSION: Interstitial lung disease. Evidence of old granulomatous disease. Correlate for possible pulmonary artery hypertension. There is splenomegaly and possible left adrenal adenoma
== END | disposition home or self-care (01) ==
LOC: RADCTMAIN 10:52
PROVIDERS: ATTEND Internal Medicine Sleep Medicine
DX: J84.9 Interstitial pulmonary disease, unspecified (principal); D71 Functional disorders of polymorphonuclear neutrophils; R16.1 Splenomegaly, not elsewhere classified
CPT/HCPCS: 71250

== ENCOUNTER → 2021-01-21 | Outpatient (CLI) | payer OTHER ==
[2021-01-21 19:23] LABS: Basophils # (A) 0.02 X 10*3/uL (0.00-0.10); Basophils % (A) 0.3 %; Eosinophils # (A) 0.03 X 10*3/uL (0.04-0.35); Eosinophils % (A) 0.5 %; HCT 28.3 % (37.2-46.3); Lymphocytes # (A) 0.62 X 10*3/uL (0.90-5.00); Lymphocytes % (A) 9.4 %; MCH 31.6 pg (27.0-32.0); MCHC 35.3 g/dL (32.0-37.0); MCV 89.6 fL (80.0-97.0); Mean Platelet Volume 11.4 fL (9.5-12.2); Monocytes # (A) 0.46 X 10*3/uL (0.20-1.00); Neutrophils # (A) 5.39 X 10*3/uL (1.80-7.70); Neutrophils % (A) 81.4 %; Platelet Count 100 X 10*3/uL (140-440); RBC 3.16 X 10*6/uL (4.10-5.20); RDW 13.2 % (11.5-14.5); WBC 6.61 X 10*3/uL (4.50-10.00)
[2021-01-21 23:21] LABS: % Iron Saturation 19.75 (12.00-45.00); Albumin 4.4 g/dL (3.80-4.90); Anion Gap 12.6 mmol/L (4.00-12.00); BUN/Creat Ratio 28.44 Ratio (12.00-20.00); Carbon Dioxide 21.4 mmol/L (21.6-31.8); Ferritin 375.8 ng/mL (10.0-291.0); Non-African American GFR(CKD) 14.7 (60.0-200.0); Potassium 4.5 mmol/L (3.5-5.5)
== END | disposition home or self-care (01) ==
LOC: LABWHC1 12:54
PROVIDERS: ATTEND Nurse Practitioner Family
DX: N18.4 Chronic kidney disease, stage 4 (severe) (principal); E83.52 Hypercalcemia
CPT/HCPCS: 36415; 80048; 82040; 82728; 83036; 83540; 83550; 83970; 85025

== ENCOUNTER → 2021-02-06 | Outpatient (CLI) | payer OTHER ==
[2021-02-06 23:13] LABS: Basophils # (A) 0.04 X 10*3/uL (0.00-0.10); Basophils % (A) 0.5 %; Eosinophils # (A) 0.03 X 10*3/uL (0.04-0.35); Eosinophils % (A) 0.4 %; HCT 31.8 % (37.2-46.3); HGB 11.1 g/dL (12.0-15.0); Lymphocytes # (A) 1.13 X 10*3/uL (0.90-5.00); MCH 32.6 pg (27.0-32.0); MCHC 34.9 g/dL (32.0-37.0); MCV 93.5 fL (80.0-97.0); Mean Platelet Volume 10.8 fL (9.5-12.2); Monocytes # (A) 0.63 X 10*3/uL (0.20-1.00); Monocytes % (A) 8.3 %; Neutrophils # (A) 5.64 X 10*3/uL (1.80-7.70); Neutrophils % (A) 74.7 %; Platelet Count 112 X 10*3/uL (140-440); RDW 13.7 % (11.5-14.5); WBC 7.55 X 10*3/uL (4.50-10.00)
[2021-02-07 04:00] LABS: % Iron Saturation 21.33 (12.00-45.00); African American GFR (CKD) 18.4 (60.0-200.0); Albumin 4.4 g/dL (3.80-4.90); Anion Gap 14.8 mmol/L (4.00-12.00); BUN/Creat Ratio 26.67 Ratio (12.00-20.00); Calcium 9.7 mg/dL (8.7-10.3); Carbon Dioxide 21.2 mmol/L (21.6-31.8); Non-African American GFR(CKD) 15.9 (60.0-200.0)
[2021-02-07 04:09] LABS: Ferritin 349.4 ng/mL (10.0-291.0)
== END | disposition home or self-care (01) ==
LOC: LABWHC1 15:16
PROVIDERS: ATTEND Nurse Practitioner Family
DX: D86.9 Sarcoidosis, unspecified (principal); N18.5 Chronic kidney disease, stage 5; N25.81 Secondary hyperparathyroidism of renal origin; I49.49 Other premature depolarization
CPT/HCPCS: 36415; 80048; 82040; 82728; 83540; 83550; 83970; 85025; 93005

== ENCOUNTER → 2021-03-14 | Outpatient (CLI) | payer OTHER ==
[2021-03-14 23:07] LABS: Basophils # (A) 0.04 X 10*3/uL (0.00-0.10); Basophils % (A) 0.8 %; Eosinophils # (A) 0 X 10*3/uL (0.04-0.35); Eosinophils % (A) 0 %; HCT 33.4 % (37.2-46.3); HGB 11.1 g/dL (12.0-15.0); Lymphocytes # (A) 0.88 X 10*3/uL (0.90-5.00); Lymphocytes % (A) 17.9 %; MCH 32.1 pg (27.0-32.0); MCHC 33.2 g/dL (32.0-37.0); MCV 96.5 fL (80.0-97.0); Mean Platelet Volume 10.1 fL (9.5-12.2); Monocytes # (A) 0.48 X 10*3/uL (0.20-1.00); Monocytes % (A) 9.8 %; Neutrophils # (A) 3.49 X 10*3/uL (1.80-7.70); Neutrophils % (A) 70.9 %; Platelet Count 109 X 10*3/uL (140-440); RBC 3.46 X 10*6/uL (4.10-5.20); WBC 4.92 X 10*3/uL (4.50-10.00)
[2021-03-15 05:53] LABS: % Iron Saturation 18.48 (12.00-45.00); African American GFR (CKD) 20.7 (60.0-200.0); Albumin 4.8 g/dL (3.80-4.90); Anion Gap 14.4 mmol/L (4.00-12.00); BUN/Creat Ratio 32.96 Ratio (12.00-20.00); Calcium 10.7 mg/dL (8.7-10.3); Carbon Dioxide 21.6 mmol/L (21.6-31.8); Non-African American GFR(CKD) 17.9 (60.0-200.0); Potassium 4.5 mmol/L (3.5-5.5)
[2021-03-15 13:36] LABS: Ferritin 386.2 ng/mL (10.0-291.0)
== END | disposition home or self-care (01) ==
LOC: LABWHC1 13:42
PROVIDERS: ATTEND Nurse Practitioner Family
DX: N25.81 Secondary hyperparathyroidism of renal origin (principal); N18.4 Chronic kidney disease, stage 4 (severe)
CPT/HCPCS: 36415; 80048; 82040; 82728; 83540; 83550; 83970; 85025

== ENCOUNTER → 2021-05-27 | Outpatient (CLI) | payer OTHER ==
[2021-05-27 21:03] LABS: Basophils # (A) 0.02 X 10*3/uL (0.00-0.10); Basophils % (A) 0.5 %; Eosinophils # (A) 0 X 10*3/uL (0.04-0.35); Eosinophils % (A) 0 %; HCT 32.8 % (37.2-46.3); HGB 11.1 g/dL (12.0-15.0); Lymphocytes # (A) 0.47 X 10*3/uL (0.90-5.00); Lymphocytes % (A) 11.5 %; MCH 32.6 pg (27.0-32.0); MCHC 33.8 g/dL (32.0-37.0); MCV 96.5 fL (80.0-97.0); Mean Platelet Volume 10.2 fL (9.5-12.2); Monocytes # (A) 0.41 X 10*3/uL (0.20-1.00); Neutrophils # (A) 3.17 X 10*3/uL (1.80-7.70); Neutrophils % (A) 77.5 %; Platelet Count 77 X 10*3/uL (140-440); WBC 4.09 X 10*3/uL (4.50-10.00)
[2021-05-28 08:59] LABS: % Iron Saturation 14.72 (12.00-45.00); African American GFR (CKD) 25.2 (60.0-200.0); Albumin 4.7 g/dL (3.8-4.9); Anion Gap 20.9 mmol/L (4.00-12.00); BUN/Creat Ratio 27.96 Ratio (12.00-20.00); Blood Urea Nitrogen 64.3 mg/dL (9.0-27.0); Calcium 10.4 mg/dL (8.7-10.3); Carbon Dioxide 17.9 mmol/L (21.6-31.8); Magnesium 1.6 mg/dL (1.5-2.4); Non-African American GFR(CKD) 21.7 (60.0-200.0); Phosphorus 2.9 mg/dL (2.4-5.1)
== END | disposition home or self-care (01) ==
LOC: LABWHC1 14:20
PROVIDERS: ATTEND Nurse Practitioner Family
DX: N18.4 Chronic kidney disease, stage 4 (severe) (principal)
CPT/HCPCS: 36415; 80048; 82040; 82728; 83540; 83550; 83735; 83970; 84100; 85025

== ENCOUNTER → 2021-06-06 | Outpatient (CLI) | payer OTHER ==
[2021-06-06 22:54] LABS: Basophils # (A) 0.03 X 10*3/uL (0.00-0.10); Basophils % (A) 0.8 %; Eosinophils # (A) 0 X 10*3/uL (0.04-0.35); Eosinophils % (A) 0 %; HCT 30.5 % (37.2-46.3); HGB 10.1 g/dL (12.0-15.0); Lymphocytes # (A) 0.64 X 10*3/uL (0.90-5.00); MCH 32.9 pg (27.0-32.0); MCHC 33.1 g/dL (32.0-37.0); MCV 99.3 fL (80.0-97.0); Mean Platelet Volume 9.8 fL (9.5-12.2); Monocytes # (A) 0.38 X 10*3/uL (0.20-1.00); Monocytes % (A) 10.1 %; Neutrophils # (A) 2.67 X 10*3/uL (1.80-7.70); Platelet Count 86 X 10*3/uL (140-440); RBC 3.07 X 10*6/uL (4.10-5.20); WBC 3.76 X 10*3/uL (4.50-10.00)
[2021-06-07 00:14] LABS: African American GFR (CKD) 28.1 (60.0-200.0); Albumin 4.4 g/dL (3.8-4.9); Albumin/Globulin Ratio 1.83 (1.60-3.17); Anion Gap 18.2 mmol/L (4.00-12.00); BUN/Creat Ratio 31.43 Ratio (12.00-20.00); Calcium 9.9 mg/dL (8.7-10.3); Carbon Dioxide 19.8 mmol/L (21.6-31.8); Globulin 2.4 g/dL (1.6-3.3); Non-African American GFR(CKD) 24.3 (60.0-200.0); Potassium 4.4 mmol/L (3.5-5.5); Total Bilirubin 0.2 mg/dL (0.30-1.20); Total Protein 6.8 g/dL (6.2-8.2)
== END | disposition home or self-care (01) ==
LOC: LABWHC1 14:19
PROVIDERS: ATTEND Internal Medicine Gastroenterology
DX: K76.0 Fatty (change of) liver, not elsewhere classified (principal)
CPT/HCPCS: 36415; 80053; 85025

== ENCOUNTER → 2021-07-28 | Outpatient (CLI) | payer OTHER ==
--- NOTE | 2021-07-29 09:41 | MM ---
Reason for exam: additional evaluation requested from prior study. Last mammogram was performed 5 years and 9 months ago. History: Patient is postmenopausal and is nulliparous. Physical Findings: Nurse did not find any significant physical abnormalities on exam. MG Diagnostic Mammo w CAD SUSIE Bilateral CC and MLO view(s) were taken. XCCL view(s) were taken of the left breast. Prior study comparison: October 17, 2015, bilateral MG screening mammo w CAD. August 31, 2008, mammogram, performed at [place]. Finding #1: There is a typically benign 5 mm equal density (isodense), circumscribed oval mass located 6 cm from the nipple in the 8-9 o'clock lower inner quadrant, middle position of the left breast. persistent on compression. Finding #2: There are typically benign vascular calcifications in both breasts. New finding since October 17, 2015. These results were verbally communicated with the patient and result sheet given to the patient on 07/28/21. ASSESSMENT: Incomplete: need additional imaging evaluation, BI-RAD 0 RECOMMENDATION: Ultrasound of the left breast.
--- NOTE | 2021-07-29 09:48 | USB ---
Reason for exam: additional evaluation requested from abnormal screening. History: Patient is postmenopausal and is nulliparous. US Breast Limited LT Left limited breast ultrasound including focal area of concern, retroareolar and axilla demonstrates no cystic or solid lesion seen. These results were verbally communicated with the patient and result sheet given to the patient on 07/28/21. ASSESSMENT: Negative, BI-RAD 1 RECOMMENDATION: Follow-up diagnostic mammogram of the left breast in 6 months.
== END | disposition home or self-care (01) ==
LOC: RADMAMWWP 14:57
PROVIDERS: ATTEND Internal Medicine
DX: R92.1 Mammographic calcification found on diagnostic imaging of breast (principal); N63.24 Unspecified lump in the left breast, lower inner quadrant; Z78.0 Asymptomatic menopausal state
CPT/HCPCS: 77066

== ENCOUNTER → 2021-08-04 | Outpatient (CLI) | payer OTHER ==
--- NOTE | 2021-08-04 15:57 | NM ---
EXAMINATION TYPE: NM parathyroid DATE OF EXAM: 08/04/2021 COMPARISON: NONE HISTORY: Hypercalcemia TECHNIQUE: Following administration of 26.1 mCi Tc99m Sestamibi. Anterior projection images of the neck and ches t were obtained 10 minutes and 3 hours post injection FINDINGS: Thyroid tracer washout: Delayed images demonstrate near-complete tracer washout from the thyroid. Parathyroid uptake: None. The two-hour delayed images do not demonstrate any focal abnormal persisten t uptake in the region of the parathyroid glands to suggest parathyroid adenoma. Normal uptake: There is physiological tracer uptake in the myocardium, liver, salivary glands, and th yroid gland. IMPRESSION: Normal parathyroid imaging study. No evidence for mediastinal uptake to suggest mediastinal parathyro id adenoma
== END | disposition home or self-care (01) ==
LOC: RADNMMAIN 10:51
PROVIDERS: ATTEND Internal Medicine Nephrology
DX: E83.52 Hypercalcemia (principal)
CPT/HCPCS: 78070; A9500

== ENCOUNTER → 2021-08-05 | Outpatient (CLI) | payer OTHER ==
--- NOTE | 2021-08-05 15:52 | CT ---
EXAMINATION TYPE: CT chest wo con DATE OF EXAM: 08/05/2021 COMPARISON: Chest CT January 15, 2021 HISTORY: Sarcoidosis of lung CT DLP: 829.2 mGycm. Automated Exposure Control for Dose Reduction was Utilized. TECHNIQUE: CT scan of the thorax is performed without IV contrast. FINDINGS: LUNGS: Mild to moderate parenchymal fibrotic changes greatest in the periphery and seen bilaterally i s redemonstrated, some interval progression from the most recent study is present. Slight peripheral nodularity for reference 5 mm lesion right lung base laterally axial image 49 is stable. No new focal consolidation. And no pleural effusion or pneumothorax MEDIASTINUM: Lack of IV contrast is noted to limit evaluation for mediastinal and especially hilar ad enopathy. There are no definitive greater than 1 cm new mediastinal lymph nodes. Enlarged main pulmon kaylynn artery consistent with underlying pulmonary artery hypertension measuring 3.4 cm on image 26. No cardiomegaly or pericardial effusion is seen. OTHER: Single calcification in the spleen axial image 51. Liver heterogeneously low dense consistent with mild diffuse fatty infiltration. Underlying scoliotic curvature. Neey-bi-obzaysjs multilevel spu rring redemonstrated. Low dense 1.9 cm nodularity to left adrenal gland felt to reflect benign lipid rich adenoma axial image 57 redemonstrated. IMPRESSION: Moderate parenchymal fibrotic changes bilaterally and diffusely redemonstrated thought to reflect product of underlying sarcoidosis. Some interval progression from CT study 6 months earlier noted. No acute pulmonary process.
== END | disposition home or self-care (01) ==
LOC: RADCTMAIN 14:51
PROVIDERS: ATTEND Internal Medicine Sleep Medicine
DX: D86.0 Sarcoidosis of lung (principal)
CPT/HCPCS: 71250

== ENCOUNTER 2021-08-18 16:33 | Inpatient (IN) | payer OTHER ==
--- NOTE | 2021-08-18 16:54 | ED ---
SOB HPI - General Stated Complaint: SOB Time Seen by Provider: 08/18/21 16:33 Source: patient, EMS, RN notes reviewed, old records reviewed Mode of arrival: EMS - History of Present Illness Initial Comments: 66-year-old female history of chronic kidney disease sarcoidosis who does use an albuterol inhaler who states she was exposed to COVID-19 week ago she presents with complaints of shortness of breath exertional dyspnea she had fevers chills or sweats she also did have cough with brown phlegm this is cleared up somewhat. She has exertional dyspnea however not getting any better and no relief with her home albuterol nebulizers. No overt chest pain no other complaints or modifying factors MD Complaint: shortness of breath, cough - Related Data Home Medications Medication Instructions Recorded Confirmed Aspirin [Adult Low Dose Aspirin EC] 81 mg PO DAILY 07/19/20 01/29/21 Cetirizine HCl [Zyrtec] 10 mg PO HS 07/19/20 01/29/21 Citalopram Hydrobromide 20 mg PO HS 07/19/20 01/29/21 Ergocalciferol [Vitamin D2 50,000 unit PO WE 07/19/20 01/29/21 (DRISDOL)] Glucosamine Sulfate 1,000 mg PO DAILY 07/19/20 01/29/21 Levothyroxine Sodium [Synthroid] 75 mcg PO DAILY 07/19/20 01/29/21 Lovastatin [Mevacor] 10 mg PO HS 07/19/20 01/29/21 Lysine [l-Lysine] 500 mg PO BID 07/19/20 01/29/21 Ubidecarenone [Co Q-10] 100 mg PO W/SUPPER 07/19/20 01/29/21 Vitamin E 400 unit PO W/SUPPER 07/19/20 01/29/21 sitaGLIPtin PHOSPHATE [Januvia] 1 tab PO DAILY 12/02/20 01/29/21 predniSONE 1 tab PO DAILY 01/29/21 01/29/21 Previous Rx's Medication Instructions Recorded Metoprolol Succinate (ER) [Toprol 25 mg PO HS #30 tab.er.24h 07/31/20 XL] Sodium Bicarbonate 325 mg PO TID #90 tab 07/31/20 Torsemide [Demadex] 40 mg PO DAILY #30 tab 07/31/20 hydrALAZINE HCL [Apresoline] 50 mg PO TID #90 tab 07/31/20 Allergies Allergy/AdvReac Type Severity Reaction Status Date / Time sulfamethoxazole Allergy Rash/Hives Verified 08/18/21 18:45 [From Bactrim] trimethoprim [From Bactrim] Allergy Rash/Hives Verified 08/18/21 18:45 meperidine [From Demerol] AdvReac Swelling Verified 08/18/21 18:45 Review of Systems ROS Statement: Those systems with pertinent positive or pertinent negative responses have been documented in the HPI. ROS Other: All systems not noted in ROS Statement are negative. Past Medical History Past Medical History: Chest Pain / Angina, Diabetes Mellitus, Hyperlipidemia, Hypertension, Renal Disease, Sleep Apnea/CPAP/BIPAP History of Any Multi-Drug Resistant Organisms: None Reported Past Surgical History: Hysterectomy, Orthopedic Surgery Additional Past Surgical History / Comment(s): RIGHT ANKLE SURGERY Past Psychological History: No Psychological Hx Reported Smoking Status: Former smoker Past Alcohol Use History: Daily, Heavy Past Drug Use History: None Reported General Exam - General Exam Comments Initial Comments: This a well-developed well-nourished awake alert oriented 3 female General appearance: alert, anxious Head exam: Present: atraumatic, normocephalic, normal inspection Eye exam: Present: normal appearance, PERRL, EOMI. Absent: scleral icterus, conjunctival injection, periorbital swelling ENT exam: Present: normal exam, mucous membranes moist Neck exam: Present: normal inspection, full ROM, other. Absent: tenderness, meningismus, lymphadenopathy Respiratory exam: Present: rales, decreased breath sounds. Absent: respiratory distress, wheezes, rhonchi, stridor Cardiovascular Exam: Present: regular rate, normal rhythm, normal heart sounds. Absent: systolic murmur, diastolic murmur, rubs, gallop, clicks GI/Abdominal exam: Present: soft, normal bowel sounds. Absent: distended, tenderness, guarding, rebound, rigid Extremities exam: Present: normal inspection, full ROM, normal capillary refill. Absent: tenderness, pedal edema, joint swelling, calf tenderness Back exam: Present: normal inspection Neurological exam: Present: alert, oriented X3, CN II-XII intact Psychiatric exam: Present: normal affect, normal mood Skin exam: Present: warm, dry, intact, normal color. Absent: rash Course Vital Signs 08/18/21 08/18/21 16:52 17:01 Temperature 99.4 F Pulse Rate 114 H Respiratory 20 20 Rate O2 Sat by Pulse 97 Oximetry - Reevaluation(s) Reevaluation #1: 08/18/21 18:43 Reevaluation the patient for treatment she did feel some improvement after albuterol inhaler treatment. Medical Decision Making - Medical Decision Making I did discuss Pfizer the patient with Dr. Rolon who was present in the emergency department he does demonstrate evidence of chronic renal insufficiency with elevation of the d-dimer and troponin. Patient will be admitted for further evaluation and treatment VQ scan will be ordered - Lab Data Result diagrams: 08/18/21 17:00 08/18/21 17:00 Lab Results 08/18/21 08/18/21 08/18/21 Range/Units 17:00 17:00 17:00 WBC 1.9 L (3.8-10.6) k/uL RBC 2.84 L (3.80-5.40) m/uL Hgb 9.3 L (11.4-16.0) gm/dL Hct 28.3 L (34.0-46.0) % MCV 99.5 (80.0-100.0) fL MCH 32.9 (25.0-35.0) pg MCHC 33.1 (31.0-37.0) g/dL RDW 14.0 (11.5-15.5) % Plt Count 56 L (150-450) k/uL MPV 9.3 Neutrophils % 85 % Lymphocytes % 6 % Monocytes % 5 % Eosinophils % 0 % Basophils % 0 % Neutrophils # 1.6 (1.3-7.7) k/uL Lymphocytes # 0.1 L (1.0-4.8) k/uL Monocytes # 0.1 (0-1.0) k/uL Eosinophils # 0.0 (0-0.7) k/uL Basophils # 0.0 (0-0.2) k/uL Manual Slide Review Performed PT 10.6 (9.0-12.0) sec INR 1.0 (<1.2) APTT 23.7 (22.0-30.0) sec D-Dimer 3.71 H (<0.60) mg/L FEU Sodium 131 L (137-145) mmol/L Potassium 4.1 (3.5-5.1) mmol/L Chloride 97 L (98-107) mmol/L Carbon Dioxide 20 L (22-30) mmol/L Anion Gap 14 mmol/L BUN 57 H (7-17) mg/dL Creatinine 1.94 H (0.52-1.04) mg/dL Est GFR (CKD-EPI)AfAm 31 (>60 ml/min/1.73 sqM) Est GFR (CKD-EPI)NonAf 27 (>60 ml/min/1.73 sqM) Glucose 136 H (74-99) mg/dL Plasma Lactic Acid David (0.7-2.0) mmol/L Calcium 9.8 (8.4-10.2) mg/dL Magnesium 1.5 L (1.6-2.3) mg/dL Total Bilirubin 0.5 (0.2-1.3) mg/dL AST 74 H (14-36) U/L ALT 25 (4-34) U/L Alkaline Phosphatase 127 H (38-126) U/L Lactate Dehydrogenase 1088 H (313-618) U/L Troponin I (0.000-0.034) ng/mL C-Reactive Protein 14.7 H (<1.0) mg/dL Total Protein 6.7 (6.3-8.2) g/dL Albumin 3.9 (3.5-5.0) g/dL Coronavirus (PCR) (Not Detectd) 08/18/21 08/18/21 08/18/21 Range/Units 17:00 17:00 18:03 WBC (3.8-10.6) k/uL RBC (3.80-5.40) m/uL Hgb (11.4-16.0) gm/dL Hct (34.0-46.0) % MCV (80.0-100.0) fL MCH (25.0-35.0) pg MCHC (31.0-37.0) g/dL RDW (11.5-15.5) % Plt Count (150-450) k/uL MPV Neutrophils % % Lymphocytes % % Monocytes % % Eosinophils % % Basophils % % Neutrophils # (1.3-7.7) k/uL Lymphocytes # (1.0-4.8) k/uL Monocytes # (0-1.0) k/uL Eosinophils # (0-0.7) k/uL Basophils # (0-0.2) k/uL Manual Slide Review PT (9.0-12.0) sec INR (<1.2) APTT (22.0-30.0) sec D-Dimer (<0.60) mg/L FEU Sodium (137-145) mmol/L Potassium (3.5-5.1) mmol/L Chloride (98-107) mmol/L Carbon Dioxide (22-30) mmol/L Anion Gap mmol/L BUN (7-17) mg/dL Creatinine (0.52-1.04) mg/dL Est GFR (CKD-EPI)AfAm (>60 ml/min/1.73 sqM) Est GFR (CKD-EPI)NonAf (>60 ml/min/1.73 sqM) Glucose (74-99) mg/dL Plasma Lactic Acid David 0.8 (0.7-2.0) mmol/L Calcium (8.4-10.2) mg/dL Magnesium (1.6-2.3) mg/dL Total Bilirubin (0.2-1.3) mg/dL AST (14-36) U/L ALT (4-34) U/L Alkaline Phosphatase (38-126) U/L Lactate Dehydrogenase (313-618) U/L Troponin I 0.115 H* (0.000-0.034) ng/mL C-Reactive Protein (<1.0) mg/dL Total Protein (6.3-8.2) g/dL Albumin (3.5-5.0) g/dL Coronavirus (PCR) Detected A (Not Detectd) - Radiology Data Radiology results: report reviewed (Imaging reviewed evidence of bilateral infiltrates consistent with COVID-19 please see complete report), image reviewed Disposition Clinical Impression: Pneumonia due to COVID-19 virus, Chronic renal insufficiency, Elevated troponi n, Elevated d-dimer, Anemia, Febrile illness, acute, History of sarcoidosis, Bronchospasm, acute Disposition: ADMITTED IP TO THIS [facility] Condition: Fair Referrals: Daija Henderson MD [Primary Care Provider] - 1-2 days
[2021-08-18] MEDS ORDERED: ALBUTEROL HFA INHALER INHALATION STA (17:00)
[2021-08-18 17:46] LABS: Basophils % (A) 0 %; Eosinophils % (A) 0 %; HCT 28.3 % (34.0-46.0); HGB 9.3 gm/dL (11.4-16.0); Lymphocytes # (A) 0.1 k/uL (1.0-4.8); Lymphocytes % (A) 6 %; MCH 32.9 pg (25.0-35.0); MCHC 33.1 g/dL (31.0-37.0); MCV 99.5 fL (80.0-100.0); Mean Platelet Volume 9.3; Monocytes # (A) 0.1 k/uL (0-1.0); Monocytes % (A) 5 %; Neutrophils # (A) 1.6 k/uL (1.3-7.7); Neutrophils % (A) 85 %; RBC 2.84 m/uL (3.80-5.40); WBC 1.9 k/uL (3.8-10.6)
[2021-08-18 17:54] LABS: Platelet Count 56 k/uL (150-450)
[2021-08-18 17:55] LABS: Partial Thromboplastin Time 23.7 sec (22.0-30.0); Prothrombin Time 10.6 sec (9.0-12.0)
[2021-08-18 17:56] LABS: Albumin 3.9 g/dL (3.5-5.0); Calcium 9.8 mg/dL (8.4-10.2); Magnesium 1.5 mg/dL (1.6-2.3); Potassium 4.1 mmol/L (3.5-5.1); Total Bilirubin 0.5 mg/dL (0.2-1.3); Total Protein 6.7 g/dL (6.3-8.2)
--- NOTE | 2021-08-18 17:56 | XR ---
EXAMINATION TYPE: XR chest 1V portable DATE OF EXAM: 08/18/2021 COMPARISON: 07/23/2020 HISTORY: Pneumonia. Fever. Cough. TECHNIQUE: Single view FINDINGS: There is patchy interstitial and airspace infiltrates in the mid and lower lung barboza. Hea rt size is top normal. There is no evidence of mediastinal adenopathy. There is no pleural effusion. Costophrenic angles are fairly clear. IMPRESSION: Patchy bilateral interstitial and airspace pneumonia which is increased significantly com pared to old exam.
[2021-08-18 18:19] LABS: C Reactive Protein 14.7 mg/dL (<1.0)
[2021-08-18] MEDS ORDERED: PNEUMONIA PROTOCOL UTILIZED 1 EACH MISC PO PRN (18:48)
[2021-08-18] MEDS ORDERED: AZITHROMYCIN 500 MG in SODIUM CHLORIDE 0.9% 250 ML IVPB STA (18:48)
[2021-08-18] MEDS ORDERED: LORazepam 2 MG/ML INJ IV PRN ×3 (18:55)
[2021-08-18] MEDS ORDERED: THIAMINE 100 MG/ML 2 ML VIAL IM STA (18:55)
[2021-08-18] MEDS ORDERED: HEPARIN SODIUM 1,000 UN/ML (10ML VL) IV ONE (18:56)
[2021-08-18] MEDS: SODIUM CHLORIDE 0.9% 1,000 ML IV SCH (19:10)
[2021-08-18] MEDS: DEXAMETHASONE SOD PHOSPHATE 10 MG/ML 1 ML VIAL IVP SCH (19:12)
[2021-08-18] MEDS: PANTOPRAZOLE 40 MG TABLET PO SCH ×2 (19:12→19:24)
[2021-08-18] MEDS: HYDROcodone/APAP 5-325MG 1 EACH TAB PO PRN (19:24)
[2021-08-18] MEDS: HEPARIN SOD,PORK IN 0.45% NACL 25,000 UNIT in 0.45% NACL 1 250ML.BAG IV SCH (19:26)
[2021-08-18] MEDS: ALBUTEROL HFA INHALER INHALATION SCH (20:50)
--- NOTE | 2021-08-18 20:55 | NM ---
EXAMINATION TYPE: NM pul perfusion DATE OF EXAM: 08/18/2021 COMPARISON: NONE HISTORY: Short of breath Following administration of 5.2 mCi Tc 99m MAA. Images obtained post injection. FINDINGS: There are segmental sized perfusion defects involving the right lower lobe and right middle lobe. The re are subsegmental perfusion defects of the right upper lobe. The left lung shows perihilar decrease d perfusion. IMPRESSION: There are at least 2 segmental size perfusion defects in the right lower lobe and right middle lobe. The chest x-ray today shows some patchy bilateral pulmonary infiltrates. There is overall high probability of pulmonary embolism.
--- NOTE | 2021-08-18 21:03 | HP ---
HISTORY AND PHYSICAL CHIEF COMPLAINTS: Shortness of breath and cough and sputum. HISTORY OF PRESENT ILLNESS: This 66-year-old woman with a past medical history of multiple medical problems, including diabetes mellitus, hypertension, hyperlipidemia, sleep apnea, being followed by Dr. Henderson in the outpatient setting, was not feeling well over the past 7 days. The patient had increasing shortness of breath and cough and sputum. Patient apparently spent [place] with the family, who might have had COVID, according to her. The patient also had some fever and chills and some brown phlegm. The patient took two doses of Pfizer vaccine early last year. The patient came to [facility] and the patient was found to have pulse ox about 97% on 2 L. Patient was admitted for further evaluation and treatment. Chest x-ray showed bilateral interstitial lesions highly suggestive of COVID-19. The lab evaluation showed D-dimer of 3.71. Creatinine is also elevated at 1.94. V/Q scan will be ordered. The patient also has chronic kidney disease, stage 3. There is no history of any fever, rigors or chills. No history of headache, loss of consciousness, seizures. The troponins were found to be 0.115. PAST MEDICAL HISTORY: History of diabetes mellitus, history of hypertension, hyperlipidemia, history of renal disease, sleep apnea, history of hysterectomy. HOME MEDICATIONS: Reviewed. They include Januvia, prednisone, hydralazine, vitamin E, torsemide, metoprolol, , lovastatin, levothyroxine. Doses and other medications are also reviewed. ALLERGIES: BACTRIM AND DEMEROL. FAMILY HISTORY: No history of heart disease or strokes in the family. SOCIAL HISTORY: Previous history of smoking daily. Heavy alcohol intake apparently. REVIEW OF SYSTEMS: ENT: No diminished hearing. No diminished vision. CARDIOVASCULAR SYSTEM: As mentioned earlier. RESPIRATORY SYSTEM: As mentioned earlier. GI: No nausea, vomiting, diarrhea. : No dysuria. NERVOUS SYSTEM: No numbness, weakness. ALLERGY/IMMUNOLOGY: No asthma or hay fever. MUSCULOSKELETAL: As mentioned earlier. HEMATOLOGY/ONCOLOGY: No history of anemia. ENDOCRINE: No history of diabetes or hypothyroidism. CONSTITUTIONAL: As mentioned earlier. DERMATOLOGY: Negative. RHEUMATOLOGY: Negative. PSYCHIATRY: As mentioned earlier. PHYSICAL EXAMINATION: Patient alert and oriented x3. Pulse is 114, regular, blood pressure 144/61, respiration 20, temperature 99.4, pulse ox 97% on 2 L. HEENT: Conjunctivae normal. Oral mucosa moist. NECK: No jugular venous distention. CARDIOVASCULAR: S1, S2 muffled. RESPIRATION: Breathing efforts are markedly increased. Bilateral scattered rhonchi and crackles. ABDOMEN: Soft, obese, nontender. No mass palpable. LEGS: No edema. No swelling. NERVOUS SYSTEM: Higher functions as mentioned earlier. Moves all 4 limbs. No focal motor or sensory deficit. LYMPHATICS: No lymph node palpable in neck, axillae or groin. SKIN: No ulcer, rash, bleeding. JOINTS: No active deforming arthropathy. LAB STUDIES: WBC 1.9, hemoglobin 9.3, platelets are 56. Sodium 131, creatinine is 1.94. COVID-19 positive. Other labs are noted. ASSESSMENT: 1. Acute COVID-19 infection with acute COVID-19 bilateral interstitial pneumonia with acute hypoxic respiratory failure. 2. Hyponatremia. 3. Increased creatinine with chronic kidney disease, stage 3. 4. Hypomagnesemia. 5. Elevated AST. 6. Elevated LDH and CRP with elevated inflammatory markers of COVID-19. 7. Troponin 0.1115. Rule out acute [id number]-[id number]-elevation myocardial infarction. 8. Elevated D-dimer. 9. Anemia, leukopenia, thrombocytopenia and mild pancytopenia, possibly secondary to COVID-19 or alcohol. 10.History of diabetes mellitus, type 2. 11.Hypertension. 12.Hyperlipidemia. 13.History of chronic kidney disease. 14.History of sleep apnea. 15.Obesity with body mass index of 39.5. 16.History of ETOH. 17.Remote history of nicotine dependence. 18.FULL CODE. RECOMMENDATIONS AND DISCUSSION: In this 66-year-old woman who presented with multiple complex medical issues, we will monitor the patient closely. I would recommend continuing the current medication, V/Q scan. I would recommend subcutaneous heparin and consult Pulmonary as well as Infectious Disease and Nephrology. I would also recommend dexamethasone. The patient might be a candidate for remdesivir. Will let Dr. Billingsley evaluate that because of the strict criteria for remdesivir the hospital. Otherwise, resume the rest of the medications. Prognosis is guarded because of multiple complex medical issues. Further recommendations to follow. A copy of this dictation is being forwarded to Dr. Henderson, who is the primary physician. MMODL / IJN: [id number] / [id number]
[2021-08-18] MEDS: SODIUM BICARBONATE TAB 650 MG TAB PO SCH (21:14)
[2021-08-19 03:23] LABS: Calcium 9.7 mg/dL (8.4-10.2); Potassium 4.2 mmol/L (3.5-5.1)
[2021-08-19 03:53] LABS: Basophils % (A) 0 %; Eosinophils % (A) 0 %; HCT 26.9 % (34.0-46.0); HGB 8.8 gm/dL (11.4-16.0); Lymphocytes # (A) 0.1 k/uL (1.0-4.8); Lymphocytes % (A) 10 %; MCH 32.7 pg (25.0-35.0); MCHC 32.9 g/dL (31.0-37.0); MCV 99.4 fL (80.0-100.0); Mean Platelet Volume 8.2; Monocytes # (A) 0.1 k/uL (0-1.0); Monocytes % (A) 4 %; Neutrophils % (A) 83 %; RBC 2.71 m/uL (3.80-5.40); RDW 13.4 % (11.5-15.5)
[2021-08-19 03:55] LABS: Platelet Count 46 k/uL (150-450); WBC 1.3 k/uL (3.8-10.6)
[2021-08-19] MEDS: SODIUM CHLORIDE 0.9% 1,000 ML IV SCH ×2 (05:33→16:58)
[2021-08-19] MEDS: HEPARIN SOD,PORK IN 0.45% NACL 25,000 UNIT in 0.45% NACL 1 250ML.BAG IV SCH (07:29)
[2021-08-19] MEDS: ALBUTEROL HFA INHALER INHALATION SCH ×4 (08:55→19:43)
[2021-08-19] MEDS: SODIUM BICARBONATE TAB 650 MG TAB PO SCH ×3 (09:29→22:02)
[2021-08-19] MEDS: HYDROcodone/APAP 5-325MG 1 EACH TAB PO PRN ×2 (09:29→18:05)
[2021-08-19] MEDS: DEXAMETHASONE SOD PHOSPHATE 10 MG/ML 1 ML VIAL IVP SCH (09:29)
--- NOTE | 2021-08-19 16:45 | US ---
EXAMINATION TYPE: US venous doppler duplex LE DATE OF EXAM: 08/19/2021 4:28 PM COMPARISON: US CLINICAL HISTORY: dvt. SOB, Elevated D-dimer SIDE PERFORMED: Bilateral TECHNIQUE: The lower extremity deep venous system is examined utilizing real time linear array sonog lucy with graded compression, doppler sonography and color-flow sonography. VESSELS IMAGED: Common Femoral Vein Deep Femoral Vein Greater Saphenous Vein * Femoral Vein Popliteal Vein Small Saphenous Vein * Proximal Calf Veins (* superficial vessels) Right Leg: Negative for DVT, pt unable to tolerate compressions within the groin, right EIV, CFV, GS V, and DFV unable to compress, however phasic blood flow visualized Left Leg: Negative for DVT, pt unable to tolerate compressions within the groin, left EIV, CFV, GSV, and DFV unable to compress, however phasic blood flow visualized IMPRESSION: Slightly limited exam shows no evidence of deep vein thrombosis in both legs.
--- NOTE | 2021-08-19 16:51 | XR ---
EXAMINATION TYPE: XR chest 1V portable DATE OF EXAM: 08/19/2021 COMPARISON: 08/18/2021 HISTORY: Fever and cough TECHNIQUE: Single view FINDINGS: There is patchy airspace infiltrates throughout both lungs. Heart appears slightly enlarged . There is no definite pleural effusion. There are chest leads. IMPRESSION: Bilateral patchy pneumonia without much change compared to yesterday.
[2021-08-19 16:59] LABS: Glucose,Whole Blood 164 mg/dL (75-99)
[2021-08-19] MEDS: VITAMIN E (DL,TOCOPHERYL ACET) 400 UNIT (180 MG) CAP PO SCH (17:01)
--- NOTE | 2021-08-19 17:01 | PN ---
PROGRESS NOTE DATE OF SERVICE: 08/19/2021 This 66-year-old woman was admitted with shortness of breath and cough and sputum as acute COVID-19 infection with acute bilateral interstitial pneumonia with acute hypoxic respiratory failure. The patient is being closely monitored at this time. The patient also had high probability V/Q scan suggestive of acute pulmonary embolism also. The patient is being closely monitored in telemetry. PAST MEDICAL HISTORY: Reviewed. REVIEW OF SYSTEMS: Cardiovascular system: No angina. Respiratory system: As mentioned earlier. GI: As mentioned earlier. : No dysuria. Nervous system: No numbness or weakness. CURRENT MEDICATIONS: Reviewed and include [place], Ventolin, Zithromax, Decadron, heparin, Ativan. Doses reviewed. PHYSICAL EXAMINATION: Alert and oriented x3. Pulse 87, blood pressure 153/87, respiration 22, respiration 18, temperature is normal, pulse ox 98 % on 3 L. HEENT: Conjunctivae normal. Oral mucosa moist. NECK: No jugular venous distention. No lymph node enlargement. CARDIOVASCULAR: S1, S2, muffled. No S3, no S4, RESPIRATORY: Diminished breath sounds at the bases. A few scattered rhonchi. ABDOMEN: Soft, nontender. LEGS: No edema, no swelling. NERVOUS SYSTEM: No focal deficits. LAB STUDIES: WBC ( ), hemoglobin is 8.8. APTT noted. Sodium 132. The patient started on IV heparin also. ASSESSMENT: 1. Acute Covid-19 next with acute Covid-19 bilateral interstitial pneumonia with acute hypoxic respiratory failure. 2. Acute bilateral pulmonary embolism, on IV heparin. 3. Heparin monitoring. 4. Hyponatremia. 5. Increased creatinine with chronic kidney stage 3. 6. Hypomagnesemia. 7. Elevated AST. 8. Elevated LDH and CRP, elevated inflammatory markers of Covid-19. 9. Troponin 0.115. Rule out acute [id number]-elevation myocardial function or secondary to Covid. 10.Elevated D-dimer. 11.Anemia, leukopenia, thrombocytopenia, mild pancytopenia, possibly secondary to Covid-19 or alcohol. 12.History of diabetes type 2. 13.Hypertension. 14.Hyperlipidemia. 15.History of chronic kidney disease. 16.History of sleep apnea. 17.Obesity with body mass index of 39.5. 18.History of ETOH. 19.Remote history of nicotine dependence. 20.FULL CODE. RECOMMENDATION: Recommend to continue current management, continue symptomatic treatment. Otherwise, at this time I recommend repeat labs. Continue with IV heparin. Closely follow with Pulmonary. I would also recommend Infectious Disease as well as Hematology/Oncology consultation. A CT scan of the chest also will be obtained. Prognosis guarded because of multiple complex medical issues. Further recommendations to follow. MMODL / IJN: [id number] /
[2021-08-19 19:45] LABS: Glucose,Whole Blood 198 mg/dL (75-99)
[2021-08-19] MEDS: ATORVASTATIN 10 MG TAB PO SCH (20:09)
[2021-08-19] MEDS: hydrALAZINE HCL 25 MG TAB PO SCH (20:09)
[2021-08-19] MEDS: CITALOPRAM HYDROBROMIDE 20 MG TAB PO SCH (20:09)
[2021-08-19] MEDS: ASPIRIN 81 MG PO SCH (20:10)
[2021-08-19] MEDS ORDERED: AZITHROMYCIN 500 MG TAB PO SCH (21:00)
[2021-08-19] MEDS ORDERED: METOPROLOL SUCCINATE (ER) 25 MG TAB.ER.24H PO SCH (21:00)
[2021-08-19] MEDS ORDERED: DILTIAZEM 125 MG in SODIUM CHLORIDE 0.9% 100 ML IV SCH (21:15)
[2021-08-19] MEDS: INSULIN ASPART (NovoLOG) 100 UNIT/ML VIAL SQ SCH (22:02)
[2021-08-19] MEDS: HYDROXYCHLOROQUINE SULFATE 200 MG TAB PO SCH (22:03)
--- NOTE | 2021-08-19 22:08 | P.CONS ---
History of Present Illness - Reason for Consult Consult date: 08/19/21 covid ?remdisivir Requesting physician: Wendi Rolon - Chief Complaint shortness of breath x 1 week - History of Present Illness History of present illness : Patient is a 66-year-old female with a past medical history significant chronic kidney disease sarcoidosis in this patient started having symptoms about a week before presentation to the hospital yesterday on 08/18/2021 patient symptom has been mostly initially URI and then shortness of breath on minimal exertion and even at rest the patient also have a cough which is moderate intensity but not bringing up any purulent sputum patient be complaining of weakness and no energy, patient mention also using her inhaler without any relief as per the shortness of breath was consulted with July the patient presented to hospital on arrival to the ER the patient did have low-grade fever of 99.4 F there is no documented hypoxemia as the patient has been been 97 200% on 2 L nasal cannula patient did have a leukopenia as well as lymphopenia did have elevated BUN and creatinine inflammatory markers were n ot checked gregory PCR was positive blood culture previously currently negative patient did have a chest x-ray patchy bilateral interstitial and airspace pneumonia which is increased compared to old exam patient did have pulmonary perfusion imaging which was high probability for PE lower extremity Doppler were negative for any DVT patient has been admitted to hospital infectious disease was consulted for further management Review of system: CONSTITUTIONAL: Positive for weakness along with low-grade fever. EYES: No complaint. ENT: No complaint. RESPIRATORY: As per history of present illness. CARDIOVASCULAR: No complaint. GENITOURINARY: No complaint. GASTROINTESTINAL: No complaint. MUSCULOSKELETAL: No complaint. INTEGUMENTARY: No complaint. PSYCHOLOGIC: No complaint. ENDOCRINE: No complaint. NEUROLOGIC: No complaint. Past medical history : Reviewed, documented below Past surgical history : Reviewed, documented below Social history: Reviewed, documented below Medications: Reviewed, as documented below EXAMINATION: Vital sigans= Reviewed and documented below GENERAL DESCRIPTION: Middle-aged female lying in bed, no distress. No tachypnea or accessory muscle of respiration use. HEENT: Shows Pallor , no scleral icterus. Oral mucous membrane is dry. NECK: Trachea central, no thyromegaly. LUNGS: Unlabored breathing. Coarse breath sounds bilaterally. No wheeze or crackle. HEART: S1, S2, regular rate and rhythm. ABDOMEN: Soft, no tenderness , guarding or rigidity EXTREMITIES: No edema of feet. SKIN: No rash, no masses palpable. NEUROLOGICAL: The patient is awake, alert, oriented x3, mood and affect normal. LABS AND RADIOLOGY: Reviewed results see below Assessment : Patient presented to hospital with increasing shortness of breath and cough in this patient symptom was going for about a week before she presented to hospital yesterday and today is her day 8 of her illness with evidence of multifocal pneumonia secondary to COVID-19 patient also have no documented hypoxemia on her chart as the patient kept on 3 L nasal cannula currently 100% on 3 L these 2 factors will disqualify her for remdesivir per [facility] policy which allowed use of remdesivir and within the first 7 days clinic suspicion low for secondary bacterial pneumonia Plan: 1-we will check inflammatory markers 2-discontinue Zithromax 3-patient to continue with heparin per weight-based protocol along with dexamethasone zinc and ascorbic acid 4-droplet isolation and respiratory support We will follow on clinical condition and cultures to further adjust medication if needed Thank you for this consultation we will follow the patient along with you Past Medical History Past Medical History: Chest Pain / Angina, Heart Failure, Diabetes Mellitus, Hy perlipidemia, Hypertension, Osteoarthritis (OA), Renal Disease, Sleep Apnea/CPAP/BIPAP Additional Past Medical History / Comment(s): NIDDM type II, neuropathy bilateral feet with R foot worse, CKD stage III/IV, sarcoidosis/lungs, DAYRON with cpap use, pulmonary htn, "arrhythmia-pt does not recall type, sinus problems, benign colon polyp, UTIs, anemia, arthritis bilateral knees with L one worse. History of Any Multi-Drug Resistant Organisms: None Reported Past Surgical History: Hysterectomy, Orthopedic Surgery, Tonsillectomy Additional Past Surgical History / Comment(s): R ankle fracture/screw since removed, colonoscopy. Past Anesthesia/Blood Transfusion Reactions: No Reported Reaction Additional Past Anesthesia/Blood Transfusion Reaction / Comm: Pt has clausterphobia. Smoking Status: Former smoker - Past Family History Father Family Medical History: Congestive Heart Failure (CHF) Additional Family Medical History / Comment(s): Father from CHF Mother Family Medical History: COPD Medications and Allergies Home Medications Medication Instructions Recorded Confirmed Type Aspirin [Adult Low Dose Aspirin EC] 81 mg PO HS 07/19/20 08/18/21 History Cetirizine HCl [Zyrtec] 10 mg PO HS 07/19/20 08/18/21 History Citalopram Hydrobromide 20 mg PO HS 07/19/20 08/18/21 History Ergocalciferol [Vitamin D2 50,000 unit PO WE 07/19/20 08/18/21 History (DRISDOL)] Glucosamine Sulfate 1,000 mg PO DAILY 07/19/20 08/18/21 History Levothyroxine Sodium [Synthroid] 75 mcg PO DAILY 07/19/20 08/18/21 History Lovastatin [Mevacor] 10 mg PO HS 07/19/20 08/18/21 History Lysine [l-Lysine] 500 mg PO BID 07/19/20 08/18/21 History Ubidecarenone [Co Q-10] 100 mg PO W/SUPPER 07/19/20 08/18/21 History Vitamin E 400 unit PO W/SUPPER 07/19/20 08/18/21 History Metoprolol Succinate (ER) [Toprol 25 mg PO HS #30 tab.er.24h 07/31/20 08/18/21 Rx XL] Albuterol Nebulized [Ventolin 2.5 mg INHALATION RT-TID PRN 08/18/21 08/18/21 History Nebulized] Hydroxychloroquine Sulfate 200 mg PO BID 08/18/21 08/18/21 History [Plaquenil] Pantoprazole Sodium [Protonix] 40 mg PO DAILY 08/18/21 08/18/21 History Sodium Bicarbonate Tab 650 mg PO BID 08/18/21 08/18/21 History Torsemide [Demadex] 20 mg PO DAILY 08/18/21 08/18/21 History hydrALAZINE HCL 12.5 mg PO DAILY 08/18/21 08/18/21 History hydrALAZINE HCL 25 mg PO HS 08/18/21 08/18/21 History predniSONE 5 mg PO DAILY 08/18/21 08/18/21 History sitaGLIPtin PHOSPHATE [Januvia] 50 mg PO DAILY 08/18/21 08/18/21 History Allergies Allergy/AdvReac Type Severity Reaction Status Date / Time sulfamethoxazole Allergy Rash/Hives Verified 08/18/21 18:45 [From Bactrim] trimethoprim [From Bactrim] Allergy Rash/Hives Verified 08/18/21 18:45 meperidine [From Demerol] AdvReac Swelling Verified 08/18/21 18:45 Physical Exam Vitals: Vital Signs Pulse Pulse Resp BP BP Pulse Ox 08/19/21 16:00 97 20 190/86 97 08/19/21 14:00 18 08/19/21 12:27 87 22 153/87 99 08/19/21 07:34 64 18 152/96 100 08/19/21 05:30 74 18 143/73 98 08/19/21 01:22 68 18 99 08/18/21 22:03 111 H 18 158/88 98 08/18/21 21:05 111 H 18 156/86 98 08/18/21 19:25 63 20 97 08/18/21 18:30 59 L 20 144/69 98 Intake and Output 08/19/21 08/19/21 08/19/21 06:59 14:59 22:59 Intake Total 183.976 129.137 Balance 183.976 129.137 Intake: Intake, IV Titration 183.976 129.137 Amount Heparin Sod,Pork in 0.45% 183.976 129.137 NaCl 25,000 unit In 0.45 % NaCl 1 250ml.bag @ 18 UNITS/KG/HR 21.228 mls/hr IV .[id number] [facility] Rx#: [id number] Other: Weight 117.934 kg Results CBC & Chem 7: 08/19/21 02:42 08/19/21 02:42 Labs: Abnormal Lab Results - Last 24 Hours (Table) 08/18/21 08/18/21 08/18/21 Range/Units 17:00 17:00 17:00 WBC (3.8-10.6) k/uL RBC (3.80-5.40) m/uL Hgb (11.4-16.0) gm/dL Hct (34.0-46.0) % Plt Count (150-450) k/uL Neutrophils # (1.3-7.7) k/uL Lymphocytes # (1.0-4.8) k/uL APTT (22.0-30.0) sec D-Dimer 3.71 H (<0.60) mg/L FEU Sodium 131 L (137-145) mmol/L Chloride 97 L (98-107) mmol/L Carbon Dioxide 20 L (22-30) mmol/L BUN 57 H (7-17) mg/dL Creatinine 1.94 H (0.52-1.04) mg/dL Glucose 136 H (74-99) mg/dL POC Glucose (mg/dL) (75-99) mg/dL Magnesium 1.5 L (1.6-2.3) mg/dL Ferritin 2452.0 H (10.0-291.0) ng/mL AST 74 H (14-36) U/L Alkaline Phosphatase 127 H (38-126) U/L Lactate Dehydrogenase 1088 H (313-618) U/L Troponin I 0.115 H* (0.000-0.034) ng/mL C-Reactive Protein 14.7 H (<1.0) mg/dL Procalcitonin (0.02-0.09) ng/mL Coronavirus (PCR) (Not Detectd) 08/18/21 08/18/21 08/18/21 Range/Units 17:00 18:03 19:00 WBC (3.8-10.6) k/uL RBC (3.80-5.40) m/uL Hgb (11.4-16.0) gm/dL Hct (34.0-46.0) % Plt Count (150-450) k/uL Neutrophils # (1.3-7.7) k/uL Lymphocytes # (1.0-4.8) k/uL APTT (22.0-30.0) sec D-Dimer (<0.60) mg/L FEU Sodium (137-145) mmol/L Chloride (98-107) mmol/L Carbon Dioxide (22-30) mmol/L BUN (7-17) mg/dL Creatinine (0.52-1.04) mg/dL Glucose (74-99) mg/dL POC Glucose (mg/dL) (75-99) mg/dL Magnesium (1.6-2.3) mg/dL Ferritin (10.0-291.0) ng/mL AST (14-36) U/L Alkaline Phosphatase (38-126) U/L Lactate Dehydrogenase 1093 H (313-618) U/L Troponin I (0.000-0.034) ng/mL C-Reactive Protein (<1.0) mg/dL Procalcitonin 1.26 H (0.02-0.09) ng/mL Coronavirus (PCR) Detected A (Not Detectd) 08/19/21 08/19/21 08/19/21 Range/Units 02:42 02:42 02:42 WBC 1.3 L* (3.8-10.6) k/uL RBC 2.71 L (3.80-5.40) m/uL Hgb 8.8 L (11.4-16.0) gm/dL Hct 26.9 L (34.0-46.0) % Plt Count 46 L (150-450) k/uL Neutrophils # 1.0 L (1.3-7.7) k/uL Lymphocytes # 0.1 L (1.0-4.8) k/uL APTT >200.0 H* (22.0-30.0) sec D-Dimer (<0.60) mg/L FEU Sodium 132 L (137-145) mmol/L Chloride (98-107) mmol/L Carbon Dioxide 18 L (22-30) mmol/L BUN 57 H (7-17) mg/dL Creatinine 2.06 H (0.52-1.04) mg/dL Glucose 198 H (74-99) mg/dL POC Glucose (mg/dL) (75-99) mg/dL Magnesium (1.6-2.3) mg/dL Ferritin (10.0-291.0) ng/mL AST (14-36) U/L Alkaline Phosphatase (38-126) U/L Lactate Dehydrogenase (313-618) U/L Troponin I (0.000-0.034) ng/mL C-Reactive Protein (<1.0) mg/dL Procalcitonin (0.02-0.09) ng/mL Coronavirus (PCR) (Not Detectd) 08/19/21 08/19/21 Range/Units 11:19 16:57 WBC (3.8-10.6) k/uL RBC (3.80-5.40) m/uL Hgb (11.4-16.0) gm/dL Hct (34.0-46.0) % Plt Count (150-450) k/uL Neutrophils # (1.3-7.7) k/uL Lymphocytes # (1.0-4.8) k/uL APTT 117.9 H* (22.0-30.0) sec D-Dimer (<0.60) mg/L FEU Sodium (137-145) mmol/L Chloride (98-107) mmol/L Carbon Dioxide (22-30) mmol/L BUN (7-17) mg/dL Creatinine (0.52-1.04) mg/dL Glucose (74-99) mg/dL POC Glucose (mg/dL) 164 H (75-99) mg/dL Magnesium (1.6-2.3) mg/dL Ferritin (10.0-291.0) ng/mL AST (14-36) U/L Alkaline Phosphatase (38-126) U/L Lactate Dehydrogenase (313-618) U/L Troponin I (0.000-0.034) ng/mL C-Reactive Protein (<1.0) mg/dL Procalcitonin (0.02-0.09) ng/mL Coronavirus (PCR) (Not Detectd)
[2021-08-19] MEDS ORDERED: ACETAMINOPHEN TAB 325 MG TAB PO PRN (22:25)
[2021-08-20] MEDS: HEPARIN SOD,PORK IN 0.45% NACL 25,000 UNIT in 0.45% NACL 1 250ML.BAG IV SCH ×3 (00:14→23:39)
[2021-08-20] MEDS: HYDROcodone/APAP 5-325MG 1 EACH TAB PO PRN ×3 (00:22→19:58)
[2021-08-20 06:15] LABS: Glucose,Whole Blood 119 mg/dL (75-99)
[2021-08-20] MEDS: PANTOPRAZOLE 40 MG TABLET PO SCH (06:28)
[2021-08-20] MEDS: SODIUM CHLORIDE 0.9% 1,000 ML IV SCH ×3 (06:29→23:40)
[2021-08-20] MEDS ORDERED: LEVOTHYROXINE 75 MCG TAB PO SCH (06:30)
[2021-08-20] MEDS: INSULIN ASPART (NovoLOG) 100 UNIT/ML VIAL SQ SCH ×4 (06:30→19:59)
[2021-08-20 07:03] LABS: Basophils % (A) 0 %; Eosinophils % (A) 1 %; HCT 27.5 % (34.0-46.0); Lymphocytes # (A) 0.1 k/uL (1.0-4.8); Lymphocytes % (A) 5 %; MCH 33.1 pg (25.0-35.0); MCHC 32.7 g/dL (31.0-37.0); MCV 101.3 fL (80.0-100.0); Mean Platelet Volume 8.5; Monocytes # (A) 0.1 k/uL (0-1.0); Monocytes % (A) 4 %; Neutrophils # (A) 2.4 k/uL (1.3-7.7); Neutrophils % (A) 88 %; RBC 2.71 m/uL (3.80-5.40); RDW 13.3 % (11.5-15.5); WBC 2.8 k/uL (3.8-10.6)
[2021-08-20 07:18] LABS: Platelet Count 73 k/uL (150-450)
[2021-08-20 07:25] LABS: Calcium 9.4 mg/dL (8.4-10.2); Potassium 4.3 mmol/L (3.5-5.1)
[2021-08-20 07:36] LABS: Partial Thromboplastin Time 40.9 sec (22.0-30.0)
[2021-08-20] MEDS: HYDROXYCHLOROQUINE SULFATE 200 MG TAB PO SCH ×2 (08:18→19:59)
[2021-08-20] MEDS: SODIUM BICARBONATE TAB 650 MG TAB PO SCH ×3 (08:19→19:59)
[2021-08-20] MEDS: DEXAMETHASONE SOD PHOSPHATE 10 MG/ML 1 ML VIAL IVP SCH (08:22)
[2021-08-20] MEDS: METOPROLOL TARTRATE 50 MG TAB PO SCH ×2 (08:33→19:59)
[2021-08-20] MEDS: FUROSEMIDE 10 MG/ML 4 ML VIAL IV SCH ×3 (08:34→23:47)
[2021-08-20] MEDS ORDERED: ERGOCALCIFEROL 1,250 MCG (50,000 IU) CAPSULE PO SCH (09:00)
[2021-08-20] MEDS ORDERED: hydrALAZINE HCL 25 MG TAB PO SCH (09:00)
[2021-08-20] MEDS ORDERED: LINAGLIPTIN 5 MG TABLET PO SCH (09:00)
[2021-08-20] MEDS ORDERED: TORSEMIDE 20 MG TAB PO SCH (09:00)
--- NOTE | 2021-08-20 09:22 | P.CONS ---
History of Present Illness - Reason for Consult Consult date: 08/20/21 Pulmonary Embolism Requesting physician: Wendi Rolon - Chief Complaint SOB - History of Present Illness Mrs. Hartmann is a pleasant patient who we have been asked to see due to high probability for PE during active covid Infection. Review of Systems All systems: negative Constitutional: Reports as per HPI Past Medical History Past Medical History: Chest Pain / Angina, Heart Failure, Diabetes Mellitus, Hyperlipidemia, Hypertension, Osteoarthritis (OA), Renal Disease, Sleep Apnea/CPAP/BIPAP Additional Past Medical History / Comment(s): NIDDM type II, neuropathy bilateral feet with R foot worse, CKD stage III/IV, sarcoidosis/lungs, DAYRON with cpap use, pulmonary htn, "arrhythmia-pt does not recall type, sinus problems, benign colon polyp, UTIs, anemia, arthritis bilateral knees with L one worse. History of Any Multi-Drug Resistant Organisms: None Reported Past Surgical History: Hysterectomy, Orthopedic Surgery, Tonsillectomy Additional Past Surgical History / Comment(s): R ankle fracture/screw since removed, colonoscopy. Past Anesthesia/Blood Transfusion Reactions: No Reported Reaction Additional Past Anesthesia/Blood Transfusion Reaction / Comm: Pt has clausterphobia. Smoking Status: Former smoker - Past Family History Father Family Medical History: Congestive Heart Failure (CHF) Additional Family Medical History / Comment(s): Father from CHF Mother Family Medical History: COPD Medications and Allergies Home Medications Medication Instructions Recorded Confirmed Type Aspirin [Adult Low Dose Aspirin EC] 81 mg PO HS 07/19/20 08/18/21 History Cetirizine HCl [Zyrtec] 10 mg PO HS 07/19/20 08/18/21 History Citalopram Hydrobromide 20 mg PO HS 07/19/20 08/18/21 History Ergocalciferol [Vitamin D2 50,000 unit PO WE 07/19/20 08/18/21 History (DRISDOL)] Glucosamine Sulfate 1,000 mg PO DAILY 07/19/20 08/18/21 History Levothyroxine Sodium [Synthroid] 75 mcg PO DAILY 07/19/20 08/18/21 History Lovastatin [Mevacor] 10 mg PO HS 07/19/20 08/18/21 History Lysine [l-Lysine] 500 mg PO BID 07/19/20 08/18/21 History Ubidecarenone [Co Q-10] 100 mg PO W/SUPPER 07/19/20 08/18/21 History Vitamin E 400 unit PO W/SUPPER 07/19/20 08/18/21 History Metoprolol Succinate (ER) [Toprol 25 mg PO HS #30 tab.er.24h 07/31/20 08/18/21 Rx XL] Albuterol Nebulized [Ventolin 2.5 mg INHALATION RT-TID PRN 08/18/21 08/18/21 History Nebulized] Hydroxychloroquine Sulfate 200 mg PO BID 08/18/21 08/18/21 History [Plaquenil] Pantoprazole Sodium [Protonix] 40 mg PO DAILY 08/18/21 08/18/21 History Sodium Bicarbonate Tab 650 mg PO BID 08/18/21 08/18/21 History Torsemide [Demadex] 20 mg PO DAILY 08/18/21 08/18/21 History hydrALAZINE HCL 12.5 mg PO DAILY 08/18/21 08/18/21 History hydrALAZINE HCL 25 mg PO HS 08/18/21 08/18/21 History predniSONE 5 mg PO DAILY 08/18/21 08/18/21 History sitaGLIPtin PHOSPHATE [Januvia] 50 mg PO DAILY 08/18/21 08/18/21 History Allergies Allergy/AdvReac Type Severity Reaction Status Date / Time sulfamethoxazole Allergy Rash/Hives Verified 08/18/21 18:45 [From Bactrim] trimethoprim [From Bactrim] Allergy Rash/Hives Verified 08/18/21 18:45 meperidine [From Demerol] AdvReac Swelling Verified 08/18/21 18:45 Physical Exam Vitals: Vital Signs Temp Pulse Pulse Resp BP BP BP 08/20/21 04:00 98.6 F 94 18 161/79 08/20/21 02:00 109 H 19 08/20/21 00:00 99.2 F 109 H 19 154/75 08/19/21 22:31 110 H 21 138/86 08/19/21 22:10 99.8 F H 111 H 20 185/84 08/19/21 20:00 99.5 F 133 H 21 132/87 08/19/21 19:00 08/19/21 16:00 97 20 190/86 08/19/21 14:00 18 08/19/21 12:27 87 22 153/87 Pulse Ox 08/20/21 04:00 94 L 08/20/21 02:00 08/20/21 00:00 94 L 08/19/21 22:31 96 08/19/21 22:10 96 08/19/21 20:00 98 08/19/21 19:00 98 08/19/21 16:00 97 08/19/21 14:00 08/19/21 12:27 99 Intake and Output 08/19/21 08/20/21 08/20/21 22:59 06:59 14:59 Intake Total 317.697 458.25 Output Total 300 Balance 17.697 458.25 Intake: Intake, IV Titration 117.697 358.25 Amount Diltiazem 125 mg In 20 Sodium Chloride 0.9% 100 ml @ 5 MG/HR 5 mls/hr IV .Q24H [facility] Rx#:[id number] Heparin Sod,Pork in 0.45% 117.697 38.25 NaCl 25,000 unit In 0.45 % NaCl 1 250ml.bag @ 18 UNITS/KG/HR 21.228 mls/hr IV .[id number] [facility] Rx#: [id number] Sodium Chloride 0.9% 1, 0 300 000 ml @ 100 mls/hr IV . Q10H [facility] Rx#:[id number] Oral 200 100 Output: Urine 300 Other: Voiding Method Bedside Commode Bedside Commode # Voids 1 2 - Constitutional General appearance: mild distress - EENT Eyes: EOMI ENT: hard of hearing, NA/AT - Respiratory Respiratory: bilateral: rhonchi (non rebreather, increased respirations) - Gastrointestinal General gastrointestinal: soft, tenderness - Integumentary Integumentary: pale - Musculoskeletal Musculoskeletal: generalized weakness - Psychiatric Psychiatric: A&O x's 3, appropriate affect Results CBC & Chem 7: 08/20/21 06:12 08/20/21 06:12 Labs: Abnormal Lab Results - Last 24 Hours (Table) 08/19/21 08/19/21 08/19/21 Range/Units 11:19 16:57 19:44 WBC (3.8-10.6) k/uL RBC (3.80-5.40) m/uL Hgb (11.4-16.0) gm/dL Hct (34.0-46.0) % MCV (80.0-100.0) fL Plt Count (150-450) k/uL Lymphocytes # (1.0-4.8) k/uL APTT 117.9 H* (22.0-30.0) sec D-Dimer (<0.60) mg/L FEU Sodium (137-145) mmol/L Carbon Dioxide (22-30) mmol/L BUN (7-17) mg/dL Creatinine (0.52-1.04) mg/dL Glucose (74-99) mg/dL POC Glucose (mg/dL) 164 H 198 H (75-99) mg/dL Lactate Dehydrogenase (313-618) U/L Troponin I (0.000-0.034) ng/mL 08/19/21 08/19/21 08/20/21 Range/Units 19:52 21:27 06:08 WBC (3.8-10.6) k/uL RBC (3.80-5.40) m/uL Hgb (11.4-16.0) gm/dL Hct (34.0-46.0) % MCV (80.0-100.0) fL Plt Count (150-450) k/uL Lymphocytes # (1.0-4.8) k/uL APTT 38.3 H (22.0-30.0) sec D-Dimer (<0.60) mg/L FEU Sodium (137-145) mmol/L Carbon Dioxide (22-30) mmol/L BUN (7-17) mg/dL Creatinine (0.52-1.04) mg/dL Glucose (74-99) mg/dL POC Glucose (mg/dL) 119 H (75-99) mg/dL Lactate Dehydrogenase (313-618) U/L Troponin I 0.085 H* (0.000-0.034) ng/mL 08/20/21 08/20/21 08/20/21 Range/Units 06:12 06:12 06:12 WBC 2.8 L (3.8-10.6) k/uL RBC 2.71 L (3.80-5.40) m/uL Hgb 9.0 L (11.4-16.0) gm/dL Hct 27.5 L (34.0-46.0) % MCV 101.3 H (80.0-100.0) fL Plt Count 73 L D (150-450) k/uL Lymphocytes # 0.1 L (1.0-4.8) k/uL APTT 40.9 H (22.0-30.0) sec D-Dimer 4.05 H (<0.60) mg/L FEU Sodium 132 L (137-145) mmol/L Carbon Dioxide 20 L (22-30) mmol/L BUN 60 H (7-17) mg/dL Creatinine 1.99 H (0.52-1.04) mg/dL Glucose 117 H (74-99) mg/dL POC Glucose (mg/dL) (75-99) mg/dL Lactate Dehydrogenase 1507 H (313-618) U/L Troponin I (0.000-0.034) ng/mL Microbiology - Last 24 Hours (Table) 08/18/21 17:20 Blood Culture - Preliminary Blood No Growth after 24 hours 08/18/21 17:02 Blood Culture - Preliminary Blood No Growth after 24 hours Assessment and Plan (1) Pulmonary embolism Current Visit: Yes Status: Acute Code(s): I26.99 - OTHER PULMONARY EMBOLISM WITHOUT ACUTE COR PULMONALE SNOMED Code(s): 25181578 (2) COVID-19 Narrative/Plan: - Give the High Probability of PE on VQ scan with the picture of active covid infection, will need to rule out an antiphospholipid syndrome prior to final recommendation for anticoagulation. - Await Antii-cardiolipin and Anti-beta 2 glycoprotein antibodies (Lupus anticoagulant will be positive due to heparin - These have been ordered - Continue Heparin drip during acute illness and until above result - Keep platelet count greater than 50K Current Visit: Yes Status: Acute Code(s): U07.1 - COVID-19 SNOMED Code(s): 010803716 (3) Macrocytic anemia Narrative/Plan: - History of liver cirrhosis and CKD (unknown stage) - Anemia work-up in progress - Parental Iron is not recommended during acute infection - Monitor and transfuse for hemoglobin less than 7 Current Visit: Yes Status: Acute Code(s): D53.9 - NUTRITIONAL ANEMIA, UNSPECIFIED SNOMED Code(s): 53493804 (4) History of sarcoidosis Narrative/Plan: Pulmonary is folowing Current Visit: Yes Status: Acute Code(s): Z86.2 - PRSNL HISTORY OF DIS OF THE BLD/BLD-FORM ORG/[facility]UN [facility] SNOMED Code(s): 766096917 (5) Pneumonia due to COVID-19 virus Current Visit: Yes Status: Acute Code(s): U07.1 - COVID-19; J12.82 - PNEUMONIA DUE TO CORONAVIRUS DISEASE 2018 SNOMED Code(s): 971947560553456719 (6) Cirrhosis, alcoholic Current Visit: No Status: Acute Code(s): K70.30 - ALCOHOLIC CIRRHOSIS OF LIVER WITHOUT ASCITES SNOMED Code(s): 388071681 (7) Chronic renal insufficiency Narrative/Plan: - unknown stage Current Visit: Yes Status: Acute Code(s): N18.9 - CHRONIC KIDNEY DISEASE, UNSPECIFIED SNOMED Code(s): 423407358 (8) Thrombocytopenia Narrative/Plan: - Monitor for DIC - Monitor for s/s bleeding - She has a chronically mild decrease at baseline in platelet count secondary to liver disease - Now with acute infectious/inflam process to decrease this count further and on heparin drip for PE - Transfuse to keep greater than 50K on anti=coagulation Current Visit: Yes Status: Acute Code(s): D69.6 - THROMBOCYTOPENIA, UNSPECIFIED SNOMED Code(s): 562266361
[2021-08-20 09:59] LABS: Albumin 3.6 g/dL (3.5-5.0); Bilirubin, Delta 0.5 mg/dL (0.0-0.2); Total Bilirubin 0.5 mg/dL (0.2-1.3); Total Protein 6.4 g/dL (6.3-8.2)
[2021-08-20] MEDS: ALBUTEROL HFA INHALER INHALATION SCH ×4 (10:47→20:56)
[2021-08-20 10:56] VITALS: BMI 39.5
--- NOTE | 2021-08-20 10:59 | P.CRDCN ---
History of Present Illness Consult date: 08/20/21 History of present illness: CHIEF COMPLAINT: afib HISTORY OF PRESENT ILLNESS: This is a 66-year-old female with a past medical history significant for mild coronary artery disease, hypertension, and hyperlipidemia. Patient follows in the office with Dr. Elizalde. We have been asked to see the patient in consultation for afib. Patient examined at the bedside. Patient presented to the hospital with a chief complaint of SOB. Patient was found to be positive for Covid. The patient is on 6L NC this morning. She is complaining of SOB. Denies chest pain. Telemetry reveals multifocal atrial tachycardia. The patient believes she has a history of atrial fibrillation. However, there is no documented history of atrial fibrillation and she is not prescribed anticoagulation outpatient. VQ scan completed revealing high probability for pulmonary embolism. The patient is currently on IV heparin. Platelet count on the lower side at 73 today. DIAGNOSTICS: EKG reveals multifocal atrial tachycardia Chest xray bilateral patchy interstitial and airspace pneumonia which has increased significantly compared to old exam Laboratory data: WBC 2.8. Hemoglobin 9.0. Platelet count 73. D-dimer 4.05. Sodium 132. Potassium 4.3. BUN 60. Creatinine 1.99. Troponin 0.115. 0.085. ProBNP 26,800. Current home cardiac medications include aspirin 81 mg daily, Demadex 20 mg daily, hydralazine 25mg at night, metoprolol succinate 25 mg at night, hydralazine 12.5 mg daily VQ scan: High probability of pulmonary embolism REVIEW OF SYSTEMS: Thorough review of systems not completed secondary to limited evaluation/examination due to Covid19 PHYSICAL EXAM: Thorough physical exam not completed secondary to limited evaluation/examination due to Covid19 ASSESSMENT: Shortness of breath Covid 19 Acute hypoxic respiratory failure Acute on chronic diastolic congestive heart failure Multifocal atrial tachycardia High probability of pulmonary embolism per VQ scan Abnormal troponins, not suggestive of ACS Hypertension Hyperlipidemia Known mild coronary artery disease Pancytopenia Chronic kidney disease PLAN: 2D echo obtained at bedside revealing EF 40-45%. No right ventricular strain pattern per Dr. Castaneda Discontinue IV Cardizem Change metoprolol to 50mg BID Add verapamil 40 mg twice a day Repeat EKG Begin Lasix 40 mg IV every 8 hours Continue IV heparin for PE. Further management of anticoagulation per hematology Further recommendations pending patient course Nurse practitioner note has been reviewed by physician. Signing provider agrees with the documented findings, assessment, and plan of care. Past Medical History Past Medical History: Chest Pain / Angina, Heart Failure, Diabetes Mellitus, Hyperlipidemia, Hypertension, Osteoarthritis (OA), Renal Disease, Sleep Apnea/CPAP/BIPAP Additional Past Medical History / Comment(s): NIDDM type II, neuropathy bilateral feet with R foot worse, CKD stage III/IV, sarcoidosis/lungs, DAYRON with cpap use, pulmonary htn, "arrhythmia-pt does not recall type, sinus problems, benign colon polyp, UTIs, anemia, arthritis bilateral knees with L one worse. History of Any Multi-Drug Resistant Organisms: None Reported Past Surgical History: Hysterectomy, Orthopedic Surgery, Tonsillectomy Additional Past Surgical History / Comment(s): R ankle fracture/screw since removed, colonoscopy. Past Anesthesia/Blood Transfusion Reactions: No Reported Reaction Additional Past Anesthesia/Blood Transfusion Reaction / Comment(s): Pt has clausterphobia. Smoking Status: Former smoker - Past Family History Father Family Medical History: Congestive Heart Failure (CHF) Additional Family Medical History / Comment(s): Father from CHF Mother Family Medical History: COPD Medications and Allergies Home Medications Medication Instructions Recorded Confirmed Type Aspirin [Adult Low Dose Aspirin EC] 81 mg PO HS 07/19/20 08/18/21 History Cetirizine HCl [Zyrtec] 10 mg PO HS 07/19/20 08/18/21 History Citalopram Hydrobromide 20 mg PO HS 07/19/20 08/18/21 History Ergocalciferol [Vitamin D2 50,000 unit PO WE 07/19/20 08/18/21 History (DRISDOL)] Glucosamine Sulfate 1,000 mg PO DAILY 07/19/20 08/18/21 History Levothyroxine Sodium [Synthroid] 75 mcg PO DAILY 07/19/20 08/18/21 History Lovastatin [Mevacor] 10 mg PO HS 07/19/20 08/18/21 History Lysine [l-Lysine] 500 mg PO BID 07/19/20 08/18/21 History Ubidecarenone [Co Q-10] 100 mg PO W/SUPPER 07/19/20 08/18/21 History Vitamin E 400 unit PO W/SUPPER 07/19/20 08/18/21 History Metoprolol Succinate (ER) [Toprol 25 mg PO HS #30 tab.er.24h 07/31/20 08/18/21 Rx XL] Albuterol Nebulized [Ventolin 2.5 mg INHALATION RT-TID PRN 08/18/21 08/18/21 History Nebulized] Hydroxychloroquine Sulfate 200 mg PO BID 08/18/21 08/18/21 History [Plaquenil] Pantoprazole Sodium [Protonix] 40 mg PO DAILY 08/18/21 08/18/21 History Sodium Bicarbonate Tab 650 mg PO BID 08/18/21 08/18/21 History Torsemide [Demadex] 20 mg PO DAILY 08/18/21 08/18/21 History hydrALAZINE HCL 12.5 mg PO DAILY 08/18/21 08/18/21 History hydrALAZINE HCL 25 mg PO HS 08/18/21 08/18/21 History predniSONE 5 mg PO DAILY 08/18/21 08/18/21 History sitaGLIPtin PHOSPHATE [Januvia] 50 mg PO DAILY 08/18/21 08/18/21 History Allergies Allergy/AdvReac Type Severity Reaction Status Date / Time sulfamethoxazole Allergy Rash/Hives Verified 08/18/21 18:45 [From Bactrim] trimethoprim [From Bactrim] Allergy Rash/Hives Verified 08/18/21 18:45 meperidine [From Demerol] AdvReac Swelling Verified 08/18/21 18:45 Physical Exam Vitals: Vital Signs Temp Pulse Pulse Resp BP BP BP 08/20/21 04:00 98.6 F 94 18 161/79 08/20/21 02:00 109 H 19 08/20/21 00:00 99.2 F 109 H 19 154/75 08/19/21 22:31 110 H 21 138/86 08/19/21 22:10 99.8 F H 111 H 20 185/84 08/19/21 20:00 99.5 F 133 H 21 132/87 08/19/21 19:00 08/19/21 16:00 97 20 190/86 08/19/21 14:00 18 08/19/21 12:27 87 22 153/87 Pulse Ox 08/20/21 04:00 94 L 08/20/21 02:00 08/20/21 00:00 94 L 08/19/21 22:31 96 08/19/21 22:10 96 08/19/21 20:00 98 08/19/21 19:00 98 08/19/21 16:00 97 08/19/21 14:00 08/19/21 12:27 99 Intake and Output 08/19/21 08/20/21 08/20/21 22:59 06:59 14:59 Intake Total 317.697 458.25 147.498 Output Total 300 Balance 17.697 458.25 147.498 Intake: Intake, IV Titration 117.697 358.25 147.498 Amount Diltiazem 125 mg In 20 Sodium Chloride 0.9% 100 ml @ 5 MG/HR 5 mls/hr IV .Q24H [facility] Rx#:[id number] Heparin Sod,Pork in 0.45% 117.697 38.25 147.498 NaCl 25,000 unit In 0.45 % NaCl 1 250ml.bag @ 18 UNITS/KG/HR 21.228 mls/hr IV .[id number] [facility] Rx#: [id number] Sodium Chloride 0.9% 1, 0 300 000 ml @ 100 mls/hr IV . Q10H [facility] Rx#:[id number] Oral 200 100 Output: Urine 300 Other: Voiding Method Bedside Commode Bedside Commode # Voids 1 2 Results 08/20/21 06:12 08/20/21 06:12 Cardiac Enzymes 08/19/21 08/20/21 08/20/21 Range/Units 21:27 06:12 06:12 AST 81 H (14-36) U/L Lactate Dehydrogenase 1507 H (313-618) U/L Troponin I 0.085 H* (0.000-0.034) ng/mL Coagulation 08/19/21 08/19/21 08/20/21 Range/Units 11:19 19:52 06:12 APTT 117.9 H* 38.3 H 40.9 H (22.0-30.0) sec CBC 08/20/21 Range/Units 06:12 WBC 2.8 L (3.8-10.6) k/uL RBC 2.71 L (3.80-5.40) m/uL Hgb 9.0 L (11.4-16.0) gm/dL Hct 27.5 L (34.0-46.0) % Plt Count 73 L D (150-450) k/uL Comprehensive Metabolic Panel 08/20/21 08/20/21 Range/Units 06:12 06:12 Sodium 132 L (137-145) mmol/L Potassium 4.3 (3.5-5.1) mmol/L Chloride 100 (98-107) mmol/L Carbon Dioxide 20 L (22-30) mmol/L BUN 60 H (7-17) mg/dL Creatinine 1.99 H (0.52-1.04) mg/dL Glucose 117 H (74-99) mg/dL Calcium 9.4 (8.4-10.2) mg/dL Unconjugated Bilirubin 0.0 (0.0-1.1) mg/dL AST 81 H (14-36) U/L ALT 27 (4-34) U/L Alkaline Phosphatase 140 H (38-126) U/L Total Protein 6.4 (6.3-8.2) g/dL Albumin 3.6 (3.5-5.0) g/dL Current Medications Generic Name Dose Route Start Last Admin Trade Name Freq PRN Reason Stop Dose Admin Acetaminophen 650 mg 08/19/21 22:25 08/19/21 22:37 Acetaminophen Tab 325 Mg Tab PO 650 mg Q6HR PRN Administration Fever and/ or Pain Hydrocodone Bitart/Acetaminophen 1 each 08/18/21 18:54 08/20/21 08:33 Hydrocodone/Apap 5-325mg 1 Each Tab PO 1 each Q6HR PRN Administration Pain Albuterol Sulfate 2 puff 08/18/21 20:00 08/19/21 19:43 Albuterol Hfa Inhaler INHALATION Not Given RT-QID [facility] Aspirin 81 mg 08/19/21 21:00 08/19/21 20:10 Aspirin 81 Mg PO 81 mg HS [facility] Administration Atorvastatin Calcium 10 mg 08/19/21 21:00 08/19/21 20:09 Atorvastatin 10 Mg Tab PO 10 mg HS [facility] Administration Citalopram Hydrobromide 20 mg 08/19/21 21:00 08/19/21 20:09 Citalopram Hydrobromide 20 Mg Tab PO 20 mg HS [facility] Administration Dexamethasone Sodium Phosphate 6 mg 08/18/21 19:00 08/20/21 08:22 Dexamethasone Sod Phosphate 10 Mg/Ml 1 Ml Vial IVP 6 mg DAILY [facility] Administration Ergocalciferol 1,250 mcg 08/20/21 09:00 08/20/21 08:18 Ergocalciferol 1,250 Mcg (50,000 Iu) Capsule PO 1,250 mcg WE [facility] Administration Furosemide 40 mg 08/20/21 08:30 08/20/21 08:34 Furosemide 10 Mg/Ml 4 Ml Vial IV 40 mg Q8HR [facility] Administration Hydralazine HCl 12.5 mg 08/20/21 09:00 08/20/21 08:20 Hydralazine Hcl 25 Mg Tab PO 12.5 mg DAILY [facility] Administration Hydralazine HCl 25 mg 08/19/21 21:00 08/19/21 20:09 Hydralazine Hcl 25 Mg Tab PO 25 mg HS [facility] Administration Hydroxychloroquine Sulfate 200 mg 08/19/21 21:00 08/20/21 08:18 Hydroxychloroquine Sulfate 200 Mg Tab PO 200 mg BID [facility] Administration Sodium Chloride 1,000 mls @ 100 mls/hr 08/18/21 19:00 08/20/21 06:29 Saline 0.9% IV 100 mls/hr .Q10H [facility] Administration Heparin Sodium/Sodium Chloride 250 mls @ 21.228 mls/hr 08/18/21 19:15 08/20/21 09:10 25,000 unit/ Sodium Chloride IV 16 units/kg/hr .[id number] [facility] 18.869 mls/hr Titration Protocol 18 UNITS/KG/HR Insulin Aspart 0 unit 08/19/21 21:00 08/20/21 06:30 Insulin Aspart (Novolog) 100 Unit/Ml Vial SQ Not Given ACHS [facility] Protocol Levothyroxine Sodium 75 mcg 08/20/21 06:30 08/20/21 06:28 Levothyroxine 75 Mcg Tab PO 75 mcg DAILY@0630 [facility] Administration Linagliptin 5 mg 08/20/21 09:00 08/20/21 08:20 Linagliptin 5 Mg Tablet PO 5 mg DAILY [facility] Administration Lorazepam 1 mg 08/18/21 18:55 Lorazepam 2 Mg/Ml Inj IV Q2HR PRN CIWA 8 or 9 Lorazepam 1 mg 08/18/21 18:55 Lorazepam 2 Mg/Ml Inj IV Q1HR PRN CIWA 10 to 15 Lorazepam 2 mg 08/18/21 18:55 Lorazepam 2 Mg/Ml Inj IV 08/20/21 18:55 Q10M PRN CIWA 16 or higher Metoprolol Tartrate 50 mg 08/20/21 09:00 08/20/21 08:33 Metoprolol Tartrate 50 Mg Tab PO 50 mg BID [facility] Administration Miscellaneous Information 1 each 08/18/21 18:48 Pneumonia Protocol Utilized 1 Each Misc PO ONCE PRN Per Protocol Pantoprazole Sodium 40 mg 08/18/21 19:00 08/20/21 06:28 Pantoprazole 40 Mg Tablet PO 40 mg [id number] [facility] Administration Sodium Bicarbonate 325 mg 08/18/21 22:00 08/20/21 08:19 Sodium Bicarbonate Tab 650 Mg Tab PO 325 mg TID [facility] Administration Verapamil HCl 40 mg 08/20/21 09:00 Verapamil 40 Mg Tab PO BID [facility] Vitamin E 400 unit 08/19/21 17:30 08/19/21 17:01 Vitamin E (Dl,Tocopheryl Acet) 400 Unit (180 Mg) Cap PO Not Given W/SUPPER [facility] Intake and Output 08/19/21 08/20/21 08/20/21 22:59 06:59 14:59 Intake Total 317.697 458.25 147.498 Output Total 300 Balance 17.697 458.25 147.498 Intake: Intake, IV Titration 117.697 358.25 147.498 Amount Diltiazem 125 mg In 20 Sodium Chloride 0.9% 100 ml @ 5 MG/HR 5 mls/hr IV .Q24H [facility] Rx#:[id number] Heparin Sod,Pork in 0.45% 117.697 38.25 147.498 NaCl 25,000 unit In 0.45 % NaCl 1 250ml.bag @ 18 UNITS/KG/HR 21.228 mls/hr IV .[id number] [facility] Rx#: [id number] Sodium Chloride 0.9% 1, 0 300 000 ml @ 100 mls/hr IV . Q10H [facility] Rx#:[id number] Oral 200 100 Output: Urine 300 Other: Voiding Method Bedside Commode Bedside Commode # Voids 1 2 08/20/21 06:12 08/20/21 06:12
[2021-08-20 11:13] LABS: Glucose,Whole Blood 176 mg/dL (75-99)
[2021-08-20] MEDS: VERAPAMIL 40 MG TAB PO SCH ×2 (11:20→19:58)
--- NOTE | 2021-08-20 12:34 | XR ---
EXAMINATION TYPE: XR chest 1V portable DATE OF EXAM: 08/20/2021 COMPARISON: 08/19/2021 INDICATION: Respiratory distress TECHNIQUE: Single frontal view of the chest is obtained. FINDINGS: The heart size is normal. The pulmonary vasculature is normal. Diffuse consolidations are present bilaterally. Scattered air bronchograms are present. IMPRESSION: 1. Worsening bilateral diffuse lung infiltrates. Correlate for atypical pneumonia.
--- NOTE | 2021-08-20 14:51 | P.CNPUL ---
History of Present Illness Consult date: 08/20/21 Requesting physician: Wendi Rolon Reason for consult: dyspnea, COPD, hypoxemia, pneumonia, pleural effusion, pulmonary embolism, abnormal CXR/CT Chief complaint: Shortness of breath, atrial fibrillation. History of present illness: Pulmonary consult dated 08/20/2021. 66-year-old female, seen today. The patient was actually seen briefly yesterday in the emergency department. The patient actually sees Dr. Eubanks as her occupational therapy specialist but apparently he is unavailable. Anyway, the patient came into the emergency room on August 18 complaining of shortness of breath. She also had fever, chills, sweats, and was complaining of a cough, with brown phlegm production. The shortness of breath was getting progressively worse, and for that reason, she came into the emergency room to be evaluated. The patient was exposed to somebody with coronavirus infection, and she did test positive for coronavirus. The patient was also found to have atrial fibrillation with rapid ventricular response, and was placed on IV heparin. In addition, the patient was evaluated for possible pulmonary embolism. CT angiogram was apparently positive. Currently, she is in room 364. Her breathing is a bit better but earlier today, she was having difficulty. On 3 L, her saturations are only 79%. She was placed on 6 L nasal cannula and her saturations went up to 89%. On a nonrebreather, her saturations are 95%. She received Lasix 40 mg IV push, her IV was turned down from 100 mL per hour down to 10 mL per hour, and she was given IV heparin. White count 2.8, hemoglobin 9, hematocrit 27.5, and platelet count 73,000. PTT was 38.3. D-dimer was 4.05. Sodium 132, potassium 4.3, chlorides 100, CO2 20, anion gap 12, BUN 60, with a creatinine of 1.99. Her LDH was 1507. Her troponin was 0.085. C-reactive protein was 15. N-terminal proBNP was 26,800. Chest x-ray today showed diffuse bilateral infiltrates. The perfusion lung scan was read as high probability for pulmonary embolism. Dopp lers of the bilateral lower extremities were negative. Review of Systems REVIEW OF SYSTEMS: CONSTITUTIONAL: Weakness, fatigue, fever and chills. NEUROLOGIC: [ Negative.] HEENT: [ Negative.] CARDIAC: Rapid heartbeat, palpitations. PULMONARY: Shortness of breath, chest congestion, cough, phlegm production. GI: [Negative.] : [Negative.] RHEUMATOLOGIC: [ Negative.] IMMUNOLOGIC: [ Negative.] ENDOCRINE: [Negative. ] DERMATOLOGIC: [Negative.] Past Medical History Past Medical History: Chest Pain / Angina, Heart Failure, Diabetes Mellitus, Hyperlipidemia, Hypertension, Osteoarthritis (OA), Renal Disease, Sleep Apnea/CPAP/BIPAP Additional Past Medical History / Comment(s): NIDDM type II, neuropathy bilateral feet with R foot worse, CKD stage III/IV, sarcoidosis/lungs, DAYRON with cpap use, pulmonary htn, "arrhythmia-pt does not recall type, sinus problems, benign colon polyp, UTIs, anemia, arthritis bilateral knees with L one worse. History of Any Multi-Drug Resistant Organisms: None Reported Past Surgical History: Hysterectomy, Orthopedic Surgery, Tonsillectomy Additional Past Surgical History / Comment(s): R ankle fracture/screw since removed, colonoscopy. Past Anesthesia/Blood Transfusion Reactions: No Reported Reaction Additional Past Anesthesia/Blood Transfusion Reaction / Comment(s): Pt has clausterphobia. Smoking Status: Former smoker - Past Family History Father Family Medical History: Congestive Heart Failure (CHF) Additional Family Medical History / Comment(s): Father from CHF Mother Family Medical History: COPD Medications and Allergies Home Medications Medication Instructions Recorded Confirmed Type Aspirin [Adult Low Dose Aspirin EC] 81 mg PO HS 07/19/20 08/18/21 History Cetirizine HCl [Zyrtec] 10 mg PO HS 07/19/20 08/18/21 History Citalopram Hydrobromide 20 mg PO HS 07/19/20 08/18/21 History Ergocalciferol [Vitamin D2 50,000 unit PO WE 07/19/20 08/18/21 History (DRISDOL)] Glucosamine Sulfate 1,000 mg PO DAILY 07/19/20 08/18/21 History Levothyroxine Sodium [Synthroid] 75 mcg PO DAILY 07/19/20 08/18/21 History Lovastatin [Mevacor] 10 mg PO HS 07/19/20 08/18/21 History Lysine [l-Lysine] 500 mg PO BID 07/19/20 08/18/21 History Ubidecarenone [Co Q-10] 100 mg PO W/SUPPER 07/19/20 08/18/21 History Vitamin E 400 unit PO W/SUPPER 07/19/20 08/18/21 History Metoprolol Succinate (ER) [Toprol 25 mg PO HS #30 tab.er.24h 07/31/20 08/18/21 Rx XL] Albuterol Nebulized [Ventolin 2.5 mg INHALATION RT-TID PRN 08/18/21 08/18/21 History Nebulized] Hydroxychloroquine Sulfate 200 mg PO BID 08/18/21 08/18/21 History [Plaquenil] Pantoprazole Sodium [Protonix] 40 mg PO DAILY 08/18/21 08/18/21 History Sodium Bicarbonate Tab 650 mg PO BID 08/18/21 08/18/21 History Torsemide [Demadex] 20 mg PO DAILY 08/18/21 08/18/21 History hydrALAZINE HCL 12.5 mg PO DAILY 08/18/21 08/18/21 History hydrALAZINE HCL 25 mg PO HS 08/18/21 08/18/21 History predniSONE 5 mg PO DAILY 08/18/21 08/18/21 History sitaGLIPtin PHOSPHATE [Januvia] 50 mg PO DAILY 08/18/21 08/18/21 History Allergies Allergy/AdvReac Type Severity Reaction Status Date / Time sulfamethoxazole Allergy Rash/Hives Verified 08/18/21 18:45 [From Bactrim] trimethoprim [From Bactrim] Allergy Rash/Hives Verified 08/18/21 18:45 meperidine [From Demerol] AdvReac Swelling Verified 08/18/21 18:45 Physical Exam Osteopathic Statement: *. No significant issues noted on an osteopathic structural exam other than those noted in the History and Physical/Consult. Vitals: Vital Signs Temp Pulse Resp BP BP Pulse Ox 08/20/21 11:15 99.0 F 69 16 148/79 99 08/20/21 08:15 99.7 F H 104 H 16 199/85 99 08/20/21 04:00 98.6 F 94 18 161/79 94 L 08/20/21 02:00 109 H 19 08/20/21 00:00 99.2 F 109 H 19 154/75 94 L 08/19/21 22:31 110 H 21 138/86 96 08/19/21 22:10 99.8 F H 111 H 20 185/84 96 08/19/21 20:00 99.5 F 133 H 21 132/87 98 08/19/21 19:00 98 08/19/21 16:00 97 20 190/86 97 Intake and Output 08/19/21 08/20/21 08/20/21 22:59 06:59 14:59 Intake Total 317.697 458.25 188.066 Output Total 300 Balance 17.697 458.25 188.066 Intake: Intake, IV Titration 117.697 358.25 188.066 Amount Diltiazem 125 mg In 20 Sodium Chloride 0.9% 100 ml @ 5 MG/HR 5 mls/hr IV .Q24H [facility] Rx#:[id number] Heparin Sod,Pork in 0.45% 117.697 38.25 188.066 NaCl 25,000 unit In 0.45 % NaCl 1 250ml.bag @ 18 UNITS/KG/HR 21.228 mls/hr IV .[id number] [facility] Rx#: [id number] Sodium Chloride 0.9% 1, 0 300 000 ml @ 100 mls/hr IV . Q10H [facility] Rx#:[id number] Oral 200 100 Output: Urine 300 Other: Voiding Method Bedside Commode Bedside Commode # Voids 1 2 Weight 117.934 kg Mild to moderate conversational dyspnea, nonrebreather mask in place, oriented 3. HEENT examination is grossly unremarkable. Neck supple. Full range of motion. No adenopathy thyromegaly or neck vein dis tention. Cardiovascular examination reveals regular rhythm rate. S1-S2 normal. No S3 or S4. No discernible murmur noted. Heart sounds are distant. Heart rate 104 bpm. Lungs reveal diffuse bilateral rhonchi. Bibasilar crackles are appreciated. No wheezes. Breath sounds equal bilaterally. Abdomen soft bowel sounds are heard. No masses or tenderness. Extremities are intact. No cyanosis or clubbing. Trace edema present. Skin is without rash or lesion. Neurologic examination is brief but nonfocal. Results - Laboratory Findings CBC and BMP: 08/20/21 06:12 08/20/21 06:12 PT/INR, D-dimer PT 10.6 sec (9.0-12.0) 08/18/21 17:00 INR 1.0 (<1.2) 08/18/21 17:00 D-Dimer 4.05 mg/L FEU (<0.60) H 08/20/21 06:12 Abnormal lab findings: Abnormal Labs 08/18/21 08/18/21 08/18/21 17:00 17:00 17:00 WBC 1.9 L RBC 2.84 L Hgb 9.3 L Hct 28.3 L MCV Plt Count 56 L Neutrophils # Lymphocytes # 0.1 L APTT D-Dimer 3.71 H Sodium 131 L Chloride 97 L Carbon Dioxide 20 L BUN 57 H Creatinine 1.94 H Glucose 136 H POC Glucose (mg/dL) Magnesium 1.5 L Ferritin 2452.0 H Delta Bilirubin AST 74 H Alkaline Phosphatase 127 H Lactate Dehydrogenase 1088 H Troponin I C-Reactive Protein 14.7 H Procalcitonin Coronavirus (PCR) 08/18/21 08/18/21 08/18/21 17:00 17:00 18:03 WBC RBC Hgb Hct MCV Plt Count Neutrophils # Lymphocytes # APTT D-Dimer Sodium Chloride Carbon Dioxide BUN Creatinine Glucose POC Glucose (mg/dL) Magnesium Ferritin Delta Bilirubin AST Alkaline Phosphatase Lactate Dehydrogenase Troponin I 0.115 H* C-Reactive Protein Procalcitonin 1.26 H Coronavirus (PCR) Detected A 08/18/21 08/19/21 08/19/21 19:00 02:42 02:42 WBC 1.3 L* RBC 2.71 L Hgb 8.8 L Hct 26.9 L MCV Plt Count 46 L Neutrophils # 1.0 L Lymphocytes # 0.1 L APTT D-Dimer Sodium 132 L Chloride Carbon Dioxide 18 L BUN 57 H Creatinine 2.06 H Glucose 198 H POC Glucose (mg/dL) Magnesium Ferritin Delta Bilirubin AST Alkaline Phosphatase Lactate Dehydrogenase 1093 H Troponin I C-Reactive Protein Procalcitonin Coronavirus (PCR) 08/19/21 08/19/21 08/19/21 02:42 11:19 16:57 WBC RBC Hgb Hct MCV Plt Count Neutrophils # Lymphocytes # APTT >200.0 H* 117.9 H* D-Dimer Sodium Chloride Carbon Dioxide BUN Creatinine Glucose POC Glucose (mg/dL) 164 H Magnesium Ferritin Delta Bilirubin AST Alkaline Phosphatase Lactate Dehydrogenase Troponin I C-Reactive Protein Procalcitonin Coronavirus (PCR) 08/19/21 08/19/2122 19:44 19:52 21:27 WBC RBC Hgb Hct MCV Plt Count Neutrophils # Lymphocytes # APTT 38.3 H D-Dimer Sodium Chloride Carbon Dioxide BUN Creatinine Glucose POC Glucose (mg/dL) 198 H Magnesium Ferritin Delta Bilirubin AST Alkaline Phosphatase Lactate Dehydrogenase Troponin I 0.085 H* C-Reactive Protein Procalcitonin Coronavirus (PCR) 08/20/21 08/20/21 08/20/21 06:08 06:12 06:12 WBC 2.8 L RBC 2.71 L Hgb 9.0 L Hct 27.5 L MCV 101.3 H Plt Count 73 L D Neutrophils # Lymphocytes # 0.1 L APTT D-Dimer Sodium 132 L Chloride Carbon Dioxide 20 L BUN 60 H Creatinine 1.99 H Glucose 117 H POC Glucose (mg/dL) 119 H Magnesium Ferritin Delta Bilirubin AST Alkaline Phosphatase Lactate Dehydrogenase 1507 H Troponin I C-Reactive Protein 15.0 H Procalcitonin Coronavirus (PCR) 08/20/21 08/20/21 08/20/21 06:12 06:12 06:12 WBC RBC Hgb Hct MCV Plt Count Neutrophils # Lymphocytes # APTT 40.9 H D-Dimer 4.05 H Sodium Chloride Carbon Dioxide BUN Creatinine Glucose POC Glucose (mg/dL) Magnesium Ferritin Delta Bilirubin 0.5 H AST 81 H Alkaline Phosphatase 140 H Lactate Dehydrogenase Troponin I C-Reactive Protein Procalcitonin 1.37 H Coronavirus (PCR) 08/20/21 11:11 WBC RBC Hgb Hct MCV Plt Count Neutrophils # Lymphocytes # APTT D-Dimer Sodium Chloride Carbon Dioxide BUN Creatinine Glucose POC Glucose (mg/dL) 176 H Magnesium Ferritin Delta Bilirubin AST Alkaline Phosphatase Lactate Dehydrogenase Troponin I C-Reactive Protein Procalcitonin Coronavirus (PCR) - Diagnostic Findings Chest x-ray: image reviewed U/S of Legs: image reviewed Assessment and Plan Assessment: Shortness of breath, likely multifactorial, in part related to atrial fibrillation with RVR, coronavirus associated pneumonia, and fluid overload/CHF. In addition, the patient thought to have pulmonary embolism, based on a high probability perfusion lung scan. History of pulmonary embolism. Possible COPD from previous tobacco use. History of sarcoidosis. History of CHF. Diabetes mellitus. Hyperlipidemia. Hypertension. Sleep apnea syndrome. Hypothyroidism. Plan: Plan dated 08/20/2021. The patient should be on an albuterol inhaler, and also Symbicort. In addition, the patient should be receiving vitamin C, vitamin D3, and zinc. Also, the patient should get Decadron. Currently, the patient is on IV heparin. The patient's chest x-ray is clearly worse. The patient's oxygenation is worsened. We will continue to follow and make recommendations where appropriate. Prognosis is certainly guarded. Time with Patient: Greater than 30
--- NOTE | 2021-08-20 15:44 | PN ---
PROGRESS NOTE DATE OF SERVICE: 08/20/2021 This 66-year-old woman who was admitted with acute COVID-19 infection, Covid 19 interstitial pneumonia with acute hypoxic respiratory failure, also had acute bilateral pulmonary embolism. The patient is on IV heparin. Multiple consultants are following the patient closely. The most recent chest x-ray which was reviewed personally by me showed some evidence of fluid overload as well. The patient is on Lasix and the patient is slightly better after the Lasix. The D-dimer is 4.05 and troponin is found to be 0.085. Past medical history reviewed. REVIEW OF SYSTEMS: Cardiovascular system : No angina. Respiratory: As mentioned earlier. GI: As mentioned earlier. no dysuria. Nervous system: No numbness. No weakness. MEDICATIONS: Reviewed and include: Tylenol, [place], Ventolin, aspirin, Lipitor, Celexa. Doses are reviewed. PHYSICAL EXAMINATION: Patient is alert, oriented x2. Pulse is 109. Blood pressure 164/70, respiration 18, temperature 98.2, pulse ox 94% on 3 L. HEENT is conjunctivae normal. Neck: No JVD. Cardiovascular: S1, S2 muffled. Respiration: Breath sounds diminished in the bases. Scattered rhonchi. Abdomen: Soft. Nontender. Nervous system: No focal deficits. LABORATORY DATA: WBC 2.8. Hemoglobin 10. Other labs are noted. Sodium 135, troponin noted. ASSESSMENT: 1. Acute Covid 19 infection with acute Covid 19 bilateral interstitial pneumonia as well as acute hypoxic respiratory failure. 2. Acute bilateral pulmonary embolism, on IV heparin. 3. Congestive heart failure acute exacerbation, ejection fraction unknown. 4. Troponin 0.085, indeterminate. Rule out acute alb-SD-ivaqysm-elevation myocardial infarction. 5. Heparin monitoring. 6. Hyponatremia. 7. Increased creatinine with chronic kidney disease stage 3. 8. Hypomagnesemia. 9. Elevated AST. 10.Elevated LDH and CRP and inflammatory markers of Covid 19. 11.Troponin 0.115. Rule out acute xcp-PA-jujpmqf-elevation myocardial infarction or secondary to Covid. 12.Elevated D-dimer. 13.Anemia, leukopenia, thrombocytopenia, mild pancytopenia possibly secondary to Covid 19 or alcohol. 14.Diabetes mellitus, type 2. 15.Hypertension. 16.Hyperlipidemia. 17.History of chronic kidney disease. 18.History of sleep apnea. 19.Obesity with body mass index 39.5. 20.History of ETOH. 21.Remote history of nicotine dependence. 22.FULL CODE. RECOMMENDATIONS AND DISCUSSION: I recommend to continue current medications, management and symptomatic treatment. Otherwise, at this time, I recommend a dose of Lasix. Follow closely with Cardiology. Continue the rest of medications. Repeat labs. Two-D echo with Doppler. Guarded prognosis because of multiple complex medical issues. Further recommendations to follow. MMODL / IJN: [id number] /
[2021-08-20 16:24] LABS: Glucose,Whole Blood 201 mg/dL (75-99)
[2021-08-20] MEDS: VITAMIN E (DL,TOCOPHERYL ACET) 400 UNIT (180 MG) CAP PO SCH (16:58)
[2021-08-20 17:44] LABS: Protein, Total 5.8 g/dL (6.2-8.2)
[2021-08-20] MEDS: CITALOPRAM HYDROBROMIDE 20 MG TAB PO SCH (19:58)
[2021-08-20] MEDS: hydrALAZINE HCL 25 MG TAB PO SCH (19:58)
[2021-08-20] MEDS: ASPIRIN 81 MG PO SCH (19:58)
[2021-08-20 19:59] LABS: Glucose,Whole Blood 198 mg/dL (75-99)
[2021-08-20] MEDS: ATORVASTATIN 10 MG TAB PO SCH (19:59)
[2021-08-20] MEDS ORDERED: SYMBICORT 160-4.5 MCG INHALER INHALATION SCH (20:00)
[2021-08-20 21:05] LABS: % Iron Saturation 8.14 (12.00-45.00); Folate, Serum 14.9 ng/mL (4.40-31.00)
[2021-08-20 21:14] LABS: Cardiolipin Ab IgG Interp NEGATIVE (NEGATIVE); Cardiolipin Ab IgM Interp NEGATIVE (NEGATIVE); Cardiolipin IgA Antibody 2.2 U/mL; Cardiolipin IgM Antibody <1.5 U/mL
--- NOTE | 2021-08-20 22:53 | PN ---
PROGRESS NOTE DATE OF SERVICE: 08/20/2021 REASON FOR FOLLOWUP: COVID-19 pneumonia. INTERVAL HISTORY: Patient is afebrile. The patient is breathing slightly comfortably. However as mentioned did have significant difficulty breathing this morning. No chest pain. No worsening cough or sputum production. No abdominal pain. No diarrhea. PHYSICAL EXAMINATION: Blood pressure 137/87, pulse of 79, temperature 96.8. She is 98% on nonrebreather. General description is a middle-aged female lying in bed in no distress. Respiratory system: Unlabored breathing, decreased intensity in breath sounds in the base, with no wheeze. Heart S1, S2. Regular rate and rhythm. Abdomen soft. No tenderness. Extremities are no edema of the feet. LABS: Hemoglobin is 9 with white count 2.8. D. dimer is 4.05. Creatinine is 1.99. Procalcitonin is 1.37. DIAGNOSTIC IMPRESSION AND PLAN: Patient with acute respiratory failure which is multifactorial in this patient with COVID-19 pneumonia. The patient also has elevated procalcitonin and concern for possible secondary bacterial pneumonia. We will try to obtain a sputum, add Rocephin and monitor clinical course closely. MMODL / IJN: [id number] /
[2021-08-21 00:28] VITALS: RESP 20
[2021-08-21 00:38] VITALS: BP 147/70; PULSE 68; TEMP 98.1
[2021-08-21] MEDS ORDERED: SODIUM BICARB 8.4% 50 ML SYR (1 MEQ/ML) ONE (01:26)
[2021-08-21] MEDS ORDERED: EPINEPHrine 10 ML SYRINGE (0.1 MG/ML) ONE (01:26)
[2021-08-21 01:30] LABS: Glucose,Whole Blood 172 mg/dL (75-99)
--- NOTE | 2021-08-21 02:40 | P.EN ---
Code Blue Note Activated at 0126. Arrived at the scene shortly after. Reviewed the chart and discussed the case with the RN. The patient was admitted to the hospital with COVID-19 pneumonia with acute hypoxic respiratory failure. The RN was notified that the patient developed bradycardia. The RN found the patient unresponsive and pulseless. ACLS protocol was immediately initiated with high quality CPR. The patient was given epinephrine IV push 6, and sodium bicarbonate IV push 1. Shortly after initiation of CPR, the patient began to bleed profusely from her mouth. The [employer] attempted to intubate the patient multiple times unsuccessfully. The patient was noted to be in PEA, asystole, and IVR on the monitor with no shocks delivered. The patient subsequently at 0147. The family was notified. The primary team was notified by the RN. Please refer to the code sheet for further details. Total time spent providing critical care for this patient: 35 minutes
[2021-08-21] MEDS ORDERED: CHOLECALCIFEROL 25 MCG (1000 IU) TABLET PO SCH (09:00)
[2021-08-21] MEDS ORDERED: ASCORBIC ACID 500 MG TAB PO SCH (09:00)
[2021-08-21] MEDS ORDERED: ZINC SULFATE 220 MG CAP PO SCH (09:00)
[2021-08-21 11:57] LABS: APTT 145 Sec(s) (<43); APTT 1:1 Mix 95 Sec(s) (<43); DRVVT 1:1 Mix 42 Sec(s) (<44); Dilute Russell Viper Venom 56 Sec(s) (<44); Hexagonal Phase Neutralization Positive (Negative)
--- NOTE | 2021-08-21 15:30 | DS ---
DISCHARGE SUMMARY DATE OF SERVICE: 08/21/2021. PRIMARY CAUSE OF : Acute COVID-19 infection. OTHER DIAGNOSES: 1. Acute Covid 19 infection with acute Covid 19 bilateral interstitial pneumonia as well as acute hypoxic respiratory failure. 2. Acute bilateral pulmonary embolism. 3. Congestive heart failure, acute exacerbation, ejection fraction unknown. 4. Troponin 0.085 indeterminate, rule out . 5. Possible coronary artery disease or secondary to Covid 19. 6. Heparin monitoring. 7. Hyponatremia. 8. Increased creatinine with chronic kidney disease stage 3. 9. Hypomagnesemia. 10.Elevated AST. 11.Elevated LDH and CRP inflammatory markers of Covid 19. 12.Elevated D-dimer. 13.Anemia, leukopenia, thrombocytopenia, mild pancytopenia possibly secondary to Covid 19 or alcohol. 14.Diabetes mellitus, type 2. 15.Hypertension. 16.Hyperlipidemia. 17.History of chronic kidney disease. 18.History of sleep apnea. 19.Obesity with body mass index of 39.5. 20.History of ETOH. 21.Remote history of nicotine dependence. 22.FULL CODE. HISTORY OF PRESENT ILLNESS: This 66-year-old woman with a past medical history of multiple medical problems being followed by Dr. Henderson in the outpatient, had acute COVID-19 pneumonia and multiple complications as listed above. Patient was treated with IV heparin. Patient also had pulmonary embolism. Patient also on bronchodilators. Symptomatic treatment provided. The patient also seen by Infectious Disease and Pulmonary. However, the patient took a turn for the worse suddenly and the patient became bradycardiac and the patient suffered cardiorespiratory arrest and succumbed to the above mentioned illnesses and the patient . The prognosis was extremely guarded throughout the hospitalization and please refer to the multiple progress notes, consultations and staff notes for further details. MMODL / IJN: [id number] / MTDLuly
[2021-08-22 06:26] LABS: Vit B1(Thiamine) 55 ug/L (38-122)
[2021-08-22 07:28] LABS: Methylmalonic Acid 0.86 umol/L (<0.40)
[2021-08-22 10:07] LABS: Free Kappa Lt Chain Qnt, Serum 7.73 mg/dL (0.33-1.94)
[2021-08-25 14:41] LABS: Albumin 3.03 g/dL (3.80-4.90); Gamma Globulin 0.53 g/dL (0.70-1.50)
== END 2021-08-21 07:00 | disposition expired | DRG 177 ==
LOC: EC 16:33 → 3SCARD 18:48
PROVIDERS: ADMIT Hospitalist; ATTEND Hospitalist
PROC: 5A12012 Performance of Cardiac Output, Single, Manual (ICD-10-PCS; principal; 2021-08-21)
PROC: 3E033XZ Introduction of Vasopressor into Peripheral Vein, Percutaneous Approach (ICD-10-PCS; 2021-08-21)
DX: U07.1 COVID-19 (principal); J96.01 Acute respiratory failure with hypoxia; I26.99 Other pulmonary embolism without acute cor pulmonale; J12.82 Pneumonia due to coronavirus disease 2019; I50.33 Acute on chronic diastolic (congestive) heart failure; I13.0 Hypertensive heart and chronic kidney disease with heart failure and stage 1 through stage 4 chronic kidney disease, or unspecified chronic kidney disease; E87.1 Hypo-osmolality and hyponatremia; J44.0 Chronic obstructive pulmonary disease with (acute) lower respiratory infection; D61.818 Other pancytopenia; I46.9 Cardiac arrest, cause unspecified; N18.30 Chronic kidney disease, stage 3 unspecified; E03.9 Hypothyroidism, unspecified; E11.22 Type 2 diabetes mellitus with diabetic chronic kidney disease; E66.9 Obesity, unspecified; Z68.39 Body mass index [BMI] 39.0-39.9, adult; E78.5 Hyperlipidemia, unspecified; I25.10 Atherosclerotic heart disease of native coronary artery without angina pectoris; I27.20 Pulmonary hypertension, unspecified; E11.42 Type 2 diabetes mellitus with diabetic polyneuropathy; G47.33 Obstructive sleep apnea (adult) (pediatric); E83.42 Hypomagnesemia; D86.0 Sarcoidosis of lung; M17.0 Bilateral primary osteoarthritis of knee; F40.240 Claustrophobia; I48.91 Unspecified atrial fibrillation; R04.1 Hemorrhage from throat; K70.30 Alcoholic cirrhosis of liver without ascites; Z87.891 Personal history of nicotine dependence; Z79.82 Long term (current) use of aspirin; Z79.84 Long term (current) use of oral hypoglycemic drugs; Z79.890 Hormone replacement therapy; Z79.899 Other long term (current) drug therapy; Z86.010 Personal history of colon polyps; Z90.710 Acquired absence of both cervix and uterus; Z87.440 Personal history of urinary (tract) infections; Z98.890 Other specified postprocedural states; Z82.49 Family history of ischemic heart disease and other diseases of the circulatory system; Z82.5 Family history of asthma and other chronic lower respiratory diseases; Z88.2 Allergy status to sulfonamides; Z88.5 Allergy status to narcotic agent
CPT/HCPCS: 36415; 71045; 78580; 80048; 80053; 80076; 82607; 82728; 82746; 82784; 83540; 83550; 83605; 83615; 83735; 83880; 83883; 83921; 84145; 84165; 84425; 84484; 85025; 85379; 85598; 85610; 85613; 85730; 85732; 86038; 86140; 86146; 86147; 86334; 86431; 87040; 87070; 87205; 87635; 93005; 93308; 93970; 94640; 99285